=== PATIENT | female | born 1960 | race Caucasian/White ===

== ENCOUNTER → 2019-12-11 08:10 | Outpatient (BNVA) | payer OTHER, SELFPAY | PROVIDERS: PCP Internal Medicine; Referring Provider Internal Medicine; Visit Provider Physician Assistant | DX: E66.9 Obesity, unspecified (principal); Z98.84 Bariatric surgery status; Z79.899 Other long term (current) drug therapy; Z68.32 Body mass index [BMI] 32.0-32.9, adult | CPT/HCPCS: 99214 ==

== ENCOUNTER → 2020-02-15 08:10 | Outpatient (BNVA) | payer OTHER, SELFPAY | PROVIDERS: PCP Internal Medicine; Visit Provider Dietitian, Registered | DX: Z76.89 Persons encountering health services in other specified circumstances (principal) ==

== ENCOUNTER → 2020-04-13 08:16 | Outpatient (BNVA) | payer OTHER, SELFPAY | PROVIDERS: PCP Internal Medicine; Visit Provider Physician Assistant ==

== ENCOUNTER → 2020-06-01 08:10 | Outpatient (BNVA) | payer OTHER, SELFPAY | PROVIDERS: PCP Internal Medicine; Visit Provider Physician Assistant ==

== ENCOUNTER 2020-06-16 11:57 | Outpatient (REF) | payer OTHER, SELFPAY | END 2020-06-16 11:58 | disposition home or self-care (01) | LOC: HO.HMGCLDS 11:57 | PROVIDERS: PCP Internal Medicine; Visit Provider Internal Medicine | DX: Z20.822 Contact with and (suspected) exposure to COVID-19 (principal) | CPT/HCPCS: C9803; U0003; U0005 ==

== ENCOUNTER 2022-11-04 00:01 | Emergency (ER) | payer OTHER, SELFPAY ==
[2022-11-04 00:14] VITALS: BP 133/72; PULSE 86; RESP 16; TEMP 36.7; O2SAT 95; BMI 38.6
--- OUTSIDE RECORDS SUMMARY | 2022-11-04 01:33 | XMS_ITS | Continuity of Care Document ---
Author Name Unknown Organization [facility] Oskar May Kayode lt Address [address] [place] [phone]- Care Team Providers Care Sales Operations Lead Name Role Phone Rafiq Arteaga Primary Care Physi kateryna [facility]counter [facility] Date(s): 09/07/22 - 10/07/22 [facility] [address] [place] [address]- Allergies, Adverse Reactions, Alerts Substance Reaction Severity Status Cats Active Dust Active Pollen Active Immunizations Given and Recorded Vaccine Date Status Refusal Reason SARS-CoV-2 (COVID-19) mRNA-1273 vaccine 07/27/21 R ecorded SARS-CoV-2 (COVID-19) mRNA BNT-162b2 vac 01/25/21 Recorded influenza virus vaccine, inactivated 01/02/21 Eyad rded influenza virus vaccine, inactivated 11/21/18 Give n influenza virus vaccine, inactivated 01/06/15 Eyad rded Influenza Virus Vaccine (oldterm) 12/09/19 Recorde d Influenza Virus Vaccine (oldterm) 12/05/16 Recorde d Influenza Virus Vaccine (oldterm) 01/30/16 Recorde d Influenza Virus Vaccine (oldterm) 12/13/11 Recorde d Influenza Virus Vaccine (oldterm) 11/24/10 Recorde d zoster vaccine, inactivated 03/13/19 Recorded zoster vaccine, inactivated 12/19/18 Recorded tetanus/diphtheria/pertussis, acel(Tdap) 11/01/10 Recorded pneumococcal 23-valent vaccine 11/01/10 Recorded Medications Advair Diskus 250 mcg-50 mcg inhalation powder 1, inhalation, Inhalation, 2 times a day, rinse mouth and throat after use, # 1 each, Refills 5, Tot. Refills 5, Maintenance, 04/23/22 14:38:00 EST, Powder, Route to Pharmacy Electronically, [id number], [facility], I... Start Date: 04/23/22 Status: Ordered Aerochamber See Instructions, # 1 each, Maintenance, for use with Flovent, 02/09/19 13:37:15 EST, Compound, 163.5, cm, 02/09/19 13:07:26 EST, Height Start Date: 02/09/19 Status: Ordered Ativan 0.5 mg oral tablet See Instructions, PRN as needed for anxiety, Take 1 tablet as needed for anxiety, do not take more than 2 tablets/day, # 30 tablet, 0 Refills, Maintenance, 04/23/22 11:16:00 EST, Tablet, [facility] # 50, Partial fill upon patient request if the pr... Start Date: 04/23/22 Status: Ordered azelastine 137 mcg/inh (0.1%) nasal spray 2 sprays, Nares, Both, Daily, PRN Other Allergies, # 30 mL, 6 Refills, Maintenance, 10/05/21 13:14:00 EDT, [place], [facility] # 50, 2 sprays Nares, Both Daily,PRN:Other Allergies, 163.5, cm, 08/21/21 13:35:00 EDT, Height Start Date: 10/05/21 Status: Ordered buPROPion 300 mg/24 hours (XL) oral tablet, extended release 1 tablet = 300 mg, By Mouth, Daily, # 90 tablet, 2 Refills, Maintenance, 06/25/22 9:06:00 EDT, ER Tablet, [facility] # 50, Partial fill upon patient request if the prescription is for a schedule II opioid drug., 162, cm, 06/25/22 8:34:00 EDT, [place]... Start Date: 06/25/22 Status: Ordered duloxetine 60 mg oral enteric coated capsule 1 capsule, By Mouth, 2 times a day, # 60 capsule, 5 Refills, 04/09/22 16:24:00 EST, [facility] # [facility], 163.5, cm, 03/09/22 13:18:00 EST, Height Start Date: 04/09/22 Status: Ordered Estrace Vaginal Cream 0.1 mg/g See Instructions, 1 gram Vaginally at bedtime 2 times per week, # 42 Gm, 4 Refills, Maintenance, 03/16/21 10:21:00 EST, [facility], Patient sensitive to inactive ingredients ofmanufacturers drugs, 163.5, cm, 12/12/20 16:09:00... Start Date: 03/16/21 Status: Ordered ESTRIOL CREAM ESTRIOL CREAM, Refills 0, Maintenance, APPLY PEA SIZE AMOUNT 3 TIMES A WEEK (M, W, F), 11/21/18 14:27:53 EDT, Compound Start Date: 11/21/18 Status: Ordered gabapentin 600 mg oral tablet 1 tablet, By Mouth, 3 times a day, office visit needed for further refills, # 270 tablet, 1 Refills, Maintenance, 08/14/22 12:36:00 EDT, [facility] # [facility], 162, cm, 08/08/22 11:26:00 EDT, Height, 102, kg, 05/21/22 10:37:00 EDT, Dry Weight Start Date: 08/14/22 Status: Ordered lidocaine-prilocaine 2.5%-2.5% topical cream 1 application, Topically, Once, # 30 Gm, 1 Refills, Soft Stop, 10/04/22 16:32:00 EDT, Cream, [facility] # 50, Partial fill upon patient request if the prescription is for a schedule II opioid drug., 1 application Topically Once, 162, cm, 09/24/22... Start Date: 10/04/22 Status: Ordered lysine 1000 mg oral tablet 1 tablet = 1,000 mg, By Mouth, Daily, 0 Refills, Maintenance, 05/22/19 11:18:00 EDT Start Date: 05/22/19 Status: Ordered Melatonin By Mouth, Daily at bedtime, 0 Refills, Maintenance Start Date: 01/15/12 Status: Ordered montelukast 10 mg oral tablet 10 mg, 1, tablet, By Mouth, Daily, j45.40, # 30 tablet, Refills 6, Tot. Refills 6, Maintenance, 06/04/22 10:20:00 EDT, Route to Pharmacy Electronically, [facility] # [facility], 162, cm, 05/21/22 10:37:00 EDT, Height, 102, kg, 05/21/22 10:37:00 EDT, Dry W... Start Date: 06/04/22 Status: Ordered Myrbetriq 50 mg oral tablet, extended release 1 tablet = 50 mg, By Mouth, Daily, # 30 tablet, 0 Refills, Maintenance, 10/03/22 16:34:00 EDT, [facility] # 50, 162, cm, 09/24/22 12:53:00 EDT, Height, 102, kg, 05/21/22 10:37:00 EDT, Dry Weight Start Date: 10/03/22 Status: Ordered ohm Allergy Relief 10 mg oral tablet See Instructions, TAKE 1 TABLET BY MOUTH EVERY DAY, # 90 tablet, 1 Refills, Maintenance, 06/25/22 9:15:00 EDT, [facility] # [facility], 162, cm, 06/25/22 8:34:00 EDT, Height, 102, kg, 05/21/22 10:37:00 EDT, Dry Weight Start Date: 06/25/22 Status: Ordered traZODone 50 mg oral tablet 50 mg, 1, tablet, By Mouth, Daily at bedtime, for 30 days, # 30 tablet, Refills 5, Tot. Refills 5, Physician Stop 12/22/22 9:07:00 EDT, 06/25/22 9:07:00 EDT, Route to Pharmacy Electronically, [facility] # 50, 162, cm, 06/25/22 8:34:00 EDT, Height,... Start Date: 06/25/22 Stop Date: 12/22/22 Status: Ordered Tylenol Extra Strength 500 mg oral tablet 2 tablet = 1,000 mg, By Mouth, Every 6 hours, 0 Refills, Maintenance, 05/22/19 11:12:00 EDT Start Date: 05/22/19 Status: Ordered valACYclovir 500 mg oral tablet 500 mg, 1, tablet, By Mouth, Daily, drink plenty of fluids, # 90 tablet, Refills 0, Tot. Refills 0,Maintenance, 06/25/22 9:11:00 EDT, Route to Pharmacy Electronically, [facility] # 50, Partial fill upon patient request if the prescription is for... Start Date: 06/25/22 Status: Ordered Vitamin C 500 mg oral tablet 1 tablet = 500 mg, By Mouth, Daily, # 30 tablet, 0 Refills, Maintenance, 10/23/18 8:24:54 EDT, Tablet Start Date: 10/23/18 Status: Ordered Vitamin D3 1000 intl units oral capsule 1 capsule = 25 mcg, By Mouth, Daily, # 30 capsule, 3 Refills, Maintenance, 06/25/22 9:06:00 EDT, [facility], Partial fill upon patient request if the prescription is for a schedule II opioiddrug., 162, cm, 06/25/22 8:34:00 EDT, Height, 102,... 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 Active Asthma Confirmed Active Dyslipidemia Confirmed Active Excessive vitamin B12 intake Confirmed Active Excessive vitamin B6 intake Confirmed Active Rectocele, female Confirmed Active Chronic hip pain Confirmed Active Mixded urinary Incontinence Confirmed Active Insomnia Confirmed Active Intervertebral disc prolapse with impingement Confirmed Active Lumbosacral radiculopathy at L5 epidural Oct 2021 Confirmed Active Major depression in full remission Confirmed Active MONICA (obstructive sleep apnea) AHI 9.2 Confirmed 08/07/20 Active Osteoarthritis of right hip Confirmed Active Osteopenia bmd 2020 Confirmed Active Peripheral neuropathy Confirmed Active Lumbar herniated disc Confirmed Active Recurrent UTI Confirmed Active Seasonal allergies Confirmed Active Severe obesity (BMI 35.0-39.9) with comorbidity Confirmed Active Vertigo Confirmed Active Social History Social History Type Response Smoking Status Never (less than 100 in lifetime) entered on: 11/21/18 Sex Patient Care team information Care Team Personnel Name: Eleazar Rendon NP Position: [facility] PCO w/OE and EZ Script Member Role: Primary Care Nurse Address: Address: [address] [place] [address] [place] [address]- Name: Rafiq Arteaga Position: [facility] PCO Associate Professional Member Role: PCP Address: Address: [address] [facility] [place] [address]- Care Team Related Persons Name: LEWIS BALLESTEROS Address: home [address] [place] [id number] Name: RUSTY HOOVER
--- OUTSIDE RECORDS SUMMARY | 2022-11-04 01:33 | XMS_ITS | Continuity of Care Document ---
Author Name Unknown Organization [facility] Oskar May Kayode lt Address [address] [place] [id number]- Care Team Providers Care Camouflage Assembler Name Role Phone Rafiq Arteaga Primary Care Physi kateryna [facility]counter [facility] Date(s): 09/19/22 - 10/19/22 [facility] [address] [place] [address]- Allergies, Adverse Reactions, Alerts Substance Reaction Severity [...] 14:38:00 EST, Powder, Route to Pharmacy Electronically, [id number], [facility] # [facility], I... Start Date: 04/23/22 [...] 0 Refills, Maintenance, 04/23/22 11:16:00 EST, Tablet, [facility] # 50, Partial fill upon patient request if the pr... Start Date: 04/23/22 Status: Ordered azelastine 137 mcg/inh (0.1%) nasal spray 2 sprays, Nares, Both, Daily, PRN Other Allergies, # 30 mL, 6 Refills, Maintenance, 10/05/21 13:14:00 EDT, [place], [facility] # 50, 2 sprays Nares, Both Daily,PRN:Other Allergies, 163.5, cm, 08/21/21 13:35:00 EDT, Height Start Date: 10/05/21 Status: Ordered buPROPion 300 mg/24 hours (XL) oral tablet, extended release 1 tablet = 300 mg, By Mouth, Daily, # 90 tablet, 2 Refills, Maintenance, 06/25/22 9:06:00 EDT, ER Tablet, [facility] # 50, Partial fill upon patient request if the prescription is for a schedule II opioid drug., 162, cm, 06/25/22 8:34:00 EDT, [place]... Start Date: 06/25/22 Status: Ordered duloxetine 60 mg oral enteric coated capsule 1 capsule, By Mouth, 2 times a day, # 60 capsule, 5 Refills, 04/09/22 16:24:00 EST, [facility] # [facility], 163.5, cm, 03/09/22 13:18:00 EST, Height Start Date: 04/09/22 Status: Ordered Estrace Vaginal Cream 0.1 mg/g See Instructions, 1 gram Vaginally at bedtime 2 times per week, # 42 Gm, 4 Refills, Maintenance, 03/16/21 10:21:00 EST, [facility], Patient sensitive to inactive ingredients ofmanufacturers drugs, 163.5, cm, 12/12/20 16:09:00... Start Date: 03/16/21 Status: Ordered Estrace Vaginal Cream 0.1 mg/g See Instructions, 1 gram Vaginally at bedtime twice per week, # 42 Gm, 4 Refills, Maintenance, 10/08/22 11:23:00 EDT, [facility] # [facility], Partial fill upon patient request if the prescription is fora schedule II opioid drug., 162, cm, 09/24/22 12:5... Start Date: 10/08/22 Status: Ordered ESTRIOL CREAM ESTRIOL CREAM, Refills 0, Maintenance, APPLY PEA SIZE AMOUNT 3 TIMES A WEEK (M, W, F), 11/21/18 14:27:53 EDT, Compound Start Date: 11/21/18 Status: Ordered gabapentin 600 mg oral tablet 1 tablet, By Mouth, 3 times a day, office visit needed for further refills, # 270 tablet, 1 Refills, Maintenance, 08/14/22 12:36:00 EDT, [facility] # [facility], 162, cm, 08/08/22 11:26:00 EDT, Height, 102, kg, 05/21/22 10:37:00 EDT, Dry Weight Start Date: 08/14/22 Status: Ordered lidocaine-prilocaine 2.5%-2.5% topical cream 1 application, Topically, Once, # 30 Gm, 1 Refills, Soft Stop, 10/04/22 16:32:00 EDT, Cream, [facility] # 50, Partial fill upon patient [...] 06/04/22 10:20:00 EDT, Route to Pharmacy Electronically, [facility], 162, cm, 05/21/22 10:37:00 EDT, Height, 102, kg, 05/21/22 10:37:00 EDT, Dry W... Start Date: 06/04/22 Status: Ordered Myrbetriq 50 mg oral tablet, extended release 1 tablet = 50 mg, By Mouth, Daily, # 90 tablet, 3 Refills, Maintenance, 10/08/22 11:21:00 EDT, [facility] # [facility], 162, cm, 09/24/22 12:53:00 EDT, Height, 102, kg, 05/21/22 10:37:00 EDT, Dry Weight Start Date: 10/08/22 Status: Ordered ohm Allergy Relief 10 mg oral tablet See Instructions, TAKE 1 TABLET BY MOUTH EVERY DAY, # 90 tablet, 1 Refills, Maintenance, 06/25/22 9:15:00 EDT, [facility] # [facility], 162, cm, 06/25/22 8:34:00 EDT, Height, 102, kg, 05/21/22 10:37:00 EDT, Dry Weight Start Date: 06/25/22 Status: Ordered traZODone 50 mg oral tablet 50 mg, 1, tablet, By Mouth, Daily at bedtime, for 30 days, # 30 tablet, Refills 5, Tot. Refills 5, Physician Stop 12/22/22 9:07:00 EDT, 06/25/22 9:07:00 EDT, Route to Pharmacy Electronically, [facility] # [facility], 162, cm, 06/25/22 8:34:00 [...] 06/25/22 9:11:00 EDT, Route to Pharmacy Electronically, [facility], Partial fill upon [...] capsule, 3 Refills, Maintenance, 06/25/22 9:06:00 EDT, [facility], Partial fill upon [...] Team Personnel Name: Eleazar Rendon NP Position: [facility] PCO w/OE and EZ Script Member Role: Primary Care Nurse Address: Address: [address] [place] [address] [place] [address]- Name: Rafiq Arteaga Position: S PCO Associate Professional Member Role: PCP Address: Address: [address] [facility] [place] [address]- Care Team Related Persons Name: LEWIS BALLESTEROS Address: home [address] [place] [id number] Name: RUSTY HOOVER
--- OUTSIDE RECORDS SUMMARY | 2022-11-04 01:33 | XMS_ITS | Continuity of Care Document ---
Author Name Unknown Organization [facility] Address [address] [facility], [address] Floor, [address] [place] [address]- Care Team Providers Care Cash Management Associate Name Role Phone Deshawn BERNAL, Laurita Primary Care Physician Encounter [facility] Date(s): 03/29/20 - 04/28/20 [facility] [address], [address], [address] [place] [id number] Attending Physician: Admtr, [id number] Admitting Physician: Admtr, Ar8 Referring Physician: Admtr, Ar8 Allergies, Adverse Reactions, Alerts Substance Reaction Severity Status Cats Active Dust Active Pollen Active Immunizations Given and Recorded Vaccine Date Status Refusal Reason zoster vaccine, inactivated 03/13/19 Recorded zoster vaccine, inactivated 12/19/18 Recorded influenza virus vaccine, inactivated 11/21/18 Give n Influenza Virus Vaccine (oldterm) 12/05/16 Recorde d Influenza Virus Vaccine (oldterm) 01/30/16 Recorde d Influenza Virus Vaccine (oldterm) 12/13/11 Recorde d Influenza Virus Vaccine (oldterm) 11/24/10 Recorde d tetanus/diphtheria/pertussis, acel(Tdap) 11/01/10 Recorded pneumococcal 23-valent vaccine 11/01/10 Recorded Medications Aerochamber See Instructions, # 1 each, Maintenance, for use with Flovent, 02/09/19 13:37:15 EST, Compound, 163.5, cm, 02/09/19 13:07:26 EST, Height Start Date: 02/09/19 Status: Ordered albuterol CFC free 90 mcg/inh inhalation aerosol 2, puffs, Inhalation, 4 times a day, PRN, use with spacer chamber as directed 15 minutes before exercise, # 1 each, Refills 3, Tot. Refills 3, Maintenance, 02/09/19 13:37:40 EST, Route to Pharmacy Electronically, [id number]... Start Date: 02/09/19 Status: Ordered buPROPion 150 mg/24 hours (XL) oral tablet, extended release 1 tablet = 150 mg, By Mouth, Every 24 hours, # 30 tablet, 5 Refills, Maintenance, 04/20/20 8:24:00 EST, ER Tablet, [facility] # [facility], Partial fill upon patient request if the prescription is for a schedule II opioid drug., 1 tablet By Mouth Every 24... Start Date: 04/20/20 Status: Ordered Cranberry oral tablet 0 Refills, Maintenance, 10/23/18 9:18:41 EDT Start Date: 10/23/18 Status: Ordered diclofenac sodium 25 mg oral delayed release tablet 1 tablet, By Mouth, 2 times a day, # 60 Unknown, 1 Refills, Maintenance, 12/17/19 15:03:00 EDT, [facility], 163.5, cm, 11/03/19 11:52:00 EDT, Height, 91, kg, 07/23/19 11:11:00 EDT, Dry Weight Start Date: 12/17/19 Status: Ordered Estrace Vaginal Cream 0.1 mg/g See Instructions, 1 gram Vaginally at bedtime 2 times per week, # 42 Gm, 4 Refills, Maintenance, 03/23/20 16:57:00 EST, [facility], Patient sensitive to inactive ingredients ofmanufacturers drugs, 163.5, cm, 03/23/20 16:35:00... Start Date: 03/23/20 Status: Ordered ESTRIOL CREAM ESTRIOL CREAM, Refills 0, Maintenance, APPLY PEA SIZE AMOUNT 3 TIMES A WEEK (M, W, F), 11/21/18 14:27:53 EDT, Compound Start Date: 11/21/18 Status: Ordered Flovent HFA 44 mcg/inh inhalation aerosol 2 puffs = 88 mcg, Inhalation, 2 times a day, # 3 each, 3 Refills, Maintenance, 09/30/19 10:56:00 EDT, Inhaler, [facility] # [facility], 163.5, cm, 09/30/19 9:33:00 EDT, Height, 91, kg, 07/23/19 11:11:00 EDT, Dry Weight Start Date: 09/30/19 Status: Ordered FLUoxetine 40 mg oral capsule 1 capsule = 40 mg, By Mouth, Every 48 hours, # 30 capsule, 3 Refills, Maintenance, 04/19/20 8:46:00EST, Capsule, [facility] # [facility], Partial fill upon patient request if the prescription is for a schedule II opioid drug., 163.5, cm, 04/08/20 8:37:00... Start Date: 04/19/20 Status: Ordered gabapentin 600 mg oral tablet 1 tablet, By Mouth, 3 times a day, # 270 tablet, 1 Refills, Maintenance, 11/19/19 8:38:00 EDT, [facility] # [facility], 163.5, cm, 11/03/19 11:52:00 EDT, Height, 91, kg, 07/23/19 11:11:00 EDT, Dry Weight Start Date: 11/19/19 Status: Ordered lactulose 10 gm/15 ml oral syrup 15 mL = 10 Gm, By Mouth, Daily, This is correct dose., # 450 mL, 5 Refills, Maintenance, 06/25/19 9:18:00 EDT, Syrup, [facility] # [facility], 15 mL By Mouth Daily,Instr:This is correct dose., 163.5, cm,06/03/19 11:17:00 EDT, Height Start Date: 06/25/19 Status: Ordered lidocaine-prilocaine 2.5%-2.5% topical cream 1 application, Topically, Once, # 30 Gm, 1 Refills, Soft Stop, 03/08/20 8:14:00 EST, Cream, [facility], Partial fill upon patient request, 1 application Topically Once, 163.5, cm, 01/11/20 14:45:00 EST, Height, 91, kg, 07/23/19 11:11:00 EDT,... Start Date: 03/08/20 Status: Ordered loratadine 10 mg oral tablet 10 mg, 1, tablet, By Mouth, Daily, # 90 tablet, Refills 3, Tot. Refills 3, Maintenance, 10/27/19 18:22:00 EDT, Route to Pharmacy Electronically, [facility], Rx resent from 09/30/19., 163.5, cm, 10/08/19 11:19:00 EDT, Height, 91, kg, 07/23/19 11... Start Date: 10/27/19 Status: Ordered lysine 1000 mg oral tablet 1 tablet = 1,000 mg, By Mouth, Daily, 0 Refills, Maintenance, 05/22/19 11:18:00 EDT Start Date: 05/22/19 Status: Ordered Melatonin By Mouth, Daily at bedtime, 0 Refills, Maintenance Start Date: 01/15/12 Status: Ordered montelukast 10 mg oral tablet 10 mg, 1, tablet, By Mouth, Daily, j45.40, # 30 tablet, Refills 5, Tot. Refills 5, Maintenance, 01/13/20 12:44:00 EST, Route to Pharmacy Electronically, [facility], Refills per PCP, 163.5, cm, 01/11/20 14:45:00 EST, Height, 91, kg, 07/23/19 1... Start Date: 01/13/20 Status: Ordered Myrbetriq 50 mg oral tablet, extended release 1 tablet = 50 mg, By Mouth, Daily, # 30 tablet, 11 Refills, Maintenance, 07/23/19 11:40:00 EDT, [facility] # [facility], 163.5, cm, 07/23/19 11:11:00 EDT, Height, 91, kg, 07/23/19 11:11:00 EDT, Dry Weight Start Date: 07/23/19 Status: Ordered traMADol 50 mg oral tablet 1 tablet = 50 mg, By Mouth, Every 12 hours, # 42 tablet, 0 Refills, Maintenance, 11/03/19 16:09:00 EDT, [facility] # [facility], 163.5, cm, 11/03/19 11:52:00 EDT, Height, 91, kg, 07/23/19 11:11:00 EDT, Dry Weight Start Date: 11/03/19 Status: Ordered traZODone 50 mg oral tablet 50 mg, 1, tablet, By Mouth, Daily at bedtime, # 30 tablet, Refills 5, Tot. Refills 5, Maintenance, 12/04/19 12:51:00 EDT, Route to Pharmacy Electronically, [facility], 163.5, cm, 11/03/19 11:52:00 EDT, Height, 91, kg, 07/23/19 11:11:00 EDT, D... Start Date: 12/04/19 Stop Date: 06/01/20 Status: Ordered Tylenol Extra Strength 500 mg oral tablet 2 tablet = 1,000 mg, By Mouth, Every 6 hours, 0 Refills, Maintenance, 05/22/19 11:12:00 EDT Start Date: 05/22/19 Status: Ordered Vitamin C 500 mg oral tablet 1 tablet = 500 mg, By Mouth, Daily, # 30 tablet, 0 Refills, Maintenance, 10/23/18 8:24:54 EDT, Tablet Start Date: 10/23/18 Status: Ordered Vitamin D2 2000 intl units oral capsule 1 capsule = 2,000 International_Units, By Mouth, Daily, with food, # 60 capsule, 0 Refills, Maintenance, 05/22/19 11:13:00 EDT, Capsule Start Date: 05/22/19 Status: Ordered Problem List Condition Effective Dates Status Health Status Inform ant Abdominal bloating(Confirmed) Active AP (abdominal pain)(Confirmed) Active Accidental fall(Confirmed) Active Allergic rhinitis(Confirmed) Active Temporomandibular joint (TMJ ) disorder (Left)(Confirmed) 1 Active Temporomandibular joint (TMJ ) disorder (Righrt)(Confirmed) 2 Active Asthma(Confirmed) Active Overactive bladder(Confirmed) Active Cervicogenic headache(Confirmed) Active Chronic back pain(Confirmed) Active Chronic neck pain(Confirmed) Active Chronic pain syndrome back,hips(Confirmed) Active 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) Active Constipation(Confirmed) Active Difficulty balancing(Confirmed) Active Dyslipidemia(Confirmed) Active Shortness of breath(Confirmed) Active Bruises easily(Confirmed) Active Excessive vitamin B12 intake(Confirmed) Active Excessive vitamin B6 intake(Confirmed) Active Excessive vitamin intake(Confirmed) 3 Active Stress at home(Confirmed) Active Female stress incontinence(Confirmed) Active History of back pain(Confirmed) Active Bilateral hand pain(Confirmed) Active Headache(Confirmed) Active Rectocele, female(Confirmed) Active Right hip pain(Confirmed) Active Chronic hip pain(Confirmed) Active Mixded urinary Incontinence(Confirmed) Active Insomnia(Confirmed) Active Intervertebral disc prolapse with impingement(Confirmed) Active Leukocytes in urine(Confirmed) Active Lumbosacral radiculopathy at L5(Confirmed) Active Depression, major(Confirmed) Active Urinary incontinence, mixed(Confirmed) Active Morbid obesity(Confirmed) Active Yeast infection(Confirmed) Active MONICA (obstructive sleep apnea)(Confirmed) Active Pain of great toe(Confirmed) Active Peripheral neuropathy(Confirmed) Active Lumbar herniated disc(Confirmed) Active Proteinuria(Confirmed) Active Recurrent UTI(Confirmed) Active Sciatica(Confirmed) Active Seasonal allergies(Confirmed) Active Right shoulder pain(Confirmed) Active Snoring(Confirmed) Active Back spasm(Confirmed) Active Tinnitus(Confirmed) Active URI (upper respiratory infection)(Confirmed) Active Sensory urge incontinence(Confirmed) Active Vertigo(Confirmed) Active Vitamin D deficiency(Confirmed) Active 1left side 2right side 3vitamin C in pt susceptible to nephrolithiasis Social History Social History Type Response Smoking Status Never (less than 100 in lifetime) entered on: 11/21/18 Sex
--- OUTSIDE RECORDS SUMMARY | 2022-11-04 01:33 | XMS_ITS | Continuity of Care Document ---
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 Role Phone Susan AVENDANO, Orlando Quintanilla Primary Care Physician Encounter [facility] Date(s): 07/18/20 - 08/17/20 [facility] Adult [address] [place] [address]- Allergies, Adverse Reactions, Alerts Substance Reaction Severity Status Cats Active Dust Active Pollen Active Immunizations Given and Recorded Vaccine Date Status Refusal Reason Influenza Virus Vaccine (oldterm) 12/09/19 Recorde d Influenza Virus Vaccine (oldterm) 12/05/16 Recorde d Influenza Virus Vaccine (oldterm) 01/30/16 Recorde d Influenza Virus Vaccine (oldterm) 12/13/11 Recorde d Influenza Virus Vaccine (oldterm) 11/24/10 Recorde d zoster vaccine, inactivated 03/13/19 Recorded zoster vaccine, inactivated 12/19/18 Recorded influenza virus vaccine, inactivated 11/21/18 Give n tetanus/diphtheria/pertussis, acel(Tdap) 11/01/10 Recorded pneumococcal 23-valent vaccine [...] 02/09/19 13:37:40 EST, Route to Pharmacy Electronically, [id number]... Start Date: 02/09/19 Status: Ordered buPROPion 300 mg/24 hours (XL) oral tablet, extended release 1 tablet = 300 mg, By Mouth, Daily, # 30 tablet, 11 Refills, Maintenance, 05/11/20 13:04:00 EDT, ERTablet, [facility] # [facility], Partial fill upon patient request if the prescription is for a schedule II opioid drug., 163.5, cm, 05/11/20 12:40:00 EDT,... Start Date: 05/11/20 Status: Ordered Cranberry oral tablet 0 Refills, Maintenance, 10/23/18 9:18:41 EDT Start Date: 10/23/18 Status: Ordered diclofenac sodium 75 mg oral delayed release tablet 1 tablet = 75 mg, By Mouth, 2 times a day, # 60 tablet, 0 Refills, Maintenance, 06/10/20 11:18:00 EDT, EC Tablet, Partial fill upon patient request if the prescription is for a schedule II opioid drug. Start Date: 06/10/20 Status: Ordered duloxetine 60 mg oral enteric coated capsule 1 capsule = 60 mg, By Mouth, 2 times a day, # 60 capsule, 5 Refills, Maintenance, 08/11/20 11:15:00EDT, EC Capsule, [facility] # [facility], Partial fill upon patient request if the prescription is for a schedule II opioid drug., 163.5, cm, 08/11/20 10:3... Start Date: 08/11/20 Status: Ordered Estrace Vaginal Cream 0.1 mg/g See Instructions, 1 gram Vaginally at bedtime 2 times per week, # 42 Gm, 4 Refills, Maintenance, 03/23/20 16:57:00 EST, [facility], Patient sensitive to inactive ingredients ofmanufacturers drugs, [...] 3 Refills, Maintenance, 09/30/19 10:56:00 EDT, Inhaler, [facility] # [facility], 163.5, cm, 09/30/19 9:33:00 EDT, Height, 91, kg, 07/23/19 11:11:00 EDT, Dry Weight Start Date: 09/30/19 Status: Ordered gabapentin 600 mg oral tablet 1 tablet, By Mouth, 3 times a day, # 270 Unknown, 1 Refills, Maintenance, 05/24/20 16:58:00 EDT, [facility] # [facility], 163.5, cm, 05/14/20 23:20:00 EDT, Height, 91, kg, 07/23/19 11:11:00 EDT, Dry Weight Start Date: 05/24/20 Status: Ordered lidocaine-prilocaine 2.5%-2.5% topical cream 1 application, Topically, Once, # 30 Gm, 1 Refills, Soft Stop, 03/08/20 8:14:00 EST, Cream, [facility] # 50, Partial fill upon patient request, 1 application Topically Once, 163.5, cm, 01/11/20 14:45:00 EST, Height, 91, kg, 07/23/19 11:11:00 EDT,... Start Date: 03/08/20 Status: Ordered loratadine 10 mg oral tablet 10 mg, 1, tablet, By Mouth, Daily, # 90 tablet, Refills 3, Tot. Refills 3, Maintenance, 10/27/19 18:22:00 EDT, Route to Pharmacy Electronically, [facility] # [facility], Rx resent from 09/30/19., 163.5, cm, 10/08/19 11:19:00 EDT, Height, 91, kg, 07/23/19 11... Start Date: 10/27/19 Status: Ordered lubiprostone 24 mcg oral capsule 1 capsule, By Mouth, 2 times a day, # 60 Unknown, 0 Refills, Maintenance, 07/19/20 15:52:00 EDT, [facility] # [facility], 163.5, cm, 06/16/20 7:48:00 EDT, Height, 91, kg, 07/23/19 11:11:00 EDT, Dry Weight Start Date: 07/19/20 Status: Ordered lysine 1000 mg oral tablet 1 tablet = 1,000 mg, By Mouth, Daily, 0 Refills, Maintenance, 05/22/19 11:18:00 EDT Start Date: 05/22/19 Status: Ordered Melatonin By Mouth, Daily at bedtime, 0 Refills, Maintenance Start Date: 01/15/12 Status: Ordered montelukast 10 mg oral tablet 10 mg, 1, tablet, By Mouth, Daily, j45.40, # 30 tablet, Refills 3, Tot. Refills 3, Maintenance, 07/12/20 11:39:00 EDT, Route to Pharmacy Electronically, [facility] # [facility], Refills per PCP, 163.5, cm, 06/16/20 7:48:00 EDT, Height, 91, kg, 07/23/19 11... Start Date: 07/12/20 Status: Ordered Myrbetriq 50 mg oral tablet, extended release 1 tablet = 50 mg, By Mouth, Daily, # 30 tablet, 11 Refills, Maintenance, 08/11/20 16:47:00 EDT, [facility] # [facility], 163.5, cm, 08/11/20 10:34:00 EDT, Height, 91, kg, 07/23/19 11:11:00 EDT, Dry Weight Start Date: 08/11/20 Status: Ordered traZODone 50 mg oral tablet 2, tablet, By Mouth, Daily at bedtime, # 60 tablet, Refills 5, Tot. Refills 0, Maintenance, 07/28/20 15:52:00 EDT, Route to Pharmacy Electronically, [facility] # [facility], 163.5, cm, 06/16/20 7:48:00 EDT, Height, 91, kg, 07/23/19 11:11:00 EDT, Dry Weight Start Date: 07/28/20 Status: Ordered Tylenol Extra Strength 500 mg [...] Effective Dates Status Health Status Inform ant Allergic rhinitis(Confirmed) Active Temporomandibular joint (TMJ ) disorder (Left)(Confirmed) 1 Active Temporomandibular joint (TMJ ) disorder (Righrt)(Confirmed) 2 Active Asthma(Confirmed) Active Overactive bladder(Confirmed) Active Cervicogenic headache(Confirmed) Active Constipation, chronic(Confirmed) Active 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) Active Difficulty balancing(Confirmed) Active Excessive vitamin B12 intake(Confirmed) Active Excessive vitamin B6 intake(Confirmed) Active Excessive vitamin intake(Confirmed) 3 Active Stress at home(Confirmed) Active Female stress incontinence(Confirmed) Active Rectocele, female(Confirmed) Active Right hip pain(Confirmed) Active Chronic hip pain(Confirmed) Active Mixded urinary Incontinence(Confirmed) Active Insomnia(Confirmed) Active Intervertebral disc prolapse with impingement(Confirmed) Active Abnormal liver function test(Confirmed) 08/08/20 Active Lumbosacral radiculopathy at L5(Confirmed) Active Depression, major(Confirmed) Active Urinary incontinence, mixed(Confirmed) Active Yeast infection(Confirmed) Active MONICA (obstructive sleep apnea ) AHI 9.2(Confirmed) 08/07/20 Active Osteoarthritis of right hip(Confirmed) Active Pain of great toe(Confirmed) Active Peripheral neuropathy(Confirmed) Active Lumbar herniated disc(Confirmed) Active Recurrent UTI(Confirmed) Active Seasonal allergies(Confirmed) Active Right shoulder pain(Confirmed) Active Tinnitus(Confirmed) Active Sensory urge incontinence(Confirmed) Active Vertigo(Confirmed) Active Vitamin D deficiency(Confirmed) Active 1left side 2right side 3vitamin C in pt susceptible to nephrolithiasis Social History Social History Type Response Smoking Status Never (less than 100 in lifetime) entered on: 11/21/18 Sex
--- OUTSIDE RECORDS SUMMARY | 2022-11-04 01:33 | XMS_ITS | Continuity of Care Document ---
Author Name Unknown Organization [facility] Oskar May Kayode lt Address [address] [place] [id number]- Care Team Providers Care Weighter Name Role Phone Rafiq Arteaga Primary Care Physi kateryna Encounter [facility] [place] Date(s): 08/08/22 - 08/15/22 [facility] Adult [address] [place] [address]- Encounter Diagnosis Asthma(Discharge Diagnosis) - 08/08/22 Chronic hip pain(Discharge Diagnosis) - 08/08/22 Excessive vitamin B12 intake(Discharge Diagnosis) - 08/08/22 Insomnia(Discharge Diagnosis) - 08/08/22 Major depression in full remission(Discharge Diagnosis) - 08/08/22 MONICA (obstructive sleep apnea) AHI 9.2(Discharge Diagnosis) - 08/08/22 Fatigue(Discharge Diagnosis) - 08/08/22 Attending Physician: Rafiq Arteaga Referring Physician: Juan J Gee MD Allergies, Adverse Reactions, Alerts Substance Reaction Severity [...] 14:38:00 EST, Powder, Route to Pharmacy Electronically, [id number], [facility] [...] mL, 6 Refills, Maintenance, 10/05/21 13:14:00 EDT, [place], [facility], 2 sprays Nares, Both Daily,PRN:Other Allergies, 163.5, cm, 08/21/21 13:35:00 EDT, Height Start Date: 10/05/21 Status: Ordered buPROPion 300 mg/24 hours (XL) oral tablet, extended release 1 tablet = 300 mg, By Mouth, Daily, # 90 tablet, 2 Refills, Maintenance, 06/25/22 9:06:00 EDT, ER Tablet, [facility] # [facility], Partial fill upon patient request if the prescription is for a schedule II opioid drug., 162, cm, 06/25/22 8:34:00 EDT, [place]... Start Date: 06/25/22 Status: Ordered duloxetine 60 [...] Refills, Maintenance, 03/16/21 10:21:00 EST, [facility], Patient sensitive to inactive ingredients ofmanufacturers drugs, [...] tablet, 1 Refills, Maintenance, 08/14/22 12:36:00 EDT, [facility] # [facility], 162, cm, 08/08/22 11:26:00 EDT, Height, 102, kg, 05/21/22 10:37:00 EDT, Dry Weight Start Date: 08/14/22 Status: Ordered lysine 1000 mg oral tablet [...] Daily, # 90 tablet, 3 Refills, Maintenance, 09/08/21 9:40:00 EDT, [facility], 163.5, cm, 08/21/21 13:35:00 EDT, Height Start Date: 09/08/21 Status: Ordered ohm Allergy Relief 10 mg [...] 06/25/22 9:11:00 EDT, Route to Pharmacy Electronically, [facility] [...] capsule, 3 Refills, Maintenance, 06/25/22 9:06:00 EDT, [facility] # [facility], Partial fill upon patient [...] in vagina Confirmed Active Asthma Confirmed Active Difficulty balancing Confirmed Active Dyslipidemia Confirmed Active Excessive vitamin B12 intake Confirmed Active Excessive vitamin B6 intake Confirmed Active Excessive vitamin intake 1 Confirmed Active Female stress incontinence Confirmed Active Rectocele, female Confirmed Active Chronic hip pain Confirmed Active Mixded urinary Incontinence Confirmed Active Insomnia Confirmed Active Intervertebral disc prolapse with impingement Confirmed Active Lumbosacral radiculopathy at L5 epidural Oct 2021 Confirmed Active Major depression in full remission Confirmed Active Depression, major Confirmed Active Urinary incontinence, mixed Confirmed Active MONICA (obstructive sleep apnea) AHI 9.2 Confirmed 08/07/20 Active Osteoarthritis of right hip Confirmed Active Osteopenia bmd 2020 Confirmed Active Pain of great toe Confirmed Active Peripheral neuropathy Confirmed Active Lumbar herniated disc Confirmed Active Recurrent UTI Confirmed Active Seasonal allergies Confirmed Active Severe obesity (BMI 35.0-39.9) with comorbidity Confirmed Active Sensory urge incontinence Confirmed Active Vertigo Confirmed Active 1vitamin C in pt susceptible to nephrolithiasis Diagnosis Diagnosis Type Effective Dates Health Status Clinical Service Informant Asthma Discharge Diagnosis 08/08/22 Chronic hip pain Discharge Diagnosis 08/08/22 Excessive vitamin B12 intake Discharge Diagnosis 08/08/22 Insomnia Discharge Diagnosis 08/08/22 Major depression in full remission Discharge Diagnosis 08/08/22 MONICA (obstructive sleep apnea) AHI 9.2 Discharge Diagnosis 08/08/22 Fatigue Discharge Diagnosis 08/08/22 Vital Signs Most recent to oldest [Reference Range]: 1 Height 162 cm (08/08/22 11:26 AM) Weight 102.5 kg (08/08/22 11:26 AM) Oxygen Saturation [94-100 %] 96 % (08/08/22 11:26 AM) Pulse Rate [55-90 bpm] 88 bpm (08/08/22 11:26 AM) Body Mass Index [18.5-24.99 kg/m2] 39.06 kg/m2 *>HHI* (08/08/22 11:26 AM) Blood Pressure [90-138/55-84 mm Hg] 114/ 73mm Hg (08/08/22 11:26 AM) Temperature [96.8-100.4 DegF] 97.9 DegF (08/08/22 11:26 AM) Mode of Delivery (Oxygen) Room air (08/08/22 11:26 AM) Blood pressure sites Arm, right (08/08/22 11:26 AM) Temperature Route Oral (08/08/22 11:26 AM) Weight Obtained Via Standing scale (08/08/22 11:26 AM) Social History Social History Type Response Smoking Status Never (less than 100 in lifetime) entered on: 11/21/18 Sex Note * Ashli Sorto: SIGN, VERIFY, PERFORM Event Display: Patient Education/Instruction Authored Date: [id number] [facility] *MILLIE Rivers Clinical Summary Name JUAN FRANCISCO BALLESTEROS Age 61 Years 1960 PCP Rafiq Arteaga PCP Visit Date 08/08/2022 11:17:00 Patient Instructions try going one every other day on trazodone. Then one every 3 days...etc until not taking this anymore. Additional Instructions: Scheduled Appointments?? Future Appointments ?*[facility] ?[address]??[place],??[place],??[address] ?Phone:??--?Fax:??-- ?Appt. Date:??09/10/2022?3:00 PM ?Scheduled Provider:??Talya Chow NP Follow-Up Instructions ?? With: Address: When: Rafiq Arteaga Comments: PHY Diagnosis Hyperlipidemia, unspecified Medications: Please continue your medications until treatment is completed or stopped by your provider. Discuss any questions related to medications with your provider. Medications to Continue with No Changes These medications were not printed or sent to your pharmacy Acetaminophen (Tylenol Extra Strength 500 mg oral tablet) 2 tab(s) Oral every 6 hours. Next Dose: Ascorbic Acid (Vitamin C 500 mg oral tablet) 1 tab(s) Oral Daily. Next Dose: Azelastine Nasal (azelastine 137 mcg/inh (0.1%) nasal spray) 2 spray(s) Nares, Both Daily as neededOther Allergies. Refills: 6. Next Dose: BuPROpion (buPROPion 300 mg/24 hours (XL) oral tablet, extended release) 1 tab(s) Oral Daily. Refills: 2. Next Dose: Cholecalciferol (Vitamin D3 1000 intl units oral capsule) 1 capsule Oral Daily. Refills: 3. Next Dose: Duloxetine (duloxetine 60 mg oral enteric coated capsule) 1 capsule Oral twice a day. Refills: 5. Next Dose: Durable Medical Equipment (Aerochamber) for use with Flovent. Refills: 0. Next Dose: Estradiol Topical (Estrace Vaginal Cream 0.1 mg/g) 1 gram Vaginally at bedtime 2 times per week. Refills: 4. Next Dose: Fluticasone-Salmeterol (Advair Diskus 250 mcg-50 mcg inhalation powder) 1 inhalation Inhalation twice a day. rinse mouth and throat after use. Refills: 5. Next Dose: Gabapentin (gabapentin 600 mg oral tablet) 1 tab(s) Oral 3 times a day. office visit needed for further refills. Refills: 1. Next Dose: Loratadine (ohm Allergy Relief 10 mg oral tablet) TAKE 1 TABLET BY MOUTH EVERY DAY. Refills: 1. Next Dose: Lorazepam (Ativan 0.5 mg oral tablet) Take 1 tablet as needed for anxiety, do not take more than 2 tablets/day; as needed as needed for anxiety. Refills: 0. Next Dose: Lysine (lysine 1000 mg oral tablet) 1 tab(s) Oral Daily. Next Dose: Melatonin Oral Daily at Bedtime. Next Dose: mirabegron (Myrbetriq 50 mg oral tablet, extended release) 1 tab(s) Oral Daily. Refills: 3. Next Dose: Miscellaneous Rx (ESTRIOL CREAM) APPLY PEA SIZE AMOUNT 3 TIMES A WEEK (M, W, F). Next Dose: Montelukast (montelukast 10 mg oral tablet) 1 tab(s) Oral Daily. j45.40. Refills: 6. Next Dose: Trazodone (traZODone 50 mg oral tablet) 1 tab(s) Oral Daily at Bedtime for 30 Days. Refills: 5. Next Dose: ValACYclovir (valACYclovir 500 mg oral tablet) 1 tab(s) Oral Daily. drink plenty of fluids. Refills: 0. Next Dose: Allergy Info:?? Pollen; Dust; Cats Medications Given This Visit Future Orders ?Vitamin B12 Level? Order Date:08/08/22?- Complete on or after?08/08/22 ?Hemoglobin A1C (Monitoring)? Order Date:08/08/22?- Complete on or after?08/08/22 ?TSH with T4 Reflex (Adults Only)? Order Date:08/08/22?- Complete on or after?08/08/22 ?Comprehensive Metabolic Panel? Order Date:08/08/22?- Complete on or after?08/08/22 ?Lipid Panel? Order Date:08/08/22?- Complete on or after?08/08/22 Vital Signs Height 162 cm Weight 102.5 kg BMI 39.06 kg/m2 Blood Pressure 114 mm Hg/73 mm Hg Temperature 97.9 DegF Pulse Rate 88 bpm Respiratory Rate 02 Sat Mode of Delivery 96 %/Room air You can now view a summary of your hospital visit from the comfort of your home through a free online portal called [facility]. [facility] is a website that allows you to securely view your medical information including discharge summary, medications and follow-up visits. ??You can alsosend a secure electronic message to your doctor???s office to request appointments, renew medications or just ask a question. You can enroll at [email or web address] or register during your next office visit. Disclaimer:?? The information provided is of a general nature and is intended to be used in conjunction with the recommendations and advice of your health care practitioner. ??Every effort has been made to ensure that the information provided is accurate and complete at the time it is provided to you however, as your needs change, or, as new ??information becomes available, different or additional instructions may be required. If you have questions, please consult with your primary care provider or pharmacist, as appropriate. ??This information is not intended to serve as substitution for assessment and evaluation by a qualified health care provider. If you do not have a primary care provider, you may find a [facility] provider by calling [facility] [employer] [facility] at [phone]. For information about the plan of care including goals and instructions for your diagnosis, please see the patient education orders section of this document. Patient Education Materials?? The content of this educational material or handout may have been modified, supplemented, or adapted from its original content and format to support your individualized medical care. Patient Care team information Care Team Personnel Name: Eleazar Rendon NP Position: [facility] PCO w/OE and EZ Script Member Role: Primary Care Nurse Address: Address: [address] [place] [address] [place] [address]- Name: Rafiq Arteaga [facility] Associate Professional Member Role: PCP Address: Address: [address] [place] [id number]- Care Team Related Persons Name: LEWIS BALLESTEROS Address: [address] [address] Name: RUSTY HOOVER
--- OUTSIDE RECORDS SUMMARY | 2022-11-04 01:33 | XMS_ITS | Continuity of Care Document ---
Author Name Unknown Organization [facility] Kayode lt Address [address] [place] [address]- Care Team Providers Care Repairer Veneer Sheet Name Role Phone Rafiq Arteaga Primary Care Physi kateryna Encounter [facility] [place] Date(s): 03/09/22 - 04/08/22 [facility] Adult [address] [place] [address]- Allergies, Adverse Reactions, Alerts Substance Reaction Severity [...] 23-valent vaccine 11/01/10 Recorded Medications Advair Diskus 100 mcg-50 mcg inhalation powder 1, inhalation, Inhalation, 2 times a day, rinse mouth and throat after use, # 1 each, Refills 1, Tot. Refills 1, Maintenance, 03/05/22 14:25:00 EST, Powder, Route to Pharmacy Electronically, [id number], [facility], 1... Start Date: 03/05/22 Status: Ordered Advair Diskus 250 mcg-50 mcg inhalation powder 1, inhalation, Inhalation, 2 times a day, rinse mouth and throat after use, # 1 each, Refills 0, Tot. Refills 0, Maintenance, 03/09/22 13:31:00 EST, Powder, Route to Pharmacy Electronically, [id number], [facility] # [facility], I... Start Date: 03/09/22 Status: Ordered Aerochamber See Instructions, # 1 each, Maintenance, for use with Flovent, 02/09/19 13:37:15 EST, Compound, 163.5, cm, 02/09/19 13:07:26 EST, Height Start Date: 02/09/19 Status: Ordered albuterol CFC free 90 mcg/inh inhalation aerosol 2, puffs, Inhalation, 4 times a day, PRN, use with spacer chamber as directed 15 minutes before exercise, # 1 each, Refills 3, Tot. Refills 3, Maintenance, 01/16/21 11:47:00 EST, Route to Pharmacy Electronically, [id number]... Start Date: 01/16/21 Status: Ordered Ativan 0.5 mg oral tablet See Instructions, PRN as needed for anxiety, Take 1 tablet as needed for anxiety, do not take more than 2 tablets/day, # 14 tablet, 0 Refills, Maintenance, 08/03/21 9:13:00 EDT, Tablet, [facility] # [facility], Partial fill upon patient request if the pre... Start Date: 08/03/21 Status: Ordered azelastine 137 mcg/inh (0.1%) nasal spray 2 sprays, Nares, Both, Daily, PRN Other Allergies, # 30 mL, 6 Refills, Maintenance, 10/05/21 13:14:00 EDT, [place], [facility], 2 sprays Nares, Both Daily,PRN:Other Allergies, 163.5, cm, 08/21/21 13:35:00 EDT, Height Start Date: 10/05/21 Status: Ordered buPROPion 300 mg/24 hours (XL) oral tablet, extended release 1 tablet = 300 mg, By Mouth, Daily, # 30 tablet, 5 Refills, Maintenance, 12/26/21 11:19:00 EDT, ER Tablet, [facility], Partial fill upon patient request if the prescription is for a scheduleII opioid drug., 163.5, cm, 08/21/21 13:35:00 EDT,... Start Date: 12/26/21 Status: Ordered Cranberry oral tablet 0 Refills, Maintenance, 10/23/18 9:18:41 EDT Start Date: 10/23/18 Status: Ordered duloxetine 60 mg oral enteric coated capsule 1 capsule, By Mouth, 2 times a day, # 60 capsule, 5 Refills, [facility], 163.5, cm, 08/21/21 13:35:00 EDT, Height Start Date: 09/18/21 Status: Ordered Estrace Vaginal Cream 0.1 mg/g See Instructions, 1 gram Vaginally at bedtime 2 times per week, # 42 Gm, 4 Refills, Maintenance, 03/16/21 10:21:00 EST, [facility], Patient sensitive to inactive ingredients ofmanufacturers drugs, [...] refills, # 270 tablet, 1 Refills, Maintenance, 03/05/22 13:21:00 EST, [facility], 163.5, cm, 03/05/22 12:50:00 EST, Height Start Date: 03/05/22 Status: Ordered lysine 1000 mg oral tablet 1 tablet = 1,000 mg, By Mouth, Daily, 0 Refills, Maintenance, 05/22/19 11:18:00 EDT Start Date: 05/22/19 Status: Ordered Melatonin By Mouth, Daily at bedtime, 0 Refills, Maintenance Start Date: 01/15/12 Status: Ordered montelukast 10 mg oral tablet 10 mg, 1, tablet, By Mouth, Daily, j45.40, # 30 tablet, Refills 6, Tot. Refills 6, Maintenance, 10/25/21 16:41:00 EDT, Route to Pharmacy Electronically, [facility], 163.5, cm, 08/21/21 13:35:00 EDT, Height Start Date: 10/25/21 Status: Ordered Myrbetriq 50 mg oral tablet, extended release 1 tablet = 50 mg, By Mouth, Daily, # 90 tablet, 3 Refills, Maintenance, 09/08/21 9:40:00 EDT, [facility] # 50, 163.5, cm, 08/21/21 13:35:00 EDT, Height Start Date: 09/08/21 Status: Ordered ohm Allergy Relief 10 mg oral tablet See Instructions, TAKE 1 TABLET BY MOUTH EVERY DAY, # 90 tablet, 1 Refills, Maintenance, 03/05/22 13:16:00 EST, [facility] # [facility], 163.5, cm, 03/05/22 12:50:00 EST, Height Start Date: 03/05/22 Status: Ordered traZODone 50 mg oral tablet 2, tablet, By Mouth, Daily at bedtime, # 60 tablet, Refills 5, Tot. Refills 5, 02/05/22 11:04:00 EST, Route to Pharmacy Electronically, [facility], 163.5, cm, 01/15/22 8:07:00 EST, Height Start Date: 02/05/22 Status: Ordered Tylenol Extra Strength 500 mg [...] mcg, By Mouth, Daily, # 30 capsule, 0 Refills, Maintenance, 01/12/21 17:02:00 EST, Partial fill upon patient request if the prescription is for a schedule II opioid drug. 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 Active Difficulty balancing Confirmed Active Excessive vitamin B12 intake Confirmed Active Excessive vitamin B6 intake Confirmed Active Excessive vitamin intake 3 Confirmed Active Stress at home Confirmed Active Female stress incontinence Confirmed Active Rectocele, female Confirmed Active Right hip pain Confirmed Active Chronic hip pain Confirmed Active Mixded urinary Incontinence Confirmed Active Insomnia Confirmed Active Intervertebral disc prolapse with impingement Confirmed Active Lumbosacral radiculopathy at L5 epidural Oct 2021 Confirmed Active Major depression in full remission Confirmed Active Depression, major Confirmed Active Urinary incontinence, mixed Confirmed Active Yeast infection Confirmed Active MONICA (obstructive sleep apnea) AHI 9.2 Confirmed 08/07/20 Active Osteoarthritis of right hip Confirmed Active Osteopenia bmd 2020 Confirmed Active Pain of great toe Confirmed Active Peripheral neuropathy Confirmed Active Lumbar herniated disc Confirmed Active Recurrent UTI Confirmed Active Seasonal allergies Confirmed Active Severe obesity (BMI 35.0-39.9) with comorbidity Confirmed Active Right shoulder pain Confirmed Active Tinnitus Confirmed Active Sensory urge incontinence Confirmed Active Vertigo Confirmed Active Vitamin D deficiency Confirmed Active 1left side 2right side 3vitamin C in pt susceptible to nephrolithiasis Social History Social History Type Response Smoking Status Never (less than 100 in lifetime) entered on: 11/21/18 Sex Patient Care team information Care Team Personnel Name: Eleazar Rendon NP Position: [facility] w/OE and EZ Script Member Role: Primary Care Nurse Address: Address: [address] [place] [address] [place] [address]- Name: Rafiq Arteaga Position: [facility] Associate Professional Member Role: PCP Address: Address: [address] [facility] [place] [address]- Care Team Related Persons Name: MARCELO BALLESTEROSEL Address: home [address] [place] [id number] Name: RUSTY HOOVER
--- OUTSIDE RECORDS SUMMARY | 2022-11-04 01:33 | XMS_ITS | Continuity of Care Document ---
Author Name Unknown Organization [facility] Oskar May Kayode lt Address [address] [place] [address]- Care Team Providers Care Injection Molder Name Role Phone Laurita Hess NP Primary Care Physician Encounter [facility] [place] Date(s): 04/08/20 - 04/15/20 [facility] [place] Adult [address] [place] [address]- Encounter Diagnosis Chronic back pain(Discharge Diagnosis) - 04/08/20 Chronic hip pain(Discharge Diagnosis) - 04/08/20 Peripheral neuropathy(Discharge Diagnosis) - 04/08/20 Depression(Discharge Diagnosis) - 04/08/20 Attending Physician: Laurita Hess NP Allergies, Adverse Reactions, Alerts Substance Reaction Severity [...] 02/09/19 13:37:40 EST, Route to Pharmacy Electronically, [id number]... Start Date: 02/09/19 Status: Ordered Cranberry oral tablet 0 Refills, Maintenance, 10/23/18 9:18:41 EDT Start Date: 10/23/18 Status: Ordered diclofenac sodium 25 mg oral delayed release tablet 1 tablet, By Mouth, 2 times a day, # 60 Unknown, 1 Refills, Maintenance, 12/17/19 15:03:00 EDT, [facility] # [facility], 163.5, cm, 11/03/19 11:52:00 EDT, Height, 91, kg, 07/23/19 11:11:00 EDT, Dry Weight Start Date: 12/17/19 Status: Ordered Estrace Vaginal Cream 0.1 mg/g See Instructions, 1 gram Vaginally at bedtime 2 times per week, # 42 Gm, 4 Refills, Maintenance, 03/23/20 16:57:00 EST, [facility], Patient sensitive to inactive ingredients ofmanufacturers drugs, [...] 3 Refills, Maintenance, 09/30/19 10:56:00 EDT, Inhaler, [facility] # [facility], 163.5, cm, 09/30/19 9:33:00 EDT, Height, 91, kg, 07/23/19 11:11:00 EDT, Dry Weight Start Date: 09/30/19 Status: Ordered FLUoxetine 20 mg oral capsule 3, capsule, By Mouth, Daily, # 270 capsule, Refills 3, Tot. Refills 3, Maintenance, 03/21/20 12:22:00 EST, Route to Pharmacy Electronically, [facility], 163.5, cm, 01/11/20 14:45:00 EST, Height, 91, kg, 07/23/19 11:11:00 EDT, Dry Weight Start Date: 03/21/20 Stop Date: 03/16/21 Status: Ordered gabapentin 600 mg oral tablet 1 tablet, By Mouth, 3 times a day, # 270 tablet, 1 Refills, Maintenance, 11/19/19 8:38:00 EDT, [facility] # [facility], 163.5, cm, 11/03/19 11:52:00 EDT, Height, 91, kg, 07/23/19 11:11:00 EDT, Dry Weight Start Date: 11/19/19 Status: Ordered lactulose 10 gm/15 ml oral syrup 15 mL = 10 Gm, By Mouth, Daily, This is correct dose., # 450 mL, 5 Refills, Maintenance, 06/25/19 9:18:00 EDT, Syrup, [facility] # [facility], 15 mL By Mouth Daily,Instr:This is correct dose., 163.5, cm,06/03/19 11:17:00 EDT, Height Start Date: 06/25/19 Status: Ordered lidocaine-prilocaine 2.5%-2.5% topical cream 1 application, Topically, Once, # 30 Gm, 1 Refills, Soft Stop, 03/08/20 8:14:00 EST, Cream, [facility] # 50, Partial fill upon patient request, 1 application Topically Once, 163.5, cm, 01/11/20 14:45:00 EST, Height, 91, kg, 07/23/19 11:11:00 EDT,... Start Date: 03/08/20 Status: Ordered loratadine 10 mg oral tablet 10 mg, 1, tablet, By Mouth, Daily, # 90 tablet, Refills 3, Tot. Refills 3, Maintenance, 10/27/19 18:22:00 EDT, Route to Pharmacy Electronically, [facility] # [facility], Rx resent from 09/30/19., [...] 01/13/20 12:44:00 EST, Route to Pharmacy Electronically, [facility] # [facility], Refills per PCP, 163.5, cm, 01/11/20 14:45:00 EST, Height, 91, kg, 07/23/19 1... Start Date: 01/13/20 Status: Ordered Myrbetriq 50 mg oral tablet, extended release 1 tablet = 50 mg, By Mouth, Daily, # 30 tablet, 11 Refills, Maintenance, 07/23/19 11:40:00 EDT, [facility] # [facility], 163.5, cm, 07/23/19 11:11:00 EDT, Height, 91, kg, 07/23/19 11:11:00 EDT, Dry Weight Start Date: 07/23/19 Status: Ordered traMADol 50 mg oral tablet 1 tablet = 50 mg, By Mouth, Every 12 hours, # 42 tablet, 0 Refills, Maintenance, 11/03/19 16:09:00 EDT, [facility] # [facility], 163.5, cm, 11/03/19 11:52:00 EDT, Height, 91, kg, 07/23/19 11:11:00 EDT, Dry Weight Start Date: 11/03/19 Status: Ordered traZODone 50 mg oral tablet 100 mg, 2, tablet, By Mouth, Daily at bedtime, # 60 tablet, Refills 5, Tot. Refills 5, Maintenance,12/04/19 12:51:00 EDT, Route to Pharmacy Electronically, [facility] # [facility], 163.5, cm, 11/03/19 11:52:00 EDT, Height, 91, kg, 07/23/19 11:11:00 EDT,... Start Date: 12/04/19 Stop Date: 06/01/20 Status: [...] back pain(Confirmed) Active Chronic neck pain(Confirmed) Active 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) Active Constipation(Confirmed) Active Depression(Confirmed) Active Difficulty balancing(Confirmed) Active Dyslipidemia(Confirmed) Active Shortness [...] urine(Confirmed) Active Lumbosacral radiculopathy at L5(Confirmed) Active Urinary incontinence, mixed(Confirmed) Active Morbid obesity(Confirmed) [...] 3vitamin C in pt susceptible to nephrolithiasis Diagnosis Diagnosis Type Effective Dates Health Status Clinical Service Informant Chronic back pain Discharge Diagnosis 04/08/20 Chronic hip pain Discharge Diagnosis 04/08/20 Peripheral neuropathy Discharge Diagnosis 04/08/20 Depression Discharge Diagnosis 04/08/20 Vital Signs Most recent to oldest [Reference Range]: 1 Height 163.5 cm (04/08/20 8:37 AM) Social History Social History Type Response Smoking Status Never (less than 100 in lifetime) entered on: 11/21/18 Sex
--- OUTSIDE RECORDS SUMMARY | 2022-11-04 01:34 | XMS_ITS | Continuity of Care Document ---
Author Name Unknown Organization [facility] Address [address] [place], [place] [address], [address] [place] [address]- Care Team Providers Care Necktie Turner Name Role Phone Rafiq Arteaga Primary Care Physi kateryna Encounter [facility] [place] Date(s): 12/25/21 - 01/24/22 [facility] [address] [place] [address] Drive, [address] [place] [address]- Allergies, Adverse Reactions, Alerts Substance Reaction Severity [...] 01/16/21 11:47:00 EST, Route to Pharmacy Electronically, [id number]... Start Date: 01/16/21 Status: Ordered Ativan 0.5 mg oral tablet See Instructions, PRN as needed for anxiety, Take 1 tablet as needed for anxiety, do not take more than 2 tablets/day, # 14 tablet, 0 Refills, Maintenance, 08/03/21 9:13:00 EDT, Tablet, [facility], Partial fill upon patient request if the pre... Start Date: 08/03/21 Status: Ordered azelastine 137 mcg/inh (0.1%) nasal spray 2 sprays, Nares, Both, Daily, PRN Other Allergies, # 30 mL, 6 Refills, Maintenance, 10/05/21 13:14:00 EDT, [place], [facility], 2 sprays Nares, Both Daily,PRN:Other Allergies, 163.5, cm, 08/21/21 13:35:00 EDT, Height Start Date: 10/05/21 Status: Ordered buPROPion 300 mg/24 hours (XL) oral tablet, extended release 1 tablet = 300 mg, By Mouth, Daily, # 30 tablet, 5 Refills, Maintenance, 12/26/21 11:19:00 EDT, ER Tablet, [facility], Partial fill upon patient request if the prescription is for a scheduleII opioid drug., 163.5, cm, 08/21/21 13:35:00 EDT,... Start Date: 12/26/21 Status: Ordered Cranberry oral tablet 0 Refills, Maintenance, 10/23/18 9:18:41 EDT Start Date: 10/23/18 Status: Ordered diclofenac sodium 75 mg oral delayed release tablet See Instructions, TAKE ONE TABLET BY MOUTH TWICE A DAY, # 60 tablet, 1 Refills, 12/26/21 11:19:00 EDT, [facility], 163.5, cm, 08/21/21 13:35:00 EDT, Height Start Date: 12/26/21 Status: Ordered diclofenac sodium 75 mg oral delayed release tablet See Instructions, TAKE ONE TABLET BY MOUTH TWICE A DAY, # 60 tablet, 1 Refills, Maintenance, 12/27/21 9:34:00 EDT, [facility], 163.5, cm, 12/27/21 9:29:00 EDT, Height Start Date: 12/27/21 Status: Ordered duloxetine 60 mg oral enteric coated capsule 1 capsule, By Mouth, 2 times a day, # 60 capsule, 5 Refills, [facility], 163.5, cm, 08/21/21 13:35:00 EDT, Height Start Date: 09/18/21 Status: Ordered Estrace Vaginal Cream 0.1 mg/g See Instructions, 1 gram Vaginally at bedtime 2 times per week, # 42 Gm, 4 Refills, Maintenance, 03/16/21 10:21:00 EST, [facility], Patient sensitive to inactive ingredients ofmanufacturers drugs, 163.5, cm, 12/12/20 16:09:00... Start Date: 03/16/21 Status: Ordered ESTRIOL CREAM ESTRIOL CREAM, Refills 0, Maintenance, APPLY PEA SIZE AMOUNT 3 TIMES A WEEK (M, W, F), 11/21/18 14:27:53 EDT, Compound Start Date: 11/21/18 Status: Ordered Flovent HFA 44 mcg/inh inhalation aerosol See Instructions, INHALE 2 PUFFS TWO TIMES A DAY, j44.9, # 1 each, 6 Refills, 09/21/21 16:29:00 EDT, [facility], 163.5, cm, 08/21/21 13:35:00 EDT, Height Start Date: 09/21/21 Status: Ordered gabapentin 600 mg oral tablet 1 tablet, By Mouth, 3 times a day, office visit needed for further refills, # 270 tablet, 1 Refills, Maintenance, 11/13/21 13:31:00 EDT, [facility], 163.5, cm, 08/21/21 13:35:00 EDT, Height Start Date: 11/13/21 Status: Ordered lidocaine-prilocaine 2.5%-2.5% topical cream 1 application, Topically, Once, # 30 Gm, 3 Refills, Soft Stop, 04/21/21 12:20:00 EST, Cream, [facility] # [facility], Partial fill upon patient request, 1 application Topically Once, 163.5, cm, 04/21/21 11:51:00 EST, Height, 91, kg, 07/23/19 11:11:00 EDT,... Start Date: 04/21/21 Status: Ordered lubiprostone 24 mcg oral capsule 1 capsule, By Mouth, 2 times a day, # 60 capsule, 5 Refills, 04/21/21 12:25:00 EST, [facility], 163.5, cm, 04/21/21 11:51:00 EST, Height, 91, kg, 07/23/19 11:11:00 EDT, Dry Weight Start Date: 04/21/21 Status: Ordered lysine 1000 mg oral tablet [...] 10/25/21 16:41:00 EDT, Route to Pharmacy Electronically, [facility], 163.5, cm, 08/21/21 13:35:00 EDT, Height Start Date: 10/25/21 Status: Ordered Myrbetriq 50 mg oral tablet, extended release 1 tablet = 50 mg, By Mouth, Daily, # 90 tablet, 3 Refills, Maintenance, 09/08/21 9:40:00 EDT, [facility] # 50, 163.5, cm, 08/21/21 13:35:00 EDT, Height Start Date: 09/08/21 Status: Ordered ohm Allergy Relief 10 mg oral tablet See Instructions, TAKE 1 TABLET BY MOUTH EVERY DAY, # 90 tablet, 1 Refills, Maintenance, 10/01/21 2:49:00 EDT, [facility], 163.5, cm, 08/21/21 13:35:00 EDT, Height Start Date: 10/01/21 Status: Ordered traZODone 50 mg oral tablet 2, tablet, By Mouth, Daily at bedtime, # 60 tablet, Refills 2, Tot. Refills 2, 10/18/21 19:18:00 EDT, Route to Pharmacy Electronically, [facility], 163.5, cm, 08/21/21 13:35:00 EDT, Height Start Date: 10/18/21 Status: Ordered Tylenol Extra Strength 500 mg [...] mixed Confirmed Active Yeast infection Confirmed Active Obese class II Confirmed Active MONICA (obstructive sleep apnea) AHI 9.2 Confirmed 08/07/20 Active Osteoarthritis of right hip Confirmed Active Osteopenia bmd 2020 Confirmed Active Pain of great toe Confirmed Active Peripheral neuropathy Confirmed Active Lumbar herniated disc Confirmed Active Recurrent UTI Confirmed Active Seasonal allergies Confirmed Active Right shoulder pain Confirmed Active [...] Team Personnel Name: Eleazar Rendon NP Position: [facility] w/OE and EZ Script Member Role: Primary Care Nurse Address: Address: [address] [place] [address] [address] [facility] [place] [address]- Name: Rafiq Arteaga Position: [facility] Associate Professional Member Role: PCP Address: Address: [address] [place] [address] [place] [address]- Care Team Related Persons Name: LEWIS BALLESTEROS Address: home [address] [place] [id number] Name: RUSTY HOOVER
--- OUTSIDE RECORDS SUMMARY | 2022-11-04 01:34 | XMS_ITS | Continuity of Care Document ---
Author Name Unknown Organization [facility] y Address [address] [place], [place] [address]florence gore, [address] [place] [address]- Care Team Providers Care Certified Phlebotomist Name Role Phone Rafiq Arteaga Primary Care Physi kateryna Encounter [facility] Date(s): 09/17/22 - 10/17/22 [facility] [address] [place] [address] Drive, [address] [place], [place] [address] Allergies, Adverse Reactions, Alerts Substance Reaction Severity [...] 14:38:00 EST, Powder, Route to Pharmacy Electronically, [id number], [facility], I... Start Date: [...] 0 Refills, Maintenance, 04/23/22 11:16:00 EST, Tablet, [facility] # 50, Partial fill upon patient request if the pr... Start Date: 04/23/22 Status: Ordered azelastine 137 mcg/inh (0.1%) nasal spray 2 sprays, Nares, Both, Daily, PRN Other Allergies, # 30 mL, 6 Refills, Maintenance, 10/05/21 13:14:00 EDT, [place], [facility] # 50, 2 sprays Nares, Both Daily,PRN:Other Allergies, 163.5, cm, 08/21/21 13:35:00 EDT, Height Start Date: 10/05/21 Status: Ordered buPROPion 300 mg/24 hours (XL) oral tablet, extended release 1 tablet = 300 mg, By Mouth, Daily, # 90 tablet, 2 Refills, Maintenance, 06/25/22 9:06:00 EDT, ER Tablet, [facility] # 50, Partial fill upon patient request if the prescription is for a schedule II opioid drug., 162, cm, 06/25/22 8:34:00 EDT, [place]... Start Date: 06/25/22 Status: Ordered duloxetine 60 mg oral enteric coated capsule 1 capsule, By Mouth, 2 times a day, # 60 capsule, 5 Refills, 04/09/22 16:24:00 EST, [facility] # 50, 163.5, cm, 03/09/22 13:18:00 EST, Height Start Date: 04/09/22 Status: Ordered Estrace Vaginal Cream 0.1 mg/g See Instructions, 1 gram Vaginally at bedtime 2 times per week, # 42 Gm, 4 Refills, Maintenance, 03/16/21 10:21:00 EST, [facility], Patient sensitive to inactive ingredients ofmanufacturers drugs, 163.5, cm, 12/12/20 16:09:00... Start Date: 03/16/21 Status: Ordered Estrace Vaginal Cream 0.1 mg/g See Instructions, 1 gram Vaginally at bedtime twice per week, # 42 Gm, 4 Refills, Maintenance, 10/08/22 11:23:00 EDT, [facility] # 50, Partial fill upon patient [...] tablet, 1 Refills, Maintenance, 08/14/22 12:36:00 EDT, [facility] # 50, 162, cm, 08/08/22 11:26:00 EDT, Height, 102, kg, 05/21/22 10:37:00 EDT, Dry Weight Start Date: 08/14/22 Status: Ordered lidocaine-prilocaine 2.5%-2.5% topical cream 1 application, Topically, Once, # 30 Gm, 1 Refills, Soft Stop, 10/04/22 16:32:00 EDT, Cream, [facility] # [facility], Partial fill upon [...] 06/04/22 10:20:00 EDT, Route to Pharmacy Electronically, [facility] # [facility], 162, cm, 05/21/22 10:37:00 EDT, Height, 102, kg, 05/21/22 10:37:00 EDT, Dry W... Start Date: 06/04/22 Status: Ordered Myrbetriq 50 mg oral tablet, extended release 1 tablet = 50 mg, By Mouth, Daily, # 90 tablet, 3 Refills, Maintenance, 10/08/22 11:21:00 EDT, [facility] # 50, 162, cm, 09/24/22 12:53:00 EDT, Height, 102, kg, 05/21/22 10:37:00 EDT, Dry Weight Start Date: 10/08/22 Status: Ordered ohm Allergy Relief 10 mg oral tablet See Instructions, TAKE 1 TABLET BY MOUTH EVERY DAY, # 90 tablet, 1 Refills, Maintenance, 06/25/22 9:15:00 EDT, [facility] # 50, 162, cm, 06/25/22 8:34:00 EDT, Height, 102, kg, 05/21/22 10:37:00 EDT, Dry Weight Start Date: 06/25/22 Status: Ordered traZODone 50 mg oral tablet 50 mg, 1, tablet, By Mouth, Daily at bedtime, for 30 days, # 30 tablet, Refills 5, Tot. Refills 5, Physician Stop 12/22/22 9:07:00 EDT, 06/25/22 9:07:00 EDT, Route to Pharmacy Electronically, [facility] # [facility], 162, cm, 06/25/22 8:34:00 EDT, Height,... Start Date: 06/25/22 Stop Date: 12/22/22 Status: Ordered Tylenol Extra Strength 500 mg oral tablet 2 tablet = 1,000 mg, By Mouth, Every 6 hours, 0 Refills, Maintenance, 05/22/19 11:12:00 EDT Start Date: 3/27/20 Status: Ordered valACYclovir 500 mg oral tablet 500 mg, 1, tablet, By Mouth, Daily, drink plenty of fluids, # 90 tablet, Refills 0, Tot. Refills 0,Maintenance, 06/25/22 9:11:00 EDT, Route to Pharmacy Electronically, [facility] # [facility], Partial fill [...] Rendon NP Position: S PCO w/OE and TINO Script Member Role: Primary Care Nurse Address: Address: [address] [place] [address] [place] [address]- [place] Name: Rafiq Arteaga Position: [facility] PCO Associate Professional Member Role: PCP Address: Address: [address] [facility] [place] [address]- Care Team Related Persons Name: LEWIS BALLESTEROS Address: home [address] [place] [id number] Name: RUSTY HOOVER
--- OUTSIDE RECORDS SUMMARY | 2022-11-04 01:34 | XMS_ITS | Continuity of Care Document ---
Author Name Unknown Organization [facility] y Address [address] [place] [address] bao, [address] [place] [address]- Care Team Providers Care Floriculturist Name Role Phone Rafiq Arteaga Primary Care Physi kateryna Encounter [facility] Date(s): 06/19/22 - 07/19/22 [facility] [address] [place] [address] Drive, [address] [place], [place] [address] Attending Physician: AdmEne boles Admitting Physician: AdmtrEne Referring Physician: Admtr, Ar8 Allergies, Adverse Reactions, [...] 14:38:00 EST, Pow[place], Route to Pharmacy Electronically, [id number], [facility] # [facility], I... Start [...] 0 Refills, Maintenance, 04/23/22 11:16:00 EST, Tablet, [facility], Partial fill upon patient request if the pr... Start Date: 04/23/22 Status: Ordered azelastine 137 mcg/inh (0.1%) nasal spray 2 sprays, Nares, Both, Daily, PRN Other Allergies, # 30 mL, 6 Refills, Maintenance, 10/05/21 13:14:00 EDT, [place], [facility], 2 sprays Nares, Both Daily,PRN:Other Allergies, 163.5, cm, 08/21/21 13:35:00 EDT, Height Start Date: 10/05/21 Status: Ordered buPROPion 300 mg/24 hours (XL) oral tablet, extended release 1 tablet = 300 mg, By Mouth, Daily, # 90 tablet, 2 Refills, Maintenance, 06/25/22 9:06:00 EDT, ER Tablet, [facility], Partial fill upon patient request if the prescription is for a schedule II opioid drug., 162, cm, 06/25/22 8:34:00 EDT, [place]... Start Date: 06/25/22 Status: Ordered duloxetine 60 mg oral enteric coated capsule 1 capsule, By Mouth, 2 times a day, # 60 capsule, 5 Refills, 04/09/22 16:24:00 EST, [facility], 163.5, cm, 03/09/22 13:18:00 EST, Height Start Date: 04/09/22 Status: Ordered Estrace Vaginal Cream 0.1 mg/g See Instructions, 1 gram Vaginally at bedtime 2 times per week, # 42 Gm, 4 Refills, Maintenance, 03/16/21 10:21:00 EST, [facility], Patient sensitive to inactive ingredients ofmanufacturers drugs, [...] tablet, 1 Refills, Maintenance, 03/05/22 13:21:00 EST, [facility] # [facility], 163.5, cm, 03/05/22 12:50:00 [...] 06/04/22 10:20:00 EDT, Route to Pharmacy Electronically, [facility], 162, cm, 05/21/22 10:37:00 EDT, Height, 102, kg, 05/21/22 10:37:00 EDT, Dry W... Start Date: 06/04/22 Status: Ordered Myrbetriq 50 mg oral tablet, extended release 1 tablet = 50 mg, By Mouth, Daily, # 90 tablet, 3 Refills, Maintenance, 09/08/21 9:40:00 EDT, [facility], 163.5, cm, 08/21/21 13:35:00 EDT, Height Start Date: 09/08/21 Status: Ordered ohm Allergy Relief 10 mg oral tablet See Instructions, TAKE 1 TABLET BY MOUTH EVERY DAY, # 90 tablet, 1 Refills, Maintenance, 06/25/22 9:15:00 EDT, [facility] # [facility], 162, cm, 06/25/22 8:34:00 EDT, Height, 102, kg, 05/21/22 10:37:00 EDT, Dry Weight Start Date: 06/25/22 Status: Ordered traZODone 50 mg oral tablet 50 mg, 1, tablet, By Mouth, Daily at bedtime, for 30 days, # 30 tablet, Refills 5, Tot. Refills 5, Physician Stop 12/22/22 9:07:00 EDT, 06/25/22 9:07:00 EDT, Route to Pharmacy Electronically, [facility] # [facility], 162, cm, [...] 06/25/22 9:11:00 EDT, Route to Pharmacy Electronically, [facility] # [facility], Partial fill upon patient [...] capsule, 3 Refills, Maintenance, 06/25/22 9:06:00 EDT, [facility] # [facility], Partial fill upon patient request if the prescription is for a schedule II opioiddrug., 162, cm, 06/25/22 8:34:00 EDT, Height, 102,... 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 Asthma Confirmed Active Difficulty balancing Confirmed Active Excessive [...] Care team information Care Team Personnel Name: Elaezar Rendon NP Position: [facility] PCO w/OE and EZ Script Member Role: Primary Care Nurse Address: Address: [address] [place] [address] [place] [address]- Name: Rafiq Arteaga Position: [facility] PCO Associate Professional Member Role: PCP Address: Address: [address] [place] [address]- Care Team Related Persons Name: LEWIS BALLESTEROS Address: home [address] [place] [id number] Name: RUSTY HOOVER
--- OUTSIDE RECORDS SUMMARY | 2022-11-04 01:34 | XMS_ITS | Continuity of Care Document ---
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 Start Date: 02/09/19 Status: Ordered Cranberry oral tablet 0 Refills, Maintenance, 10/23/18 9:18:41 EDT Start Date: 10/23/18 Status: Ordered diclofenac sodium 25 mg oral delayed release tablet 1 tablet = 25 mg, By Mouth, 2 times a day, # 60 tablet, 1 Refills, Maintenance, 07/23/19 10:48:00 EDT, EC Tablet, [facility], 163.5, cm, 06/03/19 11:17:00 EDT, Height Start Date: 07/23/19 Status: Ordered ESTRIOL CREAM ESTRIOL CREAM, Refills 0, Maintenance, APPLY PEA SIZE AMOUNT 3 TIMES A WEEK (M, W, F), 11/21/18 14:27:53 EDT, Compound Start Date: 11/21/18 Status: Ordered Flovent HFA 44 mcg/inh inhalation aerosol 2 puffs = 88 mcg, Inhalation, 2 times a day, # 1 each, 5 Refills, Maintenance, 11/21/18 15:07:28 EDT, Inhaler Start Date: 11/21/18 Status: Ordered FLUoxetine 20 mg oral capsule 3, capsule, By Mouth, Daily, # 270 Unknown, Refills 1, Tot. Refills 0, Maintenance, 03/07/19 11:47:00 EST, Route to Pharmacy Electronically, [facility], 163.5, cm, 02/09/19 13:07:00 EST, Height Start Date: 03/07/19 Status: Ordered gabapentin 600 mg oral tablet 1 tablet, By Mouth, 3 times a day, # 90 Unknown, 5 Refills, Maintenance, 05/25/19 16:16:00 EDT, [facility] # [facility], 163.5, cm, 03/27/19 10:49:00 EST, Height Start Date: 05/25/19 Status: Ordered lactulose 10 gm oral powder for reconstitution 1 pack/packet, By Mouth, 2 times a day, # 30 each, 2 Refills, Maintenance, 03/27/19 11:11:00 EST, REC Powder, [facility] # 50, 163.5, cm, 03/27/19 10:49:00 EST, Height Start Date: 03/27/19 Status: Ordered lactulose 10 gm/15 ml oral syrup 15 mL = 10 Gm, By Mouth, Daily, This is correct dose., # 450 mL, 5 Refills, Maintenance, 06/25/19 9:18:00 EDT, Syrup, [facility] # [facility], 15 mL By Mouth Daily,Instr:This is correct dose., 163.5, cm,06/03/19 11:17:00 EDT, Height Start Date: 06/25/19 Status: Ordered loratadine 10 mg oral tablet 10 mg, 1, tablet, By Mouth, Daily, # 90 tablet, Refills 1, Tot. Refills 1, Maintenance, 04/27/19 8:18:00 EST, Route to Pharmacy Electronically, [facility], 163.5, cm, 03/27/19 10:49:00 EST, Height Start Date: 04/27/19 Status: Ordered lysine 1000 mg oral tablet 1 tablet = 1,000 mg, By Mouth, Daily, 0 Refills, Maintenance, 05/22/19 11:18:00 EDT Start Date: 05/22/19 Status: Ordered lysine 1000 mg oral tablet 1 tablet = 1,000 mg, By Mouth, Daily, take as needed, # 60 tablet, 0 Refills, Maintenance, :12:52 EDT, Tablet Start Date: 10/23/18 Status: Ordered Melatonin By Mouth, Daily at bedtime, 0 Refills, Maintenance Start Date: 01/15/12 Status: Ordered montelukast 10 mg oral tablet 10 mg, 1, tablet, By Mouth, Daily, [id number], # 30 tablet, Refills 6, Tot. Refills 6, Maintenance, 06/17/19 13:09:00 EDT, Route to Pharmacy Electronically, [facility], Refills per PCP, 163.5, cm, 06/03/19 11:17:00 EDT, Height Start Date: 06/17/19 Status: Ordered Myrbetriq 50 mg oral tablet, extended release 1 tablet = 50 mg, By Mouth, Daily, # 30 tablet, 11 Refills, Maintenance, 07/23/19 11:40:00 EDT, [facility] # [facility], 163.5, cm, 07/23/19 11:11:00 EDT, Height, 91, kg, 07/23/19 11:11:00 EDT, Dry Weight Start Date: 07/23/19 Status: Ordered traZODone 50 mg oral tablet 100 mg, 2, tablet, By Mouth, Daily at bedtime, # 60 tablet, Refills 5, Tot. Refills 5, Maintenance,06/01/19 14:37:00 EDT, Route to Pharmacy Electronically, [facility], 163.5, cm, 03/27/19 10:49:00 EST, Height Start Date: 06/01/19 Status: Ordered Tylenol Extra Strength 500 mg oral tablet 2 tablet = 1,000 mg, By Mouth, Every 6 hours, 0 Refills, Maintenance, 05/22/19 11:12:00 EDT Start Date: 05/22/19 Status: Ordered Valerian Root oral capsule = 100 mg, By Mouth, Daily, 0 Refills, Maintenance, 10/23/18 8:29:33 EDT Start Date: 10/23/18 Status: Ordered Ventolin HFA 108 mcg/inh inhalation aerosol with adapter 2 puffs, Inhalation, Every 6 hours, 0 Refills, Maintenance, 05/22/19 11:12:00 EDT Start Date: 05/22/19 Status: Ordered Vitamin C 500 mg oral tablet 1 tablet = 500 mg, By Mouth, Daily, # 30 tablet, 0 Refills, Maintenance, 10/23/18 8:24:54 EDT, Tablet Start Date: 10/23/18 Status: Ordered Vitamin D2 1.250 mcg Vitamin D2 1.250 mcg, Refills 0, Maintenance, 05/22/19 11:17:00 EDT, Supply Start Date: 05/22/19 Status: Ordered Vitamin D2 2000 intl units oral capsule 1 capsule = 2,000 International_Units, By Mouth, Daily, with food, # 60 capsule, 0 Refills, Maintenance, 05/22/19 11:13:00 EDT, Capsule Start Date: 05/22/19 Status: Ordered Vitamin D3 1000 intl units oral capsule 2 capsule = 2,000 International_Units, By Mouth, Daily, 0 Refills, Maintenance, 10/23/18 8:31:03 EDT Start Date: 10/23/18 Status: Ordered Zinc = 140 mg, By Mouth, Daily, 0 Refills, Maintenance, 10/23/18 8:17:18 EDT Start Date: 10/23/18 Status: Ordered Problem List Condition Effective Dates [...] Rectocele, female(Confirmed) Active Right hip pain(Confirmed) Active Mixded urinary Incontinence(Confirmed) Active Insomnia(Confirmed) Active Intervertebral disc prolapse with impingement(Confirmed) Active Leukocytes in urine(Confirmed) Active Lumbosacral radiculopathy at L5(Confirmed) Active Morbid obesity(Confirmed) Active Yeast infection(Confirmed) Active MONICA (obstructive sleep apnea)(Confirmed) Active Pain of great toe(Confirmed) Active Peripheral neuropathy(Confirmed) Active Lumbar herniated disc(Confirmed) Active Proteinuria(Confirmed) Active Recurrent UTI(Confirmed) Active Sciatica(Confirmed) Active Seasonal allergies(Confirmed) Active Right shoulder pain(Confirmed) Active Snoring(Confirmed) Active Back spasm(Confirmed) Active Tinnitus(Confirmed) Active URI (upper respiratory infection)(Confirmed) Active Sensory urge incontinence(Confirmed) Active Vitamin D deficiency(Confirmed) Active 1left side 2right side 3vitamin C in pt susceptible to nephrolithiasis Social History Social History Type Response Smoking Status Never (less than 100 in lifetime) entered on: 11/21/18 Sex
--- OUTSIDE RECORDS SUMMARY | 2022-11-04 01:34 | XMS_ITS | Continuity of Care Document ---
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 Start Date: 02/09/19 Status: Ordered Cranberry oral tablet 0 Refills, Maintenance, 10/23/18 9:18:41 EDT Start Date: 10/23/18 Status: Ordered diclofenac sodium 25 mg oral delayed release tablet 1 tablet = 25 mg, By Mouth, 2 times a day, # 60 tablet, 1 Refills, Maintenance, 07/23/19 10:48:00 EDT, EC Tablet, [facility], 163.5, cm, 06/03/19 11:17:00 [...] 3 Refills, Maintenance, 09/30/19 10:56:00 EDT, Inhaler, [facility], 163.5, cm, 09/30/19 9:33:00 EDT, Height, 91, kg, 07/23/19 11:11:00 EDT, Dry Weight Start Date: 09/30/19 Status: Ordered FLUoxetine 20 mg oral capsule 3, capsule, By Mouth, Daily, # 270 Unknown, Refills 1, Tot. Refills 0, Maintenance, 09/04/19 15:20:00 EDT, Route to Pharmacy Electronically, [facility], 163.5, cm, 07/23/19 11:11:00 EDT, Height, 91, kg, 07/23/19 11:11:00 EDT, Dry Weight Start Date: 09/04/19 Status: Ordered gabapentin 600 mg oral tablet 1 tablet, By Mouth, 3 times a day, # 270 tablet, 1 Refills, Maintenance, 11/19/19 8:38:00 EDT, [facility] # [facility], 163.5, cm, 11/03/19 11:52:00 EDT, Height, 91, kg, 07/23/19 11:11:00 EDT, Dry Weight Start Date: 11/19/19 Status: Ordered lactulose 10 gm/15 ml oral syrup 15 mL = 10 Gm, By Mouth, Daily, This is correct dose., # 450 mL, 5 Refills, Maintenance, 06/25/19 9:18:00 EDT, Syrup, [facility], 15 mL By Mouth Daily,Instr:This is correct dose., 163.5, cm,06/03/19 11:17:00 EDT, Height Start Date: 06/25/19 Status: Ordered loratadine 10 mg oral tablet 10 mg, 1, tablet, By Mouth, Daily, # 90 tablet, Refills 3, Tot. Refills 3, Maintenance, 10/27/19 18:22:00 EDT, Route to Pharmacy Electronically, [facility], Rx resent from 09/30/19., [...] 06/17/19 13:09:00 EDT, Route to Pharmacy Electronically, [facility], Refills per PCP, 163.5, cm, 06/03/19 11:17:00 EDT, Height Start Date: 06/17/19 Status: Ordered Myrbetriq 50 mg oral tablet, extended release 1 tablet = 50 mg, By Mouth, Daily, # 30 tablet, 11 Refills, Maintenance, 07/23/19 11:40:00 EDT, [facility] # [facility], 163.5, cm, 07/23/19 11:11:00 EDT, Height, 91, kg, 07/23/19 11:11:00 EDT, Dry Weight Start Date: 07/23/19 Status: Ordered traMADol 50 mg oral tablet 1 tablet = 50 mg, By Mouth, Every 12 hours, # 42 tablet, 0 Refills, Maintenance, 11/03/19 16:09:00 EDT, [facility] # [facility], 163.5, cm, 11/03/19 11:52:00 EDT, Height, 91, kg, 07/23/19 11:11:00 EDT, Dry Weight Start Date: 11/03/19 Status: Ordered traZODone 50 mg oral tablet 100 mg, 2, tablet, By Mouth, Daily at bedtime, # 60 tablet, Refills 5, Tot. Refills 5, Maintenance,06/01/19 14:37:00 EDT, Route to Pharmacy Electronically, [facility], 163.5, cm, 03/27/19 10:49:00 [...]
--- OUTSIDE RECORDS SUMMARY | 2022-11-04 01:34 | XMS_ITS | Continuity of Care Document ---
Author Name Unknown Organization [facility] Address [address] [place] [address]- Care Team Providers Care Development Vice President Name Role Phone Susan AVENDANO, Orlando Quintanilla Primary Care Physician [phone] [place] [facility] [place]/21 [facility] Adult [address] [place] [address]- Allergies, Adverse Reactions, Alerts Substance Reaction Severity [...] 01/16/21 11:47:00 EST, Route to Pharmacy Electronically, [id number]... Start Date: 01/16/21 Status: Ordered azelastine 137 mcg/inh (0.1%) nasal spray 2 sprays, Nares, Both, Daily, PRN Other Allergies, # 30 mL, 6 Refills, Maintenance, 08/18/20 15:01:00 EDT, [place], [facility], 2 sprays Nares, Both Daily,PRN:Other Allergies, 163.5, cm, 08/18/20 14:46:00 EDT, Height, 91, kg, 07/23/19 11:11... Start Date: 08/18/20 Status: Ordered buPROPion 300 mg/24 hours (XL) oral tablet, extended release 1 tablet = 300 mg, By Mouth, Daily, # 30 tablet, 11 Refills, Maintenance, 05/11/20 13:04:00 EDT, ERTablet, [facility] # [facility], Partial fill upon patient request if the prescription is for a schedule II opioid drug., 163.5, cm, 05/11/20 12:40:00 EDT,... Start Date: 05/11/20 Status: Ordered Cranberry oral tablet 0 Refills, Maintenance, 10/23/18 9:18:41 EDT Start Date: 10/23/18 Status: Ordered Cyclobenzaprine By Mouth, 0 Refills, Maintenance, 12/13/20 14:17:00 EDT, Partial fill upon patient request if the prescription is for a schedule II opioid drug. Start Date: 12/13/20 Status: Ordered diclofenac sodium 75 mg oral [...] day, # 60 capsule, 5 Refills, Maintenance, 02/10/21 14:24:00EST, EC Capsule, [facility] # [facility], Partial fill upon patient request if the prescription is for a schedule II opioid drug., 163.5, cm, 12/12/20 16:0... Start Date: 02/10/21 Status: Ordered Estrace Vaginal Cream 0.1 mg/g See Instructions, 1 gram Vaginally at bedtime 2 times per week, # 42 Gm, 4 Refills, Maintenance, 03/23/20 16:57:00 EST, [facility], Patient sensitive to inactive ingredients ofmanufacturers drugs, 163.5, cm, 03/23/20 16:35:00... Start Date: 03/23/20 Status: Ordered ESTRIOL CREAM ESTRIOL CREAM, Refills 0, Maintenance, APPLY PEA SIZE AMOUNT 3 TIMES A WEEK (M, W, F), 11/21/18 14:27:53 EDT, Compound Start Date: 11/21/18 Status: Ordered Flovent HFA 44 mcg/inh inhalation aerosol See Instructions, INHALE 2 PUFFS TWO TIMES A DAY, # 31.8 Gm, 1 Refills, Maintenance, [facility], 163.5, cm, 09/09/20 12:42:00 EDT, Height, 91, kg, 07/23/19 11:11:00 EDT, Dry Weight Start Date: 10/06/20 Status: Ordered gabapentin 600 mg oral tablet 1 tablet, By Mouth, 3 times a day, # 270 Unknown, 1 Refills, Maintenance, 11/15/20 12:03:00 EDT, [facility], 163.5, cm, 09/09/20 12:42:00 EDT, Height, 91, kg, 07/23/19 11:11:00 EDT, Dry Weight Start Date: 11/15/20 Status: Ordered lidocaine-prilocaine 2.5%-2.5% topical cream 1 application, Topically, Once, # 30 Gm, 1 Refills, Soft Stop, 03/08/20 8:14:00 EST, Cream, [facility] # [facility], Partial fill upon patient request, 1 application Topically Once, 163.5, cm, 01/11/20 14:45:00 EST, Height, 91, kg, 07/23/19 11:11:00 EDT,... Start Date: 03/08/20 Status: Ordered loratadine 10 mg oral tablet See Instructions, TAKE ONE TABLET BY MOUTH EVERY DAY, # 90 tablet, Refills 1, Tot. Refills 1, Maintenance, 11/01/20 8:45:00 EDT, Instructions Replace Required Details, Route to Pharmacy Electronically, [facility] # [facility], 163.5, cm, 09/09/20 12:42:00... Start Date: 11/01/20 Status: Ordered lubiprostone 24 mcg oral capsule 1 capsule, By Mouth, 2 times a day, # 60 capsule, 5 Refills, [facility] # 50, 163.5, cm, 09/09/20 12:42:00 EDT, Height, 91, kg, 07/23/19 11:11:00 EDT, Dry Weight Start Date: 10/24/20 Status: Ordered lysine 1000 mg oral tablet 1 tablet = 1,000 mg, By Mouth, Daily, 0 Refills, Maintenance, 05/22/19 11:18:00 EDT Start Date: 05/22/19 Status: Ordered Melatonin By Mouth, Daily at bedtime, 0 Refills, Maintenance Start Date: 01/15/12 Status: Ordered montelukast 10 mg oral tablet 10 mg, 1, tablet, By Mouth, Daily, j45.40, # 30 tablet, Refills 5, Tot. Refills 5, Maintenance, 12/16/20 15:12:00 EDT, Route to Pharmacy Electronically, [facility] # [facility], 163.5, cm, 12/12/20 16:09:00 EDT, Height, 91, kg, 07/23/19 11:11:00 EDT, Dry... Start Date: 12/16/20 Status: Ordered Myrbetriq 50 mg oral tablet, extended release 1 tablet = 50 mg, By Mouth, Daily, # 30 tablet, 11 Refills, Maintenance, 08/11/20 16:47:00 EDT, [facility] # [facility], 163.5, cm, 08/11/20 10:34:00 EDT, Height, 91, kg, 07/23/19 11:11:00 EDT, Dry Weight Start Date: 08/11/20 Status: Ordered traZODone 50 mg oral tablet 2, tablet, By Mouth, Daily at bedtime, # 60 tablet, Refills 5, Tot. Refills 0, Maintenance, 07/28/20 15:52:00 EDT, Route to Pharmacy Electronically, [facility] # [facility], 163.5, cm, 06/16/20 7:48:00 [...] Date: 01/12/21 Status: Ordered Problem List Condition Effective Dates [...] 08/08/20 Active Lumbosacral radiculopathy at L5(Confirmed) Active Major depression in full remission(Confirmed) Active Depression, major(Confirmed) Active Urinary incontinence, mixed(Confirmed) Active Yeast infection(Confirmed) Active MONICA (obstructive sleep apnea ) AHI 9.2(Confirmed) 08/07/20 Active Osteoarthritis of right hip(Confirmed) Active Osteopenia bmd 2020(Confirmed) Active Pain of great toe(Confirmed) Active Peripheral [...]
--- OUTSIDE RECORDS SUMMARY | 2022-11-04 01:34 | XMS_ITS | Continuity of Care Document ---
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 Start Date: 02/09/19 Status: Ordered Cranberry oral tablet 0 Refills, Maintenance, 10/23/18 9:18:41 EDT Start Date: 10/23/18 Status: Ordered diclofenac sodium 25 mg oral delayed release tablet 1 tablet = 25 mg, By Mouth, 2 times a day, # 60 tablet, 1 Refills, Maintenance, 01/30/19 8:47:14 EST, EC Tablet, 163.5, cm, 12/19/18 13:00:03 EDT, Height Start Date: 01/30/19 Status: Ordered ESTRIOL CREAM ESTRIOL CREAM, Refills [...] 03/07/19 11:47:00 EST, Route to Pharmacy Electronically, [facility] # [facility], 163.5, cm, 02/09/19 13:07:00 EST, Height Start Date: 03/07/19 Status: Ordered gabapentin 600 mg oral tablet 1 tablet = 600 mg, By Mouth, 3 times a day, # 90 tablet, 5 Refills, Maintenance, 11/21/18 15:01:20 EDT, Tablet Start Date: 11/21/18 Status: Ordered lactulose 10 gm oral powder for reconstitution 1 pack/packet, By Mouth, 2 times a day, # 30 each, 2 Refills, Maintenance, 03/27/19 11:11:00 EST, REC Powder, [facility] # [facility], 163.5, cm, 03/27/19 10:49:00 EST, Height Start Date: 03/27/19 Status: Ordered lactulose 10 gm/15 ml oral syrup 15 mL = 10 Gm, By Mouth, Daily, This is correct dose., # 480 mL, 1 Refills, Maintenance, 03/29/19 20:24:00 EST, Syrup, [facility] # [facility], 15 mL By Mouth Daily,Instr:This is correct dose., 163.5, cm, 03/27/19 10:49:00 EST, Height Start Date: 03/29/19 Status: Ordered loratadine 10 mg oral tablet 1 tablet = 10 mg, By Mouth, Daily, 0 Refills, Maintenance Start Date: 01/15/12 Status: Ordered lysine 1000 mg oral tablet 1 tablet = 1,000 mg, By Mouth, Daily, take as needed, # 60 tablet, 0 Refills, Maintenance, 198:12:52 EDT, Tablet Start Date: 10/23/18 Status: Ordered Melatonin By Mouth, Daily at bedtime, 0 Refills, Maintenance Start Date: 01/15/12 Status: Ordered montelukast 10 mg oral tablet 10 mg, 1, tablet, By Mouth, Daily, # 30 tablet, Refills 3, Tot. Refills 3, Maintenance, 02/09/19 13:37:50 EST, Route to Pharmacy Electronically, [facility] # [facility], Refills per PCP, 163.5, cm, 02/09/19 13:07:26 EST, Height Start Date: 02/09/19 Status: Ordered Myrbetriq 25 mg oral tablet, extended release 1 tablet = 25 mg, By Mouth, Daily, do not crush or chew, # 30 tablet, 5 Refills, Maintenance, 11/21/18 15:02:35 EDT, ER Tablet Start Date: 11/21/18 Status: Ordered traZODone 50 mg oral tablet 100 mg, 2, tablet, By Mouth, Daily at bedtime, # 60 tablet, Refills 5, Tot. Refills 5, Maintenance,11/21/18 15:06:53 EDT, Route to Pharmacy Electronically, [id number], [facility] Start Date: 11/21/18 Status: Ordered Valerian Root oral capsule = 100 mg, By Mouth, Daily, 0 Refills, Maintenance, 10/23/18 8:29:33 EDT Start Date: 10/23/18 Status: Ordered Vitamin C 500 mg oral [...] Allergic rhinitis(Confirmed) Active Temporomandibular joint (TMJ ) pain(Confirmed) 1 Active Temporomandibular joint (TMJ ) pain(Confirmed) 2 Active Asthma(Confirmed) Active Overactive bladder(Confirmed) Active Cervicogenic headache(Confirmed) Active Chronic neck pain(Confirmed) Active Exposure of [...] back pain(Confirmed) Active Bilateral hand pain(Confirmed) Active Rectocele, female(Confirmed) Active Right hip pain(Confirmed) Active Insomnia(Confirmed) Active Leukocytes in urine(Confirmed) Active Lumbosacral radiculopathy [...] 3vitamin C in pt susceptible to nephrolithiasis Vital Signs Most recent to oldest [Reference Range]: 1 Height 163.5 cm (03/27/19 10:49 AM) Weight 95.3 kg (03/27/19 10:49 AM) Oxygen Saturation [94-100 %] 98 % (03/27/19 10:49 AM) Pulse Rate [55-90 bpm] 87 bpm (03/27/19 10:49 AM) Body Mass Index [18.5-24.99] 35.65 *>HHI* (03/27/19 10:49 AM) Blood Pressure [90-138/55-84 mm Hg] 114/ 66mm Hg (03/27/19 10:49 AM) Respiratory Rate [16-30 br/min] 16 br/mi n (03/27/19 10:49 AM) Temperature [96.8-100.4 DegF] 98.5 DegF (03/27/19 10:49 AM) Mode of Delivery (Oxygen) Room air (03/27/19 10:49 AM) Blood pressure sites Arm, left (03/27/19 10:49 AM) Temperature Route Oral (03/27/19 10:49 AM) Weight Obtained Via Standing scale (03/27/19 10:49 AM) Social History Social History Type Response Smoking Status Never (less than 100 in lifetime) entered on: 11/21/18 Sex
--- OUTSIDE RECORDS SUMMARY | 2022-11-04 01:34 | XMS_ITS | Continuity of Care Document ---
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 Start Date: 02/09/19 Status: Ordered Cranberry oral tablet 0 Refills, Maintenance, 10/23/18 9:18:41 EDT Start Date: 10/23/18 Status: Ordered diclofenac sodium 25 mg oral delayed release tablet 1 tablet, By Mouth, 2 times a day, # 60 Unknown, 1 Refills, Maintenance, 12/17/19 15:03:00 EDT, [facility], 163.5, cm, 11/03/19 11:52:00 EDT, Height, 91, kg, 07/23/19 11:11:00 EDT, Dry Weight Start Date: 12/17/19 Status: Ordered Estrace Vaginal Cream 0.1 mg/g See Instructions, 1 gram Vaginally at bedtime 2 times per week, # 42 Gm, 4 Refills, Maintenance, 03/23/20 16:57:00 EST, [facility], Patient sensitive to inactive ingredients ofmanufacturers drugs, [...] 03/21/20 12:22:00 EST, Route to Pharmacy Electronically, [facility] # [facility], 163.5, cm, 01/11/20 14:45:00 EST, Height, 91, kg, 07/23/19 11:11:00 EDT, Dry Weight Start Date: 03/21/20 Stop Date: 03/16/21 Status: Ordered gabapentin 600 mg oral tablet 1 tablet, By Mouth, 3 times a day, # 270 tablet, 1 Refills, Maintenance, 11/19/19 8:38:00 EDT, [facility] # [facility], 163.5, cm, 11/03/19 11:52:00 EDT, Height, 91, kg, 07/23/19 11:11:00 EDT, Dry Weight Start Date: 11/19/19 Status: Ordered lactulose 10 gm/15 ml oral syrup 15 mL = 10 Gm, By Mouth, Daily, This is correct dose., # 450 mL, 5 Refills, Maintenance, 06/25/19 9:18:00 EDT, Syrup, [facility] # [facility], 15 mL By Mouth [...] 01/13/20 12:44:00 EST, Route to Pharmacy Electronically, [facility] # [facility], Refills per PCP, 163.5, cm, 01/11/20 14:45:00 EST, Height, 91, kg, 07/23/19 1... Start Date: 01/13/20 Status: Ordered Myrbetriq 50 mg oral tablet, extended release 1 tablet = 50 mg, By Mouth, Daily, # 30 tablet, 11 Refills, Maintenance, 07/23/19 11:40:00 EDT, [facility], 163.5, cm, 07/23/19 11:11:00 EDT, Height, 91, kg, 07/23/19 11:11:00 EDT, Dry Weight Start Date: 07/23/19 Status: Ordered traMADol 50 mg oral tablet 1 tablet = 50 mg, By Mouth, Every 12 hours, # 42 tablet, 0 Refills, Maintenance, 11/03/19 16:09:00 EDT, [facility] # [facility], 163.5, cm, 11/03/19 11:52:00 EDT, Height, 91, kg, 07/23/19 11:11:00 EDT, Dry Weight Start Date: 11/03/19 Status: Ordered traZODone 50 mg oral tablet 100 mg, 2, tablet, By Mouth, Daily at bedtime, # 60 tablet, Refills 5, Tot. Refills 5, Maintenance,12/04/19 12:51:00 EDT, Route to Pharmacy Electronically, [facility] # [facility], 163.5, cm, 11/03/19 [...]
--- OUTSIDE RECORDS SUMMARY | 2022-11-04 01:34 | XMS_ITS | Continuity of Care Document ---
Author Name Unknown Organization [facility] Address [address] [place] [address]- Care Team Providers Care Client Professional Name Role Phone Susan AVENDANO, Orlando Quintanilla Primary Care Physician [phone] [place] [facility] [place]20 [facility] Adult [address] [place] [address]- Attending Physician: AdmEne boles Admitting Physician: AdmtrEne [...] 02/09/19 13:37:40 EST, Route to Pharmacy Electronically, [id number]... Start Date: 02/09/19 Status: Ordered buPROPion 300 mg/24 hours (XL) oral tablet, extended release 1 tablet = 300 mg, By Mouth, Daily, # 30 tablet, 11 Refills, Maintenance, 05/11/20 13:04:00 EDT, ERTablet, [facility] # [facility], Partial fill upon [...] drug. Start Date: 06/10/20 Status: Ordered duloxetine 30 mg oral enteric coated capsule 1 capsule = 30 mg, By Mouth, 2 times a day, # 60 each, 6 Refills, Maintenance, 06/10/20 12:27:00 EDT, EC Capsule, [facility] # [facility], Partial fill upon patient request if the prescription is for a schedule II opioid drug., 163.5, cm, 06/10/20 11:17:0... Start Date: 06/10/20 Status: Ordered Estrace Vaginal Cream 0.1 mg/g See Instructions, 1 gram Vaginally at bedtime 2 times per week, # 42 Gm, 4 Refills, Maintenance, 03/23/20 16:57:00 EST, [facility], Patient sensitive to inactive ingredients ofmanufacturers drugs, [...] 3 Refills, Maintenance, 09/30/19 10:56:00 EDT, Inhaler, [facility] # [facility], 163.5, cm, 09/30/19 9:33:00 EDT, Height, 91, kg, 07/23/19 11:11:00 EDT, Dry Weight Start Date: 09/30/19 Status: Ordered gabapentin 600 mg oral tablet 1 tablet, By Mouth, 3 times a day, # 270 Unknown, 1 Refills, Maintenance, 05/24/20 16:58:00 EDT, [facility] # [facility], 163.5, cm, 05/14/20 23:20:00 EDT, Height, 91, kg, 07/23/19 11:11:00 EDT, Dry Weight Start Date: 05/24/20 Status: Ordered lactulose 10 gm/15 ml oral syrup 15 mL, By Mouth, Daily, # 473 Unknown, 5 Refills, Acute, 07/08/20 7:08:00 EDT, [facility] # [facility],30, TAKE 15ML BY MOUTH DAILY, 163.5, cm, 06/16/20 7:48:00 EDT, Height, 91, kg, 07/23/19 11:11:00 EDT, Dry Weight Start Date: 07/08/20 Status: Ordered lidocaine-prilocaine 2.5%-2.5% topical cream 1 application, Topically, Once, # 30 Gm, 1 Refills, Soft Stop, 03/08/20 8:14:00 EST, Cream, [facility] # [facility], Partial fill upon patient request, 1 application Topically Once, 163.5, cm, 01/11/20 14:45:00 EST, Height, 91, kg, 07/23/19 11:11:00 EDT,... Start Date: 03/08/20 Status: Ordered loratadine 10 mg oral tablet 10 mg, 1, tablet, By Mouth, Daily, # 90 tablet, Refills 3, Tot. Refills 3, Maintenance, 10/27/19 18:22:00 EDT, Route to Pharmacy Electronically, [facility], Rx resent from 09/30/19., 163.5, cm, 10/08/19 11:19:00 EDT, Height, 91, kg, 07/23/19 11... Start Date: 10/27/19 Status: Ordered lubiprostone 24 mcg oral capsule 1 capsule = 24 mcg, By Mouth, 2 times a day, # 60 capsule, 0 Refills, Maintenance, 06/10/20 12:29:00 EDT, Capsule, [facility] # [facility], Partial fill upon patient request if the prescription is for a schedule II opioid drug., 163.5, cm, 06/10/20 11:17:... Start Date: 06/10/20 Status: Ordered lysine 1000 mg oral tablet [...] 07/12/20 11:39:00 EDT, Route to Pharmacy Electronically, [facility], Refills per PCP, 163.5, cm, 06/16/20 7:48:00 EDT, Height, 91, kg, 07/23/19 11... Start Date: 07/12/20 Status: Ordered Myrbetriq 50 mg oral tablet, extended release 1 tablet = 50 mg, By Mouth, Daily, # 30 tablet, 11 Refills, Maintenance, 07/23/19 11:40:00 EDT, 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) Active Difficulty balancing(Confirmed) Active Dyslipidemia(Confirmed) Active Excessive vitamin B12 intake(Confirmed) Active Excessive vitamin B6 intake(Confirmed) Active Excessive vitamin intake(Confirmed) 3 Active Stress at home(Confirmed) Active Female stress incontinence(Confirmed) Active History of back pain(Confirmed) Active Rectocele, female(Confirmed) Active Right hip pain(Confirmed) Active Chronic hip pain(Confirmed) Active Mixded urinary Incontinence(Confirmed) Active Insomnia(Confirmed) Active Intervertebral disc prolapse with impingement(Confirmed) Active Lumbosacral radiculopathy at L5(Confirmed) Active Depression, major(Confirmed) Active Urinary incontinence, mixed(Confirmed) Active Yeast infection(Confirmed) Active MONICA (obstructive sleep apnea)(Confirmed) Active Osteoarthritis of right hip(Confirmed) Active Pain of great toe(Confirmed) Active Peripheral neuropathy(Confirmed) Active Lumbar herniated disc(Confirmed) Active Proteinuria(Confirmed) Active Recurrent UTI(Confirmed) Active Seasonal allergies(Confirmed) Active Right shoulder pain(Confirmed) Active Tinnitus(Confirmed) Active Sensory urge incontinence(Confirmed) Active Vertigo(Confirmed) Active Vitamin D deficiency(Confirmed) Active 1left side 2right side 3vitamin C in pt susceptible to nephrolithiasis Social History Social History Type Response Smoking Status Never (less than 100 in lifetime) entered on: 11/21/18 Sex
--- OUTSIDE RECORDS SUMMARY | 2022-11-04 01:34 | XMS_ITS | Continuity of Care Document ---
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 Start Date: 02/09/19 Status: Ordered Cranberry oral tablet 0 Refills, Maintenance, 10/23/18 9:18:41 EDT Start Date: 10/23/18 Status: Ordered diclofenac sodium 25 mg oral delayed release tablet 1 tablet, By Mouth, 2 times a day, # 60 Unknown, 1 Refills, Maintenance, 12/17/19 15:03:00 EDT, [facility] # [facility], 163.5, cm, 11/03/19 11:52:00 EDT, Height, 91, kg, 07/23/19 11:11:00 EDT, Dry Weight Start Date: 12/17/19 Status: Ordered ESTRIOL CREAM ESTRIOL CREAM, Refills 0, Maintenance, APPLY PEA SIZE AMOUNT 3 TIMES A WEEK (M, W, F), 11/21/18 14:27:53 EDT, Compound Start Date: 11/21/18 Status: Ordered Flovent HFA 44 mcg/inh inhalation aerosol 2 puffs = 88 mcg, Inhalation, 2 times a day, # 3 each, 3 Refills, Maintenance, 09/30/19 10:56:00 EDT, Inhaler, [facility] # [facility], 163.5, cm, 09/30/19 9:33:00 EDT, Height, 91, kg, 07/23/19 11:11:00 EDT, Dry Weight Start Date: 09/30/19 Status: Ordered FLUoxetine 20 mg oral capsule 3, capsule, By Mouth, Daily, # 270 Unknown, Refills 1, Tot. Refills 0, Maintenance, 09/04/19 15:20:00 EDT, Route to Pharmacy Electronically, [facility], 163.5, cm, 07/23/19 11:11:00 EDT, Height, 91, kg, 07/23/19 11:11:00 EDT, Dry Weight Start Date: 09/04/19 Status: Ordered FLUoxetine 20 mg oral capsule 20 mg, 1, capsule, By Mouth, Daily, # 30 capsule, Refills 3, Tot. Refills 3, Maintenance, 02/09/20 13:21:00 EST, Route to Pharmacy Electronically, [facility] # [facility], Partial fill upon patient request if the prescription is for a schedule II opioid d... Start Date: 02/09/20 Status: Ordered gabapentin 600 mg oral tablet 1 tablet, By Mouth, 3 times a day, # 270 tablet, 1 Refills, Maintenance, 11/19/19 8:38:00 EDT, [facility] # [facility], 163.5, cm, 11/03/19 11:52:00 EDT, Height, 91, kg, 07/23/19 11:11:00 EDT, Dry Weight Start Date: 11/19/19 Status: Ordered lactulose 10 gm/15 ml oral syrup 15 mL = 10 Gm, By Mouth, Daily, This is correct dose., # 450 mL, 5 Refills, Maintenance, 06/25/19 9:18:00 EDT, Syrup, [facility] # [facility], 15 mL By Mouth Daily,Instr:This is correct dose., 163.5, cm,06/03/19 11:17:00 EDT, Height Start Date: 06/25/19 Status: Ordered lidocaine-prilocaine 2.5%-2.5% topical cream 1 application, Topically, Once, # 30 Gm, 0 Refills, Soft Stop, 01/12/20 10:30:00 EST, Cream, [facility] # [facility], Partial fill upon patient request, 1 application Topically Once, 163.5, cm, 01/11/20 14:45:00 EST, Height, 91, kg, 07/23/19 11:11:00 EDT,... Start Date: 01/12/20 Status: Ordered loratadine 10 mg oral tablet 10 mg, 1, tablet, By Mouth, Daily, # 90 tablet, Refills 3, Tot. Refills 3, Maintenance, 10/27/19 18:22:00 EDT, Route to Pharmacy Electronically, [facility] # [facility], Rx resent from 09/30/19., [...] EST, Route to Pharmacy Electronically, [facility], Refills per PCP, 163.5, cm, 01/11/20 14:45:00 EST, Height, 91, kg, 07/23/19 1... Start Date: 01/13/20 Status: Ordered Myrbetriq 50 mg oral tablet, extended release 1 tablet = 50 mg, By Mouth, Daily, # 30 tablet, 11 Refills, Maintenance, 07/23/19 11:40:00 EDT, [facility] # [facility], 163.5, cm, 07/23/19 11:11:00 EDT, Height, 91, kg, 07/23/19 11:11:00 EDT, Dry Weight Start Date: 07/23/19 Status: Ordered traMADol 50 mg oral tablet 1 tablet = 50 mg, By Mouth, Every 12 hours, # 42 tablet, 0 Refills, Maintenance, 11/03/19 16:09:00 EDT, [facility] [...]
--- OUTSIDE RECORDS SUMMARY | 2022-11-04 01:34 | XMS_ITS | Continuity of Care Document ---
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 Start Date: 01/16/21 Status: Ordered Ativan 0.5 mg oral tablet See Instructions, PRN as needed for anxiety, Take 1 tablet as needed for anxiety, do not take more than 2 tablets/day, # 14 tablet, 0 Refills, Maintenance, 08/03/21 9:13:00 EDT, Tablet, [facility], Partial fill upon patient request if the pre... Start Date: 08/03/21 Status: Ordered azelastine 137 mcg/inh (0.1%) nasal spray 2 sprays, Nares, Both, Daily, PRN Other Allergies, # 30 mL, 6 Refills, Maintenance, 08/18/20 15:01:00 EDT, [place], [facility], 2 sprays Nares, Both Daily,PRN:Other Allergies, 163.5, cm, 08/18/20 14:46:00 EDT, Height, 91, kg, 07/23/19 11:11... Start Date: 08/18/20 Status: Ordered buPROPion 300 mg/24 hours (XL) oral tablet, extended release 1 tablet = 300 mg, By Mouth, Daily, # 30 tablet, 5 Refills, Maintenance, 05/30/21 10:47:00 EDT, ER Tablet, [facility], Partial fill upon patient request if the prescription is for a scheduleII opioid drug., 163.5, cm, 04/21/21 11:51:00 EST,... Start Date: 05/30/21 Status: Ordered Cranberry oral tablet 0 Refills, Maintenance, 10/23/18 9:18:41 EDT Start Date: 10/23/18 Status: Ordered diclofenac sodium 75 mg oral delayed release tablet 1 tablet = 75 mg, By Mouth, 2 times a day, # 60 tablet, 3 Refills, Maintenance, 05/26/21 10:29:00 EDT, EC Tablet, [facility], Partial fill upon patient request if the prescription is for a schedule II opioid drug., 163.5, cm, 04/21/21 11:51:0... Start Date: 05/26/21 Status: Ordered duloxetine 60 mg oral enteric coated capsule 1 capsule = 60 mg, By Mouth, 2 times a day, # 60 capsule, 5 Refills, Maintenance, 02/10/21 14:24:00EST, EC Capsule, [facility], Partial fill upon patient request if the prescription is for a schedule II opioid drug., 163.5, cm, 12/12/20 16:0... Start Date: 02/10/21 Status: Ordered Estrace Vaginal Cream 0.1 mg/g See Instructions, 1 gram Vaginally at bedtime 2 times per week, # 42 Gm, 4 Refills, Maintenance, 03/16/21 10:21:00 EST, [facility], Patient sensitive to inactive ingredients ofmanufacturers drugs, [...] DAY, # 31.8 Gm, 1 Refills, Maintenance, [facility], 163.5, cm, 09/09/20 12:42:00 EDT, Height, 91, kg, 07/23/19 11:11:00 EDT, Dry Weight Start Date: 10/06/20 Status: Ordered gabapentin 600 mg oral tablet 1 tablet, By Mouth, 3 times a day, # 270 tablet, 1 Refills, [facility], 163.5, cm, 04/21/21 11:51:00 EST, Height, 91, kg, 07/23/19 11:11:00 EDT, Dry Weight Start Date: 05/11/21 Status: Ordered lidocaine-prilocaine 2.5%-2.5% topical cream 1 application, Topically, Once, # 30 Gm, 3 Refills, Soft Stop, 04/21/21 12:20:00 EST, Cream, [facility] # [facility], Partial fill upon patient request, 1 application Topically Once, 163.5, cm, 04/21/21 11:51:00 EST, Height, 91, kg, 07/23/19 11:11:00 EDT,... Start Date: 04/21/21 Status: Ordered loratadine 10 mg oral tablet See Instructions, TAKE ONE TABLET BY MOUTH EVERY DAY, # 90 tablet, Refills 1, Tot. Refills 1, Maintenance, 03/15/21 11:49:00 EST, Instructions Replace Required Details, Route to Pharmacy Electronically, [facility], 163.5, cm, 12/12/20 16:09:0... Start Date: 03/15/21 Status: Ordered lubiprostone 24 mcg oral capsule 1 capsule, By Mouth, 2 times a day, # 60 capsule, 5 Refills, 04/21/21 12:25:00 EST, [facility], 163.5, cm, 04/21/21 11:51:00 [...] tablet, Refills 6, Tot. Refills 6, Maintenance, 03/07/21 14:45:00 EST, Route to Pharmacy Electronically, [facility], 163.5, cm, 12/12/20 16:09:00 EDT, Height, 91, kg, 07/23/19 11:11:00 EDT, Dry... Start Date: 03/07/21 Status: Ordered Myrbetriq 50 mg oral tablet, extended release 1 tablet = 50 mg, By Mouth, Daily, # 90 tablet, 3 Refills, Maintenance, 03/16/21 10:21:00 EST, [facility] # [facility], 163.5, cm, 12/12/20 16:09:00 EDT, Height, 91, kg, 07/23/19 11:11:00 EDT, Dry Weight Start Date: 03/16/21 Status: Ordered traZODone 50 mg oral tablet 2, tablet, By Mouth, Daily at bedtime, # 60 tablet, Refills 5, Route to Pharmacy Electronically, [facility], 163.5, cm, 12/12/20 16:09:00 EDT, Height, 91, kg, 07/23/19 11:11:00 EDT, Dry Weight Start Date: 04/05/21 Status: Ordered Tylenol Extra Strength 500 mg [...] impingement(Confirmed) Active Lumbosacral radiculopathy at L5(Confirmed) Active Major depression in full remission(Confirmed) Active Depression, major(Confirmed) Active Urinary incontinence, mixed(Confirmed) Active Yeast infection(Confirmed) Active Obese class II(Confirmed) Active MONICA (obstructive sleep apnea ) AHI [...]
--- OUTSIDE RECORDS SUMMARY | 2022-11-04 01:34 | XMS_ITS | Continuity of Care Document ---
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 Start Date: 02/09/19 Status: Ordered buPROPion 300 mg/24 hours (XL) oral tablet, extended release 1 tablet = 300 mg, By Mouth, Daily, # 30 tablet, 11 Refills, Maintenance, 05/11/20 13:04:00 EDT, ERTablet, [facility] # [facility], Partial fill [...] 5 Refills, Maintenance, 08/11/20 11:15:00EDT, EC Capsule, [facility] # [facility], Partial fill upon patient request if the prescription is for a schedule II opioid drug., 163.5, cm, 08/11/20 10:3... Start Date: 08/11/20 Status: Ordered Estrace Vaginal Cream 0.1 mg/g See Instructions, 1 gram Vaginally at bedtime 2 times per week, # 42 Gm, 4 Refills, Maintenance, 03/23/20 16:57:00 EST, [facility], Patient sensitive to inactive ingredients ofmanufacturers drugs, [...] 3 Refills, Maintenance, 09/30/19 10:56:00 EDT, Inhaler, [facility], 163.5, cm, 09/30/19 9:33:00 EDT, Height, 91, kg, 07/23/19 11:11:00 EDT, Dry Weight Start Date: 09/30/19 Status: Ordered gabapentin 600 mg oral tablet 1 tablet, By Mouth, 3 times a day, # 270 Unknown, 1 Refills, Maintenance, 05/24/20 16:58:00 EDT, [facility] # [facility], 163.5, cm, 05/14/20 23:20:00 EDT, Height, 91, kg, 07/23/19 11:11:00 EDT, Dry Weight Start Date: 05/24/20 Status: Ordered lidocaine-prilocaine 2.5%-2.5% topical cream 1 application, Topically, Once, # 30 Gm, 1 Refills, Soft Stop, 03/08/20 8:14:00 EST, Cream, [facility], Partial fill upon patient request, 1 application Topically Once, 163.5, cm, 01/11/20 14:45:00 EST, Height, 91, kg, 07/23/19 11:11:00 EDT,... Start Date: 03/08/20 Status: Ordered loratadine 10 mg oral tablet 10 mg, 1, tablet, By Mouth, Daily, # 90 tablet, Refills 3, Tot. Refills 3, Maintenance, 10/27/19 18:22:00 EDT, Route to Pharmacy Electronically, [facility], Rx resent from 09/30/19., 163.5, cm, 10/08/19 11:19:00 EDT, Height, 91, kg, 07/23/19 11... Start Date: 10/27/19 Status: Ordered lubiprostone 24 mcg oral capsule 1 capsule, By Mouth, 2 times a day, # 60 Unknown, 0 Refills, Maintenance, 07/19/20 15:52:00 EDT, [facility] # [facility], 163.5, cm, 06/16/20 [...] 07/12/20 11:39:00 EDT, Route to Pharmacy Electronically, [facility], Refills per PCP, 163.5, cm, 06/16/20 7:48:00 EDT, Height, 91, kg, 07/23/19 11... Start Date: 07/12/20 Status: Ordered Myrbetriq 50 mg oral tablet, extended release 1 tablet = 50 mg, By Mouth, Daily, # 30 tablet, 11 Refills, Maintenance, 08/11/20 16:47:00 EDT, [facility] # [facility], 163.5, cm, 08/11/20 10:34:00 EDT, Height, 91, kg, 07/23/19 11:11:00 EDT, Dry Weight Start Date: 08/11/20 Status: Ordered traZODone 50 mg oral tablet 2, tablet, By Mouth, Daily at bedtime, # 60 tablet, Refills 5, Tot. Refills 0, Maintenance, 07/28/20 15:52:00 EDT, Route to Pharmacy Electronically, [facility], 163.5, cm, 06/16/20 [...]
--- OUTSIDE RECORDS SUMMARY | 2022-11-04 01:34 | XMS_ITS | Continuity of Care Document ---
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 Start Date: 02/09/19 Status: Ordered buPROPion 300 mg/24 hours (XL) oral tablet, extended release 1 tablet = 300 mg, By Mouth, Daily, # 30 tablet, 11 Refills, Maintenance, 05/11/20 13:04:00 EDT, ERTablet, [facility] # [facility], Partial fill [...] Refills, Maintenance, 06/10/20 12:27:00 EDT, EC Capsule, [facility] # [facility], Partial fill [...] 3 Refills, Maintenance, 09/30/19 10:56:00 EDT, Inhaler, [facility] # [facility], 163.5, cm, 09/30/19 9:33:00 EDT, Height, 91, kg, 07/23/19 11:11:00 EDT, Dry Weight Start Date: 09/30/19 Status: Ordered gabapentin 600 mg oral tablet 1 tablet, By Mouth, 3 times a day, # 270 Unknown, 1 Refills, Maintenance, 05/24/20 16:58:00 EDT, [facility] # [facility], 163.5, cm, 05/14/20 23:20:00 EDT, Height, 91, kg, 07/23/19 11:11:00 EDT, Dry Weight Start Date: 05/24/20 Status: Ordered lactulose 10 gm/15 ml oral syrup 15 mL, By Mouth, Daily, # 473 Unknown, 5 Refills, Acute, 07/08/20 7:08:00 EDT, [facility] # [facility],30, TAKE 15ML BY MOUTH DAILY, 163.5, cm, 06/16/20 7:48:00 EDT, Height, 91, kg, 07/23/19 11:11:00 EDT, Dry Weight Start Date: 07/08/20 Status: Ordered lidocaine-prilocaine 2.5%-2.5% topical cream 1 application, Topically, Once, # 30 Gm, 1 Refills, Soft Stop, 03/08/20 8:14:00 EST, Cream, [facility] # [facility], Partial fill upon patient request, 1 application Topically Once, 163.5, cm, 01/11/20 14:45:00 EST, Height, 91, kg, 07/23/19 11:11:00 EDT,... Start Date: 03/08/20 Status: Ordered loratadine 10 mg oral tablet 10 mg, 1, tablet, By Mouth, Daily, # 90 tablet, Refills 3, Tot. Refills 3, Maintenance, 10/27/19 18:22:00 EDT, Route to Pharmacy Electronically, [facility], Rx resent from 09/30/19., 163.5, cm, 10/08/19 11:19:00 EDT, Height, 91, kg, 07/23/19 11... Start Date: 10/27/19 Status: Ordered lubiprostone 24 mcg oral capsule 1 capsule, By Mouth, 2 times a day, # 60 Unknown, 0 Refills, Maintenance, 07/19/20 15:52:00 EDT, [facility], 163.5, cm, [...] 07/12/20 11:39:00 EDT, Route to Pharmacy Electronically, [facility], Refills per PCP, 163.5, cm, 06/16/20 7:48:00 EDT, Height, 91, kg, 07/23/19 11... Start Date: 07/12/20 Status: Ordered Myrbetriq 50 mg oral tablet, extended release 1 tablet = 50 mg, By Mouth, Daily, # 30 tablet, 11 Refills, Maintenance, 07/23/19 11:40:00 EDT, [facility], 163.5, cm, 07/23/19 [...]
--- OUTSIDE RECORDS SUMMARY | 2022-11-04 01:34 | XMS_ITS | Continuity of Care Document ---
Author Name Unknown Organization [facility] Address [address] [place] [address]- Care Team Providers Care Funeral Arranger Name Role Phone Susan AVENDANO, Orlando Quintanilla Primary Care Physician Encounter [facility] [place] Date(s): 05/31/21 - 06/30/21 [facility] [address] [place] [address]- Attending Physician: Admramana, Ernst8 Admitting Physician: Admtr, Ene Referring Physician: Admtr, Ar8 Allergies, Adverse Reactions, Alerts Substance Reaction Severity Status Cats Active Dust Active Pollen Active Immunizations Given and Recorded Vaccine Date Status Refusal Reason SARS-CoV-2 (COVID-19) mRNA BNT-162b2 vac 01/25/21 Recorded [...] 01/16/21 11:47:00 EST, Route to Pharmacy Electronically, [id number]... Start Date: 01/16/21 Status: Ordered azelastine 137 mcg/inh (0.1%) nasal spray 2 sprays, Nares, Both, Daily, PRN Other Allergies, # 30 mL, 6 Refills, Maintenance, 08/18/20 15:01:00 EDT, [place], [facility], 2 sprays Nares, Both Daily,PRN:Other Allergies, 163.5, cm, 08/18/20 14:46:00 EDT, Height, 91, kg, 07/23/19 11:11... Start Date: 08/18/20 Status: Ordered buPROPion 300 mg/24 hours (XL) oral tablet, extended release 1 tablet = 300 mg, By Mouth, Daily, # 30 tablet, 5 Refills, Maintenance, 05/30/21 10:47:00 EDT, ER Tablet, [facility], Partial [...] Refills, Maintenance, 05/26/21 10:29:00 EDT, EC Tablet, [facility], Partial fill upon patient request if the prescription is for a schedule II opioid drug., 163.5, cm, 04/21/21 11:51:0... Start Date: 05/26/21 Status: Ordered duloxetine 60 mg oral enteric coated capsule 1 capsule = 60 mg, By Mouth, 2 times a day, # 60 capsule, 5 Refills, Maintenance, 02/10/21 14:24:00EST, EC Capsule, [facility], Partial fill upon patient request if the prescription is for a schedule II opioid drug., 163.5, cm, 12/12/20 16:0... Start Date: 02/10/21 Status: Ordered Estrace Vaginal Cream 0.1 mg/g See Instructions, 1 gram Vaginally at bedtime 2 times per week, # 42 Gm, 4 Refills, Maintenance, 03/16/21 10:21:00 EST, [facility], Patient sensitive to inactive ingredients ofmanufacturers drugs, [...] DAY, # 31.8 Gm, 1 Refills, Maintenance, [facility], 163.5, cm, 09/09/20 12:42:00 EDT, Height, 91, kg, 07/23/19 11:11:00 EDT, Dry Weight Start Date: 10/06/20 Status: Ordered gabapentin 600 mg oral tablet 1 tablet, By Mouth, 3 times a day, # 270 tablet, 1 Refills, [facility], 163.5, cm, 04/21/21 11:51:00 EST, Height, 91, kg, 07/23/19 11:11:00 EDT, Dry Weight Start Date: 05/11/21 Status: Ordered lidocaine-prilocaine 2.5%-2.5% topical cream 1 application, Topically, Once, # 30 Gm, 3 Refills, Soft Stop, 04/21/21 12:20:00 EST, Cream, [facility], Partial fill upon patient request, 1 application Topically Once, 163.5, cm, 04/21/21 11:51:00 EST, Height, 91, kg, 07/23/19 11:11:00 EDT,... Start Date: 04/21/21 Status: Ordered loratadine 10 mg oral tablet See Instructions, TAKE ONE TABLET BY MOUTH EVERY DAY, # 90 tablet, Refills 1, Tot. Refills 1, Maintenance, 03/15/21 11:49:00 EST, Instructions Replace Required Details, Route to Pharmacy Electronically, [facility], 163.5, cm, 12/12/20 16:09:0... Start Date: 03/15/21 Status: Ordered lubiprostone 24 mcg oral capsule 1 capsule, By Mouth, 2 times a day, # 60 capsule, 5 Refills, 04/21/21 12:25:00 EST, [facility] # [facility], 163.5, cm, 04/21/21 11:51:00 [...] 03/07/21 14:45:00 EST, Route to Pharmacy Electronically, [facility], 163.5, cm, 12/12/20 16:09:00 EDT, Height, 91, kg, 07/23/19 11:11:00 EDT, Dry... Start Date: 03/07/21 Status: Ordered Myrbetriq 50 mg oral tablet, extended release 1 tablet = 50 mg, By Mouth, Daily, # 90 tablet, 3 Refills, Maintenance, 03/16/21 10:21:00 EST, [facility], 163.5, cm, 12/12/20 16:09:00 EDT, Height, 91, kg, 07/23/19 11:11:00 EDT, Dry Weight Start Date: 03/16/21 Status: Ordered traZODone 50 mg oral tablet 2, tablet, By Mouth, Daily at bedtime, # 60 tablet, Refills 5, Route to Pharmacy Electronically, [facility], 163.5, cm, 12/12/20 16:09:00 [...]
--- OUTSIDE RECORDS SUMMARY | 2022-11-04 01:34 | XMS_ITS | Continuity of Care Document ---
Author Name Unknown Organization [facility] Address [address] [place] [address]- Care Team Providers Care Consumer Experience Consultant Name Role Phone Susan AVENDANO, Orlando Quintanilla Primary Care Physician [phone] Encounter [facility] [place] Date(s): 06/15/20 - 07/15/20 [facility] [address] [place] [address]- Allergies, Adverse Reactions, Alerts Substance Reaction Severity [...] 02/09/19 13:37:40 EST, Route to Pharmacy Electronically, [id number]... Start Date: 02/09/19 Status: Ordered buPROPion 300 [...] Refills, Maintenance, 06/10/20 12:27:00 EDT, EC Capsule, [facility], Partial fill upon patient request if the prescription is for a schedule II opioid drug., 163.5, cm, 06/10/20 11:17:0... Start Date: 06/10/20 Status: Ordered Estrace Vaginal Cream 0.1 mg/g See Instructions, 1 gram Vaginally at bedtime 2 times per week, # 42 Gm, 4 Refills, Maintenance, 03/23/20 16:57:00 EST, [facility], Patient sensitive to inactive ingredients ofmanufacturers drugs, [...] 3 Refills, Maintenance, 09/30/19 10:56:00 EDT, Inhaler, [facility], 163.5, cm, 09/30/19 9:33:00 EDT, Height, 91, kg, 07/23/19 11:11:00 EDT, Dry Weight Start Date: 09/30/19 Status: Ordered gabapentin 600 mg oral tablet 1 tablet, By Mouth, 3 times a day, # 270 Unknown, 1 Refills, Maintenance, 05/24/20 16:58:00 EDT, [facility], 163.5, cm, 05/14/20 23:20:00 EDT, Height, 91, kg, 07/23/19 11:11:00 EDT, Dry Weight Start Date: 05/24/20 Status: Ordered lactulose 10 gm/15 ml oral syrup 15 mL, By Mouth, Daily, # 473 Unknown, 5 Refills, Acute, 07/08/20 7:08:00 EDT, [facility] # [facility],30, TAKE 15ML BY MOUTH DAILY, 163.5, cm, 06/16/20 7:48:00 EDT, Height, 91, kg, 07/23/19 11:11:00 EDT, Dry Weight Start Date: 07/08/20 Status: Ordered lidocaine-prilocaine 2.5%-2.5% topical cream 1 application, Topically, Once, # 30 Gm, 1 Refills, Soft Stop, 03/08/20 8:14:00 EST, Cream, [facility] # [facility], Partial fill upon patient request, 1 application Topically Once, 163.5, cm, 01/11/20 14:45:00 EST, Height, 91, kg, 07/23/19 11:11:00 EDT,... Start Date: 03/08/20 Status: Ordered loratadine 10 mg oral tablet 10 mg, 1, tablet, By Mouth, Daily, # 90 tablet, Refills 3, Tot. Refills 3, Maintenance, 10/27/19 18:22:00 EDT, Route to Pharmacy Electronically, [facility] # [facility], Rx resent from 09/30/19., 163.5, cm, 10/08/19 11:19:00 EDT, Height, 91, kg, 07/23/19 11... Start Date: 10/27/19 Status: Ordered lubiprostone 24 mcg oral capsule 1 capsule = 24 mcg, By Mouth, 2 times a day, # 60 capsule, 0 Refills, Maintenance, 06/10/20 12:29:00 EDT, Capsule, [facility], [...] tablet, 11 Refills, Maintenance, 07/23/19 11:40:00 EDT, [facility] # [facility], 163.5, cm, [...] EDT, Height, 91, kg, 07/23/19 11:11:00 EDT, [email or web address] Start Date: 12/04/19 Stop Date: 06/01/20 Status: [...]
--- OUTSIDE RECORDS SUMMARY | 2022-11-04 01:34 | XMS_ITS | Continuity of Care Document ---
Author Name Unknown Organization [facility] Lalo Kayode lt Address [address] [place] [address]- Care Team Providers Care Digital Media Designer Name Role Phone Rafiq Arteaga Primary Care Physi kateryna [place] [facility] [place](s): 12/24/21 - 01/23/22 [facility] Adult [address] [place] [address]- Allergies, Adverse Reactions, Alerts Substance Reaction Severity [...] 01/16/21 11:47:00 EST, Route to Pharmacy Electronically, [id number]... Start Date: 01/16/21 Status: Ordered Ativan 0.5 mg oral tablet See Instructions, PRN as needed for anxiety, Take 1 tablet as needed for anxiety, do not take more than 2 tablets/day, # 14 tablet, 0 Refills, Maintenance, 08/03/21 9:13:00 EDT, Tablet, [facility] # [facility], Partial fill upon patient request if the pre... Start Date: 08/03/21 Status: Ordered azelastine 137 mcg/inh (0.1%) nasal spray 2 sprays, Nares, Both, Daily, PRN Other Allergies, # 30 mL, 6 Refills, Maintenance, 10/05/21 13:14:00 EDT, [place], [facility] # [facility], 2 sprays Nares, Both Daily,PRN:Other Allergies, 163.5, cm, 08/21/21 13:35:00 EDT, Height Start Date: 10/05/21 Status: Ordered buPROPion 300 mg/24 hours (XL) oral tablet, extended release 1 tablet = 300 mg, By Mouth, Daily, # 30 tablet, 5 Refills, Maintenance, 12/26/21 11:19:00 EDT, ER Tablet, [facility] # [facility], Partial fill upon [...] 60 tablet, 1 Refills, 12/26/21 11:19:00 EDT, [facility] # [facility], 163.5, cm, 08/21/21 13:35:00 EDT, Height Start Date: 12/26/21 Status: Ordered diclofenac sodium 75 mg oral delayed release tablet See Instructions, TAKE ONE TABLET BY MOUTH TWICE A DAY, # 60 tablet, 1 Refills, Maintenance, 12/27/21 9:34:00 EDT, [facility], 163.5, cm, 12/27/21 9:29:00 EDT, Height Start Date: 12/27/21 Status: Ordered duloxetine 60 mg oral enteric coated capsule 1 capsule, By Mouth, 2 times a day, # 60 capsule, 5 Refills, [facility], 163.5, cm, 08/21/21 13:35:00 EDT, Height Start Date: 09/18/21 Status: Ordered Estrace Vaginal Cream 0.1 mg/g See Instructions, 1 gram Vaginally at bedtime 2 times per week, # 42 Gm, 4 Refills, Maintenance, 03/16/21 10:21:00 EST, [facility], Patient sensitive to inactive ingredients ofmanufacturers drugs, [...] 1 each, 6 Refills, 09/21/21 16:29:00 EDT, [facility], 163.5, cm, 08/21/21 13:35:00 EDT, Height Start Date: 09/21/21 Status: Ordered gabapentin 600 mg oral tablet 1 tablet, By Mouth, 3 times a day, office visit needed for further refills, # 270 tablet, 1 Refills, Maintenance, 11/13/21 13:31:00 EDT, [facility] # [facility], 163.5, cm, 08/21/21 13:35:00 EDT, Height Start Date: 11/13/21 Status: Ordered lidocaine-prilocaine 2.5%-2.5% topical cream 1 application, Topically, Once, # 30 Gm, 3 Refills, Soft Stop, 04/21/21 12:20:00 EST, Cream, [facility] # 50, Partial fill upon patient request, 1 application Topically Once, 163.5, cm, 04/21/21 11:51:00 EST, Height, 91, kg, 07/23/19 11:11:00 EDT,... Start Date: 04/21/21 Status: Ordered lubiprostone 24 mcg oral capsule 1 capsule, By Mouth, 2 times a day, # 60 capsule, 5 Refills, 04/21/21 12:25:00 EST, [facility] # [facility], [...] 10/25/21 16:41:00 EDT, Route to Pharmacy Electronically, [facility] # [facility], 163.5, cm, 08/21/21 13:35:00 EDT, Height Start Date: 10/25/21 Status: Ordered Myrbetriq 50 mg oral tablet, extended release 1 tablet = 50 mg, By Mouth, Daily, # 90 tablet, 3 Refills, Maintenance, 09/08/21 9:40:00 EDT, [facility] # 50, 163.5, cm, 08/21/21 13:35:00 EDT, Height Start Date: 09/08/21 Status: Ordered ohm Allergy Relief 10 mg oral tablet See Instructions, TAKE 1 TABLET BY MOUTH EVERY DAY, # 90 tablet, 1 Refills, Maintenance, 10/01/21 2:49:00 EDT, [facility] # [facility], 163.5, cm, 08/21/21 13:35:00 [...] Team Personnel Name: Eleazar Rendon NP Position: [facility] PCO w/OE and EZ Script Member Role: Primary Care Nurse Address: Address: [address] [place] [address] [address] [facility] [address]- Name: Rafiq Arteaga [facility] Associate Professional Member Role: PCP Address: Address: [address] [facility] [place] [address]- Care Team Related Persons Name: LEWIS BALLESTEROS Address: home [address] [place] [id number] Name: RUSTY HOOVER
--- OUTSIDE RECORDS SUMMARY | 2022-11-04 01:34 | XMS_ITS | Continuity of Care Document ---
Author Name Unknown Organization [facility] Kayode lt Address [address] [place] [address]- Care Team Providers Care Recovery Coach Name Role Phone Susan AVENDANO, Orlando Quintanilla Primary Care Physician [phone] Encounter [facility] Date(s): 06/10/20 - 07/10/20 [facility] Adult [address] [place] [address]- Allergies, Adverse Reactions, Alerts Substance Reaction Severity [...] 02/09/19 13:37:40 EST, Route to Pharmacy Electronically, [id number]... Start Date: 02/09/19 Status: Ordered buPROPion 300 mg/24 hours (XL) oral tablet, extended release 1 tablet = 300 mg, By Mouth, Daily, # 30 tablet, 11 Refills, Maintenance, 05/11/20 13:04:00 EDT, ERTablet, [facility] # [facility], Partial fill upon [...] Refills, Maintenance, 06/10/20 12:27:00 EDT, EC Capsule, [facility] # 50, Partial fill upon patient request if the prescription is for a schedule II opioid drug., 163.5, cm, 06/10/20 11:17:0... Start Date: 06/10/20 Status: Ordered Estrace Vaginal Cream 0.1 mg/g See Instructions, 1 gram Vaginally at bedtime 2 times per week, # 42 Gm, 4 Refills, Maintenance, 03/23/20 16:57:00 EST, [facility], Patient sensitive to inactive ingredients ofmanufacturers drugs, [...] 3 Refills, Maintenance, 09/30/19 10:56:00 EDT, Inhaler, [email or web address] # [facility], 163.5, cm, 09/30/19 9:33:00 EDT, Height, 91, kg, 07/23/19 11:11:00 EDT, Dry Weight Start Date: 09/30/19 Status: Ordered gabapentin 600 mg oral tablet 1 tablet, By Mouth, 3 times a day, # 270 Unknown, 1 Refills, Maintenance, 05/24/20 16:58:00 EDT, [email or web address] # [facility], 163.5, cm, 05/14/20 23:20:00 EDT, Height, 91, kg, 07/23/19 11:11:00 EDT, Dry Weight Start Date: 05/24/20 Status: Ordered lactulose 10 gm/15 ml oral syrup 15 mL, By Mouth, Daily, # 473 Unknown, 5 Refills, Acute, 07/08/20 7:08:00 EDT, [email or web address] # 50,30, TAKE 15ML BY MOUTH DAILY, 163.5, cm, 06/16/20 7:48:00 EDT, Height, 91, kg, 07/23/19 11:11:00 EDT, Dry Weight Start Date: 07/08/20 Status: Ordered lidocaine-prilocaine 2.5%-2.5% topical cream 1 application, Topically, Once, # 30 Gm, 1 Refills, Soft Stop, 03/08/20 8:14:00 EST, Cream, [email or web address] # [facility], Partial fill upon patient request, 1 application Topically Once, 163.5, cm, 01/11/20 14:45:00 EST, Height, 91, kg, 07/23/19 11:11:00 EDT,... Start Date: 03/08/20 Status: Ordered loratadine 10 mg oral tablet 10 mg, 1, tablet, By Mouth, Daily, # 90 tablet, Refills 3, Tot. Refills 3, Maintenance, 10/27/19 18:22:00 EDT, Route to Pharmacy Electronically, [facility], Rx resent from 09/30/19., 163.5, cm, 10/08/19 11:19:00 EDT, Height, 91, kg, 07/23/19 11... Start Date: 10/27/19 Status: Ordered lubiprostone 24 mcg oral capsule 1 capsule = 24 mcg, By Mouth, 2 times a day, # 60 capsule, 0 Refills, Maintenance, 06/10/20 12:29:00 EDT, Capsule, [facility] # [facility], Partial fill upon [...] EST, Route to Pharmacy Electronically, [facility], Refills per PCP, [...] 12/04/19 12:51:00 EDT, Route to Pharmacy Electronically, [facility] # [facility], 163.5, cm, 11/03/19 11:52:00 [...]
--- OUTSIDE RECORDS SUMMARY | 2022-11-04 01:34 | XMS_ITS | Continuity of Care Document ---
Author Name Unknown Organization [facility] Kayode lt Address [address] [place] [address]- Care Team Providers Care Armed Security Officer Name Role Phone Susan AVENDANO, Orlando Quintanilla Primary Care Physician Encounter [facility] [place] Date(s): 06/16/20 - 06/23/20 [facility] Adult [address] [place] [address]- Encounter Diagnosis Mild intermittent asthma with acute exacerbation(Discharge Diagnosis) - 06/16/20 Attending Physician: Leonora Demarco NP Allergies, Adverse Reactions, Alerts Substance Reaction [...] 02/09/19 13:37:40 EST, Route to Pharmacy Electronically, [id number]... Start Date: 02/09/19 Status: Ordered buPROPion 300 mg/24 hours (XL) oral tablet, extended release 1 tablet = 300 mg, By Mouth, Daily, # 30 tablet, 11 Refills, Maintenance, 05/11/20 13:04:00 EDT, ERTablet, [facility] # [facility], Partial fill upon [...] Refills, Maintenance, 06/10/20 12:27:00 EDT, EC Capsule, [facility] # [facility], Partial fill upon patient request if the prescription is for a schedule II opioid drug., 163.5, cm, 06/10/20 11:17:0... Start Date: 06/10/20 Status: Ordered Estrace Vaginal Cream 0.1 mg/g See Instructions, 1 gram Vaginally at bedtime 2 times per week, # 42 Gm, 4 Refills, Maintenance, 03/23/20 16:57:00 EST, [facility], Patient sensitive to inactive ingredients ofmanufacturers drugs, [...] 3 Refills, Maintenance, 09/30/19 10:56:00 EDT, Inhaler, [facility] # [facility], 163.5, cm, 09/30/19 9:33:00 EDT, Height, 91, kg, 07/23/19 11:11:00 EDT, Dry Weight Start Date: 09/30/19 Status: Ordered gabapentin 600 mg oral tablet 1 tablet, By Mouth, 3 times a day, # 270 Unknown, 1 Refills, Maintenance, 05/24/20 16:58:00 EDT, [facility] # [facility], 163.5, cm, 05/14/20 23:20:00 EDT, Height, 91, kg, 07/23/19 11:11:00 EDT, Dry Weight Start Date: 05/24/20 Status: Ordered lactulose 10 gm/15 ml oral syrup 15 mL = 10 Gm, By Mouth, Daily, This is correct dose., # 450 mL, 5 Refills, Maintenance, 06/25/19 9:18:00 EDT, Syrup, [facility] # [facility], 15 mL By Mouth Daily,Instr:This is correct dose., 163.5, cm,06/03/19 11:17:00 EDT, Height Start Date: 06/25/19 Status: Ordered lidocaine-prilocaine 2.5%-2.5% topical cream 1 application, Topically, Once, # 30 Gm, 1 Refills, Soft Stop, 03/08/20 8:14:00 EST, Cream, [facility] # [facility], Partial fill upon patient request, 1 application Topically Once, 163.5, cm, 01/11/20 14:45:00 EST, Height, 91, kg, 07/23/19 11:11:00 EDT,... Start Date: 03/08/20 Status: Ordered loratadine 10 mg oral tablet 10 mg, 1, tablet, By Mouth, Daily, # 90 tablet, Refills 3, Tot. Refills 3, Maintenance, 10/27/19 18:22:00 EDT, Route to Pharmacy Electronically, [facility] # [facility], Rx resent from 09/30/19., 163.5, cm, 10/08/19 11:19:00 EDT, Height, 91, kg, 07/23/19 11... Start Date: 10/27/19 Status: Ordered lubiprostone 24 mcg oral capsule 1 capsule = 24 mcg, By Mouth, 2 times a day, # 60 capsule, 0 Refills, Maintenance, 06/10/20 12:29:00 EDT, Capsule, [facility] # [facility], Partial fill upon patient [...] 01/13/20 12:44:00 EST, Route to Pharmacy Electronically, [facility] # [facility], Refills per PCP, 163.5, cm, 01/11/20 14:45:00 EST, Height, 91, kg, 07/23/19 1... Start Date: 01/13/20 Status: Ordered Myrbetriq 50 mg oral tablet, extended release 1 tablet = 50 mg, By Mouth, Daily, # 30 tablet, 11 Refills, Maintenance, 07/23/19 11:40:00 EDT, [facility] # [facility], 163.5, cm, 07/23/19 11:11:00 EDT, Height, 91, kg, 07/23/19 11:11:00 EDT, Dry Weight Start Date: 07/23/19 Status: Ordered traZODone 50 mg oral tablet 50 mg, 1, tablet, By Mouth, Daily at bedtime, # 30 tablet, Refills 5, Tot. Refills 5, Maintenance, 12/04/19 12:51:00 EDT, Route to Pharmacy Electronically, [facility], 163.5, cm, 11/03/19 11:52:00 [...] Effective Dates Health Status Clinical Service Informant Mild intermittent asthma with acute exacerbation Discharge Diagnosis 06/16/20 Vital Signs Most recent to oldest [Reference Range]: 1 Height 163.5 cm (06/16/20 7:48 AM) Social History Social History Type Response Smoking Status Never (less than 100 in lifetime) entered on: 11/21/18 Sex
--- OUTSIDE RECORDS SUMMARY | 2022-11-04 01:34 | XMS_ITS | Continuity of Care Document ---
Author Name Unknown Organization [facility] Address [address] [place] [address], [address] [place] [address]- Care Team Providers Care Dry Kiln Feeder Name Role Phone Suzanne AVENDANO, Tyler Charles Primary Care Physician [phone] Encounter [facility] [place] Date(s): 07/23/19 - 08/22/19 [facility] [facility] [address] [facility], [address] [place] [address]- [facility] Attending Physician: Admramana, [id number] Admitting Physician: Admtr, [id number] Referring Physician: Admtr, [id number] Allergies, Adverse Reactions, [...] 02/09/19 13:37:40 EST, Route to Pharmacy Electronically, [id number]... Start Date: 02/09/19 Status: Ordered Cranberry oral tablet 0 Refills, Maintenance, 10/23/18 9:18:41 EDT Start Date: 10/23/18 Status: Ordered diclofenac sodium 25 mg oral delayed release tablet 1 tablet = 25 mg, By Mouth, 2 times a day, # 60 tablet, 1 Refills, Maintenance, 07/23/19 10:48:00 EDT, EC Tablet, [facility], 163.5, cm, 06/03/19 [...] 03/07/19 11:47:00 EST, Route to Pharmacy Electronically, [facility] # [facility], 163.5, cm, 02/09/19 13:07:00 EST, Height Start Date: 03/07/19 Status: Ordered gabapentin 600 mg oral tablet 1 tablet, By Mouth, 3 times a day, # 90 Unknown, 5 Refills, Maintenance, 05/25/19 16:16:00 EDT, [facility], 163.5, cm, 03/27/19 10:49:00 EST, Height Start Date: 05/25/19 Status: Ordered lactulose 10 gm oral powder for reconstitution 1 pack/packet, By Mouth, 2 times a day, # 30 each, 2 Refills, Maintenance, 03/27/19 11:11:00 EST, REC Powder, [facility] # [facility], 163.5, cm, 03/27/19 10:49:00 EST, Height Start Date: 03/27/19 Status: Ordered lactulose 10 gm/15 ml oral syrup 15 mL = 10 Gm, By Mouth, Daily, This is correct dose., # 450 mL, 5 Refills, Maintenance, 06/25/19 9:18:00 EDT, Syrup, [facility] # [facility], 15 mL By Mouth Daily,Instr:This is correct dose., 163.5, cm,06/03/19 11:17:00 EDT, Height Start Date: 06/25/19 Status: Ordered loratadine 10 mg oral tablet 10 mg, 1, tablet, By Mouth, Daily, # 90 tablet, Refills 1, Tot. Refills 1, Maintenance, 04/27/19 8:18:00 EST, Route to Pharmacy Electronically, [facility] # [facility], 163.5, cm, 03/27/19 [...] 06/17/19 13:09:00 EDT, Route to Pharmacy Electronically, [facility] # [facility], Refills per PCP, 163.5, cm, 06/03/19 11:17:00 EDT, Height Start Date: 06/17/19 Status: Ordered Myrbetriq 50 mg oral tablet, extended release 1 tablet = 50 mg, By Mouth, Daily, # 30 tablet, 11 Refills, Maintenance, 07/23/19 11:40:00 EDT, [facility] # [facility], 163.5, cm, 07/23/19 11:11:00 EDT, Height, 91, kg, 07/23/19 11:11:00 EDT, Dry Weight Start Date: 07/23/19 Status: Ordered traZODone 50 mg oral tablet 100 mg, 2, tablet, By Mouth, Daily at bedtime, # 60 tablet, Refills 5, Tot. Refills 5, Maintenance,06/01/19 14:37:00 EDT, Route to Pharmacy Electronically, [facility] # [facility], 163.5, cm, 03/27/19 [...]
--- OUTSIDE RECORDS SUMMARY | 2022-11-04 01:34 | XMS_ITS | Continuity of Care Document ---
Author Name Unknown Organization [facility] Kayode lt Address [address] [place] [address]- Care Team Providers Care Principal Engineer Name Role Phone Rafiq Arteaga Primary Care Physi kateryna Encounter [facility] [place] Date(s): 04/19/22 - 05/19/22 [facility] Adult [address] [place] [address]- Allergies, Adverse Reactions, Alerts Substance Reaction Severity [...] 14:38:00 EST, Powder, Route to Pharmacy Electronically, [id number], [facility] # [facility], I... Start Date: 04/23/22 [...] 0 Refills, Maintenance, 04/23/22 11:16:00 EST, Tablet, [facility] # 50, Partial fill upon patient request if the pr... Start Date: 04/23/22 Status: Ordered azelastine 137 mcg/inh (0.1%) nasal spray 2 sprays, Nares, Both, Daily, PRN Other Allergies, # 30 mL, 6 Refills, Maintenance, 10/05/21 13:14:00 EDT, [place], [facility] # [facility], 2 sprays Nares, Both Daily,PRN:Other Allergies, 163.5, cm, 08/21/21 13:35:00 EDT, Height Start Date: 10/05/21 Status: Ordered buPROPion 300 mg/24 hours (XL) oral tablet, extended release 1 tablet = 300 mg, By Mouth, Daily, # 30 tablet, 5 Refills, Maintenance, 12/26/21 11:19:00 EDT, ER Tablet, [facility] # [facility], Partial fill upon patient request if the prescription is for a scheduleII opioid drug., 163.5, cm, 08/21/21 13:35:00 EDT,... Start Date: 12/26/21 Status: Ordered duloxetine 60 mg oral enteric coated capsule 1 capsule, By Mouth, 2 times a day, # 60 capsule, 5 Refills, 04/09/22 16:24:00 EST, [facility] # [facility], 163.5, cm, 03/09/22 13:18:00 EST, Height Start Date: 04/09/22 Status: Ordered Estrace Vaginal Cream 0.1 mg/g See Instructions, 1 gram Vaginally at bedtime 2 times per week, # 42 Gm, 4 Refills, Maintenance, 03/16/21 10:21:00 EST, [facility], Patient sensitive to inactive ingredients ofmanufacturers drugs, [...] tablet, 1 Refills, Maintenance, 03/05/22 13:21:00 EST, [facility], 163.5, cm, 03/05/22 12:50:00 EST, Height Start Date: 03/05/22 Status: Ordered lidocaine-prilocaine 2.5%-2.5% topical cream 1 application, Topically, Once, # 30 Gm, 0 Refills, Soft Stop, 04/23/22 11:23:00 EST, Cream, [facility], Partial fill upon patient request if the prescription is for a schedule II opioid drug., 1 application Topically Once, 163.5, cm, ... Start Date: 04/23/22 Status: Ordered lysine 1000 mg oral tablet [...] 10/25/21 16:41:00 EDT, Route to Pharmacy Electronically, [facility], 163.5, cm, 08/21/21 13:35:00 EDT, Height Start Date: 10/25/21 Status: Ordered Myrbetriq 50 mg oral tablet, extended release 1 tablet = 50 mg, By Mouth, Daily, # 90 tablet, 3 Refills, Maintenance, 09/08/21 9:40:00 EDT, [facility] # 50, 163.5, cm, 08/21/21 13:35:00 EDT, Height Start Date: 09/08/21 Status: Ordered ohm Allergy Relief 10 mg oral tablet See Instructions, TAKE 1 TABLET BY MOUTH EVERY DAY, # 90 tablet, 1 Refills, Maintenance, 03/05/22 13:16:00 EST, [facility] # [facility], 163.5, cm, 03/05/22 12:50:00 EST, Height Start Date: 03/05/22 Status: Ordered traZODone 50 mg oral tablet 2, tablet, By Mouth, Daily at bedtime, # 60 tablet, Refills 5, Tot. Refills 5, 02/05/22 11:04:00 EST, Route to Pharmacy Electronically, [facility] # [facility], 163.5, cm, 01/15/22 [...] Team Personnel Name: Eleazar Rendon NP Position: [facility] PCO w/OE and EZ Script Member Role: Primary Care Nurse Address: Address: [address] [place] [address] [place] [address]- Name: Rafiq Arteaga Position: [facility] PCO Associate Professional Member Role: PCP Address: Address: [address] [place] [address] [place] [address]- Care Team Related Persons Name: LEWIS BALLESTEROS Address: home [address] [place] [id number] Name: RUSTY HOVOER
--- OUTSIDE RECORDS SUMMARY | 2022-11-04 01:35 | XMS_ITS | Continuity of Care Document ---
Author Name Unknown Organization [facility] Address [address] [place] [address]- Care Team Providers Care Distance Learning Program Coordinator Name Role Phone Susan AVENDANO, Orlando Quintanilla Primary Care Physician [place] [facility] [place](s): 03/07/21 - 04/06/21 [facility] [address] [place] [address]- [place] Allergies, Adverse Reactions, Alerts Substance Reaction Severity [...] 01/16/21 11:47:00 EST, Route to Pharmacy Electronically, [id number]... Start Date: 01/16/21 Status: Ordered azelastine 137 mcg/inh (0.1%) nasal spray 2 sprays, Nares, Both, Daily, PRN Other Allergies, # 30 mL, 6 Refills, Maintenance, 08/18/20 15:01:00 EDT, [place], [facility], 2 sprays [...] Refills, Maintenance, 03/16/21 10:21:00 EST, [facility], Patient sensitive to inactive ingredients ofmanufacturers drugs, [...] DAY, # 31.8 Gm, 1 Refills, Maintenance, [facility], 163.5, cm, 09/09/20 12:42:00 EDT, Height, 91, kg, 07/23/19 11:11:00 EDT, Dry Weight Start Date: 10/06/20 Status: Ordered gabapentin 600 mg oral tablet 1 tablet, By Mouth, 3 times a day, # 270 Unknown, 1 Refills, Maintenance, 11/15/20 12:03:00 EDT, [facility], 163.5, [...] Replace Required Details, Route to Pharmacy Electronically, [facility] # [facility], 163.5, cm, 12/12/20 16:09:0... Start Date: 03/15/21 Status: Ordered lubiprostone 24 mcg oral capsule 1 capsule, By Mouth, 2 times a day, # 60 capsule, 5 Refills, [facility] # [facility], 163.5, cm, 09/09/20 12:42:00 [...] 03/07/21 14:45:00 EST, Route to Pharmacy Electronically, [facility] # [facility], 163.5, cm, 12/12/20 16:09:00 EDT, Height, 91, kg, 07/23/19 11:11:00 EDT, Dry... Start Date: 03/07/21 Status: Ordered Myrbetriq 50 mg oral tablet, extended release 1 tablet = 50 mg, By Mouth, Daily, # 90 tablet, 3 Refills, Maintenance, 03/16/21 10:21:00 EST, [facility] # [facility], 163.5, cm, 12/12/20 16:09:00 EDT, Height, 91, kg, 07/23/19 11:11:00 EDT, Dry Weight Start Date: 03/16/21 Status: Ordered traZODone 50 mg oral tablet 2, tablet, By Mouth, Daily at bedtime, # 60 tablet, Refills 5, Route to Pharmacy Electronically, [facility] # [facility], 163.5, cm, 12/12/20 16:09:00 [...]
--- OUTSIDE RECORDS SUMMARY | 2022-11-04 01:35 | XMS_ITS | Continuity of Care Document ---
Author Name Unknown Organization [facility] Lalo Kayode lt Address [address] [place] [address]- Care Team Providers Care Lining Sewer Name Role Phone Orlando Davis MD Primary Care Physician Encounter [facility] [place] Date(s): 08/11/20 - 08/18/20 [facility] Adult [address] [place] [address]- Encounter Diagnosis Physical exam(Discharge Diagnosis) - 08/09/20 Depression, major(Discharge Diagnosis) - 08/09/20 MONICA (obstructive sleep apnea) AHI 9.2(Discharge Diagnosis) - 08/09/20 Abnormal liver function test(Discharge Diagnosis) - 08/09/20 Asthma(Discharge Diagnosis) - 08/09/20 Peripheral neuropathy(Discharge Diagnosis) - 08/09/20 Lumbosacral radiculopathy at L5(Discharge Diagnosis) - 08/09/20 Lumbar herniated disc(Discharge Diagnosis) - 08/09/20 BMI 35.0-35.9,adult(Discharge Diagnosis) - 08/11/20 Constipation, chronic(Discharge Diagnosis) - 08/11/20 Attending Physician: Orlando Davis MD Allergies, Adverse [...] 02/09/19 13:37:40 EST, Route to Pharmacy Electronically, [id number]... Start Date: 02/09/19 Status: Ordered azelastine 137 mcg/inh (0.1%) nasal spray 2 sprays, Nares, Both, Daily, PRN Other Allergies, # 30 mL, 6 Refills, Maintenance, 08/18/20 15:01:00 EDT, [place], [facility], 2 sprays Nares, Both Daily,PRN:Other Allergies, 163.5, cm, 08/18/20 14:46:00 EDT, Height, 91, kg, 07/23/19 11:11... Start Date: 08/18/20 Status: Ordered buPROPion 300 mg/24 hours (XL) oral tablet, extended release 1 tablet = 300 mg, By Mouth, Daily, # 30 tablet, 11 Refills, Maintenance, 05/11/20 13:04:00 EDT, ERTablet, [facility], Partial fill [...] Refills, Maintenance, 03/23/20 16:57:00 EST, [facility], Patient sensitive to inactive ingredients ofmanufacturers drugs, 163.5, cm, 03/23/20 16:35:00... Start Date: 03/23/20 Status: Ordered ESTRIOL CREAM ESTRIOL CREAM, Refills 0, Maintenance, APPLY PEA SIZE AMOUNT 3 TIMES A WEEK (M, W, F), 11/21/18 14:27:53 EDT, Compound Start Date: 11/21/18 Status: Ordered Flovent HFA 44 mcg/inh inhalation aerosol 2 puffs = 88 mcg, Inhalation, 2 times a day, rinse mouth and throat after use; Can try to decrease to 1 puff twice daily., # 3 each, 3 Refills, Maintenance, 08/18/20 15:02:00 EDT, Inhaler, [facility], 163.5, cm, 08/18/20 14:46:00 EDT, Height,... Start Date: 08/18/20 Status: Ordered gabapentin 600 mg oral tablet 1 tablet, By Mouth, 3 times a day, # 270 Unknown, 1 Refills, Maintenance, 05/24/20 16:58:00 EDT, [facility], 163.5, cm, 05/14/20 23:20:00 [...] tablet, 11 Refills, Maintenance, 08/11/20 16:47:00 EDT, [facility], 163.5, cm, 08/11/20 [...] Effective Dates Health Status Clinical Service Informant Physical exam Discharge Diagnosis 08/09/20 Depression, major Discharge Diagnosis 08/09/20 MONICA (obstructive sleep apnea) AHI 9.2 Discharge Diagnosis 08/09/20 Abnormal liver function test Discharge Diagnosis 08/09/20 Asthma Discharge Diagnosis 08/09/20 Peripheral neuropathy Discharge Diagnosis 08/09/20 Lumbosacral radiculopathy at L5 Discharge Diagnosis 08/09/20 Lumbar herniated disc Discharge Diagnosis 08/09/20 BMI 35.0-35.9,adult Discharge Diagnosis 08/11/20 Constipation, chronic Discharge Diagnosis 08/11/20 Procedures Procedure Date Related Diagnosis Body Site Status Colonoscopy nad 08/09/15 Completed Upper GI endoscopy gastritis 08/09/15 Completed Vital Signs Most recent to oldest [Reference Range]: 1 Height 163.5 cm (08/11/20 10:34 AM) Weight 94.6 kg (08/11/20 10:34 AM) Oxygen Saturation [94-100 %] 98 % (08/11/20 10:34 AM) Pulse Rate [55-90 bpm] 96 bpm *H* (08/11/20 10:34 AM) Body Mass Index [18.5-24.99] 35.39 *>HHI* (08/11/20 10:34 AM) Blood Pressure [90-138/55-84 mm Hg] 118/ 82mm Hg (08/11/20 10:34 AM) Respiratory Rate [16-30 br/min] 16 br/mi n (08/11/20 10:34 AM) Blood pressure sites Arm, left (08/11/20 10:34 AM) Social History Social History Type Response Smoking Status Never (less than 100 in lifetime) entered on: 11/21/18 Sex
--- OUTSIDE RECORDS SUMMARY | 2022-11-04 01:35 | XMS_ITS | Continuity of Care Document ---
Author Name Unknown Organization [facility] Oskar May Kayode lt Address [address] [place] [phone]- Care Team Providers Care Brownfield Redevelopment Specialist Name Role Phone Rafiq Arteaga Primary Care Physi [facility] emergency department [place] [facility] [place] Date(s): 02/09/22 - 02/16/22 [facility] Adult [address] [place] [address]- Encounter Diagnosis Cough(Discharge Diagnosis) - 02/09/22 Attending Physician: Deshawn BUS ATTENDANTLaurita Allergies, Adverse Reactions, Alerts Substance Reaction Severity [...] 01/16/21 11:47:00 EST, Route to Pharmacy Electronically, [id number]... Start Date: 01/16/21 Status: Ordered Ativan 0.5 mg oral tablet See Instructions, PRN as needed for anxiety, Take 1 tablet as needed for anxiety, do not take more than 2 tablets/day, # 14 tablet, 0 Refills, Maintenance, 08/03/21 9:13:00 EDT, [place], [facility], Partial fill upon patient request if the pre... Start Date: 08/03/21 Status: Ordered azelastine 137 mcg/inh (0.1%) nasal spray 2 sprays, Nares, Both, Daily, PRN Other Allergies, # 30 mL, 6 Refills, Maintenance, 10/05/21 13:14:00 EDT, [place], [facility], 2 sprays [...] 60 tablet, 1 Refills, 12/26/21 11:19:00 EDT, [facility], 163.5, cm, 08/21/21 13:35:00 EDT, Height Start Date: 12/26/21 Status: Ordered diclofenac sodium 75 mg oral delayed release tablet See Instructions, TAKE ONE TABLET BY MOUTH TWICE A DAY, # 60 tablet, 1 Refills, Maintenance, 12/27/21 9:34:00 EDT, [facility], 163.5, cm, 12/27/21 9:29:00 EDT, Height Start Date: 12/27/21 Status: Ordered duloxetine 60 mg oral enteric coated capsule 1 capsule, By Mouth, 2 times a day, # 60 capsule, 5 Refills, [facility], 163.5, cm, 08/21/21 [...] 1 each, 6 Refills, 09/21/21 16:29:00 EDT, [facility], 163.5, cm, 08/21/21 13:35:00 EDT, Height Start Date: 09/21/21 Status: Ordered gabapentin 600 mg oral tablet 1 tablet, By Mouth, 3 times a day, office visit needed for further refills, # 270 tablet, 1 Refills, Maintenance, 11/13/21 13:31:00 EDT, [facility], 163.5, cm, 08/21/21 13:35:00 EDT, Height Start Date: 11/13/21 Status: Ordered lidocaine-prilocaine 2.5%-2.5% topical cream 1 application, Topically, Once, # 30 Gm, 3 Refills, Soft Stop, 04/21/21 12:20:00 EST, Cream, [facility], Partial fill upon patient request, 1 application Topically Once, 163.5, cm, 04/21/21 11:51:00 EST, Height, 91, kg, 07/23/19 11:11:00 EDT,... Start Date: 04/21/21 Status: Ordered lubiprostone 24 mcg oral capsule 1 capsule, By Mouth, 2 times a day, # 60 capsule, 5 Refills, 04/21/21 12:25:00 EST, [facility], 163.5, cm, 04/21/21 [...] 10/25/21 16:41:00 EDT, Route to Pharmacy Electronically, [facility], 163.5, cm, 08/21/21 13:35:00 EDT, Height Start Date: 10/25/21 Status: Ordered Myrbetriq 50 mg oral tablet, extended release 1 tablet = 50 mg, By Mouth, Daily, # 90 tablet, 3 Refills, Maintenance, 09/08/21 9:40:00 EDT, [facility] # 50, 163.5, cm, 08/21/21 13:35:00 EDT, Height Start Date: 09/08/21 Status: Ordered ohm Allergy Relief 10 mg oral tablet See Instructions, TAKE 1 TABLET BY MOUTH EVERY DAY, # 90 tablet, 1 Refills, Maintenance, 10/01/21 2:49:00 EDT, [facility], 163.5, cm, 08/21/21 13:35:00 EDT, Height Start Date: 10/01/21 Status: Ordered traZODone 50 mg oral tablet 2, tablet, By Mouth, Daily at bedtime, # 60 tablet, Refills 5, Tot. Refills 5, 02/05/22 11:04:00 EST, Route to Pharmacy Electronically, [facility], 163.5, cm, 01/15/22 [...] Diagnosis Diagnosis Type Effective Dates Health Status Clini alice Service Informant Cough Discharge Diagnosis 02/09/22 Vital Signs Most recent to oldest [Reference Range]: 1 Height 163.5 cm (02/09/22 1:54 PM) Social History Social History Type Response Smoking Status Never (less than 100 in lifetime) entered on: 11/21/18 Sex Patient Care team information Care Team Personnel Name: Eleazar Rendon NP Position: [facility] w/OE and EZ Script Member Role: Primary Care Nurse Address: Address: [address] [place], [place] [address] [facility] [place] [address]- Name: Rafiq Arteaga Position: [facility] Associate Professional Member Role: PCP Address: Address: [address] [facility] [place] [address]- Care Team Related Persons Name: LEWIS BALLESTEROS Address: home [address] [place] [id number] Name: RUSTY HOOVER
--- OUTSIDE RECORDS SUMMARY | 2022-11-04 01:35 | XMS_ITS | Continuity of Care Document ---
Author Name Unknown Organization [facility] Address [address] [place] [phone]- Care Team Providers Care Sports Medicine Physician Name Role Phone Suzanne AVENDANO, Tyler Charles Primary Care Physician [place] [facility] [place] - 08/29/[address] [address]- [facility] Attending Physician: AdmErnst [id number] Admitting Physician: AdmtrEne Referring Physician: Admtr, Ar8 [...] 02/09/19 13:37:40 EST, Route to Pharmacy Electronically, [id number]... Start Date: 02/09/19 Status: Ordered Cranberry oral tablet 0 Refills, Maintenance, 10/23/18 9:18:41 EDT Start Date: 10/23/18 Status: Ordered diclofenac sodium 25 mg oral delayed release tablet 1 tablet = 25 mg, By Mouth, 2 times a day, # 60 tablet, 1 Refills, Maintenance, 07/23/19 10:48:00 EDT, EC Tablet, [facility], 163.5, cm, 06/03/19 [...] EST, Route to Pharmacy Electronically, [facility], 163.5, cm, 02/09/19 13:07:00 EST, Height Start Date: 03/07/19 Status: Ordered gabapentin 600 mg oral tablet 1 tablet, By Mouth, 3 times a day, # 90 Unknown, 5 Refills, Maintenance, 05/25/19 16:16:00 EDT, [facility], 163.5, cm, 03/27/19 10:49:00 EST, Height Start Date: 05/25/19 Status: Ordered lactulose 10 gm oral powder for reconstitution 1 pack/packet, By Mouth, 2 times a day, # 30 each, 2 Refills, Maintenance, 03/27/19 11:11:00 EST, REC Powder, [facility], 163.5, cm, 03/27/19 10:49:00 EST, Height Start Date: 03/27/19 Status: Ordered lactulose 10 gm/15 ml oral syrup 15 mL = 10 Gm, By Mouth, Daily, This is correct dose., # 450 mL, 5 Refills, Maintenance, 06/25/19 9:18:00 EDT, Syrup, [facility], 15 mL By Mouth Daily,Instr:This is correct dose., 163.5, cm,06/03/19 11:17:00 EDT, Height Start Date: 06/25/19 Status: Ordered loratadine 10 mg oral tablet 10 mg, 1, tablet, By Mouth, Daily, # 90 tablet, Refills 1, Tot. Refills 1, Maintenance, 04/27/19 8:18:00 EST, Route to Pharmacy Electronically, [facility], 163.5, cm, 03/27/19 [...] EDT, Route to Pharmacy Electronically, [facility], Refills per PCP, 163.5, cm, 06/03/19 11:17:00 EDT, Height Start Date: 06/17/19 Status: Ordered Myrbetriq 50 mg oral tablet, extended release 1 tablet = 50 mg, By Mouth, Daily, # 30 tablet, 11 Refills, Maintenance, 07/23/19 11:40:00 EDT, [facility], 163.5, cm, 07/23/19 11:11:00 EDT, Height, 91, kg, 07/23/19 11:11:00 EDT, Dry Weight Start Date: 07/23/19 Status: Ordered traZODone 50 mg oral tablet 100 mg, 2, tablet, By Mouth, Daily at bedtime, # 60 tablet, Refills 5, Tot. Refills 5, Maintenance,06/01/19 14:37:00 EDT, Route to Pharmacy Electronically, [facility], 163.5, cm, 03/27/19 [...]
--- OUTSIDE RECORDS SUMMARY | 2022-11-04 01:35 | XMS_ITS | Continuity of Care Document ---
Author Name Unknown Organization [facility] Address [address] [place] [address]- Care Team Providers Care Mold Machine Operator Name Role Phone Suzanne AVENDANO, Tyler Charles Primary Care Physician Encounter [facility] [place] ACCT R [id number] Date(s): 02/09/19 - 02/19/19 [facility] [address] [place] [address]- [facility] Attending Physician: Ene Ramos Admitting Physician: Ene Ramos Referring Physician: AdmtrEne Allergies, Adverse Reactions, Alerts Substance Reaction Severity Status NKA Active Immunizations Given and Recorded Vaccine Date Status Refusal Reason influenza virus vaccine, inactivated 11/21/18 Give n [...] 02/09/19 13:37:40 EST, Route to Pharmacy Electronically, [id number]... Start Date: 02/09/19 Status: Ordered Cranberry oral [...] 11/21/18 Status: Ordered FLUoxetine 20 mg oral tablet 3 tablet = 60 mg, By Mouth, Daily, # 270 tablet, 0 Refills, Maintenance, 11/26/18 6:58:20 EDT Start Date: 11/26/18 Status: Ordered gabapentin 600 mg oral tablet 1 tablet = 600 mg, By Mouth, 3 times a day, # 90 tablet, 5 Refills, Maintenance, 11/21/18 15:01:20 EDT, Tablet Start Date: 11/21/18 Status: Ordered loratadine 10 mg oral tablet [...] 02/09/19 13:37:50 EST, Route to Pharmacy Electronically, [facility], Refills [...] Maintenance,11/21/18 15:06:53 EDT, Route to Pharmacy Electronically, [id number], [facility] Start Date: 11/21/18 Status: [...]
--- OUTSIDE RECORDS SUMMARY | 2022-11-04 01:35 | XMS_ITS | Continuity of Care Document ---
Author Name Unknown Organization [facility] Oskar May Kayode lt Address [address] [place] [address]- Care Team Providers Care Environmental Quality Analyst Name Role Phone Rafiq Arteaga Primary Care Physi kateryna Encounter [facility] Date(s): 09/24/22 - 10/01/22 [facility] Oskar Andresley Adult [address] [place] [address]- Encounter Diagnosis Excessive vitamin B12 intake(Discharge Diagnosis) - 09/24/22 Attending Physician: Rafiq Arteaga Allergies, Adverse Reactions, Alerts Substance Reaction Severity [...] 14:38:00 EST, Powder, Route to Pharmacy Electronically, [id number], [facility], I... Start Date: 04/23/22 [...] Refills, Maintenance, 04/23/22 11:16:00 EST, Tablet, [facility], Partial fill upon patient request if the pr... Start Date: 04/23/22 Status: Ordered azelastine 137 mcg/inh (0.1%) nasal spray 2 sprays, Nares, Both, Daily, PRN Other Allergies, # 30 mL, 6 Refills, Maintenance, 10/05/21 13:14:00 EDT, [place], [facility], 2 sprays Nares, Both Daily,PRN:Other Allergies, 163.5, cm, 08/21/21 13:35:00 EDT, Height Start Date: 10/05/21 Status: Ordered buPROPion 300 mg/24 hours (XL) oral tablet, extended release 1 tablet = 300 mg, By Mouth, Daily, # 90 tablet, 2 Refills, Maintenance, 06/25/22 9:06:00 EDT, ER Tablet, [facility], Partial fill upon patient request if the prescription is for a schedule II opioid drug., 162, cm, 06/25/22 8:34:00 EDT, [place]... Start Date: 06/25/22 Status: Ordered duloxetine 60 mg oral enteric coated capsule 1 capsule, By Mouth, 2 times a day, # 60 capsule, 5 Refills, 04/09/22 16:24:00 EST, [facility], 163.5, cm, 03/09/22 13:18:00 EST, Height Start Date: 04/09/22 Status: Ordered Estrace Vaginal Cream 0.1 mg/g See Instructions, 1 gram Vaginally at bedtime 2 times per week, # 42 Gm, 4 Refills, Maintenance, 03/16/21 10:21:00 EST, [facility], Patient sensitive to inactive ingredients ofmanufacturers drugs, [...] tablet, 1 Refills, Maintenance, 08/14/22 12:36:00 EDT, [facility], 162, cm, 08/08/22 11:26:00 [...] 10:20:00 EDT, Route to Pharmacy Electronically, [facility], 162, cm, 05/21/22 10:37:00 EDT, Height, 102, kg, 05/21/22 10:37:00 EDT, Dry W... Start Date: 06/04/22 Status: Ordered Myrbetriq 50 mg oral tablet, extended release 1 tablet = 50 mg, By Mouth, Daily, # 90 tablet, 3 Refills, Maintenance, 09/08/21 9:40:00 EDT, [facility] # 50, 163.5, cm, 08/21/21 13:35:00 EDT, Height Start Date: 09/08/21 Status: Ordered ohm Allergy Relief 10 mg oral tablet See Instructions, TAKE 1 TABLET BY MOUTH EVERY DAY, # 90 tablet, 1 Refills, Maintenance, 06/25/22 9:15:00 EDT, [facility], 162, cm, 06/25/22 8:34:00 EDT, Height, 102, kg, 05/21/22 10:37:00 EDT, Dry Weight Start Date: 06/25/22 Status: Ordered traZODone 50 mg oral tablet 50 mg, 1, tablet, By Mouth, Daily at bedtime, for 30 days, # 30 tablet, Refills 5, Tot. Refills 5, Physician Stop 12/22/22 9:07:00 EDT, 06/25/22 9:07:00 EDT, Route to Pharmacy Electronically, [facility], 162, cm, 06/25/22 8:34:00 [...] 06/25/22 9:11:00 EDT, Route to Pharmacy Electronically, [facility], Partial fill upon patient [...] capsule, 3 Refills, Maintenance, 06/25/22 9:06:00 EDT, [facility], Partial fill upon patient [...] with comorbidity Confirmed Active Vertigo Confirmed Active Diagnosis Diagnosis Type Effective Dates Health Status Cl inical Service Informant Excessive vitamin B12 intake Discharge Diagnosis 09/24/22 Vital Signs Most recent to oldest [Reference Range]: 1 Height 162 cm (09/24/22 12:53 PM) Weight 103.7 kg (09/24/22 12:53 PM) Oxygen Saturation [94-100 %] 97 % (09/24/22 12:53 PM) Pulse Rate [55-90 bpm] 94 bpm *H* (09/24/22 12:53 PM) Body Mass Index [18.5-24.99 kg/m2] 39.51 kg/m2 *>HHI* (09/24/22 12:53 PM) Blood Pressure [90-138/55-84 mm Hg] 106/ 68mm Hg (09/24/22 12:53 PM) Temperature [96.8-100.4 DegF] 96.9 DegF (09/24/22 12:53 PM) Mode of Delivery (Oxygen) Room air (09/24/22 12:53 PM) Blood pressure sites Arm, right (09/24/22 12:53 PM) Temperature Route Temporal (09/24/22 12:53 PM) Weight Obtained Via Standing scale (09/24/22 12:53 PM) Social History Social History Type Response Smoking Status Never (less than 100 in lifetime) entered on: 11/21/18 Sex Note * Alexia Dulce: PERFORM, SIGN, VERIFY Event Display: Patient Education/Instruction Authored Date: [id number] [facility] *BMP So Lalo Rivers Clinical Summary Name JUAN FRANCISCO BALLESTEROS Age 61 Years 1960 PCP Shannon CHE, Rafiq Perry PCP Visit Date 09/24/2022 12:49:00 Additional Instructions: Scheduled Appointments?? Future Appointments ?*Pain??Management ?[address]??[place],??[place],??[address] ?Phone:??[phone]?Fax:??-- ?Appt. Date:??11/14/2022?10:20 AM ?Scheduled Provider:??Migel Sandoval DO Follow-Up Instructions ?? Diagnosis Medications: Please continue your medications until treatment [...] Cats Medications Given This Visit Future Orders ?No future orders Vital Signs Height 162 cm Weight 103.7 kg BMI 39.51 kg/m2 Blood Pressure 106 mm Hg/68 mm Hg Temperature 96.9 DegF Pulse Rate 94 bpm Respiratory Rate 02 Sat Mode of Delivery 97 %/Room air You can now view a summary of your hospital visit from the comfort of your home through a free online portal called [employer]. [employer] is a website that allows you to securely view your medical information including discharge summary, medications and follow-up visits. ??You can alsosend a secure electronic message to your doctor???s office to request appointments, renew medications or just ask a question. You can enroll at [email or web address] or register during your next office visit. [...] primary care provider, you may find a [facility] provider by calling [facility] at [phone]. For information about the plan of care [...] Team Personnel Name: Eleazar Rendon NP Position: [facility] w/OE and EZ Script Member Role: Primary Care Nurse Address: Address: [address] [place] [address] [place] [address]- [place] Name: Rafiq Arteaga Position: [facility] Associate Professional Member Role: PCP Address: Address: [address] [place] [address]- Care Team Related Persons Name: LEWIS BALLESTEROS Address: home [address] [place] [id number] Name: RUSTY HOOVER
--- OUTSIDE RECORDS SUMMARY | 2022-11-04 01:35 | XMS_ITS | Continuity of Care Document ---
Author Name Unknown Organization [facility] Kayode lt Address [address] [place] [phone]- Care Team Providers Care Director Decision Support Name Role Phone Deshawn BERNAL, Laurita Primary Care Physician En[place] [facility] [place] Date(s): 02/08/20 - 03/09/20 [facility] Adult [address] [place] [address]- Allergies, Adverse Reactions, Alerts Substance Reaction Severity [...] 02/09/19 13:37:40 EST, Route to Pharmacy Electronically, [id number]... Start Date: 02/09/19 Status: Ordered Cranberry oral tablet 0 Refills, Maintenance, 10/23/18 9:18:41 EDT Start Date: 10/23/18 Status: Ordered diclofenac sodium 25 mg oral delayed release tablet 1 tablet, By Mouth, 2 times a day, # 60 Unknown, 1 Refills, Maintenance, 12/17/19 15:03:00 EDT, [facility] # 50, 163.5, [...] 3 Refills, Maintenance, 09/30/19 10:56:00 EDT, Inhaler, [facility] # 50, 163.5, cm, 09/30/19 9:33:00 EDT, Height, 91, kg, 07/23/19 11:11:00 EDT, Dry Weight Start Date: 09/30/19 Status: Ordered FLUoxetine 20 mg oral capsule 3, capsule, By Mouth, Daily, # 270 Unknown, Refills 1, Tot. Refills 0, Maintenance, 09/04/19 15:20:00 EDT, Route to Pharmacy Electronically, [facility] # [facility], 163.5, cm, 07/23/19 11:11:00 EDT, Height, 91, kg, 07/23/19 11:11:00 EDT, Dry Weight Start Date: 09/04/19 Status: Ordered FLUoxetine 20 mg oral capsule 20 mg, 1, capsule, By Mouth, Daily, # 30 capsule, Refills 3, Tot. Refills 3, Maintenance, 02/09/20 13:21:00 EST, Route to Pharmacy Electronically, [facility] # 50, Partial fill upon patient request if the prescription is for a schedule II opioid d... Start Date: 02/09/20 Status: Ordered gabapentin 600 mg oral tablet 1 tablet, By Mouth, 3 times a day, # 270 tablet, 1 Refills, Maintenance, 11/19/19 8:38:00 EDT, [facility] # [facility], 163.5, cm, 11/03/19 11:52:00 EDT, Height, 91, kg, 07/23/19 11:11:00 EDT, Dry Weight Start Date: 11/19/19 Status: Ordered lactulose 10 gm/15 ml oral syrup 15 mL = 10 Gm, By Mouth, Daily, This is correct dose., # 450 mL, 5 Refills, Maintenance, 06/25/19 9:18:00 EDT, Syrup, [facility] # [facility], 15 mL By Mouth Daily,Instr:This is correct dose., 163.5, cm,06/03/19 11:17:00 EDT, Height Start Date: 06/25/19 Status: Ordered lidocaine-prilocaine 2.5%-2.5% topical cream 1 application, Topically, Once, # 30 Gm, 1 Refills, Soft Stop, 03/08/20 8:14:00 EST, Cream, [facility] # 50, Partial fill upon patient request, 1 application Topically Once, 163.5, cm, 01/11/20 14:45:00 EST, Height, 91, kg, 07/23/19 11:11:00 EDT,... Start Date: 03/08/20 Status: Ordered loratadine 10 mg oral tablet 10 mg, 1, tablet, By Mouth, Daily, # 90 tablet, Refills 3, Tot. Refills 3, Maintenance, 10/27/19 18:22:00 EDT, Route to Pharmacy Electronically, [facility] # [facility], Rx resent from 09/30/19., [...] 01/13/20 12:44:00 EST, Route to Pharmacy Electronically, [facility] # 50, Refills per PCP, 163.5, cm, 01/11/20 14:45:00 EST, Height, 91, kg, 07/23/19 1... Start Date: 01/13/20 Status: Ordered Myrbetriq 50 mg oral tablet, extended release 1 tablet = 50 mg, By Mouth, Daily, # 30 tablet, 11 Refills, Maintenance, 07/23/19 11:40:00 EDT, [facility] # 50, 163.5, cm, 07/23/19 11:11:00 EDT, Height, 91, kg, 07/23/19 11:11:00 EDT, Dry Weight Start Date: 07/23/19 Status: Ordered traMADol 50 mg oral tablet 1 tablet = 50 mg, By Mouth, Every 12 hours, # 42 tablet, 0 Refills, Maintenance, 11/03/19 16:09:00 EDT, [facility] # 50, 163.5, cm, 11/03/19 11:52:00 EDT, Height, 91, kg, 07/23/19 11:11:00 EDT, Dry Weight Start Date: 11/03/19 Status: Ordered traZODone 50 mg oral tablet 100 mg, 2, tablet, By Mouth, Daily at bedtime, # 60 tablet, Refills 5, Tot. Refills 5, Maintenance,12/04/19 12:51:00 EDT, [facility] to Pharmacy Electronically, [facility] [...]
--- OUTSIDE RECORDS SUMMARY | 2022-11-04 01:35 | XMS_ITS | Continuity of Care Document ---
Author Name Unknown Organization [facility] Address [address] [place] [id number]- Care Team Providers Care Screen Examiner Name Role Phone Tyler Palacios MD Primary Care Physician [place] [facility] [place] - 08/27/[address] [address]- [facility] Discharge Disposition: A-D/C Home Attending Physician: Tyler Palacios MD Admitting Physician: Tyler Palacios MD Referring Physician: Tyler Palacios MD Allergies, Adverse Reactions, [...] 02/09/19 13:37:40 EST, Route to Pharmacy Electronically, [id number]... Start Date: 02/09/19 Status: Ordered Cranberry oral tablet 0 Refills, Maintenance, 10/23/18 9:18:41 EDT Start Date: 10/23/18 Status: Ordered diclofenac sodium 25 mg oral delayed release tablet 1 tablet = 25 mg, By Mouth, 2 times a day, # 60 tablet, 1 Refills, Maintenance, 07/23/19 10:48:00 EDT, EC Tablet, [facility] # 50, 163.5, cm, 06/03/19 [...] Unknown, 5 Refills, Maintenance, 05/25/19 16:16:00 EDT, [facility] # 50, 163.5, cm, 03/27/19 [...] 5 Refills, Maintenance, 06/25/19 9:18:00 EDT, Syrup, [facility] # 50, 15 mL By Mouth Daily,Instr:This is correct dose., 163.5, cm,06/03/19 11:17:00 EDT, Height Start Date: 06/25/19 Status: Ordered loratadine 10 mg oral tablet 10 mg, 1, tablet, By Mouth, Daily, # 90 tablet, Refills 1, Tot. Refills 1, Maintenance, 04/27/19 8:18:00 EST, Route to Pharmacy Electronically, [facility] [...] 06/17/19 13:09:00 EDT, Route to Pharmacy Electronically, [facility] [...] Maintenance,06/01/19 14:37:00 EDT, Route to Pharmacy Electronically, [facility] [...]
--- OUTSIDE RECORDS SUMMARY | 2022-11-04 01:35 | XMS_ITS | Continuity of Care Document ---
Author Name Unknown Organization [facility] Address [address] [place] [address]- Care Team Providers Care Process Safety Management Engineer Name Role Phone Susan AVENDANO, Orlando Quintanilla Primary Care Physician [phone] Encounter [facility] [place] Date(s): 08/24/21 - 09/23/21 [facility] Adult [address] [place] [address]- Allergies, Adverse Reactions, Alerts Substance Reaction Severity [...] 01/16/21 11:47:00 EST, Route to Pharmacy Electronically, [id number]... Start Date: 01/16/21 Status: Ordered Ativan 0.5 [...] mL, 6 Refills, Maintenance, 08/18/20 15:01:00 EDT, [place], [email or web address] # [facility], 2 sprays Nares, Both Daily,PRN:Other Allergies, 163.5, cm, 08/18/20 14:46:00 EDT, Height, 91, kg, 07/23/19 11:11... Start Date: 08/18/20 Status: Ordered buPROPion 300 mg/24 hours (XL) oral tablet, extended release 1 tablet = 300 mg, By Mouth, Daily, # 30 tablet, 5 Refills, Maintenance, 05/30/21 10:47:00 EDT, ER Tablet, [email or web address] # [facility], Partial fill upon [...] Refills, Maintenance, 05/26/21 10:29:00 EDT, EC Tablet, [facility] # [facility], Partial fill upon patient request if the prescription is for a schedule II opioid drug., 163.5, cm, 04/21/21 11:51:0... Start Date: 05/26/21 Status: Ordered duloxetine 60 mg oral enteric coated capsule 1 capsule, By Mouth, 2 times a day, # 60 capsule, 5 Refills, [facility] # 50, 163.5, cm, 08/21/21 13:35:00 EDT, Height Start Date: 09/18/21 Status: Ordered Estrace Vaginal Cream 0.1 mg/g See Instructions, 1 gram Vaginally at bedtime 2 times per week, # 42 Gm, 4 Refills, Maintenance, 03/16/21 10:21:00 EST, [facility], Patient sensitive to [...] 1 each, 6 Refills, 09/21/21 16:29:00 EDT, [facility] # 50, 163.5, cm, 08/21/21 13:35:00 EDT, Height Start Date: 09/21/21 Status: Ordered gabapentin 600 mg oral tablet 1 tablet, By Mouth, 3 times a day, # 270 tablet, 1 Refills, [facility] # [facility], 163.5, cm, 04/21/21 11:51:00 EST, Height, 91, kg, 07/23/19 11:11:00 EDT, Dry Weight Start Date: 05/11/21 Status: Ordered lidocaine-prilocaine 2.5%-2.5% topical cream 1 application, Topically, Once, # 30 Gm, 3 Refills, Soft Stop, 04/21/21 12:20:00 EST, Cream, [facility] # 50, Partial fill upon [...] [facility] # [facility], 163.5, cm, 12/12/20 16:09:0... Start Date: 03/15/21 Status: Ordered lubiprostone 24 mcg oral capsule 1 capsule, By Mouth, 2 times a day, # 60 capsule, 5 Refills, 04/21/21 12:25:00 EST, [facility] # 50, 163.5, cm, 04/21/21 11:51:00 [...] 03/07/21 14:45:00 EST, Route to Pharmacy Electronically, [facility] # 50, 163.5, cm, 12/12/20 16:09:00 EDT, Height, 91, kg, 07/23/19 11:11:00 EDT, Dry... Start Date: 03/07/21 Status: Ordered Myrbetriq 50 mg oral tablet, extended release 1 tablet = 50 mg, By Mouth, Daily, # 90 tablet, 3 Refills, Maintenance, 09/08/21 9:40:00 EDT, [facility], 163.5, cm, 08/21/21 13:35:00 EDT, Height Start Date: 09/08/21 Status: Ordered traZODone 50 mg oral tablet 2, tablet, By Mouth, Daily at bedtime, # 60 tablet, Refills 5, Route to Pharmacy Electronically, [facility], 163.5, cm, 12/12/20 16:09:00 [...]
--- OUTSIDE RECORDS SUMMARY | 2022-11-04 01:35 | XMS_ITS | Continuity of Care Document ---
Author Name Unknown Organization [facility] Address [address] [place] [id number]- Care Team Providers Care Invasive Manager Name Role Phone Susan AVENDANO, Orlando Quintanilla Primary Care Physician Encounter [facility] [place] Date(s): 08/21/21 - 09/20/21 [facility] Adult [address] [place] [address]- Attending Physician: Admramana, Ernst8 Admitting Physician: AdmtrEne Referring Physician: Admtr, Ar8 [...] 01/16/21 11:47:00 EST, Route to Pharmacy Electronically, [id number]... Start Date: 01/16/21 Status: Ordered Ativan 0.5 mg oral tablet See Instructions, PRN as needed for anxiety, Take 1 tablet as needed for anxiety, do not take more than 2 tablets/day, # 14 tablet, 0 Refills, Maintenance, 08/03/21 9:13:00 EDT, Tablet, [facility] # [facility], Partial fill upon patient request if the pre... Start Date: 08/03/21 Status: Ordered azelastine 137 mcg/inh (0.1%) nasal spray 2 sprays, Nares, Both, Daily, PRN Other Allergies, # 30 mL, 6 Refills, Maintenance, 08/18/20 15:01:00 EDT, [place], [facility] # [facility], 2 sprays Nares, Both Daily,PRN:Other Allergies, 163.5, cm, 08/18/20 14:46:00 EDT, Height, 91, kg, 07/23/19 11:11... Start Date: 08/18/20 Status: Ordered buPROPion 300 mg/24 hours (XL) oral tablet, extended release 1 tablet = 300 mg, By Mouth, Daily, # 30 tablet, 5 Refills, Maintenance, 05/30/21 10:47:00 EDT, ER Tablet, [facility] # [facility], Partial fill upon [...] Refills, Maintenance, 05/26/21 10:29:00 EDT, EC Tablet, [facility] # [facility], Partial fill upon patient request if the prescription is for a schedule II opioid drug., 163.5, cm, 04/21/21 11:51:0... Start Date: 05/26/21 Status: Ordered duloxetine 60 mg oral enteric coated capsule 1 capsule, By Mouth, 2 times a day, # 60 capsule, 5 Refills, [facility] # [facility], 163.5, cm, 08/21/21 13:35:00 EDT, Height Start Date: 09/18/21 Status: Ordered Estrace Vaginal Cream 0.1 mg/g See Instructions, 1 gram Vaginally at bedtime 2 times per week, # 42 Gm, 4 Refills, Maintenance, 03/16/21 10:21:00 EST, [facility], Patient sensitive to [...] DAY, # 31.8 Gm, 1 Refills, Maintenance, [facility], 163.5, cm, 09/09/20 12:42:00 EDT, Height, 91, kg, 07/23/19 11:11:00 EDT, Dry Weight Start Date: 10/06/20 Status: Ordered gabapentin 600 mg oral tablet 1 tablet, By Mouth, 3 times a day, # 270 tablet, 1 Refills, [facility], 163.5, cm, 04/21/21 11:51:00 EST, Height, 91, kg, 07/23/19 11:11:00 EDT, Dry Weight Start Date: 05/11/21 Status: Ordered lidocaine-prilocaine 2.5%-2.5% topical cream 1 application, Topically, Once, # 30 Gm, 3 Refills, Soft Stop, 04/21/21 12:20:00 EST, Cream, [facility] # [facility], Partial [...] Replace Required Details, Route to Pharmacy Electronically, [facility] # [facility], 163.5, cm, 12/12/20 16:09:0... Start Date: 03/15/21 Status: Ordered lubiprostone 24 mcg oral capsule 1 capsule, By Mouth, 2 times a day, # 60 capsule, 5 Refills, 04/21/21 12:25:00 EST, [facility] # [facility], 163.5, cm, 04/21/21 [...] 03/07/21 14:45:00 EST, Route to Pharmacy Electronically, [facility] # [facility], 163.5, cm, 12/12/20 16:09:00 EDT, Height, 91, kg, 07/23/19 11:11:00 EDT, Dry... Start Date: 03/07/21 Status: Ordered Myrbetriq 50 mg oral tablet, extended release 1 tablet = 50 mg, By Mouth, Daily, # 90 tablet, 3 Refills, Maintenance, 09/08/21 9:40:00 EDT, [facility], 163.5, cm, 08/21/21 13:35:00 EDT, Height Start Date: 09/08/21 Status: Ordered traZODone 50 mg oral tablet 2, tablet, By Mouth, Daily at bedtime, # 60 tablet, Refills 5, Route to Pharmacy Electronically, [facility], 163.5, cm, 12/12/20 16:09:00 [...]
--- OUTSIDE RECORDS SUMMARY | 2022-11-04 01:35 | XMS_ITS | Continuity of Care Document ---
Author Name Unknown Organization [facility] Address [address] [place] [phone]- Care Team Providers Care Correctional Therapy Director Name Role Phone Orlando Davis MD Primary Care Physician Encounter [facility] [place](s[place] 05/31/21 - 06/07/21 [facility] Adult [address] [place] [address]- Encounter Diagnosis Acute sinusitis(Discharge Diagnosis) - 05/31/21 Attending Physician: Anila Porter Referring Physician: Orlando Davis MD Allergies, Adverse Reactions, [...] Flovent, 02/09/19 13:37:15 EST, Compound, 163.5, cm, 12/16/19 13:07:26 EST, Height Start Date: 02/09/19 Status: Ordered albuterol CFC free 90 mcg/inh inhalation aerosol 2, puffs, Inhalation, 4 times a day, PRN, use with spacer chamber as directed 15 minutes before exercise, # 1 each, Refills 3, Tot. Refills 3, Maintenance, 01/16/21 11:47:00 EST, Route to Pharmacy Electronically, [id number]... Start Date: 01/16/21 Status: Ordered azelastine 137 mcg/inh (0.1%) nasal spray 2 sprays, Nares, Both, Daily, PRN Other Allergies, # 30 mL, 6 Refills, Maintenance, 08/18/20 15:01:00 EDT, [place], [facility], 2 sprays Nares, Both Daily,PRN:Other Allergies, 163.5, cm, 08/18/20 14:46:00 EDT, Height, 91, kg, 07/23/19 11:11... Start Date: 08/18/20 Status: Ordered benzonatate 100 mg oral capsule 1 capsule = 100 mg, By Mouth, 3 times a day, for 10 days, # 30 capsule, 0 Refills, Acute 06/10/21 10:56:00 EDT, 05/31/21 10:56:00 EDT, Capsule, [facility] # [facility], Partial fill upon patient request if the prescription is for a schedule II opioid drug... Start Date: 05/31/21 Stop Date: 06/10/21 Status: Ordered buPROPion 300 mg/24 hours (XL) oral tablet, extended release 1 tablet = 300 mg, By Mouth, Daily, # 30 tablet, 5 Refills, Maintenance, 05/30/21 10:47:00 EDT, ER Tablet, [facility] # [...] Refills, Maintenance, 05/26/21 10:29:00 EDT, EC Tablet, [facility], Partial fill upon patient request if the prescription is for a schedule II opioid drug., 163.5, cm, 04/21/21 11:51:0... Start Date: 05/26/21 Status: Ordered duloxetine 60 mg oral enteric coated capsule 1 capsule = 60 mg, By Mouth, 2 times a day, # 60 capsule, 5 Refills, Maintenance, 02/10/21 14:24:00EST, EC Capsule, [facility], Partial fill upon patient request if the prescription is for a schedule II opioid drug., 163.5, cm, 12/12/20 16:0... Start Date: 02/10/21 Status: Ordered Estrace Vaginal Cream 0.1 mg/g See Instructions, 1 gram Vaginally at bedtime 2 times per week, # 42 Gm, 4 Refills, Maintenance, 03/16/21 10:21:00 EST, [facility], Patient sensitive to inactive ingredients ofmanufacturers drugs, [...] a day, # 270 tablet, 1 Refills, [facility], 163.5, cm, 04/21/21 11:51:00 EST, Height, 91, kg, 07/23/19 11:11:00 EDT, Dry Weight Start Date: 05/11/21 Status: Ordered lidocaine-prilocaine 2.5%-2.5% topical cream 1 application, Topically, Once, # 30 Gm, 3 Refills, Soft Stop, 04/21/21 12:20:00 EST, Cream, [facility] # [facility], Partial fill upon patient request, 1 application Topically Once, 163.5, cm, 04/21/21 11:51:00 EST, Height, 91, kg, 07/23/19 11:11:00 EDT,... Start Date: 04/21/21 Status: Ordered loratadine 10 mg oral tablet See Instructions, TAKE ONE TABLET BY MOUTH EVERY DAY, # 90 tablet, Refills 1, Tot. Refills 1, Maintenance, 03/15/21 11:49:00 EST, Instructions Replace Required Details, Route to Pharmacy Electronically, [facility] # [facility], 163.5, cm, 12/12/20 16:09:0... Start Date: 03/15/21 Status: Ordered lubiprostone 24 mcg oral capsule 1 capsule, By Mouth, 2 times a day, # 60 capsule, 5 Refills, 04/21/21 12:25:00 EST, [facility] # [facility], 163.5, cm, 04/21/21 11:51:00 [...] 03/07/21 14:45:00 EST, Route to Pharmacy Electronically, [facility] # [facility], 163.5, cm, 12/12/20 16:09:00 [...] Dates Health Status Cl inical Service Informant Acute sinusitis Discharge Diagnosis 05/31/21 Vital Signs Most recent to oldest [Reference Range]: 1 Height 163.5 cm (05/31/21 10:46 AM) Weight 105 kg (05/31/21 10:46 AM) Body Mass Index [18.5-24.99] 39.28 *>HHI* (05/31/21 10:46 AM) Weight Obtained Via Standing scale (05/31/21 10:46 AM) Social History Social History Type Response Smoking Status Never (less than 100 in lifetime) entered on: 11/21/18 Sex
--- OUTSIDE RECORDS SUMMARY | 2022-11-04 01:35 | XMS_ITS | Continuity of Care Document ---
Author Name Unknown Organization [facility] Address [address] [place], [place] [address]florence gore, [address] [place] [address]- Care Team Providers Care Seam Finisher Name Role Phone Rafiq Arteaga Primary Care Physi kateryna [place] [facility] [place] 06[place]26/22 [facility] [address] [place] [address] Drive, [address] [place] [address]- Attending Physician: Esdras Amos MD Allergies, Adverse Reactions, Alerts Substance Reaction [...] 14:38:00 EST, Powder, Route to Pharmacy Electronically, [id number], [facility], I... Start Date: [...] 0 Refills, Maintenance, 04/23/22 11:16:00 EST, Tablet, [facility] # [facility], Partial fill upon patient request if the pr... Start Date: 04/23/22 Status: Ordered azelastine 137 mcg/inh (0.1%) nasal spray 2 sprays, Nares, Both, Daily, PRN Other Allergies, # 30 mL, 6 Refills, Maintenance, 10/05/21 13:14:00 EDT, [place], [facility] # [facility], 2 sprays Nares, Both Daily,PRN:Other Allergies, 163.5, cm, 08/21/21 13:35:00 EDT, Height Start Date: 10/05/21 Status: Ordered buPROPion 300 mg/24 hours (XL) oral tablet, extended release 1 tablet = 300 mg, By Mouth, Daily, # 90 tablet, 2 Refills, Maintenance, 06/25/22 9:06:00 EDT, ER Tablet, [facility] # [facility], Partial fill upon patient request if the prescription is for a schedule II opioid drug., 162, cm, 06/25/22 8:34:00 EDT, [place]... Start Date: 06/25/22 Status: Ordered duloxetine 60 mg oral enteric coated capsule 1 capsule, By Mouth, 2 times a day, # 60 capsule, 5 Refills, 04/09/22 16:24:00 EST, [facility] # [facility], 163.5, cm, 03/09/22 13:18:00 EST, Height Start Date: 04/09/22 Status: Ordered Estrace Vaginal Cream 0.1 mg/g See Instructions, 1 gram Vaginally at bedtime 2 times per week, # 42 Gm, 4 Refills, Maintenance, 03/16/21 10:21:00 EST, [facility], Patient sensitive to inactive ingredients ofmanufacturers drugs, [...] tablet, 1 Refills, Maintenance, 03/05/22 13:21:00 EST, [facility] # [facility], 163.5, cm, 03/05/22 [...] 06/04/22 10:20:00 EDT, Route to Pharmacy Electronically, [facility], 162, cm, 05/21/22 10:37:00 EDT, Height, 102, kg, 05/21/22 10:37:00 EDT, Dry W... Start Date: 06/04/22 Status: Ordered Myrbetriq 50 mg oral tablet, extended release 1 tablet = 50 mg, By Mouth, Daily, # 90 tablet, 3 Refills, Maintenance, 09/08/21 9:40:00 EDT, [facility], 163.5, cm, 08/21/21 13:35:00 EDT, Height Start Date: 09/08/21 Status: Ordered ohm Allergy Relief 10 mg oral tablet See Instructions, TAKE 1 TABLET BY MOUTH EVERY DAY, # 90 tablet, 1 Refills, Maintenance, 06/25/22 9:15:00 EDT, [facility] # [facility], 162, cm, 06/25/22 8:34:00 EDT, Height, 102, kg, 05/21/22 10:37:00 EDT, Dry Weight Start Date: 06/25/22 Status: Ordered traZODone 50 mg oral tablet 50 mg, 1, tablet, By Mouth, Daily at bedtime, for 30 days, # 30 tablet, Refills 5, Tot. Refills 5, Physician Stop 12/22/22 9:07:00 EDT, 06/25/22 9:07:00 EDT, Route to Pharmacy Electronically, [facility], 162, cm, 06/25/22 [...] 06/25/22 9:11:00 EDT, Route to Pharmacy Electronically, [facility] # [facility], Partial fill [...] capsule, 3 Refills, Maintenance, 06/25/22 9:06:00 EDT, [facility] # [facility], Partial fill [...] oldest [Reference Range]: 1 Height 162 cm (06/19/22 11:28 AM) Weight 102.0 kg (06/19/22 11:28 AM) Body Mass Index [18.5-24.99 kg/m2] 38.87 kg/m2 *>HHI* (06/19/22 11:28 AM) Social History Social History Type Response Smoking Status Never (less than 100 in lifetime) entered on: 11/21/18 Sex Patient Care team information Care Team Personnel Name: Eleazar Rendon NP Position: [facility] PCO w/OE and EZ Script Member Role: Primary Care Nurse Address: Address: [address] [place] [address] Clinical Group - [address] Name: Rafiq Arteaga Position: [facility] PCO Associate Professional Member Role: PCP Address: Address: [address] [facility] [place] [address]- Care Team Related Persons Name: LEWIS BALLESTEROS Address: home [address] [place] [id number] Name: RUSTY HOOVER
--- OUTSIDE RECORDS SUMMARY | 2022-11-04 01:35 | XMS_ITS | Continuity of Care Document ---
Author Name Unknown Organization [facility] Oskar May Kayode lt Address [address] [place] [address]- Care Team Providers Care Oracle Etl Developer Name Role Phone Rafiq Arteaga Primary Care Physi kateryna [facility] Date[facility]): 08/13/22 - 09/12/22 [facility] Adult [address] [place] [address]- Allergies, Adverse Reactions, Alerts Substance Reaction Severity [...] 14:38:00 EST, Powder, Route to Pharmacy Electronically, [id number], [facility] # [facility], I... Start Date: 04/23/22 [...] 0 Refills, Maintenance, 04/23/22 11:16:00 EST, Tablet, [facility] # 50, Partial fill upon patient request if the pr... Start Date: 04/23/22 Status: Ordered azelastine 137 mcg/inh (0.1%) nasal spray 2 sprays, Nares, Both, Daily, PRN Other Allergies, # 30 mL, 6 Refills, Maintenance, 10/05/21 13:14:00 EDT, [place], [facility] # 50, 2 sprays Nares, Both Daily,PRN:Other Allergies, 163.5, cm, 08/21/21 13:35:00 EDT, Height Start Date: 10/05/21 Status: Ordered buPROPion 300 mg/24 hours (XL) oral tablet, extended release 1 tablet = 300 mg, By Mouth, Daily, # 90 tablet, 2 Refills, Maintenance, 06/25/22 9:06:00 EDT, ER Tablet, [facility] # 50, Partial fill upon patient request if the prescription is for a schedule II opioid drug., 162, cm, 06/25/22 8:34:00 EDT, [place]... Start Date: 06/25/22 Status: Ordered duloxetine 60 mg oral enteric coated capsule 1 capsule, By Mouth, 2 times a day, # 60 capsule, 5 Refills, 04/09/22 16:24:00 EST, [facility] # 50, 163.5, cm, 03/09/22 13:18:00 [...] tablet, 1 Refills, Maintenance, 08/14/22 12:36:00 EDT, [facility] # [facility], 162, cm, 08/08/22 11:26:00 [...] 06/04/22 10:20:00 EDT, Route to Pharmacy Electronically, [facility] # [facility], 162, cm, 05/21/22 10:37:00 [...] tablet, 1 Refills, Maintenance, 06/25/22 9:15:00 EDT, [facility] # 50, 162, cm, 06/25/22 8:34:00 EDT, Height, 102, kg, 05/21/22 10:37:00 EDT, Dry Weight Start Date: 06/25/22 Status: Ordered traZODone 50 mg oral tablet 50 mg, 1, tablet, By Mouth, Daily at bedtime, for 30 days, # 30 tablet, Refills 5, Tot. Refills 5, Physician Stop 12/22/22 9:07:00 EDT, 06/25/22 9:07:00 EDT, Route to Pharmacy Electronically, [facility] # [facility], 162, cm, 06/25/22 8:34:00 [...] 06/25/22 9:11:00 EDT, Route to Pharmacy Electronically, [facility] # [facility], Partial fill upon patient [...] capsule, 3 Refills, Maintenance, 06/25/22 9:06:00 EDT, [facility] # [facility], Partial fill upon patient [...] Team Personnel Name: Eleazar Rendon NP Position: [facility] PCO w/OE and EZ Script Member Role: Primary Care Nurse Address: Address: [address] [place] [address] [place] [address]- Name: Rafiq Arteaga Position: [facility] PCO Associate Professional Member Role: PCP Address: Address: [address] [place] [address] [place] [address]- Care Team Related Persons Name: LEWIS BALLESTEROS Address: home [address] [place] [id number] Name: RUSTY HOOVER
--- OUTSIDE RECORDS SUMMARY | 2022-11-04 01:35 | XMS_ITS | Continuity of Care Document ---
Author Name Unknown Organization [facility] Kayode lt Address [address] [place] [address]- Care Team Providers Care Supervisor Continuous Weld Pipe Mill Name Role Phone Susan AVENDANO, Orlando Quintanilla Primary Care Physician [phone] Encounter [facility] Date(s): 10/03/21 - 11/02/21 [facility] Adult [address] [place] [address]- Allergies, Adverse Reactions, Alerts Substance Reaction Severity [...] 01/16/21 11:47:00 EST, Route to Pharmacy Electronically, [id number]... Start Date: 01/16/21 Status: Ordered Ativan 0.5 [...] sprays, Nares, Both, Daily, PRN Other Allergies, j45.40, # 1 each, 6 Refills, Maintenance, 10/23/21 14:26:00 EDT, [place], [facility], 2 sprays Nares, Both Daily,PRN:Other Allergies,Instr:j45.40, 163.5, cm, 08/21/21 13:35:00 EDT, Height Start Date: 10/23/21 Status: Ordered azelastine 137 mcg/inh (0.1%) nasal spray 2 sprays, Nares, Both, Daily, PRN Other Allergies, # 30 mL, 6 Refills, Maintenance, 10/05/21 13:14:00 EDT, [place], [facility] # [facility], 2 [...] A DAY, # 60 tablet, 1 Refills, [facility] # [facility], 163.5, cm, 08/21/21 13:35:00 EDT, Height Start Date: 10/18/21 Status: Ordered duloxetine 60 mg oral enteric coated capsule 1 capsule, By Mouth, 2 times a day, # 60 capsule, 5 Refills, [facility] # [facility], 163.5, cm, 08/21/21 13:35:00 EDT, Height Start Date: 09/18/21 Status: Ordered Estrace Vaginal Cream 0.1 mg/g See Instructions, 1 gram Vaginally at bedtime 2 times per week, # 42 Gm, 4 Refills, Maintenance, 03/16/21 10:21:00 EST, [facility], Patient sensitive to inactive ingredients ofmanufacturers drugs, [...] 1 each, 6 Refills, 09/21/21 16:29:00 EDT, [facility] # [facility], 163.5, cm, 08/21/21 13:35:00 EDT, Height Start Date: 09/21/21 Status: Ordered gabapentin 600 mg oral tablet 1 tablet, By Mouth, 3 times a day, # 270 tablet, 1 Refills, [facility] # [facility], 163.5, cm, 04/21/21 11:51:00 EST, Height, 91, kg, 07/23/19 11:11:00 EDT, Dry Weight Start Date: 05/11/21 Status: Ordered lidocaine-prilocaine 2.5%-2.5% topical cream 1 application, Topically, Once, # 30 Gm, 3 Refills, Soft Stop, 04/21/21 12:20:00 EST, Cream, [facility], Partial fill upon patient request, 1 application Topically Once, 163.5, cm, 04/21/21 11:51:00 EST, Height, 91, kg, 07/23/19 11:11:00 EDT,... Start Date: 04/21/21 Status: Ordered lubiprostone 24 mcg oral capsule 1 capsule, By Mouth, 2 times a day, # 60 capsule, 5 Refills, 04/21/21 12:25:00 EST, [facility] # [facility], 163.5, cm, 04/21/21 [...] 10/25/21 16:41:00 EDT, Route to Pharmacy Electronically, [facility] # [facility], 163.5, cm, 08/21/21 13:35:00 EDT, Height Start Date: 10/25/21 Status: Ordered Myrbetriq 50 mg oral tablet, extended release 1 tablet = 50 mg, By Mouth, Daily, # 90 tablet, 3 Refills, Maintenance, 09/08/21 9:40:00 EDT, [facility], 163.5, cm, 08/21/21 13:35:00 EDT, Height Start Date: 09/08/21 Status: Ordered ohm Allergy Relief 10 mg oral tablet See Instructions, TAKE 1 TABLET BY MOUTH EVERY DAY, # 90 tablet, 1 Refills, Maintenance, 10/01/21 2:49:00 EDT, [facility] # [facility], 163.5, cm, 08/21/21 13:35:00 EDT, Height Start Date: 10/01/21 Status: Ordered traZODone 50 mg oral tablet 2, tablet, By Mouth, Daily at bedtime, # 60 tablet, Refills 2, Tot. Refills 2, 10/18/21 19:18:00 EDT, Route to Pharmacy Electronically, [facility] # [facility], 163.5, cm, 08/21/21 [...] 100 in lifetime) entered on: 11/21/18 Sex Care Team Personnel Name: Susan AVENDANO, Orlando Quintanilla Address: [address] [place] [address] [place] [address]-
--- OUTSIDE RECORDS SUMMARY | 2022-11-04 01:35 | XMS_ITS | Continuity of Care Document ---
Author Name Unknown Organization [facility] Kayode lt Address [address] [place] [address]- Care Team Providers Care Vice President Client Services Name Role Phone Tyler Palacios MD Primary Care Physician [place] [facility] [place] 10/08/19 - 10/15/19 [facility] Adult [address] [place] [address]- [facility] Attending Physician: Tyler Palacios MD Allergies, [...] 02/09/19 13:37:40 EST, Route to Pharmacy Electronically, [id number]... Start Date: 02/09/19 Status: Ordered Cranberry oral tablet 0 Refills, Maintenance, 10/23/18 9:18:41 EDT Start Date: 10/23/18 Status: Ordered diclofenac sodium 25 mg oral delayed release tablet 1 tablet = 25 mg, By Mouth, 2 times a day, # 60 tablet, 1 Refills, Maintenance, 07/23/19 10:48:00 EDT, EC Tablet, [facility] # 50, 163.5, cm, 06/03/19 [...] 3 Refills, Maintenance, 09/30/19 10:56:00 EDT, Inhaler, [facility] # 50, 163.5, cm, 09/30/19 9:33:00 EDT, Height, 91, kg, 07/23/19 11:11:00 EDT, Dry Weight Start Date: 09/30/19 Status: Ordered FLUoxetine 20 mg oral capsule 3, capsule, By Mouth, Daily, # 270 Unknown, Refills 1, Tot. Refills 0, Maintenance, 09/04/19 15:20:00 EDT, Route to Pharmacy Electronically, [facility] # [facility], 163.5, cm, 07/23/19 11:11:00 EDT, Height, 91, kg, 07/23/19 11:11:00 EDT, Dry Weight Start Date: 09/04/19 Status: Ordered gabapentin 600 mg oral tablet 1 tablet, By Mouth, 3 times a day, # 90 Unknown, 5 Refills, Maintenance, 05/25/19 16:16:00 EDT, [facility] # [facility], 163.5, cm, 03/27/19 10:49:00 EST, Height Start Date: 05/25/19 Status: Ordered lactulose 10 gm/15 ml oral syrup 15 mL = 10 Gm, By Mouth, Daily, This is correct dose., # 450 mL, 5 Refills, Maintenance, 06/25/19 9:18:00 EDT, Syrup, [facility] # 50, 15 mL By Mouth Daily,Instr:This is correct dose., 163.5, cm,06/03/19 11:17:00 EDT, Height Start Date: 06/25/19 Status: Ordered loratadine 10 mg oral tablet 10 mg, 1, tablet, By Mouth, Daily, # 90 tablet, Refills 3, Tot. Refills 3, Maintenance, 09/30/19 10:55:00 EDT, Route to Pharmacy Electronically, [facility] # [facility], 163.5, cm, 09/30/19 9:33:00 EDT, Height, 91, kg, 07/23/19 11:11:00 EDT, Dry Weight Start Date: 09/30/19 Status: Ordered lysine 1000 mg oral tablet [...] 06/17/19 13:09:00 EDT, Route to Pharmacy Electronically, [facility] # [facility], Refills per PCP, 163.5, cm, 06/03/19 11:17:00 EDT, Height Start Date: 06/17/19 Status: Ordered Myrbetriq 50 mg oral tablet, extended release 1 tablet = 50 mg, By Mouth, Daily, # 30 tablet, 11 Refills, Maintenance, 07/23/19 11:40:00 EDT, [facility] # [facility], 163.5, [...] oldest [Reference Range]: 1 Height 163.5 cm (10/08/19 11:19 AM) Social History Social History Type Response Smoking Status Never (less than 100 in lifetime) entered on: 11/21/18 Sex
--- OUTSIDE RECORDS SUMMARY | 2022-11-04 01:35 | XMS_ITS | Continuity of Care Document ---
Author Name Unknown Organization [facility] Address [address] [place] [address]- Care Team Providers Care Clinical Cytopathologist Name Role Phone Susan AVENDANO, Orlando Quintanilla Primary Care Physician [facility] Date[facility]s): 07/12/20 - 08/11/20 [facility] [address] [place] [address]- Allergies, Adverse Reactions, Alerts Substance Reaction Severity [...] 02/09/19 13:37:40 EST, Route to Pharmacy Electronically, [id number]... Start Date: 02/09/19 Status: Ordered buPROPion 300 [...] 5 Refills, Maintenance, 08/11/20 11:15:00EDT, EC Capsule, [facility], Partial fill upon patient request if the prescription is for a schedule II opioid drug., 163.5, cm, 08/11/20 10:3... Start Date: 08/11/20 Status: Ordered Estrace Vaginal Cream 0.1 mg/g See Instructions, 1 gram Vaginally at bedtime 2 times per week, # 42 Gm, 4 Refills, Maintenance, 03/23/20 16:57:00 EST, [facility], Patient sensitive to inactive ingredients ofmanufacturers drugs, [...] 3 Refills, Maintenance, 09/30/19 10:56:00 EDT, Inhaler, [facility] # [facility], 163.5, cm, 09/30/19 9:33:00 EDT, Height, 91, kg, 07/23/19 11:11:00 EDT, Dry Weight Start Date: 09/30/19 Status: Ordered gabapentin 600 mg oral tablet 1 tablet, By Mouth, 3 times a day, # 270 Unknown, 1 Refills, Maintenance, 05/24/20 16:58:00 EDT, [facility] # [facility], 163.5, cm, 05/14/20 23:20:00 EDT, Height, 91, kg, 07/23/19 11:11:00 EDT, Dry Weight Start Date: 05/24/20 Status: Ordered lidocaine-prilocaine 2.5%-2.5% topical cream 1 application, Topically, Once, # 30 Gm, 1 Refills, Soft Stop, 03/08/20 8:14:00 EST, Cream, [facility] # 50, Partial fill upon patient request, 1 application Topically Once, 163.5, cm, 01/11/20 14:45:00 EST, Height, 91, kg, 07/23/19 11:11:00 EDT,... Start Date: 03/08/20 Status: Ordered loratadine 10 mg oral tablet 10 mg, 1, tablet, By Mouth, Daily, # 90 tablet, Refills 3, Tot. Refills 3, Maintenance, 10/27/19 18:22:00 EDT, Route to Pharmacy Electronically, [facility] # [facility], Rx resent from 09/30/19., 163.5, cm, 10/08/19 11:19:00 EDT, Height, 91, kg, 07/23/19 11... Start Date: 10/27/19 Status: Ordered lubiprostone 24 mcg oral capsule 1 capsule, By Mouth, 2 times a day, # 60 Unknown, 0 Refills, Maintenance, 07/19/20 15:52:00 EDT, [facility] # [facility], 163.5, cm, 06/16/20 7:48:00 [...] 07/12/20 11:39:00 EDT, Route to Pharmacy Electronically, [facility] # [facility], Refills per PCP, 163.5, cm, 06/16/20 7:48:00 EDT, Height, 91, kg, 07/23/19 11... Start Date: 07/12/20 Status: Ordered Myrbetriq 50 mg oral tablet, extended release 1 tablet = 50 mg, By Mouth, Daily, # 30 tablet, 11 Refills, Maintenance, 08/11/20 16:47:00 EDT, [facility] # [facility], 163.5, cm, 08/11/20 10:34:00 EDT, Height, 91, kg, 07/23/19 11:11:00 EDT, Dry Weight Start Date: 08/11/20 Status: Ordered traZODone 50 mg oral tablet 2, tablet, By Mouth, Daily at bedtime, # 60 tablet, Refills 5, Tot. Refills 0, Maintenance, 07/28/20 15:52:00 EDT, Route to Pharmacy Electronically, [facility], 163.5, cm, 06/16/20 7:48:00 [...]
--- OUTSIDE RECORDS SUMMARY | 2022-11-04 01:35 | XMS_ITS | Continuity of Care Document ---
Author Name Unknown Organization [facility] Oskar May Kayode lt Address [address] [place] [address]- Care Team Providers Care Energy Engineer Name Role Phone Rafiq Arteaga Primary Care Physi kateryna [facility] Date[facility]s): 12/25/21 - 02/04/22 [facility] Oskar May Adult [address] [place] [address]- Attending Physician: Rafiq Arteaga Allergies, Adverse Reactions, [...] 01/16/21 11:47:00 EST, Route to Pharmacy Electronically, [id number]... Start Date: 01/16/21 Status: Ordered Ativan 0.5 [...] mL, 6 Refills, Maintenance, 10/05/21 13:14:00 EDT, [place], [facility], 2 sprays Nares, Both Daily,PRN:Other Allergies, 163.5, cm, 08/21/21 13:35:00 EDT, Height Start Date: 10/05/21 Status: Ordered buPROPion 300 mg/24 hours (XL) oral tablet, extended release 1 tablet = 300 mg, By Mouth, Daily, # 30 tablet, 5 Refills, Maintenance, 12/26/21 11:19:00 EDT, ER Tablet, [facility], Partial fill upon [...] 1 Refills, 12/26/21 11:19:00 EDT, [facility] # [facility], 163.5, cm, 08/21/21 13:35:00 EDT, Height Start Date: 12/26/21 Status: Ordered diclofenac sodium 75 mg oral delayed release tablet See Instructions, TAKE ONE TABLET BY MOUTH TWICE A DAY, # 60 tablet, 1 Refills, Maintenance, 12/27/21 9:34:00 EDT, [facility], 163.5, cm, 12/27/21 9:29:00 EDT, Height Start Date: 12/27/21 Status: Ordered duloxetine 60 mg oral enteric coated capsule 1 capsule, By Mouth, 2 times a day, # 60 capsule, 5 Refills, [facility], 163.5, cm, 08/21/21 13:35:00 EDT, Height Start Date: 09/18/21 Status: Ordered Estrace Vaginal Cream 0.1 mg/g See Instructions, 1 gram Vaginally at bedtime 2 times per week, # 42 Gm, 4 Refills, Maintenance, 03/16/21 10:21:00 EST, [facility], Patient sensitive to inactive ingredients ofmanufacturers drugs, [...] 09/21/21 16:29:00 EDT, [facility], 163.5, cm, 08/21/21 13:35:00 EDT, Height Start Date: 09/21/21 Status: Ordered gabapentin 600 mg oral tablet 1 tablet, By Mouth, 3 times a day, office visit needed for further refills, # 270 tablet, 1 Refills, Maintenance, 11/13/21 13:31:00 EDT, [facility] # [facility], 163.5, cm, 08/21/21 13:35:00 EDT, Height Start Date: 11/13/21 Status: Ordered lidocaine-prilocaine 2.5%-2.5% topical cream 1 application, Topically, Once, # 30 Gm, 3 Refills, Soft Stop, 04/21/21 12:20:00 EST, Cream, [facility] # [facility], Partial fill upon patient request, 1 application Topically Once, 163.5, cm, 04/21/21 11:51:00 EST, Height, 91, kg, 07/23/19 11:11:00 EDT,... Start Date: 04/21/21 Status: Ordered lubiprostone 24 mcg oral capsule 1 capsule, By Mouth, 2 times a day, # 60 capsule, 5 Refills, 04/21/21 12:25:00 EST, [facility], 163.5, cm, 04/21/21 [...] [facility], 163.5, cm, 08/21/21 13:35:00 EDT, Height Start Date: 10/25/21 Status: Ordered Myrbetriq 50 mg oral tablet, extended release 1 tablet = 50 mg, By Mouth, Daily, # 90 tablet, 3 Refills, Maintenance, 09/08/21 9:40:00 EDT, [facility] # [facility], 163.5, cm, 08/21/21 13:35:00 EDT, Height Start Date: 09/08/21 Status: Ordered ohm Allergy Relief 10 mg oral tablet See Instructions, TAKE 1 TABLET BY MOUTH EVERY DAY, # 90 tablet, 1 Refills, Maintenance, 10/01/21 2:49:00 EDT, [facility], 163.5, cm, [...] Team Personnel Name: Eleazar Rendon NP Position: [facility] PCO w/OE and EZ Script Member Role: Primary Care Nurse Address: Address: [address] [place], [place] [address] [facility] [place] [address]- Name: Rafiq Arteaga Position: [facility] PCO Associate Professional Member Role: PCP Address: Address: [address] [facility] [place] [address]- Care Team Related Persons Name: LEWIS BALLESTEROS Address: home [address] [place] [id number] Name: RUSTY HOOVER
--- OUTSIDE RECORDS SUMMARY | 2022-11-04 01:35 | XMS_ITS | Continuity of Care Document ---
Author Name Unknown Organization [facility] Kayode lt Address [address] [place] [address]- Care Team Providers Care Summer Camp Counselor Name Role Phone Tyler Palacios MD Primary Care Physician [phone] [place]counter [facility] [place] Date(s): 06/25/19 - 07/02/19 [facility] Adult [address] [place] [address]- [facility] Attending Physician: Tyler Palacios MD Allergies, Adverse [...] 02/09/19 13:37:40 EST, Route to Pharmacy Electronically, [id number]... Start Date: 02/09/19 Status: Ordered Cranberry oral [...] 03/07/19 11:47:00 EST, Route to Pharmacy Electronically, [facility] # [facility], 163.5, cm, 02/09/19 13:07:00 EST, Height Start Date: 03/07/19 Status: Ordered gabapentin 600 mg oral tablet 1 tablet, By Mouth, 3 times a day, # 90 Unknown, 5 Refills, Maintenance, 05/25/19 16:16:00 EDT, [facility] # [facility], 163.5, cm, 03/27/19 10:49:00 EST, Height Start Date: 05/25/19 Status: Ordered lactulose 10 gm oral powder for reconstitution 1 pack/packet, By Mouth, 2 times a day, # 30 each, 2 Refills, Maintenance, 03/27/19 11:11:00 EST, REC Powder, [facility] # [facility], 163.5, cm, 03/27/19 [...] 04/27/19 8:18:00 EST, Route to Pharmacy Electronically, [facility] [...] Height Start Date: 06/17/19 Status: Ordered Myrbetriq 25 mg oral tablet, extended release 1 tablet = 25 mg, By Mouth, Daily, do not crush or chew, # 30 tablet, 1 Refills, Maintenance, 06/01/19 14:37:00 EDT, ER Tablet, [facility] # [facility], 163.5, cm, 03/27/19 10:49:00 EST, Height Start Date: 06/01/19 Status: Ordered traZODone 50 mg oral tablet [...]
--- OUTSIDE RECORDS SUMMARY | 2022-11-04 01:36 | XMS_ITS | Continuity of Care Document ---
Author Name Unknown Organization [facility] Oskar May Kayode lt Address [address] [place] [phone]- Care Team Providers Care Dental Hygiene Administrative Assistant Name Role Phone Deshawn BERNAL, Laurita Primary Care Physician [place] [facility] [place] 05/25/20 - 06/01/20 [facility] Adult [address] [place] [address]- Encounter Diagnosis Depression, major(Discharge Diagnosis) - 05/25/20 Peripheral neuropathy(Discharge Diagnosis) - 05/25/20 Constipation(Discharge Diagnosis) - 05/25/20 Attending Physician: Orlando Davis MD Allergies, Adverse [...] 02/09/19 13:37:40 EST, Route to Pharmacy Electronically, [id number]... Start Date: 02/09/19 Status: Ordered buPROPion 300 [...] EDT Start Date: 10/23/18 Status: Ordered duloxetine 30 mg oral enteric coated capsule 1 capsule = 30 mg, By Mouth, 2 times a day, # 60 capsule, 6 Refills, Maintenance, 05/25/20 16:53:00EDT, EC Capsule, [facility] # [facility], Partial fill upon patient request if the prescription is for a schedule II opioid drug., 163.5, cm, 05/25/20 15:2... Start Date: 05/25/20 Status: Ordered Estrace Vaginal Cream 0.1 mg/g See Instructions, 1 gram Vaginally at bedtime 2 times per week, # 42 Gm, 4 Refills, Maintenance, 03/23/20 16:57:00 EST, [facility], Patient sensitive to [...] Maintenance, 09/30/19 10:56:00 EDT, Inhaler, [facility], 163.5, cm, 09/30/19 9:33:00 EDT, Height, 91, kg, 07/23/19 11:11:00 EDT, Dry Weight Start Date: 09/30/19 Status: Ordered gabapentin 600 mg oral tablet 1 tablet, By Mouth, 3 times a day, # 270 Unknown, 1 Refills, Maintenance, 05/24/20 16:58:00 EDT, [facility], 163.5, cm, 05/14/20 23:20:00 EDT, Height, 91, kg, 07/23/19 11:11:00 EDT, Dry Weight Start Date: 05/24/20 Status: Ordered lactulose 10 gm/15 ml oral syrup 15 mL = 10 Gm, By Mouth, Daily, This is correct dose., # 450 mL, 5 Refills, Maintenance, 06/25/19 9:18:00 EDT, Syrup, [facility] # [facility], 15 mL By Mouth Daily,Instr:This is correct dose., 163.5, cm,06/03/19 11:17:00 EDT, Height Start Date: 06/25/19 Status: Ordered lidocaine-prilocaine 2.5%-2.5% topical cream 1 application, Topically, Once, # 30 Gm, 1 Refills, Soft Stop, 03/08/20 8:14:00 EST, Cream, [facility] # [facility], Partial fill upon patient request, 1 application Topically Once, 163.5, cm, 01/11/20 14:45:00 EST, Height, 91, kg, 07/23/19 11:11:00 EDT,... Start Date: 03/08/20 Status: Ordered loratadine 10 mg oral tablet 10 mg, 1, tablet, By Mouth, Daily, # 90 tablet, Refills 3, Tot. Refills 3, Maintenance, 10/27/19 18:22:00 EDT, Route to Pharmacy Electronically, [facility], Rx resent from 09/30/19., [...] [facility], Refills per PCP, 163.5, cm, 01/11/20 14:45:00 EST, Height, 91, kg, 07/23/19 1... Start Date: 01/13/20 Status: Ordered Myrbetriq 50 mg oral tablet, extended release 1 tablet = 50 mg, By Mouth, Daily, # 30 tablet, 11 Refills, Maintenance, 07/23/19 11:40:00 EDT, [facility] # [facility], 163.5, cm, 07/23/19 11:11:00 EDT, Height, 91, kg, 07/23/19 11:11:00 EDT, Dry Weight Start Date: 07/23/19 Status: Ordered traMADol 50 mg oral tablet 1 tablet = 50 mg, By Mouth, Every 12 hours, # 42 tablet, 0 Refills, Maintenance, 11/03/19 16:09:00 EDT, [facility] # [facility], 163.5, cm, 11/03/19 11:52:00 EDT, Height, 91, kg, 07/23/19 11:11:00 EDT, Dry Weight Start Date: 11/03/19 Status: Ordered traZODone 50 mg oral tablet 50 mg, 1, tablet, By Mouth, Daily at bedtime, # 30 tablet, Refills 5, Tot. Refills 5, Maintenance, 12/04/19 12:51:00 EDT, Route to Pharmacy Electronically, [facility] # [facility], 163.5, cm, 11/03/19 [...] Effective Dates Health Status Clinical Service Informant Depression, major Discharge Diagnosis 05/25/20 Peripheral neuropathy Discharge Diagnosis 05/25/20 Constipation Discharge Diagnosis 05/25/20 Vital Signs Most recent to oldest [Reference Range]: 1 Height 163.5 cm (05/25/20 3:25 PM) Social History Social History Type Response Smoking Status Never (less than 100 in lifetime) entered on: 11/21/18 Sex
--- OUTSIDE RECORDS SUMMARY | 2022-11-04 01:36 | XMS_ITS | Continuity of Care Document ---
Author Name Unknown Organization [facility] Fabens Kayode lt Address [address] [place] [id number]- Care Team Providers Care Round Boner Name Role Phone Deshawn BERNAL, Laurita Primary Care Physician [place] [facility] [place]20 [facility] Adult [address] [place] [address]- Attending Physician: Tyler Palacios MD Allergies, Adverse [...] 02/09/19 13:37:40 EST, Route to Pharmacy Electronically, [id number]... Start Date: 02/09/19 Status: Ordered buPROPion 150 mg/24 hours (XL) oral tablet, extended release 1 tablet = 150 mg, By Mouth, Every 24 hours, # 30 tablet, 5 Refills, Maintenance, 04/20/20 8:24:00 EST, ER Tablet, [facility] # [facility], Partial fill upon patient [...] Unknown, 1 Refills, Maintenance, 12/17/19 15:03:00 EDT, [facility] # [facility], 163.5, cm, 11/03/19 11:52:00 EDT, Height, 91, kg, 07/23/19 11:11:00 EDT, Dry Weight Start Date: 12/17/19 Status: Ordered Estrace Vaginal Cream 0.1 mg/g See Instructions, 1 gram Vaginally at bedtime 2 times per week, # 42 Gm, 4 Refills, Maintenance, 03/23/20 16:57:00 EST, [facility], Patient sensitive to inactive ingredients ofmanufacturers drugs, [...] 3 Refills, Maintenance, 09/30/19 10:56:00 EDT, Inhaler, [facility] # [facility], 163.5, cm, 09/30/19 9:33:00 EDT, Height, 91, kg, 07/23/19 11:11:00 EDT, Dry Weight Start Date: 09/30/19 Status: Ordered FLUoxetine 40 mg oral capsule 1 capsule = 40 mg, By Mouth, Every 48 hours, # 30 capsule, 3 Refills, Maintenance, 04/19/20 8:46:00EST, Capsule, [facility] # [facility], Partial fill upon patient request if the prescription is for a schedule II opioid drug., 163.5, cm, 04/08/20 8:37:00... Start Date: 04/19/20 Status: Ordered gabapentin 600 mg oral tablet 1 tablet, By Mouth, 3 times a day, # 270 tablet, 1 Refills, Maintenance, 11/19/19 8:38:00 EDT, [facility], 163.5, cm, 11/03/19 11:52:00 EDT, Height, 91, kg, 07/23/19 11:11:00 EDT, Dry Weight Start Date: 11/19/19 Status: Ordered lactulose 10 gm/15 ml oral syrup 15 mL = 10 Gm, By Mouth, Daily, This is correct dose., # 450 mL, 5 Refills, Maintenance, 06/25/19 9:18:00 EDT, Syrup, [facility] # [facility], 15 mL By Mouth Daily,Instr:This is correct dose., 163.5, cm,06/03/19 11:17:00 EDT, Height Start Date: 06/25/19 Status: Ordered lidocaine-prilocaine 2.5%-2.5% topical cream 1 application, Topically, Once, # 30 Gm, 1 Refills, Soft Stop, 03/08/20 8:14:00 EST, Cream, [facility] # [facility], Partial fill upon patient request, 1 application Topically Once, 163.5, cm, 01/11/20 14:45:00 EST, Height, 91, kg, 07/23/19 11:11:00 EDT,... Start Date: 03/08/20 Status: Ordered loratadine 10 mg oral tablet 10 mg, 1, tablet, By Mouth, Daily, # 90 tablet, Refills 3, Tot. Refills 3, Maintenance, 10/27/19 18:22:00 EDT, Route to Pharmacy Electronically, [facility], Rx resent from 09/30/19., [...] 01/13/20 12:44:00 EST, Route to Pharmacy Electronically, [facility] # [facility], Refills per PCP, 163.5, cm, 01/11/20 14:45:00 EST, Height, 91, kg, 07/23/19 1... Start Date: 01/13/20 Status: Ordered Myrbetriq 50 mg oral tablet, extended release 1 tablet = 50 mg, By Mouth, Daily, # 30 tablet, 11 Refills, Maintenance, 07/23/19 11:40:00 EDT, [facility] # [facility], 163.5, cm, 07/23/19 11:11:00 EDT, Height, 91, kg, 07/23/19 11:11:00 EDT, Dry Weight Start Date: 07/23/19 Status: Ordered traMADol 50 mg oral tablet 1 tablet = 50 mg, By Mouth, Every 12 hours, # 42 tablet, 0 Refills, Maintenance, 11/03/19 16:09:00 EDT, [facility] # [facility], 163.5, [...]
--- OUTSIDE RECORDS SUMMARY | 2022-11-04 01:36 | XMS_ITS | Continuity of Care Document ---
Author Name Unknown Organization [facility] Address [address] [place] [address]- Care Team Providers Care Ssrs Developer Name Role Phone Rafiq Arteaga Primary Care Physi kateryna [place] [facility] [place]23[place]22 [facility] [address] [place] [id number] Allergies, Adverse Reactions, Alerts Substance Reaction Severity [...] 14:38:00 EST, Powder, Route to Pharmacy Electronically, [id number], [facility], I... Start Date: [...] mL, 6 Refills, Maintenance, 10/05/21 13:14:00 EDT, [place], [facility] # 50, 2 sprays Nares, Both Daily,PRN:Other Allergies, 163.5, cm, 08/21/21 13:35:00 EDT, Height Start Date: 10/05/21 Status: Ordered buPROPion 300 mg/24 hours (XL) oral tablet, extended release 1 tablet = 300 mg, By Mouth, Daily, # 30 tablet, 5 Refills, Maintenance, 12/26/21 11:19:00 EDT, ER Tablet, [facility] # 50, Partial fill upon patient request if the prescription is for a scheduleII opioid drug., 163.5, cm, 08/21/21 13:35:00 EDT,... Start Date: 12/26/21 Status: Ordered diazepam 5 mg oral tablet 5 mg, 1, tablet, By Mouth, Every 8 hours, PRN, # 45 tablet, Refills 0, Tot. Refills 0, Maintenance,Spasm, 05/23/22 16:04:00 EDT, Route to Pharmacy Electronically, [facility] # [facility], Partial fill upon patient request if the prescription is for a lebron... Start Date: 05/23/22 Status: Ordered duloxetine 60 mg oral enteric coated capsule 1 capsule, By Mouth, 2 times a day, # 60 capsule, 5 Refills, 04/09/22 16:24:00 EST, [facility] # [facility], 163.5, cm, 03/09/22 13:18:00 EST, Height Start Date: 04/09/22 Status: Ordered Estrace Vaginal Cream 0.1 mg/g See Instructions, 1 gram Vaginally at bedtime 2 times per week, # 42 Gm, 4 Refills, Maintenance, 03/16/21 10:21:00 EST, [facility], Patient sensitive to inactive ingredients ofmanufacturers drugs, [...] tablet, 1 Refills, Maintenance, 03/05/22 13:21:00 EST, [facility] # [facility], 163.5, cm, 03/05/22 12:50:00 [...] 10/25/21 16:41:00 EDT, Route to Pharmacy Electronically, [facility] # 50, 163.5, cm, 08/21/21 13:35:00 EDT, Height Start Date: 10/25/21 Status: Ordered Myrbetriq 50 mg oral tablet, extended release 1 tablet = 50 mg, By Mouth, Daily, # 90 tablet, 3 Refills, Maintenance, 09/08/21 9:40:00 EDT, [facility] # 50, 163.5, cm, 08/21/21 13:35:00 EDT, Height Start Date: 09/08/21 Status: Ordered ohm Allergy Relief 10 mg oral tablet See Instructions, TAKE 1 TABLET BY MOUTH EVERY DAY, # 90 tablet, 1 Refills, Maintenance, 03/05/22 13:16:00 EST, [facility] # [facility], 163.5, cm, 03/05/22 12:50:00 EST, Height Start Date: 03/05/22 Status: Ordered oxyCODONE 5 mg oral tablet 5 mg, 1, tablet, By Mouth, Every 4 hours, PRN, # 42 tablet, Refills 0, Tot. Refills 0, Maintenance,Pain , Moderate, 05/21/22 18:31:00 EDT, Route to Pharmacy Electronically, [facility],Partial fill upon patient request if the prescripti... Start Date: 05/21/22 Status: Ordered tiZANidine 4 mg oral tablet 4 mg, 1, tablet, By Mouth, 3 times a day, PRN, # 90 tablet, Refills 0, Tot. Refills 0, Maintenance,Spasm, 05/21/22 18:31:00 EDT, Route to Pharmacy Electronically, [facility], Partial fill upon patient request if the prescription is for... Start Date: 05/21/22 Status: Ordered traZODone 50 mg oral tablet 2, tablet, By Mouth, Daily at bedtime, # 60 tablet, Refills 5, Tot. Refills 5, 02/05/22 11:04:00 EST, Route to Pharmacy Electronically, [facility] # [facility], 163.5, cm, 01/15/22 8:07:00 [...] Name: Eleazar Rendon NP Position: [facility] PCO w/OE and EZ Script Member Role: Primary Care Nurse Address: Address: [address] [place] [address] [place] [address]- Name: Rafiq Arteaga [facility] Associate Professional Member Role: PCP Address: Address: [address] [place] [address]- Care Team Related Persons Name: LEWIS BALLESTEROS Address: home [address] [place] [id number] Name: RUSTY HOOVER
--- OUTSIDE RECORDS SUMMARY | 2022-11-04 01:36 | XMS_ITS | Continuity of Care Document ---
Author Name Unknown Organization [facility] Kayode lt Address [address] [place] [address]- Care Team Providers Care Telegraph Office Telephone Clerk Name Role Phone Deshawn BERNAL, Laurita Primary Care Physician [phone] Encounter [facility] Date(s): 04/04/20 - 05/04/20 [facility] Adult [address] [place] [address]- Allergies, Adverse Reactions, Alerts Substance Reaction Severity [...] 02/09/19 13:37:40 EST, Route to Pharmacy Electronically, [id number]... Start Date: 02/09/19 Status: Ordered buPROPion 150 mg/24 hours (XL) oral tablet, extended release 1 tablet = 150 mg, By Mouth, Every 24 hours, # 30 tablet, 5 Refills, Maintenance, 04/20/20 8:24:00 EST, ER Tablet, [facility], Partial [...] Unknown, 1 Refills, Maintenance, 12/17/19 15:03:00 EDT, [facility] # [facility], 163.5, cm, 11/03/19 11:52:00 EDT, Height, 91, kg, 07/23/19 11:11:00 EDT, Dry Weight Start Date: 12/17/19 Status: Ordered Estrace Vaginal Cream 0.1 mg/g See Instructions, 1 gram Vaginally at bedtime 2 times per week, # 42 Gm, 4 Refills, Maintenance, 03/23/20 16:57:00 EST, [facility], Patient sensitive to inactive ingredients ofmanufacturers drugs, [...] capsule, 3 Refills, Maintenance, 04/19/20 8:46:00EST, Capsule, [facility] # [facility], Partial fill upon patient request if the prescription is for a schedule II opioid drug., 163.5, cm, 04/08/20 8:37:00... Start Date: 04/19/20 Status: Ordered gabapentin 600 mg oral tablet 1 tablet, By Mouth, 3 times a day, # 270 tablet, 1 Refills, Maintenance, 11/19/19 8:38:00 EDT, [facility], 163.5, cm, 11/03/19 11:52:00 EDT, Height, 91, kg, 07/23/19 11:11:00 EDT, Dry Weight Start Date: 11/19/19 Status: Ordered lactulose 10 gm/15 ml oral syrup 15 mL = 10 Gm, By Mouth, Daily, This is correct dose., # 450 mL, 5 Refills, Maintenance, 06/25/19 9:18:00 EDT, Syrup, [facility] # [facility], 15 mL By Mouth Daily,Instr:This is correct dose., 163.5, cm,06/03/19 11:17:00 EDT, Height Start Date: 06/25/19 Status: Ordered lidocaine-prilocaine 2.5%-2.5% topical cream 1 application, Topically, Once, # 30 Gm, 1 Refills, Soft Stop, 03/08/20 8:14:00 EST, Cream, [facility] # [facility], Partial fill upon patient request, 1 application Topically Once, 163.5, cm, 01/11/20 14:45:00 EST, Height, 91, kg, 07/23/19 11:11:00 EDT,... Start Date: 03/08/20 Status: Ordered loratadine 10 mg oral tablet 10 mg, 1, tablet, By Mouth, Daily, # 90 tablet, Refills 3, Tot. Refills 3, Maintenance, 10/27/19 18:22:00 EDT, Route to Pharmacy Electronically, [facility] # [facility], Rx resent from 09/30/19., [...] tablet, 11 Refills, Maintenance, 07/23/19 11:40:00 EDT, [facility] # [facility], 163.5, cm, [...] 12/04/19 12:51:00 EDT, Route to Pharmacy Electronically, [facility] [...]
--- OUTSIDE RECORDS SUMMARY | 2022-11-04 01:36 | XMS_ITS | Continuity of Care Document ---
Author Name Unknown Organization [facility] Kayode Address [address] [place] [address]- Care Team Providers Care Customer Marketing Intern Name Role Phone Orlando Davis MD Primary Care Physician [phone] [place] [facility] [place]21[place]21 - 04/28/21 [facility] Adult [address] [place] [address]- Encounter Diagnosis Major depression in full remission(Discharge Diagnosis) - 04/18/21 [place]ICA (obstructive sleep apnea) AHI 9.2(Discharge Diagnosis) - 04/18/21 Osteopenia bmd 2020(Discharge Diagnosis) - 04/18/21 Peripheral neuropathy(Discharge Diagnosis) - 04/18/21 Asthma(Discharge Diagnosis) - 04/18/21 Constipation, chronic(Discharge Diagnosis) - 04/21/21 Vitamin D deficiency(Discharge Diagnosis) - 04/21/21 Obese class II(Discharge Diagnosis) - 04/21/21 Attending Physician: Orlando Davis MD Allergies, Adverse [...] 12/13/11 Recorde d Influenza Virus Vaccine (oldterm) 9/30/11 Recorde d zoster vaccine, inactivated 03/13/19 Recorded [...] 01/16/21 11:47:00 EST, Route to Pharmacy Electronically, [id number]... Start Date: 01/16/21 Status: Ordered azelastine 137 mcg/inh (0.1%) nasal spray 2 sprays, Nares, Both, Daily, PRN Other Allergies, # 30 mL, 6 Refills, Maintenance, 08/18/20 15:01:00 EDT, [place], [facility], 2 sprays Nares, Both Daily,PRN:Other Allergies, 163.5, cm, 08/18/20 14:46:00 EDT, Height, 91, kg, 07/23/19 11:11... Start Date: 08/18/20 Status: Ordered buPROPion 300 mg/24 hours (XL) oral tablet, extended release 1 tablet = 300 mg, By Mouth, Daily, # 30 tablet, 11 Refills, Maintenance, 05/11/20 13:04:00 EDT, ERTablet, [facility] # [facility], Partial fill upon patient [...] day, # 60 tablet, 0 Refills, Maintenance, 04/27/21 15:04:00 EST, EC Tablet, [facility], Partial fill upon patient request if the prescription is for a schedule II opioid drug., 163.5, cm, 04/21/21 11:51:0... Start Date: 04/27/21 Status: Ordered duloxetine 60 mg oral enteric coated capsule 1 capsule = 60 mg, By Mouth, 2 times a day, # 60 capsule, 5 Refills, Maintenance, 02/10/21 14:24:00EST, EC Capsule, [facility], Partial [...] DAY, # 31.8 Gm, 1 Refills, Maintenance, [facility], 163.5, cm, 09/09/20 12:42:00 EDT, Height, 91, kg, 07/23/19 11:11:00 EDT, Dry Weight Start Date: 10/06/20 Status: Ordered gabapentin 600 mg oral tablet 1 tablet, By Mouth, 3 times a day, # 270 Unknown, 1 Refills, Maintenance, 11/15/20 12:03:00 EDT, [facility], 163.5, cm, 09/09/20 12:42:00 EDT, Height, 91, kg, 07/23/19 11:11:00 EDT, Dry Weight Start Date: 11/15/20 Status: Ordered lidocaine-prilocaine 2.5%-2.5% topical cream 1 application, Topically, Once, # 30 Gm, 3 Refills, Soft Stop, 04/21/21 12:20:00 EST, Cream, [facility] # [facility], Partial fill upon patient request, 1 application Topically Once, 163.5, cm, 04/21/21 11:51:00 EST, Height, 91, kg, 07/23/19 11:11:00 EDT,... Start Date: 04/21/21 Status: Ordered loratadine 10 mg oral tablet See Instructions, TAKE ONE TABLET BY MOUTH EVERY DAY, # 90 tablet, Refills 1, Tot. Refills 1, Maintenance, 03/15/21 11:49:00 EST, Instructions Replace Required Details, Route to Pharmacy Electronically, [facility] # [facility], 163.5, cm, 12/12/20 16:09:0... Start Date: 03/15/21 Status: Ordered lubiprostone 24 mcg oral capsule 1 capsule, By Mouth, 2 times a day, # 60 capsule, 5 Refills, 04/21/21 12:25:00 EST, [facility] # [facility], 163.5, cm, 04/21/21 11:51:00 [...] 03/07/21 14:45:00 EST, Route to Pharmacy Electronically, [facility], 163.5, cm, 12/12/20 16:09:00 EDT, Height, 91, kg, 07/23/19 11:11:00 EDT, Dry... Start Date: 03/07/21 Status: Ordered Myrbetriq 50 mg oral tablet, extended release 1 tablet = 50 mg, By Mouth, Daily, # 90 tablet, 3 Refills, Maintenance, 03/16/21 10:21:00 EST, [facility] # [facility], 163.5, cm, 12/12/20 16:09:00 EDT, Height, 91, kg, 07/23/19 11:11:00 EDT, Dry Weight Start Date: 03/16/21 Status: Ordered traZODone 50 mg oral tablet 2, tablet, By Mouth, Daily at bedtime, # 60 tablet, Refills 5, Route to Pharmacy Electronically, [facility] # [facility], 163.5, [...] Effective Dates Health Status Clinical Service Informant Major depression in full remission Discharge Diagnosis 04/18/21 [place] (obstructive sleep apnea) AHI 9.2 Discharge Diagnosis 04/18/21 Osteopenia bmd 2020 Discharge Diagnosis 04/18/21 Peripheral neuropathy Discharge Diagnosis 04/18/21 Asthma Discharge Diagnosis 04/18/21 Constipation, chronic Discharge Diagnosis 04/21/21 Vitamin D deficiency Discharge Diagnosis 04/21/21 Obese class II Discharge Diagnosis 04/21/21 Vital Signs Most recent to oldest [Reference Range]: 1 Height 163.5 cm (04/21/21 11:51 AM) Weight 105.5 kg (04/21/21 11:51 AM) Oxygen Saturation [94-100 %] 95 % (04/21/21 11:51 AM) Pulse Rate [55-90 bpm] 91 bpm *H* (04/21/21 11:51 AM) Body Mass Index [18.5-24.99] 39.47 *>HHI* (04/21/21 11:51 AM) Blood Pressure [90-138/55-84 mm Hg] 108/ 68mm Hg (04/21/21 11:51 AM) Temperature [96.8-100.4 DegF] 98.3 DegF (04/21/21 11:51 AM) Blood pressure sites Arm, left (04/21/21 11:51 AM) Temperature Route Oral (04/21/21 11:51 AM) Weight Obtained Via Standing scale (04/21/21 11:51 AM) Social History Social History Type Response Smoking Status Never (less than 100 in lifetime) entered on: 11/21/18 Sex
--- OUTSIDE RECORDS SUMMARY | 2022-11-04 01:36 | XMS_ITS | Continuity of Care Document ---
Author Name Unknown Organization [facility] Kayode lt Address [address] [place] [address]- Care Team Providers Care Final Application Reviewer Name Role Phone Tyler Palacios MD Primary Care Physician [phone] [place] [facility] [place] 11/26/19 [facility] Adult [address] [place] [id number]- [facility] Allergies, Adverse Reactions, Alerts Substance Reaction Severity [...] 02/09/19 13:37:40 EST, Route to Pharmacy Electronically, [id number]... Start Date: 02/09/19 Status: Ordered Cranberry oral tablet 0 Refills, Maintenance, 10/23/18 9:18:41 EDT Start Date: 10/23/18 Status: Ordered diclofenac sodium 25 mg oral delayed release tablet 1 tablet = 25 mg, By Mouth, 2 times a day, # 60 tablet, 1 Refills, Maintenance, 07/23/19 10:48:00 EDT, EC Tablet, [facility] # 50, 163.5, cm, 06/03/19 [...] Maintenance, 09/30/19 10:56:00 EDT, Inhaler, [facility] # 50, 163.5, cm, 09/30/19 9:33:00 EDT, Height, 91, kg, 07/23/19 11:11:00 EDT, Dry Weight Start Date: 09/30/19 Status: Ordered FLUoxetine 20 mg oral capsule 3, capsule, By Mouth, Daily, # 270 Unknown, Refills 1, Tot. Refills 0, Maintenance, 09/04/19 15:20:00 EDT, Route to Pharmacy Electronically, [facility] # 50, 163.5, cm, 07/23/19 11:11:00 EDT, Height, 91, kg, 07/23/19 11:11:00 EDT, Dry Weight Start Date: 09/04/19 Status: Ordered gabapentin 600 mg oral tablet 1 tablet, By Mouth, 3 times a day, # 270 tablet, 1 Refills, Maintenance, 11/19/19 8:38:00 EDT, [facility] # 50, 163.5, cm, 11/03/19 11:52:00 EDT, Height, 91, kg, 07/23/19 11:11:00 EDT, Dry Weight Start Date: 11/19/19 Status: Ordered lactulose 10 gm/15 ml oral syrup 15 mL = 10 Gm, By Mouth, Daily, This is correct dose., # 450 mL, 5 Refills, Maintenance, 06/25/19 9:18:00 EDT, Syrup, [facility] # 50, 15 mL By Mouth Daily,Instr:This is correct dose., 163.5, cm,06/03/19 11:17:00 EDT, Height Start Date: 06/25/19 Status: Ordered loratadine 10 mg oral tablet 10 mg, 1, tablet, By Mouth, Daily, # 90 tablet, Refills 3, Tot. Refills 3, Maintenance, 10/27/19 18:22:00 EDT, Route to Pharmacy Electronically, [facility] # 50, Rx resent from [...] EDT, Route to Pharmacy Electronically, [facility] # 50, Refills per PCP, 163.5, cm, 06/03/19 11:17:00 EDT, Height Start Date: 06/17/19 Status: Ordered Myrbetriq 50 mg oral tablet, extended release 1 tablet = 50 mg, By Mouth, Daily, # 30 tablet, 11 Refills, Maintenance, 07/23/19 11:40:00 EDT, [facility] # 50, 163.5, cm, 07/23/19 11:11:00 EDT, Height, 91, kg, 07/23/19 11:11:00 EDT, Dry Weight Start Date: 07/23/19 Status: Ordered traMADol 50 mg oral tablet 1 tablet = 50 mg, By Mouth, Every 12 hours, # 42 tablet, 0 Refills, Maintenance, 11/03/19 16:09:00 EDT, [facility] # 50, 163.5, cm, 11/03/19 11:52:00 EDT, Height, 91, kg, 07/23/19 11:11:00 EDT, Dry Weight Start Date: 11/03/19 Status: Ordered traZODone 50 mg oral tablet 100 mg, 2, tablet, By Mouth, Daily at bedtime, # 60 tablet, Refills 5, Tot. Refills 5, Maintenance,06/01/19 14:37:00 EDT, Route to Pharmacy Electronically, [facility] # 50, 163.5, cm, 03/27/19 [...]
--- OUTSIDE RECORDS SUMMARY | 2022-11-04 01:36 | XMS_ITS | Continuity of Care Document ---
Author Name Unknown Organization [facility] Address [address] [place], [place] [address]florence gore, [address] [place] [address]- Care Team Providers Care Composition Instructor Name Role Phone Rafiq Arteaga Primary Care Physi kateryna [place] [facility] [place] 06/22/22 [facility] [address] [place] [address] Drive, [address] [place] [address]- Allergies, Adverse Reactions, Alerts Substance Reaction Severity [...] 14:38:00 EST, Powder, Route to Pharmacy Electronically, [id number], [facility] # [facility], I... Start [...] 0 Refills, Maintenance, 04/23/22 11:16:00 EST, Tablet, [facility] # 50, Partial fill upon patient request if the pr... Start Date: 04/23/22 Status: Ordered azelastine 137 mcg/inh (0.1%) nasal spray 2 sprays, Nares, Both, Daily, PRN Other Allergies, # 30 mL, 6 Refills, Maintenance, 10/05/21 13:14:00 EDT, [place], [facility] # 50, 2 sprays Nares, Both Daily,PRN:Other Allergies, 163.5, cm, 08/21/21 13:35:00 EDT, Height Start Date: 10/05/21 Status: Ordered buPROPion 300 mg/24 hours (XL) oral tablet, extended release 1 tablet = 300 mg, By Mouth, Daily, # 30 tablet, 5 Refills, Maintenance, 12/26/21 11:19:00 EDT, ER Tablet, [facility] # 50, Partial fill upon patient request if the prescription is for a scheduleII opioid drug., 163.5, cm, 08/21/21 13:35:00 EDT,... Start Date: 12/26/21 Status: Ordered diazepam 5 mg oral tablet 5 mg, 1, tablet, By Mouth, Every 8 hours, PRN, # 45 tablet, Refills 0, Tot. Refills 0, Maintenance,Spasm, 05/23/22 16:04:00 EDT, Route to Pharmacy Electronically, [facility] # 50, Partial fill upon patient request if the prescription is for a lebron... Start Date: 05/23/22 Status: Ordered duloxetine 60 mg oral enteric coated capsule 1 capsule, By Mouth, 2 times a day, # 60 capsule, 5 Refills, 04/09/22 16:24:00 EST, [facility] # [facility], 163.5, cm, 03/09/22 13:18:00 EST, Height Start Date: 04/09/22 Status: Ordered Estrace Vaginal Cream 0.1 mg/g See Instructions, 1 gram Vaginally at bedtime 2 times per week, # 42 Gm, 4 Refills, Maintenance, 03/16/21 10:21:00 EST, [facility], Patient sensitive to inactive ingredients ofmanufacturers drugs, [...] tablet, 1 Refills, Maintenance, 03/05/22 13:21:00 EST, [facility] # [facility], 163.5, cm, 03/05/22 12:50:00 EST, Height Start Date: 03/05/22 Status: Ordered lysine 1000 mg oral tablet 1 tablet = 1,000 mg, By Mouth, Daily, 0 Refills, Maintenance, 05/22/19 11:18:00 EDT Start Date: 05/22/19 Status: Ordered Medrol 4 mg oral tablet 1 pack/packet, By Mouth, Daily, for 6 days, as directed on package labeling, # 21 tablet, 0 Refills, Acute 06/25/22 15:48:00 EDT, 06/19/22 15:48:00 EDT, Tablet, [facility] # [facility], Partial fill uponpatient request if the prescription is for a schedu... Start Date: 06/19/22 Stop Date: 06/25/22 Status: Ordered Melatonin By Mouth, Daily at bedtime, 0 Refills, Maintenance Start Date: 01/15/12 Status: Ordered montelukast 10 mg oral tablet 10 mg, 1, tablet, By Mouth, Daily, j45.40, # 30 tablet, Refills 6, Tot. Refills 6, Maintenance, 06/04/22 10:20:00 EDT, Route to Pharmacy Electronically, [facility] # 50, 162, cm, 05/21/22 10:37:00 EDT, Height, 102, kg, 05/21/22 10:37:00 EDT, Dry W... Start Date: 06/04/22 Status: Ordered Myrbetriq 50 mg oral tablet, extended release 1 tablet = 50 mg, By Mouth, Daily, # 90 tablet, 3 Refills, Maintenance, 09/08/21 9:40:00 EDT, [facility] # 50, 163.5, cm, 08/21/21 13:35:00 EDT, Height Start Date: 09/08/21 Status: Ordered ohm Allergy Relief 10 mg oral tablet See Instructions, TAKE 1 TABLET BY MOUTH EVERY DAY, # 90 tablet, 1 Refills, Maintenance, 03/05/22 13:16:00 EST, [facility] # 50, 163.5, cm, 03/05/22 12:50:00 EST, Height Start Date: 03/05/22 Status: Ordered oxyCODONE 5 mg oral tablet 5 mg, 1, tablet, By Mouth, Every 4 hours, PRN, # 42 tablet, Refills 0, Tot. Refills 0, Maintenance,Pain , Moderate, 05/21/22 18:31:00 EDT, Route to Pharmacy Electronically, [facility] 3,Partial fill upon patient request if the prescripti... Start Date: 05/21/22 Status: Ordered tiZANidine 4 mg oral tablet 4 mg, 1, tablet, By Mouth, 3 times a day, PRN, # 90 tablet, Refills 0, Tot. Refills 0, Maintenance,Spasm, 05/21/22 18:31:00 EDT, Route to Pharmacy Electronically, [facility], Partial fill upon patient request if the prescription is for... Start Date: 05/21/22 Status: Ordered traZODone 50 mg oral tablet 2, tablet, By Mouth, Daily at bedtime, # 60 tablet, Refills 5, Tot. Refills 5, 02/05/22 11:04:00 EST, Route to Pharmacy Electronically, [facility] # [facility], 163.5, cm, 01/15/22 8:07:00 [...] Team Personnel Name: Eleazar Rendon NP Position: [facility] w/OE and EZ Script Member Role: Primary Care Nurse Address: Address: [address] [place] [address] [place] [address]- Name: Rafiq Arteaga Position: [facility] Associate Professional Member Role: PCP Address: Address: [address] [place] [address] [place] [address]- Care Team Related Persons Name: LEWIS BALLESTEROS Address: home [address] [place] [address] Name: RUSTY HOOVER
--- OUTSIDE RECORDS SUMMARY | 2022-11-04 01:36 | XMS_ITS | Continuity of Care Document ---
Author Name Unknown Organization [facility] Address [address] [place] [address]- Care Team Providers Care Brakes Inspector Name Role Phone Tyler Palacios MD Primary Care Physician Encounter [facility] Date(s): 07/30/19 - 09/29/[address] [address] [facility] Discharge Disposition: A-D/C Home Attending Physician: Tyler [...] 02/09/19 13:37:40 EST, Route to Pharmacy Electronically, [id number]... Start Date: 02/09/19 Status: Ordered Cranberry oral tablet 0 Refills, Maintenance, 10/23/18 9:18:41 EDT Start Date: 10/23/18 Status: Ordered diclofenac sodium 25 mg oral delayed release tablet 1 tablet = 25 mg, By Mouth, 2 times a day, # 60 tablet, 1 Refills, Maintenance, 07/23/19 10:48:00 EDT, EC Tablet, [facility] # 50, 163.5, cm, 06/03/19 11:17:00 [...] 09/04/19 15:20:00 EDT, Route to Pharmacy Electronically, [facility] # 50, 163.5, cm, 07/23/19 11:11:00 EDT, Height, 91, kg, 07/23/19 11:11:00 EDT, Dry Weight Start Date: 09/04/19 Status: Ordered gabapentin 600 mg oral tablet 1 tablet, By Mouth, 3 times a day, # 90 Unknown, 5 Refills, Maintenance, 05/25/19 16:16:00 EDT, [facility] # 50, 163.5, cm, 03/27/19 10:49:00 EST, Height Start Date: 05/25/19 Status: Ordered lactulose 10 gm oral powder for reconstitution 1 pack/packet, By Mouth, 2 times a day, # 30 each, 2 Refills, Maintenance, 03/27/19 11:11:00 EST, REC Powder, [facility] # 50, 163.5, cm, 03/27/19 10:49:00 EST, Height Start Date: 03/27/19 Status: Ordered lactulose 10 gm/15 ml oral syrup 15 mL = 10 Gm, By Mouth, Daily, This is correct dose., # 450 mL, 5 Refills, Maintenance, 06/25/19 9:18:00 EDT, Syrup, [facility] # 50, 15 mL By Mouth Daily,Instr:This is correct dose., 163.5, cm,06/03/19 11:17:00 EDT, Height Start Date: 06/25/19 Status: Ordered loratadine 10 mg oral tablet 10 mg, 1, tablet, By Mouth, Daily, # 90 tablet, Refills 1, Tot. Refills 1, Maintenance, 04/27/19 8:18:00 EST, Route to Pharmacy Electronically, [facility] [...] 06/17/19 13:09:00 EDT, Route to Pharmacy Electronically, [facility] # 50, Refills per PCP, 163.5, cm, 06/03/19 11:17:00 EDT, Height Start Date: 06/17/19 Status: Ordered Myrbetriq 50 mg oral tablet, extended release 1 tablet = 50 mg, By Mouth, Daily, # 30 tablet, 11 Refills, Maintenance, 07/23/19 11:40:00 EDT, [facility] # 50, 163.5, cm, 07/23/19 11:11:00 EDT, Height, 91, kg, 07/23/19 11:11:00 EDT, Dry Weight Start Date: 07/23/19 Status: Ordered traZODone 50 mg oral tablet 100 mg, 2, tablet, By Mouth, Daily at bedtime, # 60 tablet, Refills 5, Tot. Refills 5, Maintenance,06/01/19 14:37:00 EDT, Route to Pharmacy Electronically, [facility] [...]
--- OUTSIDE RECORDS SUMMARY | 2022-11-04 01:36 | XMS_ITS | Continuity of Care Document ---
Author Name Unknown Organization [facility] Address [address] [address]- Care Team Providers Care Food Production Machine Operator Name Role Phone Rafiq Arteaga Primary Care Physi kateryna Encounter [facility] [place] Date(s): 03/09/22 - 06/24/22 [facility] [address] [place] [address] [place] [address]- Attending Physician: Giacomo Noe MD Admitting Physician: Giacomo Noe MD Referring Physician: Rafiq Arteaga Allergies, Adverse Reactions, Alerts [...] 14:38:00 EST, Powder, Route to Pharmacy Electronically, [id number], [facility] # [facility], I... [...] mL, 6 Refills, Maintenance, 10/05/21 13:14:00 EDT, [place], [facility] # 50, 2 sprays Nares, Both Daily,PRN:Other Allergies, 163.5, cm, 08/21/21 13:35:00 EDT, Height Start Date: 10/05/21 Status: Ordered buPROPion 300 mg/24 hours (XL) oral tablet, extended release 1 tablet = 300 mg, By Mouth, Daily, # 30 tablet, 5 Refills, Maintenance, 12/26/21 11:19:00 EDT, ER Tablet, [facility], Partial fill [...] 60 capsule, 5 Refills, 04/09/22 16:24:00 EST, [facility] # [facility], 163.5, cm, [...] tablet, 1 Refills, Maintenance, 03/05/22 13:21:00 EST, [facility] # 50, [...] 06/25/22 15:48:00 EDT, 06/19/22 15:48:00 EDT, Tablet, [facility] # 50, Partial fill uponpatient request [...] 06/04/22 10:20:00 EDT, Route to Pharmacy Electronically, [facility] # [facility], 162, cm, 05/21/22 10:37:00 EDT, Height, 102, kg, 05/21/22 10:37:00 EDT, Dry W... Start Date: 06/04/22 Status: Ordered Myrbetriq 50 mg oral tablet, extended release 1 tablet = 50 mg, By Mouth, Daily, # 90 tablet, 3 Refills, Maintenance, 09/08/21 9:40:00 EDT, [facility] # 50, 163.5, cm, 08/21/21 13:35:00 [...] 05/21/22 18:31:00 EDT, Route to Pharmacy Electronically, [facility] 3,Partial fill upon patient request if the prescripti... Start Date: 05/21/22 Status: Ordered tiZANidine 4 mg oral tablet 4 mg, 1, tablet, By Mouth, 3 times a day, PRN, # 90 tablet, Refills 0, Tot. Refills 0, Maintenance,Spasm, 05/21/22 18:31:00 EDT, Route to Pharmacy Electronically, [facility] 3, Partial fill upon patient request if the prescription is for... Start Date: 05/21/22 Status: Ordered traZODone 50 mg oral tablet 2, tablet, By Mouth, Daily at bedtime, # 60 tablet, Refills 5, Tot. Refills 5, 02/05/22 11:04:00 EST, Route to Pharmacy Electronically, [facility], 163.5, cm, 01/15/22 8:07:00 [...] Team Personnel Name: Eleazar Rendon NP Position: [facility] PCO w/OE and EZ Script Member Role: Primary Care Nurse Address: Address: [address] [place] [address] [place] [address]- Name: Rafiq Arteaga Position: [facility] Associate Professional Member Role: PCP Address: Address: [address] [place] [address] [place] [address]- Care Team Related Persons Name: LEWIS BALLESTEROS Address: home [address] [place] [id number] Name: RUSTY HOOVER
--- OUTSIDE RECORDS SUMMARY | 2022-11-04 01:36 | XMS_ITS | Continuity of Care Document ---
Author Name Unknown Organization [facility] Address [address] [place] [address]- Care Team Providers Care Wireless Sales Manager Name Role Phone Susan AVENDANO, Orlando Quintanilla Primary Care Physician Encounter [facility] [place] Date(s): 10/25/21 - 11/24/21 [facility] [address] [place] [address]- Allergies, Adverse Reactions, Alerts Substance Reaction Severity [...] 01/16/21 11:47:00 EST, Route to Pharmacy Electronically, [id number]... Start Date: 01/16/21 Status: Ordered Ativan 0.5 [...] each, 6 Refills, Maintenance, 10/23/21 14:26:00 EDT, [place], [facility], 2 sprays Nares, Both Daily,PRN:Other Allergies,Instr:j45.40, 163.5, cm, 08/21/21 13:35:00 EDT, Height Start Date: 10/23/21 Status: Ordered azelastine 137 mcg/inh (0.1%) nasal spray 2 sprays, Nares, Both, Daily, PRN Other Allergies, # 30 mL, 6 Refills, Maintenance, 10/05/21 13:14:00 EDT, [place], [facility] # [facility], 2 sprays [...] A DAY, # 60 tablet, 1 Refills, [facility] # 50, 163.5, cm, 08/21/21 13:35:00 EDT, Height Start Date: 10/18/21 Status: Ordered duloxetine 60 mg oral enteric coated capsule 1 capsule, By Mouth, 2 times a day, # 60 capsule, 5 Refills, [facility] # 50, 163.5, cm, 08/21/21 [...] 1 each, 6 Refills, 09/21/21 16:29:00 EDT, [facility] # 50, 163.5, cm, 08/21/21 13:35:00 EDT, Height Start Date: 09/21/21 Status: Ordered gabapentin 600 mg oral tablet 1 tablet, By Mouth, 3 times a day, office visit needed for further refills, # 270 tablet, 1 Refills, Maintenance, 11/13/21 13:31:00 EDT, [facility] # 50, 163.5, cm, 08/21/21 13:35:00 EDT, Height Start Date: 11/13/21 Status: Ordered lidocaine-prilocaine 2.5%-2.5% topical cream 1 application, Topically, Once, # 30 Gm, 3 Refills, Soft Stop, 04/21/21 12:20:00 EST, Cream, [facility] # 50, Partial fill upon patient request, 1 application Topically Once, 163.5, cm, 04/21/21 11:51:00 EST, Height, 91, kg, 07/23/19 11:11:00 EDT,... Start Date: 04/21/21 Status: Ordered lubiprostone 24 mcg oral capsule 1 capsule, By Mouth, 2 times a day, # 60 capsule, 5 Refills, 04/21/21 12:25:00 EST, [facility] # 50, 163.5, cm, 04/21/21 [...] 10/25/21 16:41:00 EDT, Route to Pharmacy Electronically, [facility] # [facility], 163.5, cm, 08/21/21 13:35:00 EDT, Height Start Date: 10/25/21 Status: Ordered Myrbetriq 50 mg oral tablet, extended release 1 tablet = 50 mg, By Mouth, Daily, # 90 tablet, 3 Refills, Maintenance, 09/08/21 9:40:00 EDT, [facility], 163.5, cm, 08/21/21 13:35:00 EDT, Height Start Date: 09/08/21 Status: Ordered ohm Allergy Relief 10 mg oral tablet See Instructions, TAKE 1 TABLET BY MOUTH EVERY DAY, # 90 tablet, 1 Refills, Maintenance, 10/01/21 2:49:00 EDT, [facility] # 50, 163.5, cm, 08/21/21 13:35:00 EDT, Height Start Date: 10/01/21 Status: Ordered traZODone 50 mg oral tablet 2, tablet, By Mouth, Daily at bedtime, # 60 tablet, Refills 2, Tot. Refills 2, 10/18/21 19:18:00 EDT, Route to Pharmacy Electronically, [facility] # [facility], 163.5, cm, 08/21/21 [...] on: 11/21/18 Sex Patient Care team information Personnel Name: Susan AVENDANO, Orlando Quintanilla Address: Address: [address] [place] [address]
--- OUTSIDE RECORDS SUMMARY | 2022-11-04 01:36 | XMS_ITS | Continuity of Care Document ---
Author Name Unknown Organization [facility] Address [address] [place] [address]- Care Team Providers Care Diesel Locomotive Engineer Name Role Phone Susan AVENDANO, Orlando Quintanilla Primary Care Physician [phone] Encounter [facility] Date(s): 09/21/21 - 10/21/21 [facility] [address] [place] [id number]- Allergies, Adverse Reactions, Alerts Substance Reaction Severity [...] 01/16/21 11:47:00 EST, Route to Pharmacy Electronically, [id number]... Start Date: 01/16/21 Status: Ordered Ativan 0.5 mg oral tablet See Instructions, PRN as needed for anxiety, Take 1 tablet as needed for anxiety, do not take more than 2 tablets/day, # 14 tablet, 0 Refills, Maintenance, 08/03/21 9:13:00 EDT, Tablet, [facility], Partial fill upon patient request if the pre... Start Date: 08/03/21 Status: Ordered azelastine 137 mcg/inh (0.1%) nasal spray 2 sprays, Nares, Both, Daily, PRN Other Allergies, # 30 mL, 6 Refills, Maintenance, 10/05/21 13:14:00 EDT, [place], [facility] # [facility], 2 sprays Nares, Both Daily,PRN:Other Allergies, 163.5, cm, 08/21/21 13:35:00 EDT, Height Start Date: 10/05/21 Status: Ordered azelastine 137 mcg/inh (0.1%) nasal spray 2 sprays, Nares, Both, Daily, PRN Other Allergies, # 30 mL, 6 Refills, Maintenance, 08/18/20 15:01:00 EDT, [place], [facility] # [facility], 2 sprays Nares, [...] A DAY, # 60 tablet, 1 Refills, [facility] # [facility], 163.5, cm, 08/21/21 13:35:00 EDT, Height Start Date: 10/18/21 Status: Ordered duloxetine 60 mg oral enteric coated capsule 1 capsule, By Mouth, 2 times a day, # 60 capsule, 5 Refills, [facility] # [facility], 163.5, cm, 08/21/21 [...] 1 each, 6 Refills, 09/21/21 16:29:00 EDT, [facility] # 50, 163.5, cm, 08/21/21 13:35:00 EDT, Height Start Date: 09/21/21 Status: Ordered gabapentin 600 mg oral tablet 1 tablet, By Mouth, 3 times a day, # 270 tablet, 1 Refills, [facility] # [facility], 163.5, cm, 04/21/21 11:51:00 EST, Height, 91, kg, 07/23/19 11:11:00 EDT, Dry Weight Start Date: 05/11/21 Status: Ordered lidocaine-prilocaine 2.5%-2.5% topical cream 1 application, Topically, Once, # 30 Gm, 3 Refills, Soft Stop, 04/21/21 12:20:00 EST, Cream, [facility] # 50, Partial fill upon patient request, 1 application Topically Once, 163.5, cm, 04/21/21 11:51:00 EST, Height, 91, kg, 07/23/19 11:11:00 EDT,... Start Date: 04/21/21 Status: Ordered lubiprostone 24 mcg oral capsule 1 capsule, By Mouth, 2 times a day, # 60 capsule, 5 Refills, 04/21/21 12:25:00 EST, [facility] # [facility], 163.5, cm, 04/21/21 [...] 03/07/21 14:45:00 EST, Route to Pharmacy Electronically, [facility] # [facility], 163.5, cm, 12/12/20 16:09:00 EDT, Height, 91, kg, 07/23/19 11:11:00 EDT, Dry... Start Date: 03/07/21 Status: Ordered Myrbetriq 50 mg oral tablet, extended release 1 tablet = 50 mg, By Mouth, Daily, # 90 tablet, 3 Refills, Maintenance, 09/08/21 9:40:00 EDT, [facility] # 50, 163.5, cm, 08/21/21 13:35:00 EDT, Height Start Date: 09/08/21 Status: Ordered ohm Allergy Relief 10 mg oral tablet See Instructions, TAKE 1 TABLET BY MOUTH EVERY DAY, # 90 tablet, 1 Refills, Maintenance, 10/01/21 2:49:00 EDT, [facility] # [facility], 163.5, cm, 08/21/21 13:35:00 EDT, Height Start Date: 10/01/21 Status: Ordered traZODone 50 mg oral tablet 2, tablet, By Mouth, Daily at bedtime, # 60 tablet, Refills 2, Tot. Refills 2, 10/18/21 19:18:00 EDT, Route to Pharmacy Electronically, [facility], 163.5, cm, [...] Personnel Name: Susan AVENDANO, Orlando Quintanilla Address: [address] [place] [id number]
--- OUTSIDE RECORDS SUMMARY | 2022-11-04 01:36 | XMS_ITS | Continuity of Care Document ---
Author Name Unknown Organization [facility] Kayode lt Address [address] [place] [address]- Care Team Providers Care Massage Coordinator Name Role Phone Susan AVENDANO, Orlando Quintanilla Primary Care Physician Encounter [facility] [place](s): 05/19/20 - 06/18/20 [facility] Adult [address] [place] [address]- Allergies, Adverse Reactions, Alerts Substance Reaction Severity [...] 02/09/19 13:37:40 EST, Route to Pharmacy Electronically, [id number]... Start Date: 02/09/19 Status: Ordered buPROPion 300 mg/24 hours (XL) oral tablet, extended release 1 tablet = 300 mg, By Mouth, Daily, # 30 tablet, 11 Refills, Maintenance, 05/11/20 13:04:00 EDT, ERTablet, [facility] # [...] 06/10/20 12:27:00 EDT, EC Capsule, [facility] # 50, Partial fill upon patient request if the prescription is for a schedule II opioid drug., 163.5, cm, 06/10/20 11:17:0... Start Date: 06/10/20 Status: Ordered Estrace Vaginal Cream 0.1 mg/g See Instructions, 1 gram Vaginally at bedtime 2 times per week, # 42 Gm, 4 Refills, Maintenance, 03/23/20 16:57:00 EST, [facility], Patient sensitive to inactive ingredients ofmanufacturers drugs, [...] 5 Refills, Maintenance, 06/25/19 9:18:00 EDT, Syrup, [facility] # [facility], 15 mL By Mouth [...] [facility], Rx resent from 09/30/19., 163.5, cm, 10/08/19 11:19:00 EDT, Height, 91, kg, 07/23/19 11... Start Date: 10/27/19 Status: Ordered lubiprostone 24 mcg oral capsule 1 capsule = 24 mcg, By Mouth, 2 times a day, # 60 capsule, 0 Refills, Maintenance, 06/10/20 12:29:00 EDT, Capsule, [facility] # [...] Dry Weight Start Date: 07/23/19 Status: Ordered predniSONE 20 mg oral tablet 1 tablet = 20 mg, By Mouth, 2 times a day, for 5 days, # 10 tablet, 0 Refills, Acute 06/21/20 8:12:00 EDT, 06/16/20 8:12:00 EDT, Tablet, [facility] # 50, 163.5, cm, 06/16/20 7:48:00 EDT, Height, 91, kg, 07/23/19 11:11:00 EDT, Dry Weight Start Date: 06/16/20 Stop Date: 06/21/20 Status: Ordered traZODone 50 mg oral tablet [...]
--- OUTSIDE RECORDS SUMMARY | 2022-11-04 01:36 | XMS_ITS | Continuity of Care Document ---
Author Name Unknown Organization [facility] Kay[facility] Address [address] [place] [address]- Care Team Providers Care Human Resources Trainee Name Role Phone Rafiq Arteaga Primary Care Physi kateryna [place] [facility] [place]22 [facility] Adult [address] [place] [address]- Attending Physician: Admtr, Ar8 Admitting Physician: Admtr, [...] 14:25:00 EST, Powder, Route to Pharmacy Electronically, [id number], [facility] # [facility], 1... Start Date: 03/05/22 Status: Ordered Advair Diskus 250 mcg-50 mcg inhalation powder 1, inhalation, Inhalation, 2 times a day, rinse mouth and throat after use, # 1 each, Refills 0, Tot. Refills 0, Maintenance, 03/09/22 13:31:00 EST, Powder, Route to Pharmacy Electronically, [id number], [facility] # [facility], I... Start Date: 03/09/22 [...] 01/16/21 11:47:00 EST, Route to Pharmacy Electronically, [id number]... Start Date: 01/16/21 Status: Ordered Ativan 0.5 mg oral tablet See Instructions, PRN as needed for anxiety, Take 1 tablet as needed for anxiety, do not take more than 2 tablets/day, # 14 tablet, 0 Refills, Maintenance, 08/03/21 9:13:00 EDT, Tablet, [facility] # [facility], Partial fill upon patient request if the pre... Start Date: 08/03/21 Status: Ordered azelastine 137 mcg/inh (0.1%) nasal spray 2 sprays, Nares, Both, Daily, PRN Other Allergies, # 30 mL, 6 Refills, Maintenance, 10/05/21 13:14:00 EDT, [place], [facility], 2 sprays Nares, Both Daily,PRN:Other Allergies, 163.5, cm, 08/21/21 13:35:00 EDT, Height Start Date: 10/05/21 Status: Ordered buPROPion 300 mg/24 hours (XL) oral tablet, extended release 1 tablet = 300 mg, By Mouth, Daily, # 30 tablet, 5 Refills, Maintenance, 12/26/21 11:19:00 EDT, ER Tablet, [facility] [...] tablet, 1 Refills, Maintenance, 03/05/22 13:21:00 EST, [facility], 163.5, cm, 03/05/22 [...] 10/25/21 16:41:00 EDT, Route to Pharmacy Electronically, [facility] # [facility], 163.5, cm, 08/21/21 13:35:00 EDT, Height Start Date: 10/25/21 Status: Ordered Myrbetriq 50 mg oral tablet, extended release 1 tablet = 50 mg, By Mouth, Daily, # 90 tablet, 3 Refills, Maintenance, 09/08/21 9:40:00 EDT, [facility] # 50, 163.5, cm, 08/21/21 13:35:00 EDT, Height Start Date: 09/08/21 Status: Ordered ohm Allergy Relief 10 mg oral tablet See Instructions, TAKE 1 TABLET BY MOUTH EVERY DAY, # 90 tablet, 1 Refills, Maintenance, 03/05/22 13:16:00 EST, [facility] # [facility], 163.5, cm, 03/05/22 12:50:00 EST, Height Start Date: 03/05/22 Status: Ordered traZODone 50 mg oral tablet 2, tablet, By Mouth, Daily at bedtime, # 60 tablet, Refills 5, Tot. Refills 5, 02/05/22 11:04:00 EST, Route to Pharmacy Electronically, [facility] # [facility], 163.5, cm, 01/15/22 8:07:00 [...] Team Personnel Name: Eleazar Rendon NP Position: [facility] PCO w/OE and EZ Script Member Role: Primary Care Nurse Address: Address: [address] [place] [address] [place] [address]- Name: Rafiq Arteaga Position: [facility] Associate Professional Member Role: PCP Address: Address: [address] [place] [address] [place] [address]- [place] Care Team Related Persons Name: LEWIS BALLESTEROS Address: home [address] [place] [id number] Name: RUSTY HOOVER
--- OUTSIDE RECORDS SUMMARY | 2022-11-04 01:36 | XMS_ITS | Continuity of Care Document ---
Author Name Unknown Organization [facility] Address [address] [address]- Care Team Providers Care Sales Representative Raw [employer]ers Name Role Phone Susan AVENDANO, Orlando Quintanilla Primary Care Physician Encounter [facility] [place] Date(s): 11/18/20 - 12/18/20 [facility] [address] [place] [id number] Allergies, Adverse Reactions, Alerts Substance [...] 02/09/19 13:37:40 EST, Route to Pharmacy Electronically, [id number]... Start Date: 02/09/19 Status: Ordered azelastine 137 mcg/inh (0.1%) nasal spray 2 sprays, Nares, Both, Daily, PRN Other Allergies, # 30 mL, 6 Refills, Maintenance, 08/18/20 15:01:00 EDT, [place], [facility] # [facility], 2 sprays Nares, Both Daily,PRN:Other Allergies, 163.5, cm, 08/18/20 14:46:00 EDT, Height, 91, kg, 07/23/19 11:11... Start Date: 08/18/20 Status: Ordered buPROPion 300 mg/24 hours (XL) oral tablet, extended release 1 tablet = 300 mg, By Mouth, Daily, # 30 tablet, 11 Refills, Maintenance, 05/11/20 13:04:00 EDT, ERTablet, [facility], Partial fill upon [...] 5 Refills, Maintenance, 08/11/20 11:15:00EDT, EC Capsule, [facility] # [facility], Partial fill upon patient request if the prescription is for a schedule II opioid drug., 163.5, cm, 08/11/20 10:3... Start Date: 08/11/20 Status: Ordered Estrace Vaginal Cream 0.1 mg/g See Instructions, 1 gram Vaginally at bedtime 2 times per week, # 42 Gm, 4 Refills, Maintenance, 03/23/20 16:57:00 EST, [facility], Patient sensitive to [...] DAY, # 31.8 Gm, 1 Refills, Maintenance, [facility], 163.5, cm, 09/09/20 12:42:00 EDT, Height, 91, kg, 07/23/19 11:11:00 EDT, Dry Weight Start Date: 10/06/20 Status: Ordered gabapentin 600 mg oral tablet 1 tablet, By Mouth, 3 times a day, # 270 Unknown, 1 Refills, Maintenance, 11/15/20 12:03:00 EDT, [facility], 163.5, cm, 09/09/20 [...] Replace Required Details, Route to Pharmacy Electronically, [facility] # [facility], 163.5, cm, 09/09/20 12:42:00... Start Date: 11/01/20 Status: Ordered lubiprostone 24 mcg oral capsule 1 capsule, By Mouth, 2 times a day, # 60 capsule, 5 Refills, [facility] # 50, 163.5, cm, 09/09/20 [...] 12/16/20 15:12:00 EDT, Route to Pharmacy Electronically, [facility] # 50, 163.5, cm, 12/12/20 16:09:00 EDT, Height, 91, kg, 07/23/19 11:11:00 EDT, Dry... Start Date: 12/16/20 Status: Ordered Myrbetriq 50 mg oral tablet, extended release 1 tablet = 50 mg, By Mouth, Daily, # 30 tablet, 11 Refills, Maintenance, 08/11/20 16:47:00 EDT, [facility] # 50, 163.5, cm, 08/11/20 10:34:00 EDT, Height, 91, kg, 07/23/19 11:11:00 EDT, Dry Weight Start Date: 08/11/20 Status: Ordered traZODone 50 mg oral tablet 2, tablet, By Mouth, Daily at bedtime, # 60 tablet, Refills 5, Tot. Refills 0, Maintenance, 07/28/20 15:52:00 EDT, Route to Pharmacy Electronically, [facility], 163.5, cm, 06/16/20 7:48:00 [...]
--- OUTSIDE RECORDS SUMMARY | 2022-11-04 01:36 | XMS_ITS | Continuity of Care Document ---
Author Name Unknown Organization [facility] Kayode lt Address [address] [place] [address]- Care Team Providers Care Stunt Man Name Role Phone Tyler Palacios MD Primary Care Physician [place] [facility] [place](s): 10/30/19 - 11/29/19 [facility] Adult [address] [place] [address]- [facility] Allergies, Adverse Reactions, Alerts Substance Reaction Severity [...] 02/09/19 13:37:40 EST, Route to Pharmacy Electronically, [id number]... Start Date: 02/09/19 Status: Ordered Cranberry oral tablet 0 Refills, Maintenance, 10/23/18 9:18:41 EDT Start Date: 10/23/18 Status: Ordered diclofenac sodium 25 mg oral delayed release tablet 1 tablet = 25 mg, By Mouth, 2 times a day, # 60 tablet, 1 Refills, Maintenance, 07/23/19 10:48:00 EDT, EC Tablet, [facility] # [facility], 163.5, cm, [...] 3 Refills, Maintenance, 09/30/19 10:56:00 EDT, Inhaler, [facility] # 50, 163.5, cm, 09/30/19 9:33:00 EDT, Height, 91, kg, 07/23/19 11:11:00 EDT, Dry Weight Start Date: 09/30/19 Status: Ordered FLUoxetine 20 mg oral capsule 3, capsule, By Mouth, Daily, # 270 Unknown, Refills 1, Tot. Refills 0, Maintenance, 09/04/19 15:20:00 EDT, Route to Pharmacy Electronically, [facility] # [facility], 163.5, cm, 07/23/19 11:11:00 EDT, Height, 91, kg, 07/23/19 11:11:00 EDT, Dry Weight Start Date: 09/04/19 Status: Ordered gabapentin 600 mg oral tablet 1 tablet, By Mouth, 3 times a day, # 270 tablet, 1 Refills, Maintenance, 11/19/19 8:38:00 EDT, [facility] # 50, 163.5, cm, 11/03/19 11:52:00 EDT, Height, 91, kg, 07/23/19 11:11:00 EDT, Dry Weight Start Date: 11/19/19 Status: Ordered lactulose 10 gm/15 ml oral syrup 15 mL = 10 Gm, By Mouth, Daily, This is correct dose., # 450 mL, 5 Refills, Maintenance, 06/25/19 9:18:00 EDT, Syrup, [facility] # 50, 15 mL [...] 06/17/19 13:09:00 EDT, Route to Pharmacy Electronically, [facility] # [facility], Refills per PCP, 163.5, cm, 06/03/19 11:17:00 EDT, Height Start Date: 06/17/19 Status: Ordered Myrbetriq 50 mg oral tablet, extended release 1 tablet = 50 mg, By Mouth, Daily, # 30 tablet, 11 Refills, Maintenance, 07/23/19 11:40:00 EDT, [facility] # [facility], 163.5, cm, 07/23/19 11:11:00 EDT, Height, 91, kg, 07/23/19 11:11:00 EDT, Dry Weight Start Date: 07/23/19 Status: Ordered traMADol 50 mg oral tablet 1 tablet = 50 mg, By Mouth, Every 12 hours, # 42 tablet, 0 Refills, Maintenance, 11/03/19 16:09:00 EDT, [facility] # 50, 163.5, cm, 11/03/19 11:52:00 EDT, Height, 91, kg, 07/23/19 11:11:00 EDT, Dry Weight Start Date: 11/03/19 Status: Ordered traZODone 50 mg oral tablet 100 mg, 2, tablet, By Mouth, Daily at bedtime, # 60 tablet, Refills 5, Tot. Refills 5, Maintenance,06/01/19 14:37:00 EDT, Route to Pharmacy Electronically, [facility] # [facility], 163.5, cm, [...]
--- OUTSIDE RECORDS SUMMARY | 2022-11-04 01:36 | XMS_ITS | Continuity of Care Document ---
Author Name Unknown Organization [facility] Address [address] [place] [address]- Care Team Providers Care President Name Role Phone Rafiq Arteaga Primary Care Physi kateryna Encounter [facility] [place] Date(s): 03/06/22 - 04/05/22 [facility] [address] [place], [place] [address] Allergies, Adverse Reactions, Alerts Substance Reaction [...] 14:25:00 EST, Powder, Route to Pharmacy Electronically, [id number], [facility], 1... Start Date: 03/05/22 Status: Ordered Advair Diskus 250 mcg-50 mcg inhalation powder 1, inhalation, Inhalation, 2 times a day, rinse mouth and throat after use, # 1 each, Refills 0, Tot. Refills 0, Maintenance, 03/09/22 13:31:00 EST, Powder, Route to Pharmacy Electronically, [id number], [facility] # [facility], I... Start Date: 03/09/22 [...] 01/16/21 11:47:00 EST, Route to Pharmacy Electronically, [id number]... Start Date: 01/16/21 Status: Ordered Ativan 0.5 mg oral tablet See Instructions, PRN as needed for anxiety, Take 1 tablet as needed for anxiety, do not take more than 2 tablets/day, # 14 tablet, 0 Refills, Maintenance, 08/03/21 9:13:00 EDT, Tablet, [facility] # [facility], Partial fill upon patient request if the pre... Start Date: 08/03/21 Status: Ordered azelastine 137 mcg/inh (0.1%) nasal spray 2 sprays, Nares, Both, Daily, PRN Other Allergies, # 30 mL, 6 Refills, Maintenance, 10/05/21 13:14:00 EDT, [place], [facility], 2 sprays Nares, [...] 60 capsule, 5 Refills, [facility], 163.5, cm, 08/21/21 13:35:00 EDT, Height Start Date: 09/18/21 Status: Ordered Estrace Vaginal Cream 0.1 mg/g See Instructions, 1 gram Vaginally at bedtime 2 times per week, # 42 Gm, 4 Refills, Maintenance, 03/16/21 10:21:00 EST, [facility], Patient sensitive to inactive ingredients ofmanufacturers drugs, [...] 10/25/21 16:41:00 EDT, Route to Pharmacy Electronically, [facility] # [facility], 163.5, cm, 08/21/21 13:35:00 EDT, Height Start Date: 10/25/21 Status: Ordered Myrbetriq 50 mg oral tablet, extended release 1 tablet = 50 mg, By Mouth, Daily, # 90 tablet, 3 Refills, Maintenance, 09/08/21 9:40:00 EDT, [facility] # 50, 163.5, cm, 08/21/21 13:35:00 EDT, Height Start Date: 09/08/21 Status: Ordered ohm Allergy Relief 10 mg oral tablet See Instructions, TAKE 1 TABLET BY MOUTH EVERY DAY, # 90 tablet, 1 Refills, Maintenance, 03/05/22 13:16:00 EST, [facility] # [facility], 163.5, cm, 03/05/22 12:50:00 EST, Height Start Date: 03/05/22 Status: Ordered traZODone 50 mg oral tablet 2, tablet, By Mouth, Daily at bedtime, # 60 tablet, Refills 5, Tot. Refills 5, 02/05/22 11:04:00 EST, Route to Pharmacy Electronically, [facility] # [facility], 163.5, cm, 01/15/22 8:07:00 [...] Team Personnel Name: Eleazar Rendon NP Position: [facility]O w/OE and EZ Script Member Role: Primary Care Nurse Address: Address: [address] [place] [address] [place] [address]- Name: Rafiq Arteaga Position: [facility] Associate Professional Member Role: PCP Address: Address: [address] [facility] [place] [address]- Care Team Related Persons Name: MARCELO BALLESTEROSEL Address: home [address] [place] [id number] Name: RUSTY HOOVER
--- OUTSIDE RECORDS SUMMARY | 2022-11-04 01:36 | XMS_ITS | Continuity of Care Document ---
Author Name Unknown Organization [facility] Kay[facility] Address [address] [place] [address]- Care Team Providers Care Legal Financial Specialist Name Role Phone Rafiq Arteaga Primary Care Physi kateryna En[place] [facility] [place](s): 03/01/22 - 03/31/22 [facility] Adult [address] [place] [address]- Allergies, Adverse Reactions, Alerts Substance Reaction Severity [...] 14:25:00 EST, Powder, Route to Pharmacy Electronically, [id number], [facility] # [facility], 1... Start Date: 03/05/22 Status: Ordered Advair Diskus 250 mcg-50 mcg inhalation powder 1, inhalation, Inhalation, 2 times a day, rinse mouth and throat after use, # 1 each, Refills 0, Tot. Refills 0, Maintenance, 03/09/22 13:31:00 EST, Powder, Route to Pharmacy Electronically, [id number], [facility] # [facility], I... Start Date: 03/09/22 [...] 01/16/21 11:47:00 EST, Route to Pharmacy Electronically, [id number]... Start Date: 01/16/21 Status: Ordered Ativan 0.5 mg oral tablet See Instructions, PRN as needed for anxiety, Take 1 tablet as needed for anxiety, do not take more than 2 tablets/day, # 14 tablet, 0 Refills, Maintenance, 08/03/21 9:13:00 EDT, Tablet, [facility] # [facility], Partial fill upon patient request if the pre... Start Date: 08/03/21 Status: Ordered azelastine 137 mcg/inh (0.1%) nasal spray 2 sprays, Nares, Both, Daily, PRN Other Allergies, # 30 mL, 6 Refills, Maintenance, 10/05/21 13:14:00 EDT, [place], [facility] # [facility], 2 sprays Nares, Both Daily,PRN:Other Allergies, 163.5, cm, 08/21/21 13:35:00 EDT, Height Start Date: 10/05/21 Status: Ordered buPROPion 300 mg/24 hours (XL) oral tablet, extended release 1 tablet = 300 mg, By Mouth, Daily, # 30 tablet, 5 Refills, Maintenance, 12/26/21 11:19:00 EDT, ER Tablet, [facility], Partial fill upon patient request if the prescription is for a scheduleII opioid drug., 163.5, cm, 08/21/21 13:35:00 EDT,... Start Date: 12/26/21 Status: Ordered Cranberry oral tablet 0 Refills, Maintenance, 10/23/18 9:18:41 EDT Start Date: 10/23/18 Status: Ordered duloxetine 60 mg oral enteric coated capsule 1 capsule, By Mouth, 2 times a day, # 60 capsule, 5 Refills, [facility] # [facility], 163.5, [...] tablet, 1 Refills, Maintenance, 03/05/22 13:21:00 EST, [facility], 163.5, cm, 03/05/22 12:50:00 EST, Height Start Date: 03/05/22 Status: Ordered lysine 1000 mg oral tablet 1 tablet = 1,000 mg, By Mouth, Daily, 0 Refills, Maintenance, 05/22/19 11:18:00 EDT Start Date: 3/27/20 Status: Ordered Melatonin By Mouth, Daily at bedtime, 0 Refills, Maintenance Start Date: 01/15/12 Status: Ordered montelukast 10 mg oral tablet 10 mg, 1, tablet, By Mouth, Daily, j45.40, # 30 tablet, Refills 6, Tot. Refills 6, Maintenance, 10/25/21 16:41:00 EDT, Route to Pharmacy Electronically, [facility], 163.5, cm, 08/21/21 13:35:00 EDT, Height Start Date: 10/25/21 Status: Ordered Myrbetriq 50 mg oral tablet, extended release 1 tablet = 50 mg, By Mouth, Daily, # 90 tablet, 3 Refills, Maintenance, 09/08/21 9:40:00 EDT, [facility] # 50, 163.5, cm, 08/21/21 13:35:00 EDT, [...] 02/05/22 11:04:00 EST, [facility] to Pharmacy Electronically, [facility] [...] Team Personnel Name: Eleazar Rendon NP Position: [facility] PCO w/OE and EZ Script Member Role: Primary Care Nurse Address: Address: [address] [place] [address] [place] [address]- Name: Rafiq Arteaga Position: [facility] Associate Professional Member Role: PCP Address: Address: [address] [facility] [place] [address]- Care Team Related Persons Name: LEWIS BALLESTEROS Address: home [address] [place] [id number] Name: RUSTY HOOVER
--- OUTSIDE RECORDS SUMMARY | 2022-11-04 01:36 | XMS_ITS | Continuity of Care Document ---
Author Name Unknown Organization [facility] Kayode lt Address [address] [place] [address]- Care Team Providers Care Shuttle Car Operator Name Role Phone Suzanne AVENDANO, Tyler Charles Primary Care Physician Encounter [facility] Date(s): 09/04/19 - 10/04/19 [facility] Adult [address] [place] [address]- [facility] Allergies, Adverse Reactions, Alerts Substance Reaction [...] 02/09/19 13:37:40 EST, Route to Pharmacy Electronically, [id number]... Start Date: 02/09/19 Status: Ordered Cranberry oral tablet 0 Refills, Maintenance, 10/23/18 9:18:41 EDT Start Date: 10/23/18 Status: Ordered diclofenac sodium 25 mg oral delayed release tablet 1 tablet = 25 mg, By Mouth, 2 times a day, # 60 tablet, 1 Refills, Maintenance, 07/23/19 10:48:00 EDT, EC Tablet, [facility] # [facility], 163.5, cm, 06/03/19 [...] [facility], 163.5, cm, 07/23/19 11:11:00 EDT, Height, 91, kg, 07/23/19 11:11:00 EDT, Dry Weight Start Date: 09/04/19 Status: Ordered gabapentin 600 mg oral tablet 1 tablet, By Mouth, 3 times a day, # 90 Unknown, 5 Refills, Maintenance, 05/25/19 16:16:00 EDT, [facility] # [facility], 163.5, cm, [...] 09/30/19 10:55:00 EDT, Route to Pharmacy Electronically, [facility] [...] tablet, 11 Refills, Maintenance, 07/23/19 11:40:00 EDT, [facility] # [facility], 163.5, cm, 07/23/19 11:11:00 EDT, Height, 91, kg, 07/23/19 11:11:00 EDT, Dry Weight Start Date: 07/23/19 Status: Ordered traZODone 50 mg oral tablet 100 mg, 2, tablet, By Mouth, Daily at bedtime, # 60 tablet, Refills 5, Tot. Refills 5, Maintenance,06/01/19 14:37:00 EDT, Route to Pharmacy Electronically, [facility] # [facility], 163.5, cm, 03/27/19 10:49:00 [...]
--- OUTSIDE RECORDS SUMMARY | 2022-11-04 01:36 | XMS_ITS | Continuity of Care Document ---
Author Name Unknown Organization [facility] Kayode lt Address [address] [place] [id number]- Care Team Providers Care Career Technical Supervisor Name Role Phone Tyler Palacios MD Primary Care Physician [place] [facility] [place]03[place] 11[place]10/19 [facility] Adult [address] [place] [id number]- [facility] Attending Physician: Tyler Palacios MD [...] 02/09/19 13:37:40 EST, Route to Pharmacy Electronically, [id number]... Start Date: 02/09/19 Status: Ordered Cranberry oral tablet 0 Refills, Maintenance, 10/23/18 9:18:41 EDT Start Date: 10/23/18 Status: Ordered diclofenac sodium 25 mg oral delayed release tablet 1 tablet = 25 mg, By Mouth, 2 times a day, # 60 tablet, 1 Refills, Maintenance, 07/23/19 10:48:00 EDT, EC Tablet, [facility] # [facility], [...] 3 Refills, Maintenance, 09/30/19 10:56:00 EDT, Inhaler, [facility] # 50, 163.5, cm, 09/30/19 9:33:00 EDT, Height, 91, kg, 07/23/19 11:11:00 EDT, Dry Weight Start Date: 09/30/19 Status: Ordered FLUoxetine 20 mg oral capsule 3, capsule, By Mouth, Daily, # 270 Unknown, Refills 1, Tot. Refills 0, Maintenance, 09/04/19 15:20:00 EDT, Route to Pharmacy Electronically, [facility] # [facility], 163.5, cm, 07/23/19 11:11:00 EDT, Height, 91, kg, 07/23/19 11:11:00 EDT, Dry Weight Start Date: 09/04/19 Status: Ordered gabapentin 600 mg oral tablet 1 tablet, By Mouth, 3 times a day, # 90 Unknown, 5 Refills, Maintenance, 05/25/19 16:16:00 EDT, [facility] # [facility], 163.5, cm, 03/27/19 10:49:00 EST, Height Start Date: 05/25/19 Status: Ordered lactulose 10 gm/15 ml oral syrup 15 mL = 10 Gm, By Mouth, Daily, This is correct dose., # 450 mL, 5 Refills, Maintenance, 06/25/19 9:18:00 EDT, Syrup, [facility] # 50, 15 mL [...] 06/17/19 13:09:00 EDT, Route to Pharmacy Electronically, [facility] # 50, Refills per PCP, 163.5, cm, 06/03/19 11:17:00 EDT, Height Start Date: 06/17/19 Status: Ordered Myrbetriq 50 mg oral tablet, extended release 1 tablet = 50 mg, By Mouth, Daily, # 30 tablet, 11 Refills, Maintenance, 07/23/19 11:40:00 EDT, [facility] # 50, 163.5, cm, 07/23/19 11:11:00 EDT, Height, 91, kg, 07/23/19 11:11:00 EDT, Dry Weight Start Date: 07/23/19 Status: Ordered traMADol 50 mg oral tablet 1 tablet = 50 mg, By Mouth, Every 12 hours, # 42 tablet, 0 Refills, Maintenance, 11/03/19 16:09:00 EDT, [facility] # 50, 163.5, cm, 11/03/19 11:52:00 EDT, Height, 91, kg, 07/23/19 11:11:00 EDT, Dry Weight Start Date: 11/03/19 Status: Ordered traZODone 50 mg oral tablet 100 mg, 2, tablet, By Mouth, Daily at bedtime, # 60 tablet, Refills 5, Tot. Refills 5, Maintenance,06/01/19 14:37:00 EDT, Route to Pharmacy Electronically, [facility] # [facility], 163.5, cm, 03/27/19 10:49:00 [...] oldest [Reference Range]: 1 Height 163.5 cm (11/03/19 11:52 AM) Social History Social History Type Response Smoking Status Never (less than 100 in lifetime) entered on: 11/21/18 Sex
--- OUTSIDE RECORDS SUMMARY | 2022-11-04 01:37 | XMS_ITS | Continuity of Care Document ---
Author Name Unknown Organization [facility] Kayode lt Address [address] [place] [id number]- Care Team Providers Care Software Design Engineer Name Role Phone Susan AVENDANO, Orlando Quintanilla Primary Care Physician En[place] [facility] [place] Date(s): 05/30/21 - 06/29/21 [facility] Adult [address] [place] [address]- Allergies, Adverse Reactions, Alerts Substance Reaction Severity [...] 01/16/21 11:47:00 EST, Route to Pharmacy Electronically, [id number]... Start Date: 01/16/21 Status: Ordered azelastine 137 mcg/inh (0.1%) nasal spray 2 sprays, Nares, Both, Daily, PRN Other Allergies, # 30 mL, 6 Refills, Maintenance, 08/18/20 15:01:00 EDT, [place], [facility] # [facility], 2 sprays Nares, Both Daily,PRN:Other Allergies, 163.5, cm, 08/18/20 14:46:00 EDT, Height, 91, kg, 07/23/19 11:11... Start Date: 08/18/20 Status: Ordered buPROPion 300 mg/24 hours (XL) oral tablet, extended release 1 tablet = 300 mg, By Mouth, Daily, # 30 tablet, 5 Refills, Maintenance, 05/30/21 10:47:00 EDT, ER Tablet, [facility] [...] Refills, Maintenance, 05/26/21 10:29:00 EDT, EC Tablet, [facility] # 50, Partial fill upon patient request if the prescription is for a schedule II opioid drug., 163.5, cm, 04/21/21 11:51:0... Start Date: 05/26/21 Status: Ordered duloxetine 60 mg oral enteric coated capsule 1 capsule = 60 mg, By Mouth, 2 times a day, # 60 capsule, 5 Refills, Maintenance, 02/10/21 14:24:00EST, EC Capsule, [facility] # [facility], Partial fill upon [...] DAY, # 31.8 Gm, 1 Refills, Maintenance, [facility], 163.5, cm, 09/09/20 12:42:00 EDT, Height, 91, kg, 07/23/19 11:11:00 EDT, Dry Weight Start Date: 10/06/20 Status: Ordered gabapentin 600 mg oral tablet 1 tablet, By Mouth, 3 times a day, # 270 tablet, 1 Refills, [facility] # [facility], 163.5, cm, 04/21/21 11:51:00 EST, Height, 91, kg, 07/23/19 11:11:00 EDT, Dry Weight Start Date: 05/11/21 Status: Ordered lidocaine-prilocaine 2.5%-2.5% topical cream 1 application, Topically, Once, # 30 Gm, 3 Refills, Soft Stop, 04/21/21 12:20:00 EST, Cream, [facility] # [facility], Partial fill upon patient request, 1 application Topically Once, 163.5, cm, 04/21/21 11:51:00 EST, Height, 91, kg, 07/23/19 11:11:00 EDT,... Start Date: 04/21/21 Status: Ordered loratadine 10 mg oral tablet See Instructions, TAKE ONE TABLET BY MOUTH EVERY DAY, # 90 tablet, Refills 1, Tot. Refills 1, Maintenance, 03/15/21 11:49:00 EST, Instructions Replace Required Details, Route to Pharmacy Electronically, [facility] # [facility], 163.5, cm, 12/12/20 16:09:0... Start Date: 03/15/21 Status: Ordered lubiprostone 24 mcg oral capsule 1 capsule, By Mouth, 2 times a day, # 60 capsule, 5 Refills, 04/21/21 12:25:00 EST, [facility] # 50, [...] 03/07/21 14:45:00 EST, Route to Pharmacy Electronically, [facility] # 50, 163.5, cm, 12/12/20 16:09:00 EDT, Height, 91, kg, 07/23/19 11:11:00 EDT, Dry... Start Date: 03/07/21 Status: Ordered Myrbetriq 50 mg oral tablet, extended release 1 tablet = 50 mg, By Mouth, Daily, # 90 tablet, 3 Refills, Maintenance, 03/16/21 10:21:00 EST, [facility] # 50, 163.5, cm, 12/12/20 16:09:00 EDT, Height, 91, kg, 07/23/19 11:11:00 EDT, Dry Weight Start Date: 03/16/21 Status: Ordered traZODone 50 mg oral tablet 2, tablet, By Mouth, Daily at bedtime, # 60 tablet, Refills 5, Route to Pharmacy Electronically, [email or web address] # [facility], 163.5, cm, 12/12/20 16:09:00 [...]
--- OUTSIDE RECORDS SUMMARY | 2022-11-04 01:37 | XMS_ITS | Continuity of Care Document ---
Author Name Unknown Organization [facility] Kayode lt Address [address] [place] [id number]- Care Team Providers Care Cutting Torch Operator Name Role Phone Laurita Hess NP Primary Care Physician [phone] [place] [facility] [place]20 [facility] [address] [place] [address]- Attending Physician: Laurita Hess NP Allergies, Adverse [...] 02/09/19 13:37:40 EST, Route to Pharmacy Electronically, [id number]... Start Date: 02/09/19 Status: Ordered buPROPion 300 mg/24 hours (XL) oral tablet, extended release 1 tablet = 300 mg, By Mouth, Daily, # 30 tablet, 11 Refills, Maintenance, 05/11/20 13:04:00 EDT, ERTablet, [facility], [...] 6 Refills, Maintenance, 05/25/20 16:53:00EDT, EC Capsule, [facility] # 50, Partial fill upon patient request if the prescription is for a schedule II opioid drug., 163.5, cm, 05/25/20 15:2... Start Date: 05/25/20 Status: Ordered Estrace Vaginal Cream 0.1 mg/g See Instructions, 1 gram Vaginally at bedtime 2 times per week, # 42 Gm, 4 Refills, Maintenance, 03/23/20 16:57:00 EST, [facility], Patient sensitive to inactive ingredients ofmanufacturers drugs, [...] Refills, Maintenance, 09/30/19 10:56:00 EDT, Inhaler, [facility], 163.5, cm, 09/30/19 9:33:00 EDT, Height, 91, kg, 07/23/19 11:11:00 EDT, Dry Weight Start Date: 09/30/19 Status: Ordered gabapentin 600 mg oral tablet 1 tablet, By Mouth, 3 times a day, # 270 Unknown, 1 Refills, Maintenance, 05/24/20 16:58:00 EDT, [facility] # 50, 163.5, cm, 05/14/20 23:20:00 EDT, Height, 91, kg, 07/23/19 11:11:00 EDT, Dry Weight Start Date: 05/24/20 Status: Ordered lactulose 10 gm/15 ml oral syrup 15 mL = 10 Gm, By Mouth, Daily, This is correct dose., # 450 mL, 5 Refills, Maintenance, 06/25/19 9:18:00 EDT, Syrup, [facility] # 50, 15 mL By Mouth Daily,Instr:This is correct dose., 163.5, cm,06/03/19 11:17:00 EDT, Height Start Date: 06/25/19 Status: Ordered lidocaine-prilocaine 2.5%-2.5% topical cream 1 application, Topically, Once, # 30 Gm, 1 Refills, Soft Stop, 03/08/20 8:14:00 EST, Cream, [facility] [...] [facility], Rx resent [...] tablet, 11 Refills, Maintenance, 07/23/19 11:40:00 EDT, [facility] # 50, 163.5, [...]
--- OUTSIDE RECORDS SUMMARY | 2022-11-04 01:37 | XMS_ITS | Continuity of Care Document ---
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, I... Start [...] 0 Refills, Maintenance, 04/23/22 11:16:00 EST, Tablet, [facility], Partial fill upon patient request if the pr... Start Date: 04/23/22 Status: Ordered azelastine 137 mcg/inh (0.1%) nasal spray 2 sprays, Nares, Both, Daily, PRN Other Allergies, # 30 mL, 6 Refills, Maintenance, 10/05/21 13:14:00 EDT, [place], [facility], 2 sprays Nares, Both Daily,PRN:Other Allergies, 163.5, cm, 08/21/21 13:35:00 EDT, Height Start Date: 10/05/21 Status: Ordered buPROPion 300 mg/24 hours (XL) oral tablet, extended release 1 tablet = 300 mg, By Mouth, Daily, # 30 tablet, 5 Refills, Maintenance, 12/26/21 11:19:00 EDT, ER Tablet, [facility] # [facility], Partial fill upon patient request if the prescription is for a scheduleII opioid drug., 163.5, cm, 08/21/21 13:35:00 EDT,... Start Date: 12/26/21 Status: Ordered duloxetine 60 mg oral enteric coated capsule 1 capsule, By Mouth, 2 times a day, # 60 capsule, 5 Refills, 04/09/22 16:24:00 EST, [facility], 163.5, [...] tablet, 1 Refills, Maintenance, 03/05/22 13:21:00 EST, [facility] # [facility], 163.5, [...] 10/25/21 16:41:00 EDT, Route to Pharmacy Electronically, [facility], 163.5, cm, 08/21/21 13:35:00 EDT, Height Start Date: 10/25/21 Status: Ordered Myrbetriq 50 mg oral tablet, extended release 1 tablet = 50 mg, By Mouth, Daily, # 90 tablet, 3 Refills, Maintenance, 09/08/21 9:40:00 EDT, [facility], 163.5, cm, 08/21/21 13:35:00 EDT, Height Start Date: 09/08/21 Status: Ordered ohm Allergy Relief 10 mg oral tablet See Instructions, TAKE 1 TABLET BY MOUTH EVERY DAY, # 90 tablet, 1 Refills, Maintenance, 03/05/22 13:16:00 EST, [facility] # [facility], 163.5, cm, 03/05/22 12:50:00 EST, Height Start Date: 03/05/22 Status: Ordered oxyCODONE 5 mg oral tablet 5 mg, 1, tablet, By Mouth, Every 4 hours, PRN, # 42 tablet, Refills 0, Tot. Refills 0, Maintenance,Pain , Moderate, 05/21/22 18:31:00 EDT, Route to Pharmacy Electronically, [facility],Partial fill upon patient request if the prescripti... Start Date: 05/21/22 Status: Ordered tiZANidine 4 mg oral tablet 4 mg, 1, tablet, By Mouth, 3 times a day, PRN, # 90 tablet, Refills 0, Tot. Refills 0, Maintenance,Spasm, 05/21/22 18:31:00 EDT, Route to Pharmacy Electronically, [facility], Partial fill upon patient request if the prescription is for... Start Date: 05/21/22 Status: Ordered traZODone 50 mg oral tablet 2, tablet, By Mouth, Daily at bedtime, # 60 tablet, Refills 5, Tot. Refills 5, 02/05/22 11:04:00 EST, Route to Pharmacy Electronically, [facility], 163.5, [...] 3vitamin C in pt susceptible to nephrolithiasis Results Radiology Reports * Exam Date Time Procedure Performing Provider Status 05/21/22 11:41 AM C-Arm < 1 Hour Karrie Gilman h (Verified) Notes: (C-Arm < 1 Hour) Reason For Exam: stenosis laminotomy disc excision RESULT: C-Arm < 1 Hour Spine Single View, C-Arm < 1 Hour INDICATION: Reason: stenosis laminotomy disc excision COMPARISONS: Lumbar spine MRI, 04/18/2009. TECHNIQUE: Fluoroscopy support was provided. There was no radiologist in attendance. Fluoroscopy time: 3.8 seconds Technologist time: 10 minutes Exposure: 4.6 mGy FINDINGS: Single intraoperative spot fluoroscopic image of the lower lumbar spine was obtained. There is discspace narrowing at L4-5 and L5-S1 with a localizer device posteriorly at the level of L4-5. Please see operative report for details. IMPRESSION: See above. WSN: [id number] Ordering Physician: Esdras Amos Dictated By: Yamel Rodriguez MD Dictated Date/Time: 05/21/22 2:28 pm Reviewed By: Yamel Rodriguez MD Signed By: Yamel Rodriguez MD Signed Date/Time: 05/21/22 2:28 pm Transcribed By: DUNG Transcribed Date/Time: 05/21/22 2:27 pm * Exam Date Time Procedure Performing Provider Status 05/21/22 11:41 AM Spine Single View Karrie Gilman; Auth (Verified) Notes: (Spine Single View) Reason For Exam: stenosis laminotomy disc excision RESULT: Spine Single View Spine Single View, C-Arm < 1 Hour INDICATION: Reason: stenosis laminotomy disc excision COMPARISONS: Lumbar spine MRI, 04/18/2009. TECHNIQUE: Fluoroscopy support was provided. There was no radiologist in attendance. Fluoroscopy time: 3.8 seconds Technologist time: 10 minutes Exposure: 4.6 mGy FINDINGS: Single intraoperative spot fluoroscopic image of the lower lumbar spine was obtained. There is discspace narrowing at L4-5 and L5-S1 with a localizer device posteriorly at the level of L4-5. Please see operative report for details. IMPRESSION: See above. WSN: [id number] Ordering Physician: Esdras Amos Dictated By: Yamel Rodriguez MD Dictated Date/Time: 05/21/22 2:28 pm Reviewed By: Yamel Rodriguez MD Signed By: Yamel Rodriguez MD Signed Date/Time: 05/21/22 2:28 pm Transcribed By: DUNG Transcribed Date/Time: 05/21/22 2:27 pm Vital Signs Most recent to oldest [Reference Range]: 1 2 3 Height 162 cm (05/21/22 10:23 AM) 162 cm (05/18/22 1:02 PM) Weight 102 kg (05/21/22 10:23 AM) 104 kg (05/18/22 1:02 PM) Oxygen Saturation [94-100 %] 98 % (05/21/22 4:00 PM) 92 % *L* (05/21/22 2:00 PM) 94 % (05/21/22 1:30 PM) Pulse Rate [55-90 bpm] 80 bpm (05/21/22 10:23 AM) Body Mass Index [18.5-24.99 kg/m2] 38.87 kg/m2 *>HHI* (05/21/22 10:23 AM) 39.63 kg/m2 *>HHI* (05/18/22 1:02 PM) Blood Pressure [90-138/55-84 mm Hg] 91/58mm Hg 1 (05/21/22 5:30 PM) 97/61mm Hg (05/21/22 4:00 PM) 123/62mm Hg (05/21/22 2:00 PM) Respiratory Rate [16-30 br/min] 13 br/min *L* (05/21/22 2:00 PM) 18 br/min (05/21/22 1:30 PM) 21 br/min (05/21/22 1:15 PM) Temperature [96.8-100.4 DegF] 97.9 DegF (05/21/22 4:00 PM) 97.6 DegF (05/21/22 1:30 PM) 97 DegF (05/21/22 12:00 PM) Liters per Minute 2 L/min (05/21/22 1:15 PM) 2 L/min (05/21/22 1:00 PM) 2 L/min (05/21/22 12:45 PM) Mode of Delivery (Oxygen) Room air (05/21/22 4:00 PM) Room air (05/21/22 2:45 PM) Room air (05/21/22 2:00 PM) Blood pressure sites Arm, left (05/21/22 1:30 PM) Arm, left (05/21/22 12:00 PM) Arm, left (05/21/22 10:23 AM) Temperature Route Temporal (05/21/22 4:00 PM) Temporal (05/21/22 1:30 PM) Temporal (05/21/22 12:00 PM) Dry Weight 102 kg (05/21/22 10:23 AM) 104 kg (05/18/22 1:02 PM) Weight Obtained Via Standing scale (05/21/22 10:23 AM) Dry Weight Obtained Via Standing scale (05/21/22 10:23 AM) Patient/family stated (05/18/22 1:02 PM) 1Result Comment: Surgical PA aware of soft BP, pt asymptomatic, PA is not concerned an okay w/ pt still being d/c'd home. Social History Social History Type Response Smoking Status Never (less than 100 in lifetime) entered on: 11/21/18 Sex Note * Robin Kim RN: PERFORM Event Display: Discharge/Transfer Note Hospital Authored Date: Nursing Discharge Note Entered On: 05/21/2022 19:02 EDT Performed On: 05/21/2022 19:01 EDT by Robin Kim RN Nursing Discharge Note 2 Discharge Time : 05/21/2022 19:00 EDT Discharge Level of Care at Discharge : Home/Senior Living/Foster Care Patient Left Unit Via : Wheelchair Patient Accompanied Off Unit with : Responsible adult DC Instructions Provided & Signed by Pt : Yes Patient Understands D/C Instructions : Yes Patient Instructions Discharge Signed : Yes Discharge Comments : Friend present for D/C instructions Did Pt have Specialty Bed or Wound Vac : No Robin Kim RN - 05/21/2022 19:01 EDT * Shiloh Quiles: PERFORM, MODIFY, SIGN, VERIFY Esdras Amos MD Event Display: Discharge/Transfer Note Hospital Authored Date: Patient: JHOANA BALLESTEROS Age: 61 years Sex: Female : 1960 Associated Diagnoses: None Author: Shiloh Quiles Discharge Information DATE: 05/21/2022 PREOPERATIVE DIAGNOSIS: Lumbar stenosis with neurogenic claudication. POSTOPERATIVE DIAGNOSIS: Same. PROCEDURES PERFORMED: L4-L5 decompression, bilateral. SURGEON: Esdras Amos M.D. Hospital Course Jhoana is a 61-year-old female who presented outpatient for evaluation of chronic back pain that has recently changed but now she has pain into the buttocks and lower extremities, right worse than left.She did not have any major numbness but did have tingling on and off. On exam, she had no focal motor deficits or sensory deficits. MRI of the lumbar spine demonstrated severe stenosis at L4-5, mainly due to ligamentous hypertrophy. She tried conservative measures without any significant relief andelected to proceed with surgical intervention. Surgery was tolerated well, without complication. Postoperatively, she is ambulatory, tolerating p.o., and voiding freely. She will be discharged home with oxycodone and tizanidine. Discussed postoperative expectations as well as pain control. She expressed good understanding, all questions answered. Neurosurgery postoperative instructions provided upon discharge. Alert and oriented x 3 No acute cardio respiratory distress Surgical dressing C/D/I Speech is clear, fluent and appropriate Cranial nerves are grossly intact. Lower extremities: hip flexion 5/5 bilaterally, knee extension 5/5 bilaterally, dorsiflexion 5/5 bilaterally, plantar flexion 5/5 bilaterally, EHL 5/5 bilaterally Sensation intact throughout upper and lower extremities Discharge Plan Diet/Activity/Patient Education/Follow Up Follow Up with: Rafiq Dewitt Wa 06/19/2022 11:30 AM. Discharge Disposition Discharge: home. MEDICATION LIST (Selected) Prescriptions Prescribed Advair Diskus 250 mcg-50 mcg inhalation powder: 1, inhalation, Inhalation, 2 times a day, rinse mouth and throat after use, # 1 each, Refills 5, Tot. Refills 5, Maintenance, 04/23/22 14:38:00 EST, Pow[place], Route to Pharmacy Electronically, [id number], [facility], I... Aerochamber: See Instructions, # 1 each, Maintenance, for use with Flovent, 02/09/19 13:37:15 EST, Compound, 163.5, cm, 02/09/19 13:07:26 EST, Height Ativan 0.5 mg oral tablet: See Instructions, PRN as needed for anxiety, Take 1 tablet as needed foranxiety, do not take more than 2 tablets/day, # 30 tablet, 0 Refills, Maintenance, 04/23/22 11:16:00 EST, Tablet, [facility], Partial fill upon patient request if the pr... Estrace Vaginal Cream 0.1 mg/g: See Instructions, 1 gram Vaginally at bedtime 2 times per week, # 42 Gm, 4 Refills, Maintenance, 03/16/21 10:21:00 EST, [facility], Patient sensitive to inactive ingredients of manufacturers drugs, 163.5, cm, 12/12/20 16:09:00... Myrbetriq 50 mg oral tablet, extended release: 1 tablet = 50 mg, By Mouth, Daily, # 90 tablet, 3 Refills, Maintenance, 09/08/21 9:40:00 EDT, [facility], 163.5, cm, 08/21/21 13:35:00 EDT, Height Vitamin D3 1000 intl units oral capsule: 1 capsule = 25 mcg, By Mouth, Daily, # 30 capsule, 0 Refills, Maintenance, 01/12/21 17:02:00 EST, Partial fill upon patient request if the prescription is fora schedule II opioid drug. azelastine 137 mcg/inh (0.1%) nasal spray: 2 sprays, Nares, Both, Daily, PRN Other Allergies, # 30 mL, 6 Refills, Maintenance, 10/05/21 13:14:00 EDT, [place], [facility], 2 sprays Nares, Both Daily,PRN:Other Allergies, 163.5, cm, 08/21/21 13:35:00 EDT, Height buPROPion 300 mg/24 hours (XL) oral tablet, extended release: 1 tablet = 300 mg, By Mouth, Daily, #30 tablet, 5 Refills, Maintenance, 12/26/21 11:19:00 EDT, ER Tablet, [facility], Partial fill upon patient request if the prescription is for a schedule II opioid drug., 163.5, cm, 08/21/21 13:35:00 EDT,... duloxetine 60 mg oral enteric coated capsule: 1 capsule, By Mouth, 2 times a day, # 60 capsule, 5 Refills, 04/09/22 16:24:00 EST, [facility], 163.5, cm, 03/09/22 13:18:00 EST, Height gabapentin 600 mg oral tablet: 1 tablet, By Mouth, 3 times a day, office visit needed for further refills, # 270 tablet, 1 Refills, Maintenance, 03/05/22 13:21:00 EST, [facility], 163.5, cm,03/05/22 12:50:00 EST, Height montelukast 10 mg oral tablet: 10 mg, 1, tablet, By Mouth, Daily, j45.40, # 30 tablet, Refills 6, Tot. Refills 6, Maintenance, 10/25/21 16:41:00 EDT, Route to Pharmacy Electronically, [facility], 163.5, cm, 08/21/21 13:35:00 EDT, Height ohm Allergy Relief 10 mg oral tablet: See Instructions, TAKE 1 TABLET BY MOUTH EVERY DAY, # 90 tablet, 1 Refills, Maintenance, 03/05/22 13:16:00 EST, [facility], 163.5, cm, 03/05/22 12:50:00EST, Height oxyCODONE 5 mg oral tablet: 5 mg, 1, tablet, By Mouth, Every 4 hours, PRN, # 42 tablet, Refills 0, Tot. Refills 0, Maintenance, as needed for pain, 05/21/22 14:46:00 EDT, Route to Pharmacy Electronically, [facility], Partial fill upon patient request if the prescri... tiZANidine 4 mg oral tablet: 4 mg, 1, tablet, By Mouth, 3 times a day, # 90 tablet, Refills 0, Tot.Refills 0, Maintenance, 05/21/22 14:46:00 EDT, Route to Pharmacy Electronically, [facility], Partial fill upon patient request if the prescription is for a schedule I... traZODone 50 mg oral tablet: 2, tablet, By Mouth, Daily at bedtime, # 60 tablet, Refills 5, Tot. Refills 5, 02/05/22 11:04:00 EST, Route to Pharmacy Electronically, [facility], 163.5, cm, 01/15/22 8:07:00 EST, Height Documented Medications Documented ESTRIOL CREAM: ESTRIOL CREAM, Refills 0, Maintenance, APPLY PEA SIZE AMOUNT 3 TIMES A WEEK (M, W, F), 11/21/18 14:27:53 EDT, Compound Melatonin: By Mouth, Daily at bedtime, 0 Refills, Maintenance Tylenol Extra Strength 500 mg oral tablet: 2 tablet = 1,000 mg, By Mouth, Every 6 hours, 0 Refills,Maintenance, 05/22/19 11:12:00 EDT Vitamin C 500 mg oral tablet: 1 tablet = 500 mg, By Mouth, Daily, # 30 tablet, 0 Refills, Maintenance, 10/23/18 8:24:54 EDT, Tablet lysine 1000 mg oral tablet: 1 tablet = 1,000 mg, By Mouth, Daily, 0 Refills, Maintenance, 05/22/19 11:18:00 EDT * Robin Kim RN: PERFORM Event Display: Patient Education/Instruction Authored Date: [id number] Inpatient Adult Discharge Instructions [address] [address] Name: JHOANA BALLESTEROS : 1960 Visit: 05/21/2022 09:24:00 Current Date: 05/21/2022 18:20 Account: [id number] Inpatient Adult Discharge Instructions We would like to thank you for allowing us to assist you with your healthcare needs. The following includes patient education materials and information regarding your injury/illness. Our entire staffstrives to provide an excellent experience for our patients and their families. PLEASE ENSURE YOU FOLLOW-UP PER THE INSTRUCTIONS BELOW! ?? YOUR OPINION IS IMPORTANT TO US! Please complete the survey you may receive by mail or email. Your feedback will be used to make improvements to the healthcare experiences of our patients and their families. Surveys are administered by [employer] ?? If further treatment with your primary care physician or another doctor is recommended, it is important for you to keep the appointment. Call your primary care physician or return to the Emergency Department immediately if your condition worsens, fails to improve, or new symptoms develop. If you need to find a doctor, you can call [facility] [employer] for a referral at [phone] or toll free at [phone] or log in to [email or web address].. ?? You can view and manage your care through the patient portal or by using a health care vlad of your choosing. [employer] is a website that allows you to securely view your medical information including your hospital discharge summary, office visit summaries, medications and follow-up visits. You can also request appointments, renew medications, and request access to your medical information using a health care vlad of your choosing, or just ask a question. You can enroll at [email or web address] or register during your next office visit. You have been discharged from [facility], Patient Care Unit: [facility]. If you have any questions regarding these instructions after you leave, please call us and we will be happy to assist you. [facility] Your Care Team Discharging Providers Shiloh Quiles Reason for Admission STENOSIS LAMINOTOMY DISCEXCISION METRX DST [facility] Tests Performed Below is a partial list of the tests performed during your hospitalization. You may have had other tests and procedures not included in this list. Please discuss all test results with your provider. XR C-Arm < 1 Hour XR Spine Single View Primary Care Provider Rafiq Arteaga Advance Directive Health Care Proxy on File Yes - Health Care Proxy Discharge Vitals Temperature: 97.9 DegF Height: 162 cm Pulse Rate: 80 bpm Weight: 102 kg Respiratory Rate:??13 br/min??Low Body Mass Index:??38.87 kg/m2??Critical Systolic Blood Pressure: 91 mm Hg Body surface area: 2.14 Diastolic Blood Pressure: 58 mm Hg ?? Oxygen Saturation: 98 % ?? Studies Pending All tests and labs ordered during this hospital stay have been completed unless listed below. Please discuss all pending results with your provider listed above in these instructions. ?? No incomplete studies found What to do next Instructions From Your Doctor Discharge Orders Scheduled Follow-Up Appointments Saturday 11:30 AM EDT ?? With: Esdras Amos MD Where: [address] [place] [address]- Saturday 11:20 AM EDT ?? With: Rafiq Arteaga Where: [address] [address]- You Need to Schedule the Following Appointments Follow Up with??Esdras Amos When??06/19/2022 11:30 AM EDT Where: [address] [place] [address] Drive, [address] [place] [address]- Business (1) Follow Up with??Rafiq Ortega When??In 0 days Discharge Medications JHOANA BALLESTEROS :1960 Visit Date:05/21/2022 Medications: Please continue your medications until treatment is completed or stopped by your provider. Medications not listed below should be discontinued. Discuss any questions related to medications with your provider. What How Much When Why Instructions Next Dose New Oxycodone (oxyCODONE 5 mg oral tablet) 1 tab(s) Oral Every 4 hours as needed for as needed for pain Pickup at [place] [address] New Tizanidine (tiZANidine 4 mg oral tablet) 1 tab(s) Oral 3 times a day Pickup at [facility] 3 9pm Unchanged Acetaminophen (Tylenol Extra Strength 500 mg oral tablet) 2 tab(s) Oral Every 6 hours 9:30pm Unchanged Ascorbic Acid (Vitamin C 500 mg oral tablet) 1 tab(s) Oral Daily Unchanged Azelastine Nasal (azelastine 137 mcg/ inh (0.1%) nasal spray) 2 spray(s) Nares, Both Daily as needed for Other Allergies Seasonal allergies Unchanged BuPROpion (buPROPion 300 mg/ 24 hours (XL) oral tablet, extended release) 1 tab(s) Oral Daily Unchanged Cholecalciferol (Vitamin D3 1000 intl units oral capsule) 1 capsule Oral Daily Unchanged Duloxetine (duloxetine 60 mg oral enteric coated capsule) 1 capsule Oral Twice a day Unchanged Durable Medical Equipment (Aerochamber) See instructions Asthma for use with Flovent ?? Unchanged Estradiol Topical (Estrace Vaginal Cream 0.1 mg/ g) See instructions 1 gram Vaginally at bedtime ??2 times per week ?? Unchanged Fluticasone-Salmeterol (Advair Diskus 250 mcg-50 mcg inhalation powder) 1 inhalation Inhalation Twice a day Asthma rinse mouth and throat after use ?? Unchanged Gabapentin (gabapentin 600 mg oral tablet) 1 tab(s) Oral 3 times a day office visit needed for further refills ?? Unchanged Loratadine (ohm Allergy Relief 10 mg oral tablet) See instructions TAKE 1 TABLET BY MOUTH EVERY DAY ?? Unchanged Lorazepam (Ativan 0.5 mg oral tablet) See instructions Anxiety Take 1 tablet as needed for anxiety, do not take more than 2 tablets/ day ?? Unchanged Lysine (lysine 1000 mg oral tablet) 1 tab(s) Oral Daily Unchanged Melatonin Oral Daily at Bedtime Unchanged mirabegron (Myrbetriq 50 mg oral tablet, extended release) 1 tab(s) Oral Daily Unchanged Miscellaneous Rx (ESTRIOL CREAM) APPLY PEA SIZE AMOUNT 3 TIMES A WEEK (M, W, F) ?? Unchanged Montelukast (montelukast 10 mg oral tablet) 1 tab(s) Oral Daily Asthma j45.40 ?? Unchanged Trazodone (traZODone 50 mg oral tablet) 2 tab(s) Oral Daily at Bedtime TAKE an hour from muscle relaxer or narcotics Pharmacy Information [facility] 3: [address] [place], [place] [id number] [phone] ?? What How Much When Comments Stop Taking Lidocaine/ Prilocaine Topical (lidocaine-prilocaine 2.5%-2.5% topical cream) 1 vlad Topically Once Test Results Below is a partial list of the most recent Laboratory test results done prior to this discharge. You may have had other tests and procedures not included in this list. Please discuss all test resultswith your provider. Allergies (NKA means No Known Allergies) Cats Dust Pollen Problems Active Problems??(39) Allergic rhinitis?? Asthma?? Cervicogenic headache?? Chronic hip pain?? Constipation, chronic?? Depression, major?? Difficulty balancing?? Excessive vitamin B12 intake?? Excessive vitamin B6 intake?? Excessive vitamin intake?? Exposure of implanted vaginal mesh and prosthetic material in vagina?? Female stress incontinence?? Insomnia?? Intervertebral disc prolapse with impingement?? Lumbar herniated disc?? Lumbosacral radiculopathy at L5 epidural Oct 2021?? Major depression in full remission?? Mixded urinary Incontinence?? MONICA (obstructive sleep apnea) AHI 9.2?? Osteoarthritis of right hip?? Osteopenia bmd 2020?? Overactive bladder?? Pain of great toe?? Peripheral neuropathy?? Rectocele, female?? Recurrent UTI?? Right hip pain?? Right shoulder pain?? Seasonal allergies?? Sensory urge incontinence?? Severe obesity (BMI 35.0-39.9) with comorbidity?? Stress at home?? Temporomandibular joint (TMJ) disorder (Left)?? Temporomandibular joint (TMJ) disorder (Righrt)?? Tinnitus?? Urinary incontinence, mixed?? Vertigo?? Vitamin D deficiency?? Yeast infection?? Education Materials Below is the list of Educational Leaflet Providered with your Discharge Instructions. Neurosurgery-Microdiscectomy Post-Op?? Valuables and Belongings I fully understand and agree that [facility] accepts no responsibility for all my personal property including clothing, toilet articles, radios, jewelry, dentures, hearing aids, rings, money, or any other property that is in my possession or is brought to me after admission. I understand certain valuables may be placed in a hospital safe for a short period of time. I understand that the hospital is not liable for loss or damage due to accident, fire, or other natural occurrence while said property is in the safe. I accept full responsibility for any personal property that I keep with me, and will not hold the hospital responsible in case of loss or disappearance. I acknowledge that i have been encouraged to send valuables and belongings home. ?? Date for Pt to Sign Valuables/Belongings: 05/21/22 10:23:00 ?? Valuables & Belongings ?? Clothes Electronic devices Jewelry Monetary Items Personal devices Miscellaneous Medications (Valuables) Valuables at Bedside Pants, Shirt, Shoes, Undergarments ?? Other: hair band ?? Other: tennis ball yellow ? Valuables Sent Home ? Valuables Sent to Security ? Other Discharge Information ? Pulmonary Rehab Status?? Pulmonary Rehab Discharge Status?? Respiratory Rate:??13 br/min??Low ? Common Emergency Awareness Tips IS IT A STROKE? Act FAST and Check for these signs: FACE Does the face look uneven? ARM Does one arm drift down? SPEECH Does their speech sound strange? TIME Call at any sign of stroke ?? Heart Attack Signs Chest discomfort: Most heart attacks involve discomfort in the center of the chest and lasts more than a few minutes, or goes away and comes back. It can feel like uncomfortable pressure, squeezing, fullness or pain. Discomfort in upper body: Symptoms can include pain or discomfort in one or both arms, back, neck, jaw or stomach. Shortness of breath: With or without discomfort. Other signs: Breaking out in a cold sweat, nausea, or lightheaded. Remember, MINUTES DO MATTER. If you experience any of these heart attack warning signs, call to get immediate medical attention! ?? Smoking can increase your chances of developing chronic health problems and can cause harmful effects to other family members in your house. If you smoke, you are strongly encouraged to quit. Please call [facility] [employer] Link at [phone] or [phone] ([phone]) or log in to [email or web address] for referrals to smoking cessation programs. ?? The National Suicide Prevention Hotline is available 17/09 if you or someone you know needs to find a reason to keep living. By calling 9-942-273-Vibes (8025) you'll be connected to a skilled, trained counselor at a crisis center in your area. INPATIENT DISCHARGE INSTRUCTIONS SIGNATURE PAGE BALLESTEROSJHOANA BOSE Location:[facility] Registration Date and Time:05/21/2022 09:24 EDT Primary Care Physician: Rafiq Arteaga, I JHOANA BALLESTEROS, have received the above patient education materials/instructions and have verbalized understanding. If ambulance or transport services are being used I further acknowledge being given achoice of service. ?? If you need to contact me, please call me at this number: . 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 295 Medical Daystay/Surgical Overnight Discharge Instructions ? Since your coordination and judgment may be altered by medication and/or anesthesia, a responsible adult must drive you home from the hospital. ? If you have received medication for pain or sedation while under our care, you should not drive, operate machinery, drink alcohol, or sign any legal documents for 24 hours.?? You should have someone with you at home tonight. ? Remain at home the day of discharge.?? You may be up and about unless otherwise instructed by your physician. ? You may resume your daily prescription medication schedule.?? Any depressant medication should be avoided for 24 hours unless otherwise instructed by your surgeon or anesthesiologist. ? Call your physician for a follow-up appointment.? If you experience unusual or severe pain not relied by your pain medication, excessive bleedingor drainage, persistent nausea and vomiting, excessive swelling or redness, foul odor from incisionsite or fever over 100.6F, you need to call your physician. ? A follow-up phone call by a nurse will be made the day after your procedure.?? If you have stayed with us over night, you will not be receiving a follow-up phone call. ? Nausea and vomiting are a common side effect of prescription pain medication.?? We recommend that pills are not taken on an empty stomach.?? While taking any prescription pain medication you should not drive or drink alcohol. ? * Paula CHE, Shiloh Garcia: PERFORM Event Display: Patient Education Leaflets Authored Date: [id number] Neurosurgery-Microdiscectomy Post-Op ?? 207 ??Lumbar Decompression ?? What can I expect post operatively? Please remember that it takes time for your muscles and nerves to heal. You may have complete relief of your pain immediately after your surgery, but that is not normal. Back is common post operatively and may persist for several weeks. Narcotics and muscle relaxers help to control this pain but itis not always possible to achieve 0/10 pain in postoperative period.? Bruising after surgery below or around the surgical site is expected.? Localized swelling or ???bumps?? are common at the surgical site and will subside over time.?? Call the office if they are getting worse.? It is common to experience temporary relapse or flare of preoperative symptoms.?? This is common, if it does not subside or if it worsens you should call the office.? Physical therapy may be suggested at your follow up appointment. ?? You may go home with a walker or cane to be used until you feel steady on your feet.? Constipation is common while taking narcotics; you may want to start on a bowel regimen to prevent this.?? You can use over the counter medications.? Which Activities should I avoid? Do not bend or twist your back repeatedly. Do not lift more than 5-10 pounds (about the weight of a gallon of milk). If you go to pick something up and it causes strain to the back muscles, do not lift it. When bending to lift an object off the floor, bend at the knees and NOT at the waist Hold on to back of chair when bending down Remember to keep things close to your body if you do lift or carry anything, and use your knees if you bend instead of your back. Do not drive if you are taking prescription pain medications or a muscle relaxer . These medications can cause you to be drowsy. Once you are able to drive, make sure that you can safely look over your shoulders without causing any pain. You are able to sit in a car.?? If for prolonged periods of time, take frequent breaks to stretch and walk.?? Do not do any running/jogging, vacuuming, weight lifting, sweeping/mopping, laundry, shoveling/raking, riding a shafting worker or anything that might irritate your back until you have completely healed from your surgery. You may have sexual activity when you are comfortable with it. ?? Follow these activity limitations until your follow up appointment in 4 weeks. ?? Medications?? You will get prescription pain medications when discharged from the hospital.?? Narcotic medications are tightly controlled, any new scripts you need to brick picker in person. If you live far away this may be able to be arranged through your primary care provider.? You will get muscle relaxers to take in addition to pain medications.?? This helps prevent muscles from getting tight and sore, which will make mobility difficult.? You may take 975 - 1000 mg of Tylenol every 6 hours for additional pain relief. Do not exceed the daily??recommended dose of 4000 mg. ? You may restart any antiplatelet or anticoagulation medications 1 week post- operative, please consult with your prescribing physician on these medications.? How can I take care of myself at home? Please remember that it takes time for your muscles and nerves to heal. You may have complete relief of your pain immediately after your surgery, but that is not normal ?? Walk around your house at least every 1 ??-2 hours while you are awake, to stay as active as possible, keep the back muscles strong, and to help prevent blood clots in your legs. You may do stairs as tolerated.?? Once you are comfortable with walking, you can gradually increase the amount or length of time thatyou do walk. ?? Do not push yourself to do too much too soon. Increasing your pain may actually delay your recovery. Change your positions often. Avoid lying down, standing or sitting for long periods during the day. ?? If you do any activity that increases your pain, you should stop it immediately. ?? You may sleep how you are most comfortable, with the exception of stomach sleeping. ?? Ice: You may ice the area to help with pain. Place a towel over the surgical site to protect your skin, and then use an ice pack for 30 minutes,usually about 4 times per day. Do not leave the pack on longer than 30 minutes since it may actually increase your pain. ?? Washing/wound care: Your surgical dressing will remain in place for 3 days postoperatively; you may remove it on day 3 after surgery and shower normally. ?? It is important that you wash your surgical wounds at least once per day with soap and water, and pat it dry afterwards. ?? Do not be afraid of hurting the wound because of the soap and water. You should take showers, but not baths. Do not submerge incision (i.e. bath, pool, Jacuzzi, ocean) for at least four weeks post operatively. If kelvin have been used, you will need to be seen within 10-14 days from surgery at the office tohave the kelvin removed. Steri strips are commonly placed over the incision. These will fall off on their own ?? When should I call my doctor? Contact our office at the appropriate number listed below if you have any of the following signs and symptoms: ?? New numbness or tingling or weakness in your feet or legs Increasing redness or swelling around your incision with or without any soreness The edges of your incision start coming apart. Incision is draining especially if yellow/green and/or bad smelling. Fever over 101 F. Pain that is increasing and uncontrollable ? This information has been modified by your health care provider with permission from the publisher. ?? * LEN Cullen S: TRANSCRIBE Yamel Rodriguez MD: VERIFY Event Display: Result: Authored Date: [id number] Spine Single View, C-Arm < 1 Hour INDICATION: Reason: stenosis laminotomy disc excision COMPARISONS: Lumbar spine MRI, 04/18/2009. TECHNIQUE: Fluoroscopy support was provided. There was no radiologist in attendance. Fluoroscopy time: 3.8 seconds Technologist time: 10 minutes Exposure: 4.6 mGy FINDINGS: Single intraoperative spot fluoroscopic image of the lower lumbar spine was obtained. There is discspace narrowing at L4-5 and L5-S1 with a localizer device posteriorly at the level of L4-5. Please see operative report for details. IMPRESSION: See above. WSN: [id number] Ordering Physician: Esdras Amos Dictated By: Yamel Rodriguez MD Dictated Date/Time: 05/21/22 2:28 pm Reviewed By: Yamel Rodriguez MD Signed By: Yamel Rodriguez MD Signed Date/Time: 05/21/22 2:28 pm Transcribed By: DUNG Transcribed Date/Time: 05/21/22 2:27 pm XR Spine Single view * LEN Cullen S: TRANSCRIYamel Ortega MD: VERIFY Event Display: Result: Authored Date: [id number] Spine Single View, C-Arm < 1 Hour INDICATION: Reason: stenosis laminotomy disc excision COMPARISONS: Lumbar spine MRI, 04/18/2009. TECHNIQUE: Fluoroscopy support was provided. There was no radiologist in attendance. Fluoroscopy time: 3.8 seconds Technologist time: 10 minutes Exposure: 4.6 mGy FINDINGS: Single intraoperative spot fluoroscopic image of the lower lumbar spine was obtained. There is discspace narrowing at L4-5 and L5-S1 with a localizer device posteriorly at the level of L4-5. Please see operative report for details. IMPRESSION: See above. WSN: [id number] Ordering Physician: Esdras Amos Dictated By: Yamel Rodriguez MD Dictated Date/Time: 05/21/22 2:28 pm Reviewed By: Yamel Rodriguez MD Signed By: Yamel Rodriguez MD Signed Date/Time: 05/21/22 2:28 pm Transcribed By: DUNG Transcribed Date/Time: 05/21/22 2:27 pm Patient Care team information Care Team Personnel Name: Justice BERNAL, Eleazar Garcia Position: [facility] PCO w/OE and EZ Script Member Role: Primary Care Nurse Address: Address: [address] [place] [address] [place], [place] [address]R[place] Name: Rafiq Arteaga Position: [facility] PCO Associate Professional Member Role: PCP Address: Address: [address] [place] [address]- Care Team Related Persons Name: LEWIS BALLESTEROS Address: home [address] [place] [id number] Name: RUSTY HOOVER
--- OUTSIDE RECORDS SUMMARY | 2022-11-04 01:37 | XMS_ITS | Continuity of Care Document ---
Author Name Unknown Organization [facility] Address [address] [place] [address] [address], [address] [place] [address]- Care Team Providers Care Rehabilitation Therapy Aide Name Role Phone Suzanne AVENDANO, Tyler Charles Primary Care Physician Encounter [facility] Date(s): 06/03/19 - 06/10/19 [facility] [address] [place] [address] Drive, [address] [place] [address]- [facility] Attending Physician: Esdras Amos MD Referring Physician: Juan J Gallardo DC Allergies, Adverse Reactions, Alerts Substance Reaction Severity [...] 02/09/19 13:37:40 EST, Route to Pharmacy Electronically, [id number]... Start Date: 02/09/19 Status: Ordered Cranberry oral [...] 03/07/19 11:47:00 EST, Route to Pharmacy Electronically, [facility], 163.5, cm, 02/09/19 13:07:00 EST, Height Start Date: 03/07/19 Status: Ordered gabapentin 600 mg oral tablet 1 tablet, By Mouth, 3 times a day, # 90 Unknown, 5 Refills, Maintenance, 05/25/19 16:16:00 EDT, [facility], 163.5, cm, 03/27/19 10:49:00 EST, Height Start Date: 05/25/19 Status: Ordered lactulose 10 gm oral powder for reconstitution 1 pack/packet, By Mouth, 2 times a day, # 30 each, 2 Refills, Maintenance, 03/27/19 11:11:00 EST, REC Powder, [facility] # [facility], 163.5, cm, 03/27/19 10:49:00 EST, Height Start Date: 03/27/19 Status: Ordered lactulose 10 gm/15 ml oral syrup 15 mL = 10 Gm, By Mouth, Daily, This is correct dose., # 480 mL, 1 Refills, Maintenance, 03/29/19 20:24:00 EST, Syrup, [facility], 15 mL By Mouth Daily,Instr:This is correct dose., 163.5, cm, 03/27/19 10:49:00 EST, Height Start Date: 03/29/19 Status: Ordered loratadine 10 mg oral tablet 10 mg, 1, tablet, By Mouth, Daily, # 90 tablet, Refills 1, Tot. Refills 1, Maintenance, 04/27/19 8:18:00 EST, Route to Pharmacy Electronically, [facility] 02/09/19 13:37:50 EST, Route to Pharmacy Electronically, [facility], Refills per PCP, 163.5, cm, 02/09/19 13:07:26 EST, Height Start Date: 02/09/19 Status: Ordered Myrbetriq 25 mg oral tablet, extended release 1 tablet = 25 mg, By Mouth, Daily, do not crush or chew, # 30 tablet, 1 Refills, Maintenance, 06/01/19 14:37:00 EDT, ER Tablet, [facility] [...] oldest [Reference Range]: 1 Height 163.5 cm (06/03/19 11:17 AM) Weight 95.3 kg (06/03/19 11:17 AM) Body Mass Index [18.5-24.99] 35.65 *>HHI* (06/03/19 11:17 AM) Social History Social History Type Response Smoking Status Never (less than 100 in lifetime) entered on: 11/21/18 Sex
--- OUTSIDE RECORDS SUMMARY | 2022-11-04 01:37 | XMS_ITS | Continuity of Care Document ---
Author Name Unknown Organization [facility] Address [address] [facility], [address] [place] [address]- Care Team Providers Care Vascular Surgeon Name Role Phone Orlando Davis MD Primary Care Physician Encounter 03/30/21 - 04/06/21 [facility] [address], [address] [place] [address]- Attending Physician: Orlando Davis MD Admitting Physician: Orlando Davis MD Referring Physician: Orlando Davis MD Allergies, Adverse [...] 01/16/21 11:47:00 EST, Route to Pharmacy Electronically, [id number]... Start Date: 01/16/21 Status: Ordered azelastine 137 mcg/inh (0.1%) nasal spray 2 sprays, Nares, Both, Daily, PRN Other Allergies, # 30 mL, 6 Refills, Maintenance, 08/18/20 15:01:00 EDT, [place], [facility], 2 sprays [...] day, # 60 capsule, 5 Refills, Maintenance, 12/17/21 14:24:00EST, EC Capsule, [facility] # [facility], Partial fill upon patient request if the prescription is for a schedule II opioid drug., 163.5, cm, 12/12/20 16:0... Start Date: 02/10/21 Status: Ordered Estrace Vaginal Cream 0.1 mg/g See Instructions, 1 gram Vaginally at bedtime 2 times per week, # 42 Gm, 4 Refills, Maintenance, 03/16/21 10:21:00 EST, [facility], Patient sensitive to [...] DAY, # 31.8 Gm, 1 Refills, Maintenance, [facility], 163.5, cm, 09/09/20 12:42:00 EDT, Height, 91, kg, 07/23/19 11:11:00 EDT, Dry Weight Start Date: 10/06/20 Status: Ordered gabapentin 600 mg oral tablet 1 tablet, By Mouth, 3 times a day, # 270 Unknown, 1 Refills, Maintenance, 11/15/20 12:03:00 EDT, [facility] # [facility], 163.5, cm, 09/09/20 12:42:00 EDT, Height, 91, kg, 07/23/19 11:11:00 EDT, Dry Weight Start Date: 11/15/20 Status: Ordered lidocaine-prilocaine 2.5%-2.5% topical cream 1 application, Topically, Once, # 30 Gm, 1 Refills, Soft Stop, 03/08/20 8:14:00 EST, Cream, [facility], Partial fill upon patient [...] [facility] 163.5, cm, 09/09/20 12:42:00 [...] tablet, Refills 5, Route to Pharmacy Electronically, [facility], 163.5, cm, 12/12/20 [...]
--- OUTSIDE RECORDS SUMMARY | 2022-11-04 01:37 | XMS_ITS | Continuity of Care Document ---
Author Name Unknown Organization [facility] Lalo Kayode lt Address [address] [place] [address]- Care Team Providers Care Chemical Cell Changer Name Role Phone Rafiq Arteaga Primary Care Physi [facility] Encounter [facility] Date(s): 01/15/22 - 01/22/22 [facility] [address] [place] [address]- Encounter Diagnosis Depression, major(Discharge Diagnosis) - 01/15/22 Insomnia(Discharge Diagnosis) - 01/15/22 Obese class II(Discharge Diagnosis) - 01/15/22 Attending Physician: Rafiq Arteaga Allergies, Adverse Reactions, [...] 01/16/21 11:47:00 EST, Route to Pharmacy Electronically, [id number]... Start Date: 01/16/21 Status: Ordered Ativan 0.5 [...] mL, 6 Refills, Maintenance, 10/05/21 13:14:00 EDT, [place], [facility], 2 sprays Nares, [...] 60 tablet, 1 Refills, 12/26/21 11:19:00 EDT, [facility], 163.5, cm, 08/21/21 13:35:00 EDT, Height Start Date: 12/26/21 Status: Ordered diclofenac sodium 75 mg oral delayed release tablet See Instructions, TAKE ONE TABLET BY MOUTH TWICE A DAY, # 60 tablet, 1 Refills, Maintenance, 12/27/21 9:34:00 EDT, [facility], 163.5, cm, 12/27/21 9:29:00 EDT, Height Start Date: 12/27/21 Status: Ordered duloxetine 60 mg oral enteric coated capsule 1 capsule, By Mouth, 2 times a day, # 60 capsule, 5 Refills, [facility], 163.5, cm, 08/21/21 13:35:00 EDT, Height Start Date: 09/18/21 Status: Ordered Estrace Vaginal Cream 0.1 mg/g See Instructions, 1 gram Vaginally at bedtime 2 times per week, # 42 Gm, 4 Refills, Maintenance, 03/16/21 10:21:00 EST, [facility], Patient sensitive to [...] 1 each, 6 Refills, 09/21/21 16:29:00 EDT, [facility], 163.5, cm, 08/21/21 13:35:00 EDT, Height Start Date: 09/21/21 Status: Ordered gabapentin 600 mg oral tablet 1 tablet, By Mouth, 3 times a day, office visit needed for further refills, # 270 tablet, 1 Refills, Maintenance, 11/13/21 13:31:00 EDT, [facility] # [facility], 163.5, cm, 08/21/21 13:35:00 EDT, Height Start Date: 11/13/21 Status: Ordered lidocaine-prilocaine 2.5%-2.5% topical cream 1 application, Topically, Once, # 30 Gm, 3 Refills, Soft Stop, 04/21/21 12:20:00 EST, Cream, [facility] # [facility], Partial fill upon patient request, 1 application Topically Once, 163.5, cm, 04/21/21 11:51:00 EST, Height, 91, kg, 07/23/19 11:11:00 EDT,... Start Date: 04/21/21 Status: Ordered lubiprostone 24 mcg oral capsule 1 capsule, By Mouth, 2 times a day, # 60 capsule, 5 Refills, 04/21/21 12:25:00 EST, [facility], 163.5, cm, 04/21/21 [...] 10/25/21 16:41:00 EDT, Route to Pharmacy Electronically, [facility], 163.5, cm, 08/21/21 [...] tablet, 1 Refills, Maintenance, 10/01/21 2:49:00 EDT, [facility], 163.5, cm, 08/21/21 13:35:00 EDT, Height Start Date: 10/01/21 Status: Ordered traZODone 50 mg oral tablet 2, tablet, By Mouth, Daily at bedtime, # 60 tablet, Refills 2, Tot. Refills 2, 10/18/21 19:18:00 EDT, Route to Pharmacy Electronically, [facility], 163.5, cm, 08/21/21 [...] Dates Health Status Cl inical Service Informant Depression, major Discharge Diagnosis 01/15/22 Insomnia Discharge Diagnosis 01/15/22 Obese class II Discharge Diagnosis 01/15/22 Vital Signs Most recent to oldest [Reference Range]: 1 Height 163.5 cm (01/15/22 8:07 AM) Weight 106.4 kg (01/15/22 8:07 AM) Oxygen Saturation [94-100 %] 98 % (01/15/22 8:07 AM) Pulse Rate [55-90 bpm] 95 bpm *H* (01/15/22 8:07 AM) Body Mass Index [18.5-24.99 kg/m2] 39.8 kg/m2 *>HHI* (01/15/22 8:07 AM) Blood Pressure [90-138/55-84 mm Hg] 105/ 72mm Hg (01/15/22 8:07 AM) Blood pressure sites Arm, left (01/15/22 8:07 AM) Weight Obtained Via Standing scale (01/15/22 8:07 AM) Social History Social History Type Response Smoking Status Never (less than 100 in lifetime) entered on: 11/21/18 Sex Patient Care team information Care Team Personnel Name: Eleazar Rendon NP Position: [facility] PCO w/OE and EZ Script Member Role: Primary Care Nurse Address: Address: [address] [place], [place] [id number] [facility] [place] [address]- Name: Rafiq Arteaga Position: [facility] PCO Associate Professional Member Role: PCP Address: Address: [address] [place] [id number] Care Team Related Persons Name: LEWIS BALLESTEROS Address: home [address] [place] [id number] Name: RUSTY HOOVER
--- OUTSIDE RECORDS SUMMARY | 2022-11-04 01:37 | XMS_ITS | Continuity of Care Document ---
Author Name Unknown Organization [facility] Address [address] [facility] [address] [place] [address]- Care Team Providers Care Cheesemaking Laborer Name Role Phone Rafiq Arteaga Primary Care Physi kateryna [facility] Date(s): 03/07/22 - 04/08/22 [facility] [address] [facility] [address] [place] [address]- Attending Physician: Claudine BERNAL, Talya Leyva Admitting Physician: Talya Chow NP Referring Physician: Rafiq Arteaga Allergies, Adverse Reactions, [...] 14:25:00 EST, Powder, Route to Pharmacy Electronically, [id number], [facility] # [facility], 1... Start Date: 03/05/22 Status: Ordered Advair Diskus 250 mcg-50 mcg inhalation powder 1, inhalation, Inhalation, 2 times a day, rinse mouth and throat after use, # 1 each, Refills 0, Tot. Refills 0, Maintenance, 03/09/22 13:31:00 EST, Powder, Route to Pharmacy Electronically, [id number], [facility] # [facility], I... Start Date: 03/09/22 [...] 01/16/21 11:47:00 EST, Route to Pharmacy Electronically, [id number]... Start Date: 01/16/21 Status: Ordered Ativan 0.5 mg oral tablet See Instructions, PRN as needed for anxiety, Take 1 tablet as needed for anxiety, do not take more than 2 tablets/day, # 14 tablet, 0 Refills, Maintenance, 08/03/21 9:13:00 EDT, Tablet, [facility] # [facility], Partial fill upon patient request if the pre... Start Date: 08/03/21 Status: Ordered azelastine 137 mcg/inh (0.1%) nasal spray 2 sprays, Nares, Both, Daily, PRN Other Allergies, # 30 mL, 6 Refills, Maintenance, 10/05/21 13:14:00 EDT, [place], [facility], 2 sprays Nares, Both Daily,PRN:Other Allergies, 163.5, cm, 08/21/21 13:35:00 EDT, Height Start Date: 10/05/21 Status: Ordered buPROPion 300 mg/24 hours (XL) oral tablet, extended release 1 tablet = 300 mg, By Mouth, Daily, # 30 tablet, 5 Refills, Maintenance, 12/26/21 11:19:00 EDT, ER Tablet, [facility], Partial [...] a day, # 60 capsule, 5 Refills, [facility], 163.5, cm, 08/21/21 13:35:00 EDT, Height Start Date: 09/18/21 Status: Ordered Estrace Vaginal Cream 0.1 mg/g See Instructions, 1 gram Vaginally at bedtime 2 times per week, # 42 Gm, 4 Refills, Maintenance, 03/16/21 10:21:00 EST, [facility], Patient sensitive to inactive ingredients ofmanufacturers drugs, [...] tablet, 1 Refills, Maintenance, 03/05/22 13:21:00 EST, [facility], 163.5, [...] 3 Refills, Maintenance, 09/08/21 9:40:00 EDT, [facility] # 50, 163.5, cm, 08/21/21 [...] Team Personnel Name: Eleazar Rendon NP Position: [facility] PCO w/OE and EZ Script Member Role: Primary Care Nurse Address: Address: [address] [place] [address] [place] [address]- Name: Rafiq Atreaga [facility] Associate Professional Member Role: PCP Address: Address: [address] [facility] [place] [address]- Care Team Related Persons Name: LEWIS BALLESTEROS Address: home [address] [place] [id number] Name: RUSTY HOOVER
--- OUTSIDE RECORDS SUMMARY | 2022-11-04 01:37 | XMS_ITS | Continuity of Care Document ---
Author Name Unknown Organization [facility] Oskar May Kayode lt Address [address] [place] [address]- Care Team Providers Care Overlock Collar Setter Name Role Phone Rafiq Arteaga Primary Care Physi [employer] Encounter [facility] Date(s): 06/25/22 - 07/02/22 [facility] Oskar May Adult [address] [place] [address]- Encounter Diagnosis Allergic rhinitis(Discharge Diagnosis) - 06/25/22 Insomnia(Discharge Diagnosis) - 06/25/22 Lumbosacral radiculopathy at L5 epidural Oct 2021(Discharge Diagnosis) - 06/25/22 Attending Physician: Rafiq Arteaga Allergies, Adverse Reactions, [...] 14:38:00 EST, Powder, Route to Pharmacy Electronically, [id number], [facility] # [facility], I... Start [...] 0 Refills, Maintenance, 04/23/22 11:16:00 EST, Tablet, [facility] # [facility], Partial fill upon patient request if the pr... Start Date: 04/23/22 Status: Ordered azelastine 137 mcg/inh (0.1%) nasal spray 2 sprays, Nares, Both, Daily, PRN Other Allergies, # 30 mL, 6 Refills, Maintenance, 10/05/21 13:14:00 EDT, [place], [facility] # 50, 2 sprays Nares, Both Daily,PRN:Other Allergies, 163.5, cm, 08/21/21 13:35:00 EDT, Height Start Date: 10/05/21 Status: Ordered buPROPion 300 mg/24 hours (XL) oral tablet, extended release 1 tablet = 300 mg, By Mouth, Daily, # 90 tablet, 2 Refills, Maintenance, 06/25/22 9:06:00 EDT, ER Tablet, [facility] # [facility], Partial fill upon patient request if the prescription is for a schedule II opioid drug., 162, cm, 06/25/22 8:34:00 EDT, [place]... Start Date: 06/25/22 Status: Ordered duloxetine 60 mg oral enteric coated capsule 1 capsule, By Mouth, 2 times a day, # 60 capsule, 5 Refills, 04/09/22 16:24:00 EST, [facility] # [facility], 163.5, cm, 03/09/22 13:18:00 [...] tablet, 1 Refills, Maintenance, 03/05/22 13:21:00 EST, [facility] # [facility], 163.5, [...] 06/04/22 10:20:00 EDT, Route to Pharmacy Electronically, [facility] # [facility], 162, cm, 05/21/22 10:37:00 EDT, Height, 102, kg, 05/21/22 10:37:00 EDT, Dry W... Start Date: 06/04/22 Status: Ordered Myrbetriq 50 mg oral tablet, extended release 1 tablet = 50 mg, By Mouth, Daily, # 90 tablet, 3 Refills, Maintenance, 09/08/21 9:40:00 EDT, [facility], 163.5, cm, 08/21/21 13:35:00 EDT, Height Start Date: 09/08/21 Status: Ordered ohm Allergy Relief 10 mg oral tablet See Instructions, TAKE 1 TABLET BY MOUTH EVERY DAY, # 90 tablet, 1 Refills, Maintenance, 06/25/22 9:15:00 EDT, [facility] # [facility], 162, cm, 06/25/22 8:34:00 EDT, Height, 102, kg, 05/21/22 10:37:00 EDT, Dry Weight Start Date: 06/25/22 Status: Ordered traZODone 50 mg oral tablet 50 mg, 1, tablet, By Mouth, Daily at bedtime, for 30 days, # 30 tablet, Refills 5, Tot. Refills 5, Physician Stop 12/22/22 9:07:00 EDT, 06/25/22 9:07:00 EDT, Route to Pharmacy Electronically, [facility] # [facility], 162, cm, 06/25/22 8:34:00 [...] 06/25/22 9:11:00 EDT, Route to Pharmacy Electronically, [facility] # [facility], Partial fill upon patient [...] capsule, 3 Refills, Maintenance, 06/25/22 9:06:00 EDT, [facility] # [facility], Partial fill upon patient [...] Effective Dates Health Status Clinical Service Informant Allergic rhinitis Discharge Diagnosis 06/25/22 Insomnia Discharge Diagnosis 06/25/22 Lumbosacral radiculopathy at L5 epidural Oct 2021 Discharge Diagnosis 06/25/22 Vital Signs Most recent to oldest [Reference Range]: 1 Height 162 cm (06/25/22 8:34 AM) Weight 102.05 kg (06/25/22 8:34 AM) Body Mass Index [18.5-24.99 kg/m2] 38.89 kg/m2 *>HHI* (06/25/22 8:34 AM) Weight Obtained Via Patient/family state d (06/25/22 8:34 AM) Social History Social History Type Response Smoking Status Never (less than 100 in lifetime) entered on: 11/21/18 Sex Patient Care team information Care Team Personnel Name: Eleazar Rendon NP Position: [facility] PCO w/OE and EZ Script Member Role: Primary Care Nurse Address: Address: [address] [place] [address] [place] [address]- Name: Rafiq Arteaga Position: [facility] PCO Associate Professional Member Role: PCP Address: Address: [address] [place] [address]- Care Team Related Persons Name: LEWIS BALLESTEROS Address: home [address] [place] [id number] Name: RUSTY HOOVER
--- OUTSIDE RECORDS SUMMARY | 2022-11-04 01:37 | XMS_ITS | Continuity of Care Document ---
Author Name Unknown Organization [facility] Kayode lt Address [address] [place] [address]- Care Team Providers Care Manager Respiratory Care Name Role Phone Susan AVENDANO, Orlando Quintanilla Primary Care Physician [phone] Encounter [facility] Date(s): 06/10/20 - 07/10/20 [facility] Adult [address] [place] [address]- Allergies, Adverse Reactions, Alerts Substance Reaction Severity [...] 02/09/19 13:37:40 EST, Route to Pharmacy Electronically, [id number]... Start Date: 02/09/19 Status: Ordered buPROPion 300 mg/24 hours (XL) oral tablet, extended release 1 tablet = 300 mg, By Mouth, Daily, # 30 tablet, 11 Refills, Maintenance, 05/11/20 13:04:00 EDT, ERTablet, [facility] # [...] Refills, Maintenance, 06/10/20 12:27:00 EDT, EC Capsule, [facility] # [facility], Partial fill upon patient request if the prescription is for a schedule II opioid drug., 163.5, cm, 06/10/20 11:17:0... Start Date: 06/10/20 Status: Ordered Estrace Vaginal Cream 0.1 mg/g See Instructions, 1 gram Vaginally at bedtime 2 times per week, # 42 Gm, 4 Refills, Maintenance, 03/23/20 16:57:00 EST, [facility], Patient sensitive to inactive ingredients ofmanufacturers drugs, [...] 3 Refills, Maintenance, 09/30/19 10:56:00 EDT, Inhaler, [facility] # [facility], 163.5, cm, 09/30/19 9:33:00 EDT, Height, 91, kg, 07/23/19 11:11:00 EDT, Dry Weight Start Date: 09/30/19 Status: Ordered gabapentin 600 mg oral tablet 1 tablet, By Mouth, 3 times a day, # 270 Unknown, 1 Refills, Maintenance, 05/24/20 16:58:00 EDT, [facility] # [facility], 163.5, cm, 05/14/20 23:20:00 EDT, Height, 91, kg, 07/23/19 11:11:00 EDT, Dry Weight Start Date: 05/24/20 Status: Ordered lactulose 10 gm/15 ml oral syrup 15 mL, By Mouth, Daily, # 473 Unknown, 5 Refills, Acute, 07/08/20 7:08:00 EDT, [facility] # [facility],30, TAKE 15ML BY MOUTH DAILY, 163.5, cm, 06/16/20 7:48:00 EDT, Height, 91, kg, 07/23/19 11:11:00 EDT, Dry Weight Start Date: 07/08/20 Status: Ordered lidocaine-prilocaine 2.5%-2.5% topical cream 1 application, Topically, Once, # 30 Gm, 1 Refills, Soft Stop, 03/08/20 8:14:00 EST, Cream, [facility] # 50, Partial fill upon patient request, 1 application Topically Once, 163.5, cm, 01/11/20 14:45:00 EST, Height, 91, kg, 07/23/19 11:11:00 EDT,... Start Date: 03/08/20 Status: Ordered loratadine 10 mg oral tablet 10 mg, 1, tablet, By Mouth, Daily, # 90 tablet, Refills 3, Tot. Refills 3, Maintenance, 10/27/19 18:22:00 EDT, Route to Pharmacy Electronically, [facility] # [facility], Rx resent from 09/30/19., 163.5, cm, 10/08/19 11:19:00 EDT, Height, 91, kg, 07/23/19 11... Start Date: 10/27/19 Status: Ordered lubiprostone 24 mcg oral capsule 1 capsule = 24 mcg, By Mouth, 2 times a day, # 60 capsule, 0 Refills, Maintenance, 06/10/20 12:29:00 EDT, Capsule, [facility] # [...] 01/13/20 12:44:00 EST, Route to Pharmacy Electronically, [facility] # [facility], Refills per [...] 12/04/19 12:51:00 EDT, Route to Pharmacy Electronically, [facility] # [facility], 163.5, cm, 11/03/19 11:52:00 [...]
--- OUTSIDE RECORDS SUMMARY | 2022-11-04 01:37 | XMS_ITS | Continuity of Care Document ---
Author Name Unknown Organization [facility] Address [address] [facility] [place] [address]- Care Team Providers Care Basic Sciences Professor Name Role Phone Susan AVENDANO, Orlando Quintanilla Primary Care Physician [facility] [facility] [place]s): 04/27/21 - 05/27/21 [facility] [address] [facility] [place] [address]- Allergies, Adverse Reactions, Alerts Substance Reaction Severity [...] 01/16/21 11:47:00 EST, Route to Pharmacy Electronically, [id number]... Start Date: 01/16/21 Status: Ordered azelastine 137 mcg/inh (0.1%) nasal spray 2 sprays, Nares, Both, Daily, PRN Other Allergies, # 30 mL, 6 Refills, Maintenance, 08/18/20 15:01:00 EDT, [place], [facility] # [facility], 2 sprays Nares, Both Daily,PRN:Other Allergies, 163.5, cm, 08/18/20 14:46:00 EDT, Height, 91, kg, 07/23/19 11:11... Start Date: 08/18/20 Status: Ordered buPROPion 300 mg/24 hours (XL) oral tablet, extended release 1 tablet = 300 mg, By Mouth, Daily, # 30 tablet, 11 Refills, Maintenance, 05/11/20 13:04:00 EDT, ERTablet, [facility] # [facility], Partial fill [...] Refills, Maintenance, 05/26/21 10:29:00 EDT, EC Tablet, [facility] # [facility], Partial fill upon patient request if the prescription is for a schedule II opioid drug., 163.5, cm, 04/21/21 11:51:0... Start Date: 05/26/21 Status: Ordered duloxetine 60 mg oral enteric coated capsule 1 capsule = 60 mg, By Mouth, 2 times a day, # 60 capsule, 5 Refills, Maintenance, 02/10/21 14:24:00EST, EC Capsule, [facility] # 50, Partial fill upon patient request if the prescription is for a schedule II opioid drug., 163.5, cm, 12/12/20 16:0... Start Date: 02/10/21 Status: Ordered Estrace Vaginal Cream 0.1 mg/g See Instructions, 1 gram Vaginally at bedtime 2 times per week, # 42 Gm, 4 Refills, Maintenance, 03/16/21 10:21:00 EST, [facility], Patient sensitive to [...] 31.8 Gm, 1 Refills, Maintenance, [facility], 163.5, cm, 09/09/20 12:42:00 EDT, Height, 91, kg, 07/23/19 11:11:00 EDT, Dry Weight Start Date: 10/06/20 Status: Ordered gabapentin 600 mg oral tablet 1 tablet, By Mouth, 3 times a day, # 270 tablet, 1 Refills, [facility] # [facility], 163.5, [...] Replace Required Details, Route to Pharmacy Electronically, [facility] # [facility], 163.5, cm, 12/12/20 [...] 03/07/21 14:45:00 EST, Route to Pharmacy Electronically, [facility] # [facility], 163.5, cm, 12/12/20 16:09:00 EDT, Height, 91, kg, 07/23/19 11:11:00 EDT, Dry... Start Date: 03/07/21 Status: Ordered Myrbetriq 50 mg oral tablet, extended release 1 tablet = 50 mg, By Mouth, Daily, # 90 tablet, 3 Refills, Maintenance, 03/16/21 10:21:00 EST, [facility] # [facility], 163.5, cm, 12/12/20 [...] MONICA (obstructive sleep apnea ) AHI 9.2(Confirmed) 6/13/21 Active Osteoarthritis of right hip(Confirmed) Active Osteopenia [...]
--- OUTSIDE RECORDS SUMMARY | 2022-11-04 01:37 | XMS_ITS | Continuity of Care Document ---
Author Name Unknown Organization [facility] Lalo Kayode lt Address [address] [place] [address]- Care Team Providers Care Damage Assessor Name Role Phone Rafiq Arteaga Primary Care Physi kateryna En[place] [facility] Date(s): 03/08/22 - 04/07/22 [facility] Adult [address] [place] [address]- Allergies, Adverse Reactions, Alerts Substance Reaction Severity [...] 14:25:00 EST, Powder, Route to Pharmacy Electronically, [id number], [facility], 1... Start Date: 03/05/22 Status: Ordered Advair Diskus 250 mcg-50 mcg inhalation powder 1, inhalation, Inhalation, 2 times a day, rinse mouth and throat after use, # 1 each, Refills 0, Tot. Refills 0, Maintenance, 03/09/22 13:31:00 EST, Powder, Route to Pharmacy Electronically, [id number], [facility] # [facility], I... Start Date: [...] 01/16/21 11:47:00 EST, Route to Pharmacy Electronically, [id number]... Start Date: 01/16/21 Status: Ordered Ativan 0.5 mg oral tablet See Instructions, PRN as needed for anxiety, Take 1 tablet as needed for anxiety, do not take more than 2 tablets/day, # 14 tablet, 0 Refills, Maintenance, 08/03/21 9:13:00 EDT, Tablet, [facility] # [facility], Partial fill upon patient request if the pre... Start Date: 08/03/21 Status: Ordered azelastine 137 mcg/inh (0.1%) nasal spray 2 sprays, Nares, Both, Daily, PRN Other Allergies, # 30 mL, 6 Refills, Maintenance, 10/05/21 13:14:00 EDT, [place], [facility], 2 sprays Nares, [...] capsule, 5 Refills, [facility], 163.5, cm, 08/21/21 13:35:00 EDT, Height Start Date: 09/18/21 Status: Ordered Estrace Vaginal Cream 0.1 mg/g See Instructions, 1 gram Vaginally at bedtime 2 times per week, # 42 Gm, 4 Refills, Maintenance, 03/16/21 10:21:00 EST, [facility], Patient sensitive to inactive ingredients ofmanufacturers drugs, [...] 3 Refills, Maintenance, 09/08/21 9:40:00 EDT, [facility] # 50, 163.5, cm, 08/21/21 13:35:00 EDT, Height Start Date: 09/08/21 Status: Ordered ohm Allergy Relief 10 mg oral tablet See Instructions, TAKE 1 TABLET BY MOUTH EVERY DAY, # 90 tablet, 1 Refills, Maintenance, 03/05/22 13:16:00 EST, [facility] # [facility], 163.5, cm, 03/05/22 12:50:00 EST, Height Start Date: 03/05/22 Status: Ordered traZODone 50 mg oral tablet 2, tablet, By Mouth, Daily at bedtime, # 60 tablet, Refills 5, Tot. Refills 5, 02/05/22 11:04:00 EST, Route to Pharmacy Electronically, [facility], 163.5, cm, 01/15/22 [...] Team Personnel Name: Eleazar Rendon NP Position: [facility] PCO w/OE and EZ Script Member Role: Primary Care Nurse Address: Address: [address] [place] [address] [place] [address]- Name: Rafiq Arteaga Position: [facility] PCO Associate Professional Member Role: PCP Address: Address: [address] [facility] [place] [address]- Care Team Related Persons Name: MARCELO BALLESTEROSEL Address: home [address] [place] [id number] Name: RUSTY HOOVER
--- OUTSIDE RECORDS SUMMARY | 2022-11-04 01:37 | XMS_ITS | Continuity of Care Document ---
Author Name Unknown Organization [facility] Address [address] [place] [address]- Care Team Providers Care Channel Business Manager Name Role Phone Susan AVENDANO, Orlando Quintanilla Primary Care Physician [phone] [facility] Date(s): 08/09/20 - 09/08/[address] [address]- Attending Physician: AdmtrEne Admitting Physician: Admtr, Ar8 Referring Physician: Admtr, [...] 02/09/19 13:37:40 EST, Route to Pharmacy Electronically, [id number]... Start Date: 02/09/19 Status: Ordered azelastine 137 mcg/inh (0.1%) nasal spray 2 sprays, Nares, Both, Daily, PRN Other Allergies, # 30 mL, 6 Refills, Maintenance, 08/18/20 15:01:00 EDT, [place], [facility], 2 sprays Nares, Both Daily,PRN:Other Allergies, 163.5, cm, 08/18/20 14:46:00 EDT, Height, 91, kg, 07/23/19 11:11... Start Date: 08/18/20 Status: Ordered buPROPion 300 mg/24 hours (XL) oral tablet, extended release 1 tablet = 300 mg, By Mouth, Daily, # 30 tablet, 11 Refills, Maintenance, 05/11/20 13:04:00 EDT, ERTablet, [facility], Partial fill [...] 5 Refills, Maintenance, 08/11/20 11:15:00EDT, EC Capsule, [facility], Partial fill [...] 3 Refills, Maintenance, 08/18/20 15:02:00 EDT, Inhaler, [facility] # [facility], 163.5, cm, 08/18/20 14:46:00 EDT, Height,... Start Date: 08/18/20 Status: Ordered gabapentin 600 mg oral tablet 1 tablet, By Mouth, 3 times a day, # 270 Unknown, 1 Refills, Maintenance, 05/24/20 16:58:00 EDT, [facility] # [facility], 163.5, cm, 05/14/20 23:20:00 EDT, Height, 91, kg, 07/23/19 11:11:00 EDT, Dry Weight Start Date: 05/24/20 Status: Ordered lidocaine-prilocaine 2.5%-2.5% topical cream 1 application, Topically, Once, # 30 Gm, 1 Refills, Soft Stop, 03/08/20 8:14:00 EST, Cream, [facility] # 50, Partial fill upon patient [...] [facility], Rx resent from 09/30/19., 163.5, cm, 10/08/19 11:19:00 EDT, Height, 91, kg, 07/23/19 11... Start Date: 10/27/19 Status: Ordered lubiprostone 24 mcg oral capsule 1 capsule, By Mouth, 2 times a day, # 60 capsule, 0 Refills, Maintenance, 08/22/20 10:44:00 EDT, [facility] # [facility], 163.5, cm, 08/18/20 14:46:00 EDT, Height, 91, kg, 07/23/19 11:11:00 EDT, Dry Weight Start Date: 08/22/20 Status: Ordered lysine 1000 mg oral tablet [...] 07/12/20 11:39:00 EDT, Route to Pharmacy Electronically, [facility] # [facility], Refills per PCP, 163.5, cm, 06/16/20 7:48:00 EDT, Height, 91, kg, 07/23/19 11... Start Date: 07/12/20 Status: Ordered Myrbetriq 50 mg oral tablet, extended release 1 tablet = 50 mg, By Mouth, Daily, # 30 tablet, 11 Refills, Maintenance, 08/11/20 16:47:00 EDT, [facility] # [facility], 163.5, cm, 08/11/20 10:34:00 EDT, Height, 91, kg, 07/23/19 11:11:00 EDT, Dry Weight Start Date: 08/11/20 Status: Ordered traZODone 50 mg oral tablet 2, tablet, By Mouth, Daily at bedtime, # 60 tablet, Refills 5, Tot. Refills 0, Maintenance, 07/28/20 15:52:00 EDT, Route to Pharmacy Electronically, [facility], 163.5, cm, 06/16/20 7:48:00 [...]
--- OUTSIDE RECORDS SUMMARY | 2022-11-04 01:37 | XMS_ITS | Continuity of Care Document ---
Author Name Unknown Organization [facility] Lalo Kayode lt Address [address] [place] [address]- Care Team Providers Care Family Life Educator Name Role Phone Deshawn BERNAL, Laurita Primary Care Physician [place] [facility] [place] 04/19/20 - 05/19/20 [facility] Adult [address] [place] [address]- Allergies, Adverse Reactions, Alerts Substance Reaction Severity [...] 02/09/19 13:37:40 EST, Route to Pharmacy Electronically, [id number]... Start Date: 02/09/19 Status: Ordered buPROPion 300 mg/24 hours (XL) oral tablet, extended release 1 tablet = 300 mg, By Mouth, Daily, # 30 tablet, 11 Refills, Maintenance, 05/11/20 13:04:00 EDT, ERTablet, [facility] # [facility], Partial [...] Unknown, 1 Refills, Maintenance, 12/17/19 15:03:00 EDT, [facility] # [facility], 163.5, cm, 11/03/19 11:52:00 EDT, Height, 91, kg, 07/23/19 11:11:00 EDT, Dry Weight Start Date: 12/17/19 Status: Ordered Estrace Vaginal Cream 0.1 mg/g See Instructions, 1 gram Vaginally at bedtime 2 times per week, # 42 Gm, 4 Refills, Maintenance, 03/23/20 16:57:00 EST, [facility], Patient sensitive to [...] Status: Ordered FLUoxetine 40 mg oral capsule See Instructions, 1 pill kelly and sun, # 16 each, 3 Refills, Maintenance, 04/19/20 8:46:00 EST, Capsule, [facility] # [facility], Partial fill upon patient request if the prescription is for a schedule IIopioid drug., 163.5, cm, 04/08/20 8:37:00 EST, [place]... Start Date: 04/19/20 Status: Ordered gabapentin 600 mg oral tablet 1 tablet, By Mouth, 3 times a day, # 270 tablet, 1 Refills, Maintenance, 05/19/20 9:57:00 EDT, [facility] # [facility], 163.5, cm, 05/14/20 23:20:00 EDT, Height, 91, kg, 07/23/19 11:11:00 EDT, Dry Weight Start Date: 05/19/20 Status: Ordered lactulose 10 gm/15 ml oral syrup 15 mL = 10 Gm, By Mouth, Daily, This is correct dose., # 450 mL, 5 Refills, Maintenance, 06/25/19 9:18:00 EDT, Syrup, [facility] # [facility], 15 mL By Mouth Daily,Instr:This is correct dose., 163.5, cm,06/03/19 11:17:00 EDT, Height Start Date: 06/25/19 Status: Ordered lidocaine-prilocaine 2.5%-2.5% topical cream 1 application, Topically, Once, # 30 Gm, 1 Refills, Soft Stop, 03/08/20 8:14:00 EST, Cream, [facility] # [facility], Partial fill upon patient request, 1 application Topically Once, 163.5, cm, 01/11/20 14:45:00 EST, Height, 91, kg, 07/23/19 11:11:00 EDT,... Start Date: 03/08/20 Status: Ordered loratadine 10 mg oral tablet 10 mg, 1, tablet, By Mouth, Daily, # 90 tablet, Refills 3, Tot. Refills 3, Maintenance, 10/27/19 18:22:00 EDT, Route to Pharmacy Electronically, [facility], Rx resent from [...] tablet, 11 Refills, Maintenance, 07/23/19 11:40:00 EDT, [facility] # [facility], 163.5, [...] 12/04/19 12:51:00 EDT, Route to Pharmacy Electronically, [facility] [...]
--- OUTSIDE RECORDS SUMMARY | 2022-11-04 01:37 | XMS_ITS | Continuity of Care Document ---
Author Name Unknown Organization [facility] Address [address] [place] [address]- Care Team Providers Care Medical Lab Tech Instructor Name Role Phone Rafiq Arteaga Primary Care Physi kateryna [place] [facility] [place] 05/01/22 - 05/31/22 [facility] [address] [place], [place] [address] Allergies, Adverse Reactions, Alerts Substance Reaction [...] 14:38:00 EST, Powder, Route to Pharmacy Electronically, [id number], [facility], I... Start Date: 04/23/22 [...] 11:16:00 EST, Tablet, [facility], Partial fill upon patient request if the pr... Start Date: 04/23/22 Status: Ordered azelastine 137 mcg/inh (0.1%) nasal spray 2 sprays, Nares, Both, Daily, PRN Other Allergies, # 30 mL, 6 Refills, Maintenance, 10/05/21 13:14:00 EDT, [place], [facility] # [facility], 2 sprays Nares, Both Daily,PRN:Other Allergies, 163.5, cm, 08/21/21 13:35:00 EDT, Height Start Date: 10/05/21 Status: Ordered buPROPion 300 mg/24 hours (XL) oral tablet, extended release 1 tablet = 300 mg, By Mouth, Daily, # 30 tablet, 5 Refills, Maintenance, 12/26/21 11:19:00 EDT, ER Tablet, [facility] # [facility], Partial fill upon patient request if the prescription is for a scheduleII opioid drug., 163.5, cm, 08/21/21 13:35:00 EDT,... Start Date: 12/26/21 Status: Ordered diazepam 5 mg oral tablet 5 mg, 1, tablet, By Mouth, Every 8 hours, PRN, # 45 tablet, Refills 0, Tot. Refills 0, Maintenance,Spasm, 05/23/22 16:04:00 EDT, Route to Pharmacy Electronically, [facility], Partial fill upon patient request if the prescription is for a le[place]... Start Date: 05/23/22 Status: Ordered duloxetine 60 mg oral enteric coated capsule 1 capsule, By Mouth, 2 times a day, # 60 capsule, 5 Refills, 04/09/22 16:24:00 EST, [facility] # [facility], 163.5, cm, 03/09/22 [...] Refills, Maintenance, 03/05/22 13:21:00 EST, [facility] # [facility], 163.5, cm, 03/05/22 [...] [facility], 163.5, cm, 08/21/21 13:35:00 EDT, Height Start Date: 10/25/21 Status: Ordered Myrbetriq 50 mg oral tablet, extended release 1 tablet = 50 mg, By Mouth, Daily, # 90 tablet, 3 Refills, Maintenance, 09/08/21 9:40:00 EDT, [facility] # 50, 163.5, cm, 08/21/21 13:35:00 EDT, Height Start Date: 09/08/21 Status: Ordered ohm Allergy Relief 10 mg oral tablet See Instructions, TAKE 1 TABLET BY MOUTH EVERY DAY, # 90 tablet, 1 Refills, Maintenance, 03/05/22 13:16:00 EST, [facility] # [facility], 163.5, cm, 03/05/22 12:50:00 EST, Height Start Date: 03/05/22 Status: Ordered oxyCODONE 5 mg oral tablet 5 mg, 1, tablet, By Mouth, Every 4 hours, PRN, # 42 tablet, Refills 0, Tot. Refills 0, Maintenance,Pain , Moderate, 05/21/22 18:31:00 EDT, Route to Pharmacy Electronically, [facility] 3,Partial fill upon patient request if the prescripti... Start Date: 05/21/22 Status: Ordered tiZANidine 4 mg oral tablet 4 mg, 1, tablet, By Mouth, 3 times a day, PRN, # 90 tablet, Refills 0, Tot. Refills 0, Maintenance,Spasm, 05/21/22 18:31:00 EDT, Route to Pharmacy Electronically, [facility] 3, Partial fill upon patient request if the prescription is for... Start Date: 05/21/22 Status: Ordered traZODone 50 mg oral tablet 2, tablet, By Mouth, Daily at bedtime, # 60 tablet, Refills 5, Tot. Refills 5, 02/05/22 11:04:00 EST, Route to Pharmacy Electronically, [facility] # [facility], 163.5, cm, 01/15/22 [...] Team Personnel Name: Eleazar Rendon NP Position: [facility] PCO w/OE and EZ Script Member Role: Primary Care Nurse Address: Address: [address] [place] [address] [place] [address]- Name: Rafiq Arteaga [facility] Associate Professional Member Role: PCP Address: Address: [address] [place] [address]- Care Team Related Persons Name: LEWIS BALLESTEROS Address: home [address] [place] [id number] Name: RUSTY HOOVER
--- OUTSIDE RECORDS SUMMARY | 2022-11-04 01:37 | XMS_ITS | Continuity of Care Document ---
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 Start Date: 01/16/21 Status: Ordered Ativan 0.5 [...] each, 6 Refills, Maintenance, 10/23/21 14:26:00 EDT, [place], [facility], 2 sprays Nares, Both Daily,PRN:Other Allergies,Instr:j45.40, 163.5, cm, 08/21/21 13:35:00 EDT, Height Start Date: 10/23/21 Status: Ordered azelastine 137 mcg/inh (0.1%) nasal spray 2 sprays, Nares, Both, Daily, PRN Other Allergies, # 30 mL, 6 Refills, Maintenance, 10/05/21 13:14:00 EDT, [place], [facility], 2 sprays [...] A DAY, # 60 tablet, 1 Refills, [facility] # [facility], 163.5, cm, 08/21/21 13:35:00 EDT, Height Start Date: 10/18/21 Status: Ordered duloxetine 60 mg oral enteric coated capsule 1 capsule, By Mouth, 2 times a day, # 60 capsule, 5 Refills, [facility] # [facility], 163.5, cm, 08/21/21 13:35:00 EDT, Height Start Date: 09/18/21 Status: Ordered Estrace Vaginal Cream 0.1 mg/g See Instructions, 1 gram Vaginally at bedtime 2 times per week, # 42 Gm, 4 Refills, Maintenance, 03/16/21 10:21:00 EST, [facility], Patient sensitive to inactive ingredients ofmanufacturers drugs, [...] 6 Refills, 09/21/21 16:29:00 EDT, [facility] # [facility], 163.5, cm, 08/21/21 13:35:00 EDT, Height Start Date: 09/21/21 Status: Ordered gabapentin 600 mg oral tablet 1 tablet, By Mouth, 3 times a day, # 270 tablet, 1 Refills, [facility] # [facility], 163.5, cm, 04/21/21 11:51:00 EST, Height, 91, kg, 07/23/19 11:11:00 EDT, Dry Weight Start Date: 05/11/21 Status: Ordered lidocaine-prilocaine 2.5%-2.5% topical cream 1 application, Topically, Once, # 30 Gm, 3 Refills, Soft Stop, 04/21/21 12:20:00 EST, Cream, [facility] # [facility], Partial fill upon patient request, 1 application Topically Once, 163.5, cm, 04/21/21 11:51:00 EST, Height, 91, kg, 07/23/19 11:11:00 EDT,... Start Date: 04/21/21 Status: Ordered lubiprostone 24 mcg oral capsule 1 capsule, By Mouth, 2 times a day, # 60 capsule, 5 Refills, 04/21/21 12:25:00 EST, [facility] # [facility], 163.5, cm, [...] EDT, Route to Pharmacy Electronically, [facility], 163.5, cm, 08/21/21 13:35:00 EDT, Height Start Date: 10/25/21 Status: Ordered Myrbetriq 50 mg oral tablet, extended release 1 tablet = 50 mg, By Mouth, Daily, # 90 tablet, 3 Refills, Maintenance, 09/08/21 9:40:00 EDT, [facility], 163.5, cm, 08/21/21 13:35:00 EDT, Height Start Date: 09/08/21 Status: Ordered ohm Allergy Relief 10 mg oral tablet See Instructions, TAKE 1 TABLET BY MOUTH EVERY DAY, # 90 tablet, 1 Refills, Maintenance, 10/01/21 2:49:00 EDT, [facility] # [facility], 163.5, cm, 08/21/21 13:35:00 EDT, Height Start Date: 10/01/21 Status: Ordered traZODone 50 mg oral tablet 2, tablet, By Mouth, Daily at bedtime, # 60 tablet, Refills 2, Tot. Refills 2, 10/18/21 19:18:00 EDT, Route to Pharmacy Electronically, [facility] # [facility], 163.5, cm, [...] Personnel Name: Susan AVENDANO, Orlando Quintanilla Address: [address] [place] [address] [place] [address]-
--- OUTSIDE RECORDS SUMMARY | 2022-11-04 01:37 | XMS_ITS | Continuity of Care Document ---
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 Start Date: 01/16/21 Status: Ordered azelastine 137 mcg/inh (0.1%) nasal spray 2 sprays, Nares, Both, Daily, PRN Other Allergies, # 30 mL, 6 Refills, Maintenance, 08/18/20 15:01:00 EDT, [place], [facility] # [facility], 2 sprays Nares, Both Daily,PRN:Other Allergies, 163.5, cm, 08/18/20 14:46:00 EDT, Height, 91, kg, 07/23/19 11:11... Start Date: 08/18/20 Status: Ordered buPROPion 300 mg/24 hours (XL) oral tablet, extended release 1 tablet = 300 mg, By Mouth, Daily, # 30 tablet, 5 Refills, Maintenance, 05/30/21 10:47:00 EDT, ER Tablet, [facility] # [facility], Partial fill [...] Refills, Maintenance, 05/26/21 10:29:00 EDT, EC Tablet, [facility] # 50, Partial fill upon patient request if the prescription is for a schedule II opioid drug., 163.5, cm, 04/21/21 11:51:0... Start Date: 05/26/21 Status: Ordered duloxetine 60 mg oral enteric coated capsule 1 capsule = 60 mg, By Mouth, 2 times a day, # 60 capsule, 5 Refills, Maintenance, 02/10/21 14:24:00EST, EC Capsule, [facility], Partial fill upon [...] DAY, # 31.8 Gm, 1 Refills, Maintenance, [facility], 163.5, cm, 09/09/20 12:42:00 EDT, Height, 91, kg, 07/23/19 11:11:00 EDT, Dry Weight Start Date: 10/06/20 Status: Ordered gabapentin 600 mg oral tablet 1 tablet, By Mouth, 3 times a day, # 270 tablet, 1 Refills, [facility] # [facility], 163.5, cm, 04/21/21 11:51:00 EST, Height, 91, kg, 07/23/19 11:11:00 EDT, Dry Weight Start Date: 05/11/21 Status: Ordered lidocaine-prilocaine 2.5%-2.5% topical cream 1 application, Topically, Once, # 30 Gm, 3 Refills, Soft Stop, 04/21/21 12:20:00 EST, Cream, [facility] # [facility], Partial fill upon patient request, 1 application Topically Once, 163.5, cm, 04/21/21 11:51:00 EST, Height, 91, kg, 07/23/19 11:11:00 EDT,... Start Date: 04/21/21 Status: Ordered loratadine 10 mg oral tablet See Instructions, TAKE ONE TABLET BY MOUTH EVERY DAY, # 90 tablet, Refills 1, Tot. Refills 1, Maintenance, 03/15/21 11:49:00 EST, Instructions Replace Required Details, Route to Pharmacy Electronically, [facility], 163.5, cm, 12/12/20 [...] 03/07/21 14:45:00 EST, Route to Pharmacy Electronically, [facility], 163.5, cm, 12/12/20 16:09:00 EDT, Height, 91, kg, 07/23/19 11:11:00 EDT, Dry... Start Date: 03/07/21 Status: Ordered Myrbetriq 50 mg oral tablet, extended release 1 tablet = 50 mg, By Mouth, Daily, # 90 tablet, 3 Refills, Maintenance, 03/16/21 10:21:00 EST, [facility] # [facility], 163.5, cm, 12/12/20 16:09:00 EDT, Height, 91, kg, 07/23/19 11:11:00 EDT, Dry Weight Start Date: 03/16/21 Status: Ordered traZODone 50 mg oral tablet 2, tablet, By Mouth, Daily at bedtime, # 60 tablet, Refills 5, Route to Pharmacy Electronically, [facility] # [facility], 163.5, cm, 12/12/20 16:09:00 [...]
--- OUTSIDE RECORDS SUMMARY | 2022-11-04 01:37 | XMS_ITS | Continuity of Care Document ---
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 Start Date: 02/09/19 Status: Ordered buPROPion 300 mg/24 hours (XL) oral tablet, extended release 1 tablet = 300 mg, By Mouth, Daily, # 30 tablet, 11 Refills, Maintenance, 05/11/20 13:04:00 EDT, ERTablet, [facility], [...] 6 Refills, Maintenance, 05/25/20 16:53:00EDT, EC Capsule, [facility] # [facility], Partial fill upon patient request if the prescription is for a schedule II opioid drug., 163.5, cm, 05/25/20 15:2... Start Date: 05/25/20 Status: Ordered Estrace Vaginal Cream 0.1 mg/g See Instructions, 1 gram Vaginally at bedtime 2 times per week, # 42 Gm, 4 Refills, Maintenance, 03/23/20 16:57:00 EST, [facility], Patient sensitive to inactive ingredients ofmanufacturers drugs, [...] 3 Refills, Maintenance, 09/30/19 10:56:00 EDT, Inhaler, [facility], 163.5, cm, 09/30/19 9:33:00 EDT, Height, 91, kg, 07/23/19 11:11:00 EDT, Dry Weight Start Date: 09/30/19 Status: Ordered gabapentin 600 mg oral tablet 1 tablet, By Mouth, 3 times a day, # 270 Unknown, 1 Refills, Maintenance, 05/24/20 16:58:00 EDT, [facility] # [facility], 163.5, cm, 05/14/20 23:20:00 EDT, Height, 91, kg, 07/23/19 11:11:00 EDT, Dry Weight Start Date: 05/24/20 Status: Ordered lactulose 10 gm/15 ml oral syrup 15 mL = 10 Gm, By Mouth, Daily, This is correct dose., # 450 mL, 5 Refills, Maintenance, 06/25/19 9:18:00 EDT, Syrup, [facility] # [facility], 15 mL By Mouth Daily,Instr:This is correct dose., 163.5, cm,06/03/19 11:17:00 EDT, Height Start Date: 06/25/19 Status: Ordered lidocaine-prilocaine 2.5%-2.5% topical cream 1 application, Topically, Once, # 30 Gm, 1 Refills, Soft Stop, 03/08/20 8:14:00 EST, Cream, [facility] # [facility], Partial fill upon patient request, 1 application Topically Once, 163.5, cm, 01/11/20 14:45:00 EST, Height, 91, kg, 07/23/19 11:11:00 EDT,... Start Date: 03/08/20 Status: Ordered loratadine 10 mg oral tablet 10 mg, 1, tablet, By Mouth, Daily, # 90 tablet, Refills 3, Tot. Refills 3, Maintenance, 10/27/19 18:22:00 EDT, Route to Pharmacy Electronically, [facility] # [facility], Rx resent from 09/30/19., [...] 01/13/20 12:44:00 EST, Route to Pharmacy Electronically, [facility] tablet, 0 Refills, Maintenance, 11/03/19 16:09:00 EDT, [facility] # [facility], 163.5, cm, 11/03/19 11:52:00 EDT, Height, 91, kg, 07/23/19 11:11:00 EDT, Dry Weight Start Date: 11/03/19 Status: Ordered traZODone 50 mg oral tablet 50 mg, 1, tablet, By Mouth, Daily at bedtime, # 30 tablet, Refills 5, Tot. Refills 5, Maintenance, 12/04/19 12:51:00 EDT, Route to Pharmacy Electronically, [facility] [...]
--- OUTSIDE RECORDS SUMMARY | 2022-11-04 01:37 | XMS_ITS | Continuity of Care Document ---
Author Name Unknown Organization [facility] Address [address] [place] [address]- Care Team Providers Care Therapy Administrative Assistant Name Role Phone Susan AVENDANO, Orlando Quintanilla Primary Care Physician [phone] Encounter [facility] Date(s): 12/11/21 - 01/10/22 [facility] Adult [address] [place] [address]- Allergies, Adverse Reactions, Alerts Substance Reaction Severity [...] 01/16/21 11:47:00 EST, Route to Pharmacy Electronically, [id number]... Start Date: 01/16/21 Status: Ordered Ativan 0.5 mg oral tablet See Instructions, PRN as needed for anxiety, Take 1 tablet as needed for anxiety, do not take more than 2 tablets/day, # 14 tablet, 0 Refills, Maintenance, 08/03/21 9:13:00 EDT, Tablet, [facility], Partial fill upon patient request if the pre... Start Date: 08/03/21 Status: Ordered azelastine 137 mcg/inh (0.1%) nasal spray 2 sprays, Nares, Both, Daily, PRN Other Allergies, j45.40, # 1 each, 6 Refills, Maintenance, 10/23/21 14:26:00 EDT, [place], [facility], 2 sprays Nares, Both Daily,PRN:Other Allergies,Instr:j45.40, 163.5, cm, 08/21/21 13:35:00 EDT, Height Start Date: 10/23/21 Status: Ordered azelastine 137 mcg/inh (0.1%) nasal spray 2 sprays, Nares, Both, Daily, PRN Other Allergies, # 30 mL, 6 Refills, Maintenance, 10/05/21 13:14:00 EDT, [place], [facility], 2 sprays Nares, Both Daily,PRN:Other Allergies, 163.5, cm, 08/21/21 13:35:00 EDT, Height Start Date: 10/05/21 Status: Ordered buPROPion 300 mg/24 hours (XL) oral tablet, extended release 1 tablet = 300 mg, By Mouth, Daily, # 30 tablet, 5 Refills, Maintenance, 12/26/21 11:19:00 EDT, ER Tablet, [facility], Partial fill upon [...] 60 tablet, 1 Refills, 12/26/21 11:19:00 EDT, [facility] # [facility], 163.5, cm, 08/21/21 13:35:00 EDT, Height Start Date: 12/26/21 Status: Ordered diclofenac sodium 75 mg oral delayed release tablet See Instructions, TAKE ONE TABLET BY MOUTH TWICE A DAY, # 60 tablet, 1 Refills, Maintenance, 12/27/21 9:34:00 EDT, [facility] # [facility], 163.5, cm, 12/27/21 9:29:00 EDT, Height Start Date: 12/27/21 Status: Ordered duloxetine 60 mg oral enteric coated capsule 1 capsule, By Mouth, 2 times a day, # 60 capsule, 5 Refills, [facility] # [facility], 163.5, cm, 08/21/21 [...] 1 each, 6 Refills, 09/21/21 16:29:00 EDT, [facility] # [facility], 163.5, cm, 08/21/21 13:35:00 EDT, Height Start Date: 09/21/21 Status: Ordered gabapentin 600 mg oral tablet 1 tablet, By Mouth, 3 times a day, office visit needed for further refills, # 270 tablet, 1 Refills, Maintenance, 11/13/21 13:31:00 EDT, [facility] # [facility], 163.5, cm, 08/21/21 13:35:00 EDT, Height Start Date: 11/13/21 Status: Ordered lidocaine-prilocaine 2.5%-2.5% topical cream 1 application, Topically, Once, # 30 Gm, 3 Refills, Soft Stop, 04/21/21 12:20:00 EST, Cream, [facility] # 50, Partial fill upon patient request, 1 application Topically Once, 163.5, cm, 04/21/21 11:51:00 EST, Height, 91, kg, 07/23/19 11:11:00 EDT,... Start Date: 04/21/21 Status: Ordered lubiprostone 24 mcg oral capsule 1 capsule, By Mouth, 2 times a day, # 60 capsule, 5 Refills, 04/21/21 12:25:00 EST, [facility] # [facility], 163.5, cm, 04/21/21 [...] 10/25/21 16:41:00 EDT, Route to Pharmacy Electronically, [facility] # [facility], 163.5, cm, 08/21/21 13:35:00 EDT, Height Start Date: 10/25/21 Status: Ordered Myrbetriq 50 mg oral tablet, extended release 1 tablet = 50 mg, By Mouth, Daily, # 90 tablet, 3 Refills, Maintenance, 09/08/21 9:40:00 EDT, [facility] # 50, 163.5, cm, 08/21/21 13:35:00 EDT, Height Start Date: 09/08/21 Status: Ordered ohm Allergy Relief 10 mg oral tablet See Instructions, TAKE 1 TABLET BY MOUTH EVERY DAY, # 90 tablet, 1 Refills, Maintenance, 10/01/21 2:49:00 EDT, [facility] # [facility], 163.5, cm, 08/21/21 13:35:00 EDT, Height Start Date: 10/01/21 Status: Ordered traZODone 50 mg oral tablet 2, tablet, By Mouth, Daily at bedtime, # 60 tablet, Refills 2, Tot. Refills 2, 10/18/21 19:18:00 EDT, Route to Pharmacy Electronically, [facility] # [facility], 163.5, cm, 08/21/21 [...] Care team information Care Team Personnel Name: Susan AVENDANO, Orlando Quintanilla Position: [facility] Primary Care Physician Member Role: PCP Address: Address: [address] [place] [id number]- [place] Name: Eleazar Rendon NP Position: [facility] PCO w/OE and EZ Script Member Role: Primary Care Nurse Address: Address: [address] [place] [address] [address] [facility] [place] [place] [address]- Care Team Related Persons Name: FAVIAN LEWIS Address: home [address] [place] [address]
--- OUTSIDE RECORDS SUMMARY | 2022-11-04 01:37 | XMS_ITS | Continuity of Care Document ---
Author Name Unknown Organization [facility] Address [address] [place] [address]- Care Team Providers Care Director Of Sustainability Programs Name Role Phone Deshawn BERNAL, Laurita Primary Care Physician [phone] Encounter [facility] [place] Date(s): 03/21/20 - 04/20/20 [facility] Adult [address] [place] [address]- Allergies, Adverse Reactions, Alerts Substance Reaction Severity [...] 02/09/19 13:37:40 EST, Route to Pharmacy Electronically, [id number]... Start Date: 02/09/19 Status: Ordered buPROPion 150 mg/24 hours (XL) oral tablet, extended release 1 tablet = 150 mg, By Mouth, Every 24 hours, # 30 tablet, 5 Refills, Maintenance, 04/20/20 8:24:00 EST, ER Tablet, [facility] # [facility], Partial fill upon [...] 3 Refills, Maintenance, 09/30/19 10:56:00 EDT, Inhaler, [facility] # [facility], 163.5, cm, 09/30/19 9:33:00 EDT, Height, 91, kg, 07/23/19 11:11:00 EDT, Dry Weight Start Date: 09/30/19 Status: Ordered FLUoxetine 40 mg oral capsule 1 capsule = 40 mg, By Mouth, Every 48 hours, # 30 capsule, 3 Refills, Maintenance, 04/19/20 8:46:00EST, Capsule, [facility] # [facility], Partial fill upon patient request if the prescription is for a schedule II opioid drug., 163.5, cm, 04/08/20 8:37:00... Start Date: 04/19/20 Status: Ordered gabapentin 600 mg oral tablet 1 tablet, By Mouth, 3 times a day, # 270 tablet, 1 Refills, Maintenance, 11/19/19 8:38:00 EDT, [facility], 163.5, cm, 11/03/19 11:52:00 EDT, Height, 91, kg, 07/23/19 11:11:00 EDT, Dry Weight Start Date: 11/19/19 Status: Ordered lactulose 10 gm/15 ml oral syrup 15 mL = 10 Gm, By Mouth, Daily, This is correct dose., # 450 mL, 5 Refills, Maintenance, 06/25/19 9:18:00 EDT, Syrup, [facility] # [facility], 15 mL By Mouth Daily,Instr:This is correct dose., 163.5, cm,06/03/19 11:17:00 EDT, Height Start Date: 06/25/19 Status: Ordered lidocaine-prilocaine 2.5%-2.5% topical cream 1 application, Topically, Once, # 30 Gm, 1 Refills, Soft Stop, 03/08/20 8:14:00 EST, Cream, [facility] # [facility], Partial fill upon patient request, 1 application Topically Once, 163.5, cm, 01/11/20 14:45:00 EST, Height, 91, kg, 07/23/19 11:11:00 EDT,... Start Date: 03/08/20 Status: Ordered loratadine 10 mg oral tablet 10 mg, 1, tablet, By Mouth, Daily, # 90 tablet, Refills 3, Tot. Refills 3, Maintenance, 10/27/19 18:22:00 EDT, Route to Pharmacy Electronically, [facility] # [facility], Rx resent from 09/30/19., [...] 12:44:00 EST, Route to Pharmacy Electronically, [facility], Refills per PCP, [...] tablet, 0 Refills, Maintenance, 11/03/19 16:09:00 EDT, [facility] # [facility], 163.5, cm, 11/03/19 11:52:00 EDT, Height, 91, kg, 07/23/19 11:11:00 EDT, Dry Weight Start Date: 11/03/19 Status: Ordered traZODone 50 mg oral tablet 50 mg, 1, tablet, By Mouth, Daily at bedtime, # 30 tablet, Refills 5, Tot. Refills 5, Maintenance, 12/04/19 12:51:00 EDT, Route to Pharmacy Electronically, [facility], 163.5, cm, 11/03/19 [...]
--- OUTSIDE RECORDS SUMMARY | 2022-11-04 01:38 | XMS_ITS | Continuity of Care Document ---
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 [place] 09[place]/20 [facility] [address] [place] [id number] Allergies, Adverse Reactions, Alerts Substance Reaction Severity [...] 02/09/19 13:37:40 EST, Route to Pharmacy Electronically, [id number]... Start Date: 02/09/19 Status: Ordered azelastine 137 mcg/inh (0.1%) nasal spray 2 sprays, Nares, Both, Daily, PRN Other Allergies, # 30 mL, 6 Refills, Maintenance, 08/18/20 15:01:00 EDT, [place], [facility], 2 sprays Nares, Both Daily,PRN:Other Allergies, 163.5, cm, 08/18/20 14:46:00 EDT, Height, 91, kg, 07/23/19 11:11... Start Date: 08/18/20 Status: Ordered buPROPion 300 mg/24 hours (XL) oral tablet, extended release 1 tablet = 300 mg, By Mouth, Daily, # 30 tablet, 11 Refills, Maintenance, 05/11/20 13:04:00 EDT, ERTablet, [facility], Partial fill [...] 3 Refills, Maintenance, 08/18/20 15:02:00 EDT, Inhaler, [facility] # [facility], 163.5, cm, 08/18/20 14:46:00 EDT, Height,... Start Date: 08/18/20 Status: Ordered gabapentin 600 mg oral tablet 1 tablet, By Mouth, 3 times a day, # 270 Unknown, 1 Refills, Maintenance, 05/24/20 16:58:00 EDT, [facility] # [facility], 163.5, cm, 05/14/20 23:20:00 EDT, Height, 91, kg, 07/23/19 11:11:00 EDT, Dry Weight Start Date: 05/24/20 Status: Ordered lidocaine-prilocaine 2.5%-2.5% topical cream 1 application, Topically, Once, # 30 Gm, 1 Refills, Soft Stop, 03/08/20 8:14:00 EST, Cream, [facility] # [facility], Partial fill upon patient [...] day, # 60 capsule, 0 Refills, Maintenance, 09/23/20 11:53:00 EDT, [facility] # [facility], 163.5, cm, 09/09/20 12:42:00 EDT, Height, 91, kg, 07/23/19 11:11:00 EDT, Dry Weight Start Date: 09/23/20 Status: Ordered lysine 1000 mg oral tablet [...] tablet, 11 Refills, Maintenance, 08/11/20 16:47:00 EDT, [facility] # [facility], 163.5, cm, 08/11/20 10:34:00 EDT, Height, 91, kg, 07/23/19 11:11:00 EDT, Dry Weight Start Date: 08/11/20 Status: Ordered traZODone 50 mg oral tablet 2, tablet, By Mouth, Daily at bedtime, # 60 tablet, Refills 5, Tot. Refills 0, Maintenance, 07/28/20 15:52:00 EDT, Route to Pharmacy Electronically, [facility], 163.5, cm, 06/16/20 [...]
--- OUTSIDE RECORDS SUMMARY | 2022-11-04 01:38 | XMS_ITS | Continuity of Care Document ---
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 Start Date: [...] Maintenance, 04/23/22 11:16:00 EST, Tablet, [facility] # [facility], Partial fill upon patient request if the pr... Start Date: 04/23/22 Status: Ordered azelastine 137 mcg/inh (0.1%) nasal spray 2 sprays, Nares, Both, Daily, PRN Other Allergies, # 30 mL, 6 Refills, Maintenance, 10/05/21 13:14:00 EDT, [place], [facility] # [facility], 2 sprays Nares, Both Daily,PRN:Other Allergies, 163.5, cm, 08/21/21 13:35:00 EDT, Height Start Date: 10/05/21 Status: Ordered buPROPion 300 mg/24 hours (XL) oral tablet, extended release 1 tablet = 300 mg, By Mouth, Daily, # 30 tablet, 5 Refills, Maintenance, 12/26/21 11:19:00 EDT, ER Tablet, [facility] # [facility], Partial fill upon patient request if the prescription is for a scheduleII opioid drug., 163.5, cm, 08/21/21 13:35:00 EDT,... Start Date: 12/26/21 Status: Ordered diazepam 5 mg oral tablet 5 mg, 1, tablet, By Mouth, Every 8 hours, PRN, # 45 tablet, Refills 0, Tot. Refills 0, Maintenance,Spasm, 05/23/22 16:04:00 EDT, Route to Pharmacy Electronically, [facility] # [facility], Partial fill upon patient request if the prescription is for a lebron... Start Date: 05/23/22 Status: Ordered duloxetine 60 mg oral enteric coated capsule 1 capsule, By Mouth, 2 times a day, # 60 capsule, 5 Refills, 04/09/22 16:24:00 EST, [facility] # [facility], 163.5, cm, 03/09/22 [...] 3 Refills, Maintenance, 09/08/21 9:40:00 EDT, [facility] # [facility], 163.5, cm, 08/21/21 [...] 05/21/22 18:31:00 EDT, Route to Pharmacy Electronically, [facility] 3,Partial fill upon patient request if the prescripti... Start Date: 05/21/22 Status: Ordered tiZANidine 4 mg oral tablet 4 mg, 1, tablet, By Mouth, 3 times a day, PRN, # 90 tablet, Refills 0, Tot. Refills 0, Maintenance,Spasm, 05/21/22 18:31:00 EDT, Route to Pharmacy Electronically, [facility], Partial fill upon patient [...] Team Personnel Name: Eleazar Rendon NP Position: [facility] PCO w/OE and EZ Script Member Role: Primary Care Nurse Address: Address: [address] [place] [address] Clinical Group - [address] Name: Rafiq Arteaga Position: [facility] PCO Associate Professional Member Role: PCP Address: Address: [address] [facility] [place] [address]- Care Team Related Persons Name: LEWIS BALLESTEROS Address: [address] [address] Name: RUSTY HOOVER
--- OUTSIDE RECORDS SUMMARY | 2022-11-04 01:38 | XMS_ITS | Continuity of Care Document ---
Author Name Unknown Organization [facility] Address [address] [place] [address]- Care Team Providers Care Internal Medicine Nurse Name Role Phone Susan AVENDANO, Orlando Quintanilla Primary Care Physician [place] [facility] [place]): [place]03/21 - 08/10/21 [facility] Adult [address] [place] [address]- Encounter Diagnosis Anxiety(Discharge Diagnosis) - 08/03/21 Attending Physician: Deshawn BERNAL, Laurita Allergies, Adverse Reactions, Alerts Substance Reaction Severity [...] 01/16/21 11:47:00 EST, Route to Pharmacy Electronically, [id number]... Start Date: 01/16/21 Status: Ordered Ativan 0.5 [...] mL, 6 Refills, Maintenance, 08/18/20 15:01:00 EDT, [place], [facility], 2 sprays [...] EDT, EC Tablet, [facility], Partial fill upon patient request if the prescription is for a schedule II opioid drug., 163.5, cm, 04/21/21 11:51:0... Start Date: 05/26/21 Status: Ordered duloxetine 60 mg oral enteric coated capsule 1 capsule = 60 mg, By Mouth, 2 times a day, # 60 capsule, 5 Refills, Maintenance, 02/10/21 14:24:00EST, EC Capsule, [facility], [...] 1 Refills, Maintenance, [facility], 163.5, cm, 09/09/20 12:42:00 EDT, Height, 91, kg, 07/23/19 11:11:00 EDT, Dry Weight Start Date: 10/06/20 Status: Ordered gabapentin 600 mg oral tablet 1 tablet, By Mouth, 3 times a day, # 270 tablet, 1 Refills, [facility], 163.5, cm, 04/21/21 11:51:00 EST, Height, 91, kg, 07/23/19 11:11:00 EDT, Dry Weight Start Date: 05/11/21 Status: Ordered lidocaine-prilocaine 2.5%-2.5% topical cream 1 application, Topically, Once, # 30 Gm, 3 Refills, Soft Stop, 04/21/21 12:20:00 EST, Cream, [email or web address] # [facility], Partial fill upon patient request, 1 application Topically Once, 163.5, cm, 04/21/21 11:51:00 EST, Height, 91, kg, 07/23/19 11:11:00 EDT,... Start Date: 04/21/21 Status: Ordered loratadine 10 mg oral tablet See Instructions, TAKE ONE TABLET BY MOUTH EVERY DAY, # 90 tablet, Refills 1, Tot. Refills 1, Maintenance, 03/15/21 11:49:00 EST, Instructions Replace Required Details, Route to Pharmacy Electronically, [email or web address] # [facility], 163.5, cm, 12/12/20 16:09:0... Start Date: 03/15/21 Status: Ordered lubiprostone 24 mcg oral capsule 1 capsule, By Mouth, 2 times a day, # 60 capsule, 5 Refills, 04/21/21 12:25:00 EST, [email or web address] # [facility], 163.5, cm, 04/21/21 11:51:00 [...] 03/07/21 14:45:00 EST, Route to Pharmacy Electronically, [email or web address] # [facility], 163.5, cm, 12/12/20 16:09:00 EDT, Height, 91, kg, 07/23/19 11:11:00 EDT, Dry... Start Date: 03/07/21 Status: Ordered Myrbetriq 50 mg oral tablet, extended release 1 tablet = 50 mg, By Mouth, Daily, # 90 tablet, 3 Refills, Maintenance, 03/16/21 10:21:00 EST, [facility] # [facility], 163.5, cm, 12/12/20 16:09:00 EDT, Height, 91, kg, 07/23/19 11:11:00 EDT, Dry Weight Start Date: 03/16/21 Status: Ordered traZODone 50 mg oral tablet 2, tablet, By Mouth, Daily at bedtime, # 60 tablet, Refills 5, Route to Pharmacy Electronically, [facility], 163.5, cm, 12/12/20 [...] Dates Health Status Clini alice Service Informant Anxiety Discharge Diagnosis 08/03/21 Vital Signs Most recent to oldest [Reference Range]: 1 Height 163.5 cm (08/03/21 8:52 AM) Social History Social History Type Response Smoking Status Never (less than 100 in lifetime) entered on: 11/21/18 Sex
--- OUTSIDE RECORDS SUMMARY | 2022-11-04 01:38 | XMS_ITS | Continuity of Care Document ---
Author Name Unknown Organization [facility] Kayode lt Address [address] [place] [address]- Care Team Providers Care Inventory Specialist Name Role Phone Tyler Palacios MD Primary Care Physician En[place] [facility] [place] Date(s): 10/27/19 - 11/26/19 [facility] [address] [place] [id number]- [facility] Allergies, Adverse Reactions, Alerts Substance Reaction Severity [...] 02/09/19 13:37:40 EST, Route to Pharmacy Electronically, [id number]... Start Date: 02/09/19 Status: Ordered Cranberry oral tablet 0 Refills, Maintenance, 10/23/18 9:18:41 EDT Start Date: 10/23/18 Status: Ordered diclofenac sodium 25 mg oral delayed release tablet 1 tablet = 25 mg, By Mouth, 2 times a day, # 60 tablet, 1 Refills, Maintenance, 07/23/19 10:48:00 EDT, EC Tablet, [facility], 163.5, cm, 06/03/19 [...] 09/04/19 15:20:00 EDT, Route to Pharmacy Electronically, [facility], 163.5, cm, 07/23/19 11:11:00 EDT, Height, 91, kg, 07/23/19 11:11:00 EDT, Dry Weight Start Date: 09/04/19 Status: Ordered gabapentin 600 mg oral tablet 1 tablet, By Mouth, 3 times a day, # 270 tablet, 1 Refills, Maintenance, 11/19/19 8:38:00 EDT, [facility], 163.5, cm, 11/03/19 11:52:00 EDT, Height, 91, kg, 07/23/19 11:11:00 EDT, Dry Weight Start Date: 11/19/19 Status: Ordered lactulose 10 gm/15 ml oral syrup 15 mL = 10 Gm, By Mouth, Daily, This is correct dose., # 450 mL, 5 Refills, Maintenance, 06/25/19 9:18:00 EDT, Syrup, [facility], 15 mL By Mouth Daily,Instr:This is correct dose., 163.5, cm,06/03/19 11:17:00 EDT, Height Start Date: 06/25/19 Status: Ordered loratadine 10 mg oral tablet 10 mg, 1, tablet, By Mouth, Daily, # 90 tablet, Refills 3, Tot. Refills 3, Maintenance, 10/27/19 18:22:00 EDT, Route to Pharmacy Electronically, [facility], Rx resent from [...] 06/17/19 13:09:00 EDT, Route to Pharmacy Electronically, [facility], Refills per PCP, 163.5, cm, 06/03/19 11:17:00 EDT, Height Start Date: 06/17/19 Status: Ordered Myrbetriq 50 mg oral tablet, extended release 1 tablet = 50 mg, By Mouth, Daily, # 30 tablet, 11 Refills, Maintenance, 07/23/19 11:40:00 EDT, [facility] # [facility], 163.5, cm, 07/23/19 11:11:00 [...] Maintenance,06/01/19 14:37:00 EDT, Route to Pharmacy Electronically, [facility], 163.5, cm, 03/27/19 [...]
--- OUTSIDE RECORDS SUMMARY | 2022-11-04 01:38 | XMS_ITS | Continuity of Care Document ---
Author Name Unknown Organization [facility] Address [address] [place] [address]- Care Team Providers Care Special Effects Artist Name Role Phone Tyler Palacios MD Primary Care Physician [place] [facility] [place] 10/05/19 - 11/04/[address] [address]- [facility] Attending Physician: Admtr, Ar8 Admitting Physician: Admtr, [...] 02/09/19 13:37:40 EST, Route to Pharmacy Electronically, [id number]... Start Date: 02/09/19 Status: Ordered Cranberry oral tablet 0 Refills, Maintenance, 10/23/18 9:18:41 EDT Start Date: 10/23/18 Status: Ordered diclofenac sodium 25 mg oral delayed release tablet 1 tablet = 25 mg, By Mouth, 2 times a day, # 60 tablet, 1 Refills, Maintenance, 07/23/19 10:48:00 EDT, EC Tablet, [facility], 163.5, cm, 06/03/19 11:17:00 [...] 3 Refills, Maintenance, 09/30/19 10:56:00 EDT, Inhaler, [facility] # [facility], 163.5, cm, 09/30/19 9:33:00 EDT, Height, 91, kg, 07/23/19 11:11:00 EDT, Dry Weight Start Date: 09/30/19 Status: Ordered FLUoxetine 20 mg oral capsule 3, capsule, By Mouth, Daily, # 270 Unknown, Refills 1, Tot. Refills 0, Maintenance, 09/04/19 15:20:00 EDT, Route to Pharmacy Electronically, [facility], 163.5, cm, 07/23/19 11:11:00 EDT, Height, 91, kg, 07/23/19 11:11:00 EDT, Dry Weight Start Date: 09/04/19 Status: Ordered gabapentin 600 mg oral tablet 1 tablet, By Mouth, 3 times a day, # 90 Unknown, 5 Refills, Maintenance, 05/25/19 16:16:00 EDT, [facility] # [facility], 163.5, cm, 03/27/19 10:49:00 EST, Height Start Date: 05/25/19 Status: Ordered lactulose 10 gm/15 ml oral syrup 15 mL = 10 Gm, By Mouth, Daily, This is correct dose., # 450 mL, 5 Refills, Maintenance, 06/25/19 9:18:00 EDT, Syrup, [facility] # [facility], 15 mL By Mouth Daily,Instr:This is correct dose., 163.5, cm,06/03/19 11:17:00 EDT, Height Start Date: 06/25/19 Status: Ordered loratadine 10 mg oral tablet 10 mg, 1, tablet, By Mouth, Daily, # 90 tablet, Refills 3, Tot. Refills 3, Maintenance, 10/27/19 18:22:00 EDT, Route to Pharmacy Electronically, [facility], Rx resent from 09/30/19., [...] 06/17/19 13:09:00 EDT, Route to Pharmacy Electronically, [facility], Refills per PCP, 163.5, cm, 06/03/19 11:17:00 EDT, Height Start Date: 06/17/19 Status: Ordered Myrbetriq 50 mg oral tablet, extended release 1 tablet = 50 mg, By Mouth, Daily, # 30 tablet, 11 Refills, Maintenance, 07/23/19 11:40:00 EDT, [facility] # [facility], 163.5, cm, 07/23/19 11:11:00 EDT, Height, 91, kg, 07/23/19 11:11:00 EDT, Dry Weight Start Date: 07/23/19 Status: Ordered traMADol 50 mg oral tablet 1 tablet = 50 mg, By Mouth, Every 12 hours, # 42 tablet, 0 Refills, Maintenance, 11/03/19 16:09:00 EDT, [facility] # [facility], 163.5, cm, 11/03/19 11:52:00 EDT, Height, 91, kg, 07/23/19 11:11:00 EDT, Dry Weight Start Date: 11/03/19 Status: Ordered traZODone 50 mg oral tablet 100 mg, 2, tablet, By Mouth, Daily at bedtime, # 60 tablet, Refills 5, Tot. Refills 5, Maintenance,06/01/19 14:37:00 EDT, Route to Pharmacy Electronically, [facility], 163.5, cm, 03/27/19 10:49:00 [...]
--- OUTSIDE RECORDS SUMMARY | 2022-11-04 01:38 | XMS_ITS | Continuity of Care Document ---
Author Name Unknown Organization [facility] Kyaode lt Address [address] [place] [address]- Care Team Providers Care Forex Trader Name Role Phone Rafiq Arteaga Primary Care Physi kateryna [place] [facility] [place] 05/[place]/22 [facility] Adult [address] [place] [address]- Allergies, Adverse Reactions, Alerts Substance Reaction Severity Status Cats Active Dust Active Pollen Active Immunizations Given and Recorded Vaccine Date Status Refusal Reason SARS-CoV-2 (COVID-19) mRNA-1273 vaccine 07/27/21 R ecorded SARS-CoV-2 (COVID-19) mRNA BNT-162b2 vac 01/25/21 Recorded influenza virus vaccine, inactivated 01/02/21 Eyda rded influenza virus vaccine, inactivated 11/21/18 Give [...] 14:38:00 EST, [place], Route to Pharmacy Electronically, [id number], [facility], I... Start Date: 04/23/22 [...] 0 Refills, Maintenance, 04/23/22 11:16:00 EST, Tablet, [facility], Partial fill upon patient request if the pr... Start Date: 04/23/22 Status: Ordered azelastine 137 mcg/inh (0.1%) nasal spray 2 sprays, Nares, Both, Daily, PRN Other Allergies, # 30 mL, 6 Refills, Maintenance, 10/05/21 13:14:00 EDT, [place], [facility], 2 sprays Nares, Both Daily,PRN:Other Allergies, 163.5, cm, 08/21/21 13:35:00 EDT, Height Start Date: 10/05/21 Status: Ordered buPROPion 300 mg/24 hours (XL) oral tablet, extended release 1 tablet = 300 mg, By Mouth, Daily, # 30 tablet, 5 Refills, Maintenance, 12/26/21 11:19:00 EDT, ER Tablet, [facility] # [facility], Partial fill upon patient [...] tablet, 1 Refills, Maintenance, 03/05/22 13:21:00 EST, [facility], 163.5, cm, 03/05/22 12:50:00 EST, Height Start Date: 03/05/22 Status: Ordered lidocaine-prilocaine 2.5%-2.5% topical cream 1 application, Topically, Once, # 30 Gm, 0 Refills, Soft Stop, 04/23/22 11:23:00 EST, Cream, [facility], Partial fill upon [...] tablet, 3 Refills, Maintenance, 09/08/21 9:40:00 EDT, [facility] # 50, 163.5, cm, 08/21/21 13:35:00 EDT, Height Start Date: 09/08/21 Status: Ordered ohm Allergy Relief 10 mg oral tablet See Instructions, TAKE 1 TABLET BY MOUTH EVERY DAY, # 90 tablet, 1 Refills, Maintenance, 03/05/22 13:16:00 EST, [facility] [...] Team Personnel Name: Eleazar Rendon NP Position: [facility] PCO w/OE and EZ Script Member Role: Primary Care Nurse Address: Address: [address] [place] [address] [place] [address]- Name: Rafiq Arteaga Position: [facility] PCO Associate Professional Member Role: PCP Address: Address: [address] [place] [address] [place] [address]- Care Team Related Persons Name: LEWIS BALLESTEROS Address: home [address] [place] [id number] Name: RUSTY HOOVER
--- OUTSIDE RECORDS SUMMARY | 2022-11-04 01:38 | XMS_ITS | Continuity of Care Document ---
Author Name Unknown Organization [facility] Address [address] [place] [address]- Care Team Providers Care Plant Operator/Shift Supervisor Name Role Phone Susan AVENDANO, Orlando Quintanilla Primary Care Physician Encounter [facility] Date(s): 11/28/21 - 12/28/[address] [address]- Allergies, Adverse Reactions, Alerts Substance Reaction Severity [...] 01/16/21 11:47:00 EST, Route to Pharmacy Electronically, [id number]... Start Date: 01/16/21 Status: Ordered Ativan 0.5 mg oral tablet See Instructions, PRN as needed for anxiety, Take 1 tablet as needed for anxiety, do not take more than 2 tablets/day, # 14 tablet, 0 Refills, Maintenance, 08/03/21 9:13:00 EDT, Tablet, [facility], Partial fill upon patient request if the pre... Start Date: 08/03/21 Status: Ordered azelastine 137 mcg/inh (0.1%) nasal spray 2 sprays, Nares, Both, Daily, PRN Other Allergies, j45.40, # 1 each, 6 Refills, Maintenance, 10/23/21 14:26:00 EDT, [place], [facility], 2 sprays Nares, Both Daily,PRN:Other Allergies,Instr:j45.40, 163.5, cm, 08/21/21 13:35:00 EDT, Height Start Date: 10/23/21 Status: Ordered azelastine 137 mcg/inh (0.1%) nasal spray 2 sprays, Nares, Both, Daily, PRN Other Allergies, # 30 mL, 6 Refills, Maintenance, 10/05/21 13:14:00 EDT, [place], [facility], 2 sprays Nares, Both Daily,PRN:Other Allergies, 163.5, cm, 08/21/21 13:35:00 EDT, Height Start Date: 10/05/21 Status: Ordered buPROPion 300 mg/24 hours (XL) oral tablet, extended release 1 tablet = 300 mg, By Mouth, Daily, # 30 tablet, 5 Refills, Maintenance, 12/26/21 11:19:00 EDT, ER Tablet, [facility], Partial fill upon [...] 1 Refills, 12/26/21 11:19:00 EDT, [facility] # [facility], 163.5, cm, 08/21/21 13:35:00 EDT, Height Start Date: 12/26/21 Status: Ordered diclofenac sodium 75 mg oral delayed release tablet See Instructions, TAKE ONE TABLET BY MOUTH TWICE A DAY, # 60 tablet, 1 Refills, Maintenance, 12/27/21 9:34:00 EDT, [facility] # [facility], 163.5, cm, 12/27/21 9:29:00 EDT, Height Start Date: 12/27/21 Status: Ordered duloxetine 60 mg oral enteric coated capsule 1 capsule, By Mouth, 2 times a day, # 60 capsule, 5 Refills, [facility] [...] 6 Refills, 09/21/21 16:29:00 EDT, [facility] # [facility], 163.5, cm, 08/21/21 13:35:00 EDT, Height Start Date: 09/21/21 Status: Ordered gabapentin 600 mg oral tablet 1 tablet, By Mouth, 3 times a day, office visit needed for further refills, # 270 tablet, 1 Refills, Maintenance, 11/13/21 13:31:00 EDT, [facility] # [facility], 163.5, cm, 08/21/21 13:35:00 EDT, Height Start Date: 11/13/21 Status: Ordered lidocaine-prilocaine 2.5%-2.5% topical cream 1 application, Topically, Once, # 30 Gm, 3 Refills, Soft Stop, 04/21/21 12:20:00 EST, Cream, [facility] # [facility], Partial fill upon patient request, 1 application Topically Once, 163.5, cm, 04/21/21 11:51:00 EST, Height, 91, kg, 07/23/19 11:11:00 EDT,... Start Date: 04/21/21 Status: Ordered lubiprostone 24 mcg oral capsule 1 capsule, By Mouth, 2 times a day, # 60 capsule, 5 Refills, 04/21/21 12:25:00 EST, [facility] [...] 09/08/21 9:40:00 EDT[facility], 163.5, cm, 08/21/21 13:35:00 EDT, Height Start Date: 09/08/21 Status: Ordered ohm Allergy Relief 10 mg oral tablet See Instructions, TAKE 1 TABLET BY MOUTH EVERY DAY, # 90 tablet, 1 Refills, Maintenance, 10/01/21 2:49:00 EDT, [facility] [...] Name: Susan AVENDANO, Orlando Quintanilla Address: Address: [address] [place] [id number] [place]
--- OUTSIDE RECORDS SUMMARY | 2022-11-04 01:38 | XMS_ITS | Continuity of Care Document ---
Author Name Unknown Organization [facility] Kayode lt Address [address] [place] [address]- Care Team Providers Care Cob Sawyer Name Role Phone Orlando Davis MD Primary Care Physician [place] [facility] [place](s): 08/21/21 - 08/28/21 [facility] Adult [address] [place] [address]- Encounter Diagnosis Asthma(Discharge Diagnosis) - 08/17/21 Constipation, chronic(Discharge Diagnosis) - 08/17/21 Major depression in full remission(Discharge Diagnosis) - 08/17/21 MONICA (obstructive sleep apnea) AHI 9.2(Discharge Diagnosis) - 08/17/21 Osteopenia bmd 2020(Discharge Diagnosis) - 08/17/21 Peripheral neuropathy(Discharge Diagnosis) - 08/21/21 Obese class II(Discharge Diagnosis) - 08/21/21 Lumbosacral radiculopathy at L5(Discharge Diagnosis) - 08/21/21 Attending Physician: Orlando Davis MD Allergies, Adverse [...] 01/16/21 11:47:00 EST, Route to Pharmacy Electronically, [id number]... Start Date: 01/16/21 Status: Ordered Ativan 0.5 mg oral tablet See Instructions, PRN as needed for anxiety, Take 1 tablet as needed for anxiety, do not take more than 2 tablets/day, # 14 tablet, 0 Refills, Maintenance, 08/03/21 9:13:00 EDT, Tablet, [facility], Partial fill upon patient request if the pre... Start Date: 08/03/21 Status: Ordered azelastine 137 mcg/inh (0.1%) nasal spray 2 sprays, Nares, Both, Daily, PRN Other Allergies, # 30 mL, 6 Refills, Maintenance, 08/18/20 15:01:00 EDT, [place], [facility], 2 sprays [...] 5 Refills, Maintenance, 02/10/21 14:24:00EST, EC Capsule, [facility] # [facility], Partial fill upon [...] # 270 tablet, 1 Refills, [facility] [...] Details, Route to Pharmacy Electronically, [facility] 03/07/21 14:45:00 EST, Route to Pharmacy Electronically, [facility] # [facility], 163.5, cm, 12/12/20 16:09:00 EDT, Height, 91, kg, 07/23/19 11:11:00 EDT, Dry... Start Date: 03/07/21 Status: Ordered Myrbetriq 50 mg oral tablet, extended release 1 tablet = 50 mg, By Mouth, Daily, # 90 tablet, 3 Refills, Maintenance, 03/16/21 10:21:00 EST, [facility] # [facility], 163.5, cm, 12/12/20 16:09:00 EDT, Height, 91, kg, 07/23/19 11:11:00 EDT, Dry Weight Start Date: 03/16/21 Status: Ordered traZODone 50 mg oral tablet 2, tablet, By Mouth, Daily at bedtime, # 60 tablet, Refills 5, [facility] to Pharm[facility] Electronically, [facility] Status Clinical Service Informant Asthma Discharge Diagnosis 08/17/21 Constipation, chronic Discharge Diagnosis 08/17/21 Major depression in full remission Discharge Diagnosis 08/17/21 MONICA (obstructive sleep apnea) AHI 9.2 Discharge Diagnosis 08/17/21 Osteopenia bmd 2020 Discharge Diagnosis 08/17/21 Peripheral neuropathy Discharge Diagnosis 08/21/21 Obese class II Discharge Diagnosis 08/21/21 Lumbosacral radiculopathy at L5 Discharge Diagnosis 08/21/21 Vital Signs Most recent to oldest [Reference Range]: 1 Height 163.5 cm (08/21/21 1:35 PM) Weight 103.5 kg (08/21/21 1:35 PM) Oxygen Saturation [94-100 %] 97 % (08/21/21 1:35 PM) Pulse Rate [55-90 bpm] 99 bpm *H* (08/21/21 1:35 PM) Body Mass Index [18.5-24.99] 38.72 *>HHI* (08/21/21 1:35 PM) Blood Pressure [90-138/55-84 mm Hg] 132/ 71mm Hg (08/21/21 1:35 PM) Respiratory Rate [16-30 br/min] 16 br/mi n (08/21/21 1:35 PM) Temperature [96.8-100.4 DegF] 98.3 DegF (08/21/21 1:35 PM) Mode of Delivery (Oxygen) Room air (08/21/21 1:35 PM) Blood pressure sites Arm, left (08/21/21 1:35 PM) Temperature Route Oral (08/21/21 1:35 PM) Weight Obtained Via Standing scale (08/21/21 1:35 PM) Social History Social History Type Response Smoking Status Never (less than 100 in lifetime) entered on: 11/21/18 Sex
--- OUTSIDE RECORDS SUMMARY | 2022-11-04 01:38 | XMS_ITS | Continuity of Care Document ---
Author Name Unknown Organization [facility] Address [address] [place] [address]- Care Team Providers Care Guest Services Name Role Phone Tyler Palacios MD Primary Care Physician Encounter [facility] [place] Date(s): 10/13/19 - 11/12/19 [facility] [address] [place] [address]- [facility] Attending Physician: Ene Ramos Admitting Physician: AdmtrEne Referring Physician: Admtr, ArMavis Allergies, Adverse Reactions, Alerts Substance Reaction Severity [...] 02/09/19 13:37:40 EST, Route to Pharmacy Electronically, [id number]... Start Date: 02/09/19 Status: Ordered Cranberry oral [...] Unknown, 5 Refills, Maintenance, 05/25/19 16:16:00 EDT, [facility] # [facility], 163.5, cm, 03/27/19 10:49:00 EST, Height Start Date: 3/30/20 Status: Ordered lactulose 10 gm/15 ml oral [...] tablet, 0 Refills, Maintenance, 11/03/19 16:09:00 EDT, [facility] # [facility], 163.5, cm, 11/03/19 11:52:00 [...]
--- OUTSIDE RECORDS SUMMARY | 2022-11-04 01:38 | XMS_ITS | Continuity of Care Document ---
Author Name Unknown Organization [facility] Address [address] [place] [address]- Care Team Providers Care Health Facilities Surveyor Name Role Phone Rafiq Arteaga Primary Care Physi kateryna Encounter [facility] [place] Date(s): 03/09/22 - 04/08/22 [facility] [address] [place] [address] Attending Physician: AdmEne boles [...] 14:25:00 EST, Powder, Route to Pharmacy Electronically, [id number], [facility] # [facility], 1... Start Date: 03/05/22 Status: Ordered Advair Diskus 250 mcg-50 mcg inhalation powder 1, inhalation, Inhalation, 2 times a day, rinse mouth and throat after use, # 1 each, Refills 0, Tot. Refills 0, Maintenance, 03/09/22 13:31:00 EST, Powder, Route to Pharmacy Electronically, [id number], [facility] # [facility], I... Start Date: 03/09/22 [...] 01/16/21 11:47:00 EST, Route to Pharmacy Electronically, [id number]... Start Date: 01/16/21 Status: Ordered Ativan 0.5 mg oral tablet See Instructions, PRN as needed for anxiety, Take 1 tablet as needed for anxiety, do not take more than 2 tablets/day, # 14 tablet, 0 Refills, Maintenance, 08/03/21 9:13:00 EDT, Tablet, [facility] # 50, Partial fill upon patient request if the pre... Start Date: 08/03/21 Status: Ordered azelastine 137 mcg/inh (0.1%) nasal spray 2 sprays, Nares, Both, Daily, PRN Other Allergies, # 30 mL, 6 Refills, Maintenance, 10/05/21 13:14:00 EDT, [place], [facility], 2 sprays Nares, Both Daily,PRN:Other Allergies, 163.5, cm, 08/21/21 13:35:00 EDT, Height Start Date: 10/05/21 Status: Ordered buPROPion 300 mg/24 hours (XL) oral tablet, extended release 1 tablet = 300 mg, By Mouth, Daily, # 30 tablet, 5 Refills, Maintenance, 12/26/21 11:19:00 EDT, ER Tablet, [facility] # [facility], Partial fill upon patient request if the prescription is for a scheduleII opioid drug., 163.5, cm, 08/21/21 13:35:00 EDT,... Start Date: 12/26/21 Status: Ordered Cranberry oral tablet 0 Refills, Maintenance, 10/23/18 9:18:41 EDT Start Date: 10/23/18 Status: Ordered duloxetine 60 mg oral enteric coated capsule 1 capsule, By Mouth, 2 times a day, # 60 capsule, 5 Refills, [facility] # [facility], 163.5, cm, 08/21/21 [...] 03/05/22 13:21:00 EST, [facility], 163.5, cm, [...] 10/25/21 16:41:00 EDT, Route to Pharmacy Electronically, [facility] # [facility], 163.5, cm, 08/21/21 13:35:00 EDT, Height Start Date: 10/25/21 Status: Ordered Myrbetriq 50 mg oral tablet, extended release 1 tablet = 50 mg, By Mouth, Daily, # 90 tablet, 3 Refills, Maintenance, 09/08/21 9:40:00 EDT, [facility] # 50, 163.5, cm, 08/21/21 13:35:00 EDT, Height Start Date: 09/08/21 Status: Ordered ohm Allergy Relief 10 mg oral tablet See Instructions, TAKE 1 TABLET BY MOUTH EVERY DAY, # 90 tablet, 1 Refills, Maintenance, 03/05/22 13:16:00 EST, [facility] # [facility], 163.5, cm, 03/05/22 12:50:00 EST, Height Start Date: 03/05/22 Status: Ordered traZODone 50 mg oral tablet 2, tablet, By Mouth, Daily at bedtime, # 60 tablet, Refills 5, Tot. Refills 5, 02/05/22 11:04:00 EST, Route to Pharmacy Electronically, [facility] # [facility], 163.5, cm, 01/15/22 8:07:00 [...] Team Personnel Name: Eleazar Rendon NP Position: [facility] w/OE and EZ Script Member Role: Primary Care Nurse Address: Address: [address] [place] [address] [place] [address]- Name: Rafiq Arteaga Position: [facility] Associate Professional Member Role: PCP Address: Address: [address] [place] [address] [place] [address]- [place] Care Team Related Persons Name: LEWIS BALLESTEROS Address: home [address] [place] [id number] Name: RUSTY HOOEVR
--- OUTSIDE RECORDS SUMMARY | 2022-11-04 01:38 | XMS_ITS | Continuity of Care Document ---
Author Name Unknown Organization [facility] Address [address] [place], [place] [address]florence gore, [address] [place] [address]- Care Team Providers Care Culture Manager Name Role Phone Rafiq Arteaga Primary Care Physi kateryna Encounter [facility] Date(s): 03/27/22 - 04/26/22 [facility] [address] [place] [address] Drive, [address] [place], [place] [address] Allergies, Adverse Reactions, Alerts Substance [...] 14:38:00 EST, Powder, Route to Pharmacy Electronically, [id number], [facility] # [...] 01/16/21 11:47:00 EST, Route to Pharmacy Electronically, [id number]... Start Date: 01/16/21 Status: Ordered Ativan 0.5 mg oral tablet See Instructions, PRN as needed for anxiety, Take 1 tablet as needed for anxiety, do not take more than 2 tablets/day, # 30 tablet, 0 Refills, Maintenance, 04/23/22 11:16:00 EST, Tablet, [facility] # 50, Partial fill upon patient request if the pr... Start Date: 04/23/22 Status: Ordered azelastine 137 mcg/inh (0.1%) nasal spray 2 sprays, Nares, Both, Daily, PRN Other Allergies, # 30 mL, 6 Refills, Maintenance, 10/05/21 13:14:00 EDT, [place], [facility] # [...] 60 capsule, 5 Refills, 04/09/22 16:24:00 EST, [facility], 163.5, cm, 03/09/22 [...] Refills, Soft Stop, 04/23/22 11:23:00 EST, Cream, [facility] # [facility], Partial fill upon patient request if the prescription is for a schedule II opioid drug., 1 application Topically Once, 163.5, cm, 2... Start Date: 04/23/22 Status: Ordered lysine 1000 [...] [facility], 163.5, cm, 08/21/21 13:35:00 EDT, Height Start Date: 10/25/21 Status: Ordered Myrbetriq 50 mg oral tablet, extended release 1 tablet = 50 mg, By Mouth, Daily, # 90 tablet, 3 Refills, Maintenance, 09/08/21 9:40:00 EDT, [facility] # 50, 163.5, cm, 08/21/21 13:35:00 EDT, Height Start Date: 09/08/21 Status: Ordered ohm Allergy Relief 10 mg oral tablet See Instructions, TAKE 1 TABLET BY MOUTH EVERY DAY, # 90 tablet, 1 Refills, Maintenance, 03/05/22 13:16:00 EST, [facility] # [facility], 163.5, cm, 03/05/22 12:50:00 EST, Height Start Date: 03/05/22 Status: Ordered traZODone 50 mg oral tablet 2, tablet, By Mouth, Daily at bedtime, # 60 tablet, Refills 5, Tot. Refills 5, 02/05/22 11:04:00 EST, Route to Pharmacy Electronically, [facility], 163.5, cm, 01/15/22 [...] Team Personnel Name: Eleazar Rendon NP Position: [facility] PC[facility] w/OE and EZ Script Member Role: Primary Care Nurse Address: Address: [address] [place] [address] [place] [address]- Name: Rafiq Arteaga Position: [facility] Associate Professional Member Role: PCP Address: Address: [address] [place] [address]- Care Team Related Persons Name: LEWIS BALLESTEROS Address: [address] [address] Name: RUSTY HOOVER
--- OUTSIDE RECORDS SUMMARY | 2022-11-04 01:38 | XMS_ITS | Continuity of Care Document ---
Author Name Unknown Organization [facility] Ligia stephensons [facility] Address [address] [place] [address]- Care Team Providers Care Coil Placer Name Role Phone Susan AVENDANO, Orlando Quintanilla Primary Care Physician [place] [facility] [place]16[place]21 - 04/15/21 [facility] Ligia Morriss [facility] [address] [place] [address]- Attending Physician: Ene Ramos Admitting Physician: AdmEne [...] 01/16/21 11:47:00 EST, Route to Pharmacy Electronically, [id number]... Start Date: 01/16/21 Status: Ordered azelastine 137 mcg/inh (0.1%) nasal spray 2 sprays, Nares, Both, Daily, PRN Other Allergies, # 30 mL, 6 Refills, Maintenance, 08/18/20 15:01:00 EDT, [place], [facility], 2 sprays [...] 5 Refills, Maintenance, 02/10/21 14:24:00EST, EC Capsule, [facility] # [facility], Partial fill upon patient [...] DAY, # 31.8 Gm, 1 Refills, Maintenance, [facility], 163.5, cm, 09/09/20 12:42:00 EDT, Height, 91, kg, 07/23/19 11:11:00 EDT, Dry Weight Start Date: 10/06/20 Status: Ordered gabapentin 600 mg oral tablet 1 tablet, By Mouth, 3 times a day, # 270 Unknown, 1 Refills, Maintenance, 11/15/20 12:03:00 EDT, [facility] # [facility], 163.5, cm, 09/09/20 12:42:00 EDT, Height, 91, kg, 07/23/19 11:11:00 EDT, Dry Weight Start Date: 11/15/20 Status: Ordered lidocaine-prilocaine 2.5%-2.5% topical cream 1 application, Topically, Once, # 30 Gm, 1 Refills, Soft Stop, 03/08/20 8:14:00 EST, Cream, [facility] # 50, Partial fill upon patient request, 1 application Topically Once, 163.5, cm, 01/11/20 14:45:00 EST, Height, 91, kg, 07/23/19 11:11:00 EDT,... Start Date: 03/08/20 Status: Ordered loratadine 10 mg oral tablet See Instructions, TAKE ONE TABLET BY MOUTH EVERY DAY, # 90 tablet, Refills 1, Tot. Refills 1, Maintenance, 03/15/21 11:49:00 EST, Instructions Replace Required Details, Route to Pharmacy Electronically, [facility] # [facility], 163.5, cm, 12/12/20 16:09:0... Start Date: 03/15/21 Status: Ordered lubiprostone 24 mcg oral capsule 1 capsule, By Mouth, 2 times a day, # 60 capsule, 5 Refills, [facility] # [facility], 163.5, [...] 03/07/21 14:45:00 EST, Route to Pharmacy Electronically, [facility] # [facility], 163.5, cm, 12/12/20 16:09:00 EDT, Height, 91, kg, 07/23/19 11:11:00 EDT, Dry... Start Date: 03/07/21 Status: Ordered Myrbetriq 50 mg oral tablet, extended release 1 tablet = 50 mg, By Mouth, Daily, # 90 tablet, 3 Refills, Maintenance, 03/16/21 10:21:00 EST, [facility] # [facility], [...]
--- OUTSIDE RECORDS SUMMARY | 2022-11-04 01:38 | XMS_ITS | Continuity of Care Document ---
Author Name Unknown Organization [facility] Oskar May Kayode lt Address [address] [place] [address]- Care Team Providers Care Clinical Data Management Director Name Role Phone Rafiq Arteaga Primary Care Physi kateryna Encounter [facility] Date(s): 08/13/22 - 09/12/22 [facility] Adult [address] [place] [address]- Allergies, Adverse Reactions, Alerts Substance Reaction Severity [...] 14:38:00 EST, Powder, Route to Pharmacy Electronically, [id number], [facility] # [facility], I... [...] 0 Refills, Maintenance, 04/23/22 11:16:00 EST, Tablet, [facility] # 50, Partial fill upon patient request if the pr... Start Date: 04/23/22 Status: Ordered azelastine 137 mcg/inh (0.1%) nasal spray 2 sprays, Nares, Both, Daily, PRN Other Allergies, # 30 mL, 6 Refills, Maintenance, 10/05/21 13:14:00 EDT, [place], [facility] # 50, 2 sprays Nares, Both Daily,PRN:Other Allergies, 163.5, cm, 08/21/21 13:35:00 EDT, Height Start Date: 10/05/21 Status: Ordered buPROPion 300 mg/24 hours (XL) oral tablet, extended release 1 tablet = 300 mg, By Mouth, Daily, # 90 tablet, 2 Refills, Maintenance, 06/25/22 9:06:00 EDT, ER Tablet, [facility] # 50, Partial fill upon patient request if the prescription is for a schedule II opioid drug., 162, cm, 06/25/22 8:34:00 EDT, [place]... Start Date: 06/25/22 Status: Ordered duloxetine 60 mg oral enteric coated capsule 1 capsule, By Mouth, 2 times a day, # 60 capsule, 5 Refills, 04/09/22 16:24:00 EST, [facility] # [facility], [...] tablet, 1 Refills, Maintenance, 08/14/22 12:36:00 EDT, [facility] # [facility], 162, cm, 08/08/22 11:26:00 [...] 06/04/22 10:20:00 EDT, Route to Pharmacy Electronically, [facility] # [facility], 162, cm, 05/21/22 10:37:00 EDT, Height, 102, kg, 05/21/22 10:37:00 EDT, Dry W... Start Date: 06/04/22 Status: Ordered Myrbetriq 50 mg oral tablet, extended release 1 tablet = 50 mg, By Mouth, Daily, # 90 tablet, 3 Refills, Maintenance, 09/08/21 9:40:00 EDT, [facility] # 50, 163.5, cm, 08/21/21 13:35:00 EDT, Height Start Date: 09/08/21 Status: Ordered ohm Allergy Relief 10 mg oral tablet See Instructions, TAKE 1 TABLET BY MOUTH EVERY DAY, # 90 tablet, 1 Refills, Maintenance, 06/25/22 9:15:00 EDT, [facility] # [facility], 162, cm, 06/25/22 8:34:00 [...] 06/25/22 9:11:00 EDT, Route to Pharmacy Electronically, [facility] # [facility], Partial fill upon patient [...] capsule, 3 Refills, Maintenance, 06/25/22 9:06:00 EDT, [facility] # [facility], Partial fill upon patient [...] Team Personnel Name: Eleazar Rendon NP Position: [facility] PC[facility] w/OE and EZ Script Member Role: Primary Care Nurse Address: Address: [address] [place] [address] [place] [address]- Name: Rafiq Arteaga Position: [facility] Associate Professional Member Role: PCP Address: Address: [address] [place] [address] [place] [address]- Care Team Related Persons Name: LEWIS BALLESTEROS Address: home [address] [place] [id number] Name: RUSTY HOOVER
--- OUTSIDE RECORDS SUMMARY | 2022-11-04 01:38 | XMS_ITS | Continuity of Care Document ---
Author Name Unknown Organization [facility] Kayode lt Address [address] [place] [address]- Care Team Providers Care Labor Trainer Name Role Phone Orlando Davis MD Primary Care Physician En[facility] [place] Date(s): 05/26/20 - 07/08/20 [facility] Adult [address] [place] [address]- Attending Physician: Orlando Davis MD Referring Physician: Laurita Hess NP Allergies, Adverse [...] 02/09/19 13:37:40 EST, Route to Pharmacy Electronically, [id number]... Start Date: 02/09/19 Status: Ordered buPROPion 300 [...] 3 Refills, Maintenance, 09/30/19 10:56:00 EDT, Inhaler, [facility] # [facility], 163.5, cm, 09/30/19 9:33:00 EDT, Height, 91, kg, 07/23/19 11:11:00 EDT, Dry Weight Start Date: 09/30/19 Status: Ordered gabapentin 600 mg oral tablet 1 tablet, By Mouth, 3 times a day, # 270 Unknown, 1 Refills, Maintenance, 05/24/20 16:58:00 EDT, [facility] # [facility], 163.5, cm, 05/14/20 23:20:00 EDT, Height, 91, kg, 07/23/19 11:11:00 EDT, Dry Weight Start Date: 05/24/20 Status: Ordered lactulose 10 gm/15 ml oral syrup 15 mL, By Mouth, Daily, # 473 Unknown, 5 Refills, Acute, 07/08/20 7:08:00 EDT, [facility] # 50,30, TAKE 15ML BY MOUTH DAILY, 163.5, cm, 06/16/20 7:48:00 EDT, Height, 91, kg, 07/23/19 11:11:00 EDT, Dry Weight Start Date: 07/08/20 Status: Ordered lidocaine-prilocaine 2.5%-2.5% topical cream 1 application, Topically, Once, # 30 Gm, 1 Refills, Soft Stop, 03/08/20 8:14:00 EST, Cream, [facility] # [facility], Partial fill upon patient request, 1 application Topically Once, 163.5, cm, 01/11/20 14:45:00 EST, Height, 91, kg, 07/23/19 11:11:00 EDT,... Start Date: 03/08/20 Status: Ordered loratadine 10 mg oral tablet 10 mg, 1, tablet, By Mouth, Daily, # 90 tablet, Refills 3, Tot. Refills 3, Maintenance, 10/27/19 18:22:00 EDT, Route to Pharmacy Electronically, [facility] # [facility], Rx resent from 09/30/19., 163.5, cm, 10/08/19 11:19:00 EDT, Height, 91, kg, 07/23/19 11... Start Date: 10/27/19 Status: Ordered lubiprostone 24 mcg oral capsule 1 capsule = 24 mcg, By Mouth, 2 times a day, # 60 capsule, 0 Refills, Maintenance, 06/10/20 12:29:00 EDT, Capsule, [facility] # [...] 01/13/20 12:44:00 EST, Route to Pharmacy Electronically, [facility] # 50, Refills per PCP, [...] 12/04/19 12:51:00 EDT, Route to Pharmacy Electronically, [facility], 163.5, cm, 11/03/19 [...]
--- OUTSIDE RECORDS SUMMARY | 2022-11-04 01:38 | XMS_ITS | Continuity of Care Document ---
Author Name Unknown Organization [facility] Address [address] [place] [address]- Care Team Providers Care Senior Executive Assistant Name Role Phone Rafiq Arteaga Primary Care Physi kateryna [place] [facility] [place] 06/01/22 [facility] [address] [place], [place] [address] Allergies, Adverse Reactions, Alerts Substance Reaction [...] 14:38:00 EST, Powder, Route to Pharmacy Electronically, [id number], [facility], I... Start Date: [...] Maintenance, 04/23/22 11:16:00 EST, Tablet, [facility], Partial fill upon patient request if the pr... Start Date: 04/23/22 Status: Ordered azelastine 137 mcg/inh (0.1%) nasal spray 2 sprays, Nares, Both, Daily, PRN Other Allergies, # 30 mL, 6 Refills, Maintenance, 10/05/21 13:14:00 EDT, [place], [facility], 2 sprays [...] Pharmacy Electronically, [facility], Partial fill upon patient request if the prescription is for a lebron... Start Date: 05/23/22 Status: Ordered duloxetine 60 mg oral enteric coated capsule 1 capsule, By Mouth, 2 times a day, # 60 capsule, 5 Refills, 04/09/22 16:24:00 EST, [facility], 163.5, cm, 03/09/22 13:18:00 EST, Height Start Date: 04/09/22 Status: Ordered Estrace Vaginal Cream 0.1 mg/g See Instructions, 1 gram Vaginally at bedtime 2 times per week, # 42 Gm, 4 Refills, Maintenance, 03/16/21 10:21:00 EST, [facility], Patient sensitive to [...] 13:21:00 EST, [facility] [...] tablet, 3 Refills, Maintenance, 09/08/21 9:40:00 EDT, [facility] # 50, 163.5, cm, 08/21/21 13:35:00 [...] 05/21/22 18:31:00 EDT, Route to Pharmacy Electronically, [facility] 3,Partial fill upon patient request if the prescripti... Start Date: 05/21/22 Status: Ordered tiZANidine 4 mg oral tablet 4 mg, 1, tablet, By Mouth, 3 times a day, PRN, # 90 tablet, Refills 0, Tot. Refills 0, Maintenance,Spasm, 05/21/22 18:31:00 EDT, Route to Pharmacy Electronically, [facility] 3, Partial fill upon patient request [...] Role: Primary Care Nurse Address: Address: [address] [place] [address] [place] [address]- Name: Rafiq Arteaga Position: [facility] Associate Professional Member Role: PCP Address: Address: [address] [facility] [place] [address]- Care Team Related Persons Name: LEWIS BALLESTEROS Address: home [address] [place] [address] Name: RUSTY HOOVER
--- OUTSIDE RECORDS SUMMARY | 2022-11-04 01:38 | XMS_ITS | Continuity of Care Document ---
Author Name Unknown Organization [facility] Address [address] [place] [address]- Care Team Providers Care Psych Rn Name Role Phone Susan AVENDANO, Orlando Quintanilla Primary Care Physician [phone] Encounter [facility] Date(s): 08/18/20 - 09/17/20 [facility] [address] [place] [id number] Attending Physician: Admramana, Ene Admitting Physician: Admtr, [id number] Referring Physician: Admtr, [...] 02/09/19 13:37:40 EST, Route to Pharmacy Electronically, [id number]... Start Date: 02/09/19 Status: Ordered azelastine 137 mcg/inh (0.1%) nasal spray 2 sprays, Nares, Both, Daily, PRN Other Allergies, # 30 mL, 6 Refills, Maintenance, 08/18/20 15:01:00 EDT, [place], [facility], 2 sprays Nares, Both Daily,PRN:Other Allergies, 163.5, cm, 08/18/20 14:46:00 EDT, Height, 91, kg, 07/23/19 11:11... Start Date: 08/18/20 Status: Ordered buPROPion 300 mg/24 hours (XL) oral tablet, extended release 1 tablet = 300 mg, By Mouth, Daily, # 30 tablet, 11 Refills, Maintenance, 05/11/20 13:04:00 EDT, ERTablet, [facility], Partial [...] Refills, Maintenance, 03/23/20 16:57:00 EST, [facility], Patient sensitive to inactive ingredients ofmanufacturers drugs, [...] 3 Refills, Maintenance, 08/18/20 15:02:00 EDT, Inhaler, [facility] # [facility], 163.5, cm, 08/18/20 14:46:00 EDT, Height,... Start Date: 08/18/20 Status: Ordered gabapentin 600 mg oral tablet 1 tablet, By Mouth, 3 times a day, # 270 Unknown, 1 Refills, Maintenance, 05/24/20 16:58:00 EDT, [facility] # [facility], 163.5, cm, 05/14/20 23:20:00 EDT, Height, 91, kg, 07/23/19 11:11:00 EDT, Dry Weight Start Date: 05/24/20 Status: Ordered lidocaine-prilocaine 2.5%-2.5% topical cream 1 application, Topically, Once, # 30 Gm, 1 Refills, Soft Stop, 03/08/20 8:14:00 EST, Cream, [facility] # [facility], Partial fill upon patient request, 1 application Topically Once, 163.5, cm, 01/11/20 14:45:00 EST, Height, 91, kg, 07/23/19 11:11:00 EDT,... Start Date: 03/08/20 Status: Ordered loratadine 10 mg oral tablet 10 mg, 1, tablet, By Mouth, Daily, # 90 tablet, Refills 3, Tot. Refills 3, Maintenance, 10/27/19 18:22:00 EDT, Route to Pharmacy Electronically, [facility], Rx resent from 09/30/19., 163.5, cm, 10/08/19 11:19:00 EDT, Height, 91, kg, 07/23/19 11... Start Date: 10/27/19 Status: Ordered lubiprostone 24 mcg oral capsule 1 capsule, By Mouth, 2 times a day, # 60 capsule, 0 Refills, Maintenance, 08/22/20 10:44:00 EDT, [facility] # [facility], 163.5, cm, 08/18/20 14:46:00 [...] 07/12/20 11:39:00 EDT, Route to Pharmacy Electronically, [facility], Refills per PCP, 163.5, cm, 06/16/20 7:48:00 EDT, Height, 91, kg, 07/23/19 11... Start Date: 07/12/20 Status: Ordered Myrbetriq 50 mg oral tablet, extended release 1 tablet = 50 mg, By Mouth, Daily, # 30 tablet, 11 Refills, Maintenance, 08/11/20 16:47:00 EDT, [facility] # [...]
--- OUTSIDE RECORDS SUMMARY | 2022-11-04 01:38 | XMS_ITS | Continuity of Care Document ---
Author Name Unknown Organization [facility] Address [address] [place] [address], [address] [place] [address]- Care Team Providers Care Oracle R12 Developer Name Role Phone Suzanne AVENDANO, Tyler Charles Primary Care Physician [phone] Encounter [facility] Date(s): 05/25/19 - 06/04/19 [facility] [address] [place] [address], [address] [place] [address]- Attending Physician: Admtr, [id number] Admitting Physician: Admtr, [...] 02/09/19 13:37:40 EST, Route to Pharmacy Electronically, [id number]... Start Date: 02/09/19 Status: Ordered Cranberry oral [...] 03/07/19 11:47:00 EST, Route to Pharmacy Electronically, [facility] [...] Refills, Maintenance, 03/27/19 11:11:00 EST, REC Powder, [facility], 163.5, cm, 03/27/19 10:49:00 EST, Height Start Date: 03/27/19 Status: Ordered lactulose 10 gm/15 ml oral syrup 15 mL = 10 Gm, By Mouth, Daily, This is correct dose., # 480 mL, 1 Refills, Maintenance, 03/29/19 20:24:00 EST, Syrup, [facility] # [facility], 15 mL By Mouth Daily,Instr:This is correct dose., 163.5, cm, 03/27/19 10:49:00 EST, Height Start Date: 03/29/19 Status: Ordered loratadine 10 mg oral tablet 10 mg, 1, tablet, By Mouth, Daily, # 90 tablet, Refills 1, Tot. Refills 1, Maintenance, 04/27/19 8:18:00 EST, Route to Pharmacy Electronically, [facility] [...] 02/09/19 13:37:50 EST, Route to Pharmacy Electronically, [facility], Refills per PCP, 163.5, cm, 02/09/19 13:07:26 EST, Height Start Date: 02/09/19 Status: Ordered Myrbetriq 25 mg oral tablet, extended release 1 tablet = 25 mg, By Mouth, Daily, do not crush or chew, # 30 tablet, 1 Refills, Maintenance, 06/01/19 14:37:00 EDT, ER Tablet, [facility] [...]
--- OUTSIDE RECORDS SUMMARY | 2022-11-04 01:38 | XMS_ITS | Continuity of Care Document ---
Author Name Unknown Organization [facility] Address [address] [place] [address]- Care Team Providers Care Rewriter Name Role Phone Susan AVENDANO, Orlando Quintanilla Primary Care Physician Encounter [facility] Date(s): 08/15/21 - 09/14/[address] [address]- Attending Physician: Ene Ramos Admitting Physician: Ene [...] 01/16/21 11:47:00 EST, Route to Pharmacy Electronically, [id number]... Start Date: 01/16/21 Status: Ordered Ativan 0.5 [...] mL, 6 Refills, Maintenance, 08/18/20 15:01:00 EDT, [place], [facility], 2 sprays Nares, Both Daily,PRN:Other Allergies, 163.5, cm, 08/18/20 14:46:00 EDT, Height, 91, kg, 07/23/19 11:11... Start Date: 08/18/20 Status: Ordered buPROPion 300 mg/24 hours (XL) oral tablet, extended release 1 tablet = 300 mg, By Mouth, Daily, # 30 tablet, 5 Refills, Maintenance, 05/30/21 10:47:00 EDT, ER Tablet, [facility], Partial fill upon [...] Refills, Maintenance, 05/26/21 10:29:00 EDT, EC Tablet, [facility], Partial fill upon patient request if the prescription is for a schedule II opioid drug., 163.5, cm, 04/21/21 11:51:0... Start Date: 05/26/21 Status: Ordered duloxetine 60 mg oral enteric coated capsule 1 capsule = 60 mg, By Mouth, 2 times a day, # 60 capsule, 5 Refills, Maintenance, 02/10/21 14:24:00EST, EC Capsule, [facility], Partial fill [...] DAY, # 31.8 Gm, 1 Refills, Maintenance, [facility], 163.5, cm, 09/09/20 12:42:00 EDT, Height, 91, kg, 07/23/19 11:11:00 EDT, Dry Weight Start Date: 10/06/20 Status: Ordered gabapentin 600 mg oral tablet 1 tablet, By Mouth, 3 times a day, # 270 tablet, 1 Refills, [facility], 163.5, cm, 04/21/21 11:51:00 EST, Height, 91, kg, 07/23/19 11:11:00 EDT, Dry Weight Start Date: 05/11/21 Status: Ordered lidocaine-prilocaine 2.5%-2.5% topical cream 1 application, Topically, Once, # 30 Gm, 3 Refills, Soft Stop, 04/21/21 12:20:00 EST, Cream, [facility] # [facility], Partial [...] 60 capsule, 5 Refills, 04/21/21 12:25:00 EST, [facility], [...] 03/07/21 14:45:00 EST, Route to Pharmacy Electronically, [facility], 163.5, cm, 12/12/20 16:09:00 [...]
--- OUTSIDE RECORDS SUMMARY | 2022-11-04 01:38 | XMS_ITS | Continuity of Care Document ---
Author Name Unknown Organization [facility] Address [address] [place] [address]- Care Team Providers Care Wood Caulker Name Role Phone Orlando Davis MD Primary Care Physician [phone] Encounter [facility] Date(s): 12/27/21 - 01/03/22 [facility] Adult [address] [place] [address]- Encounter Diagnosis Major depression in full remission(Discharge Diagnosis) - 12/27/21 Attending Physician: Orlando Davis MD Allergies, Adverse [...] 01/16/21 11:47:00 EST, Route to Pharmacy Electronically, [id number]... Start Date: 01/16/21 Status: Ordered Ativan 0.5 mg oral tablet See Instructions, PRN as needed for anxiety, Take 1 tablet as needed for anxiety, do not take more than 2 tablets/day, # 14 tablet, 0 Refills, Maintenance, 08/03/21 9:13:00 EDT, Tablet, [facility], Partial fill upon patient request if the pre... Start Date: 08/03/21 Status: Ordered azelastine 137 mcg/inh (0.1%) nasal spray 2 sprays, Nares, Both, Daily, PRN Other Allergies, j45.40, # 1 each, 6 Refills, Maintenance, 10/23/21 14:26:00 EDT, [place], [facility], 2 sprays Nares, Both Daily,PRN:Other Allergies,Instr:j45.40, 163.5, cm, 08/21/21 13:35:00 EDT, Height Start Date: 10/23/21 Status: Ordered azelastine 137 mcg/inh (0.1%) nasal spray 2 sprays, Nares, Both, Daily, PRN Other Allergies, # 30 mL, 6 Refills, Maintenance, 10/05/21 13:14:00 EDT, [place], [facility], 2 sprays Nares, Both Daily,PRN:Other Allergies, 163.5, cm, 08/21/21 13:35:00 EDT, Height Start Date: 10/05/21 Status: Ordered buPROPion 300 mg/24 hours (XL) oral tablet, extended release 1 tablet = 300 mg, By Mouth, Daily, # 30 tablet, 5 Refills, Maintenance, 12/26/21 11:19:00 EDT, ER Tablet, [facility] # [facility], Partial fill [...] tablet, 3 Refills, Maintenance, 09/08/21 9:40:00 EDT, [facility], 163.5, cm, 08/21/21 13:35:00 EDT, Height Start Date: 09/08/21 Status: Ordered ohm Allergy Relief 10 mg oral tablet See Instructions, TAKE 1 TABLET BY MOUTH EVERY DAY, # 90 tablet, 1 Refills, Maintenance, 10/01/21 2:49:00 EDT, [facility] # [facility], 163.5, cm, 08/21/21 13:35:00 EDT, Height Start Date: 10/01/21 Status: Ordered traZODone 50 mg oral tablet 2, tablet, By Mouth, Daily at bedtime, # 60 tablet, Refills 2, Tot. Refills 2, 10/18/21 19:18:00 EDT, Route to Pharmacy Electronically, [facility] # [facility], 163.5, cm, 08/21/21 13:35:00 [...] Major depression in full remission Discharge Diagnosis 12/27/21 Vital Signs Most recent to oldest [Reference Range]: 1 Height 163.5 cm (12/27/21 9:29 AM) Social History Social History Type Response Smoking Status Never (less than 100 in lifetime) entered on: 11/21/18 Sex Note * Bianca Weaver: PERFORM, SIGN, VERIFY Event Display: Patient Education/Instruction Authored Date: [id number] [facility] *BMP So [place]t Clinical Summary Name JUAN FRANCISCO BALLESTEROS Age 61 Years 1960 PCP Susan AVENDANO, Orlando Quintanilla PCP Visit Date 12/27/2021 09:10:00 Patient Instructions I will see you oin?? January 05 Additional Instructions: Scheduled Appointments?? Future Appointments ?*[facility]??[facility] ?[address] ?Phone:??--?Fax:??-- ?Appt. Date:??01/05/2022?10:40 AM ?Scheduled Provider:??Shannon CHE, Rafiq ?*[facility] [address] ?[place],??[place],??[address] ?Phone:??--?Fax:??-- ?Appt. Date:??02/20/2022?3:00 PM ?Scheduled Provider:??Esdras Amos MD Follow-Up Instructions ?? Diagnosis Major depressive disorder, single episode, in full remission Medications: Please continue your medications until treatment is completed or stopped by your provider. Discuss any questions related to medications with your provider. Medications to Continue Taking That Have Changed These medications were not printed or sent to your pharmacy - Diclofenac (diclofenac sodium 75 mg oral delayed release tablet) TAKE ONE TABLET BY MOUTH TWICE ADAY. Refills: 1. Next Dose: - Diclofenac (diclofenac sodium 75 mg oral delayed release tablet) TAKE ONE TABLET BY MOUTH TWICE ADAY. Refills: 1. Next Dose: Medications to Continue with No Changes These medications were not printed or sent to your pharmacy Acetaminophen (Tylenol Extra Strength 500 mg oral tablet) 2 tab(s) Oral every 6 hours. Next Dose: Albuterol (albuterol CFC free 90 mcg/inh inhalation aerosol) 2 puff(s) Inhalation 4 times a day as needed Wheezing/Shortness of Breath. use with spacer chamber as directed 15 minutes before exercise. Refills: 3. Next Dose: Ascorbic Acid (Vitamin C 500 mg oral tablet) 1 tab(s) Oral Daily. Next Dose: Azelastine Nasal (azelastine 137 mcg/inh (0.1%) nasal spray) 2 spray(s) Nares, Both Daily as neededOther Allergies. Refills: 6. Next Dose: Azelastine Nasal (azelastine 137 mcg/inh (0.1%) nasal spray) 2 spray(s) Nares, Both Daily as neededOther Allergies. j45.40. Refills: 6. Next Dose: BuPROpion (buPROPion 300 mg/24 hours (XL) oral tablet, extended release) 1 tab(s) Oral Daily. Refills: 5. Next Dose: Cholecalciferol (Vitamin D3 1000 intl units oral capsule) 1 capsule Oral Daily. Refills: 0. Next Dose: Cranberry (Cranberry oral tablet) Next Dose: Duloxetine (duloxetine 60 mg oral enteric coated capsule) 1 capsule Oral twice a day. Refills: 5. Next Dose: Durable Medical Equipment (Aerochamber) for use with Flovent. Refills: 0. Next Dose: Estradiol Topical (Estrace Vaginal Cream 0.1 mg/g) 1 gram Vaginally at bedtime 2 times per week. Refills: 4. Next Dose: Fluticasone (Flovent HFA 44 mcg/inh inhalation aerosol) INHALE 2 PUFFS TWO TIMES A DAY, j44.9. Refills: 6. Next Dose: Gabapentin (gabapentin 600 mg oral tablet) 1 tab(s) Oral 3 times a day. office visit needed for further refills. Refills: 1. Next Dose: Lidocaine/Prilocaine Topical (lidocaine-prilocaine 2.5%-2.5% topical cream) 1 vlad Topically once. Refills: 3. Next Dose: Loratadine (ohm Allergy Relief 10 mg oral tablet) TAKE 1 TABLET BY MOUTH EVERY DAY. Refills: 1. Next Dose: Lorazepam (Ativan 0.5 mg oral tablet) Take 1 tablet as needed for anxiety, do not take more than 2 tablets/day; as needed as needed for anxiety. Refills: 0. Next Dose: lubiprostone (lubiprostone 24 mcg oral capsule) 1 capsule Oral twice a day. Refills: 5. Next Dose: Lysine (lysine 1000 mg oral [...] Dose: Trazodone (traZODone 50 mg oral tablet) 2 tab(s) Oral Daily at Bedtime. Refills: 2. Next Dose: Allergy Info:?? Pollen; Dust; Cats Medications Given This Visit Future Orders ?No future orders Vital Signs Height 163.5 cm Weight BMI Blood Pressure / Temperature Pulse Rate Respiratory Rate 02 Sat Mode of Delivery / You can now view a summary of your hospital visit from the comfort of your home through a free online portal called [employer]. [employer] is a website that allows you to securely view your medical information including discharge summary, medications and follow-up visits. ??You can alsosend a secure electronic message to your doctor???s office to request appointments, renew medications or just ask a question. You can enroll at [email or web address] or register during your next office visit. [...] primary care provider, you may find a [facility] provider by calling [facility] [employer] at [phone]. For information about the plan of care [...] Personnel Name: Susan AVENDANO, Orlando Quintanilla Position: [facility] Primary Care Physician Member Role: PCP Address: Address: [address] [place] [address]- Name: Eleazar Rendon NP Position: [facility] PCO w/OE and EZ Script Member Role: Primary Care Nurse Address: Address: [address] [place], [place] [address] [facility] [address]- Care Team Related Persons Name: LEWIS BALLESTEROS Address: home [address] [place] [id number]
--- OUTSIDE RECORDS SUMMARY | 2022-11-04 01:39 | XMS_ITS | Continuity of Care Document ---
Author Name Unknown Organization [facility] Address [address] [place] [address]- Care Team Providers Care Cloth Measurer Name Role Phone [place] Davis MD Primary Care Physician Encounter [facility] Date(s): 07/13/20 - 09/02/20 [facility] [address] [place] [id number] Attending Physician: Giacomo Noe MD Admitting Physician: Giacomo Noe MD Referring Physician: Orlando Davis MD Allergies, [...] 02/09/19 13:37:40 EST, Route to Pharmacy Electronically, [id number]... Start Date: 02/09/19 Status: Ordered azelastine 137 mcg/inh (0.1%) nasal spray 2 sprays, Nares, Both, Daily, PRN Other Allergies, # 30 mL, 6 Refills, Maintenance, 08/18/20 15:01:00 EDT, [place], [facility], 2 sprays [...] 3 Refills, Maintenance, 08/18/20 15:02:00 EDT, Inhaler, [facility], 163.5, cm, 08/18/20 14:46:00 EDT, Height,... Start Date: 08/18/20 Status: Ordered gabapentin 600 mg oral tablet 1 tablet, By Mouth, 3 times a day, # 270 Unknown, 1 Refills, Maintenance, 05/24/20 16:58:00 EDT, [facility], 163.5, cm, 05/14/20 23:20:00 EDT, Height, 91, kg, 07/23/19 11:11:00 EDT, Dry Weight Start Date: 05/24/20 Status: Ordered lidocaine-prilocaine 2.5%-2.5% topical cream 1 application, Topically, Once, # 30 Gm, 1 Refills, Soft Stop, 03/08/20 8:14:00 EST, Cream, [facility], Partial fill upon patient request, 1 application Topically Once, 163.5, cm, 01/11/20 14:45:00 EST, Height, 91, kg, 07/23/19 11:11:00 EDT,... Start Date: 03/08/20 Status: Ordered loratadine 10 mg oral tablet 10 mg, 1, tablet, By Mouth, Daily, # 90 tablet, Refills 3, Tot. Refills 3, Maintenance, 10/27/19 18:22:00 EDT, Route to Pharmacy Electronically, [facility], Rx resent from 09/30/19., 163.5, cm, 10/08/19 11:19:00 EDT, Height, 91, kg, 07/23/19 11... Start Date: 10/27/19 Status: Ordered lubiprostone 24 mcg oral capsule 1 capsule, By Mouth, 2 times a day, # 60 capsule, 0 Refills, Maintenance, 08/22/20 10:44:00 EDT, [facility], 163.5, cm, 08/18/20 [...] tablet, 11 Refills, Maintenance, 08/11/20 16:47:00 EDT, [facility] # [facility], 163.5, cm, 08/11/20 10:34:00 EDT, Height, 91, kg, 07/23/19 11:11:00 EDT, Dry Weight Start Date: 08/11/20 Status: Ordered traZODone 50 mg oral tablet 2, tablet, By Mouth, Daily at bedtime, # 60 tablet, Refills 5, Tot. Refills 0, Maintenance, 07/28/20 15:52:00 EDT, Route to Pharmacy Electronically, [facility], 163.5, cm, 06/16/20 [...]
--- OUTSIDE RECORDS SUMMARY | 2022-11-04 01:39 | XMS_ITS | Continuity of Care Document ---
Author Name Unknown Organization [facility] [place] [facility] Address [address] [place] [address]- Care Team Providers Care Sort Line Worker Name Role Phone Susan AVENDANO, Orlando Quintanilla Primary Care Physician Encounter [facility] Date(s): 04/14/21 - 05/14/21 [facility] Adult [address] [place] [address]- Allergies, Adverse Reactions, Alerts Substance Reaction Severity [...] 01/16/21 11:47:00 EST, Route to Pharmacy Electronically, [id number]... Start Date: 01/16/21 Status: Ordered azelastine 137 mcg/inh (0.1%) nasal spray 2 sprays, Nares, Both, Daily, PRN Other Allergies, # 30 mL, 6 Refills, Maintenance, 08/18/20 15:01:00 EDT, [place], [facility], 2 sprays Nares, Both Daily,PRN:Other Allergies, 163.5, cm, 08/18/20 14:46:00 EDT, Height, 91, kg, 07/23/19 11:11... Start Date: 08/18/20 Status: Ordered buPROPion 300 mg/24 hours (XL) oral tablet, extended release 1 tablet = 300 mg, By Mouth, Daily, # 30 tablet, 11 Refills, Maintenance, 05/11/20 13:04:00 EDT, ERTablet, [facility], Partial fill upon patient [...] Refills, Maintenance, 04/27/21 15:04:00 EST, EC Tablet, [facility], Partial fill upon patient request if the prescription is for a schedule II opioid drug., 163.5, cm, 04/21/21 11:51:0... Start Date: 04/27/21 Status: Ordered duloxetine 60 mg oral enteric coated capsule 1 capsule = 60 mg, By Mouth, 2 times a day, # 60 capsule, 5 Refills, Maintenance, 02/10/21 14:24:00EST, EC Capsule, [facility], Partial fill upon [...] Gm, 1 Refills, Maintenance, [facility], 163.5, cm, 09/09/20 12:42:00 EDT, Height, 91, kg, 07/23/19 11:11:00 EDT, Dry Weight Start Date: 10/06/20 Status: Ordered gabapentin 600 mg oral tablet 1 tablet, By Mouth, 3 times a day, # 270 tablet, 1 Refills, [facility], 163.5, cm, 04/21/21 11:51:00 EST, Height, 91, kg, 07/23/19 11:11:00 EDT, Dry Weight Start Date: 05/11/21 Status: Ordered lidocaine-prilocaine 2.5%-2.5% topical cream 1 application, Topically, Once, # 30 Gm, 3 Refills, Soft Stop, 04/21/21 12:20:00 EST, Cream, [facility], Partial fill upon patient request, 1 application Topically Once, 163.5, cm, 04/21/21 11:51:00 EST, Height, 91, kg, 07/23/19 11:11:00 EDT,... Start Date: 04/21/21 Status: Ordered loratadine 10 mg oral tablet See Instructions, TAKE ONE TABLET BY MOUTH EVERY DAY, # 90 tablet, Refills 1, Tot. Refills 1, Maintenance, 03/15/21 11:49:00 EST, Instructions Replace Required Details, Route to Pharmacy Electronically, [facility], 163.5, cm, 12/12/20 16:09:0... Start Date: 03/15/21 Status: Ordered lubiprostone 24 mcg oral capsule 1 capsule, By Mouth, 2 times a day, # 60 capsule, 5 Refills, 04/21/21 12:25:00 EST, [facility] # [facility], 163.5, cm, [...] 03/07/21 14:45:00 EST, Route to Pharmacy Electronically, [facility], 163.5, cm, 12/12/20 16:09:00 EDT, Height, 91, kg, 07/23/19 11:11:00 EDT, Dry... Start Date: 03/07/21 Status: Ordered Myrbetriq 50 mg oral tablet, extended release 1 tablet = 50 mg, By Mouth, Daily, # 90 tablet, 3 Refills, Maintenance, 03/16/21 10:21:00 EST, [facility] # [facility], 163.5, cm, [...]
--- OUTSIDE RECORDS SUMMARY | 2022-11-04 01:39 | XMS_ITS | Continuity of Care Document ---
Author Name Unknown Organization [facility] Address [address] [facility], [address] [place] [address]- Care Team Providers Care Forging Die Sinker Name Role Phone Rafiq Arteaga Primary Care Physi kateryna Encounter 07/11/22 - 08/15/22 [facility] [address], [address] [place] [address]- Attending Physician: Rafiq Arteaga Admitting Physician: Rafiq Arteaga Referring Physician: Rafiq Arteaga Allergies, Adverse Reactions, [...] 14:38:00 EST, Powder, Route to Pharmacy Electronically, [id number], [facility] # [facility], I... Start Date: [...] 0 Refills, Maintenance, 04/23/22 11:16:00 EST, Tablet, [facility] # [facility], Partial fill upon patient request if the pr... Start Date: 04/23/22 Status: Ordered azelastine 137 mcg/inh (0.1%) nasal spray 2 sprays, Nares, Both, Daily, PRN Other Allergies, # 30 mL, 6 Refills, Maintenance, 10/05/21 13:14:00 EDT, [place], [facility] # [facility], 2 sprays Nares, Both Daily,PRN:Other Allergies, 163.5, cm, 08/21/21 13:35:00 EDT, Height Start Date: 10/05/21 Status: Ordered buPROPion 300 mg/24 hours (XL) oral tablet, extended release 1 tablet = 300 mg, By Mouth, Daily, # 90 tablet, 2 Refills, Maintenance, 06/25/22 9:06:00 EDT, ER Tablet, [facility] # 50, Partial fill upon patient request if the prescription is for a schedule II opioid drug., 162, cm, 06/25/22 8:34:00 EDT, [place]... Start Date: 06/25/22 Status: Ordered duloxetine 60 mg oral enteric coated capsule 1 capsule, By Mouth, 2 times a day, # 60 capsule, 5 Refills, 04/09/22 16:24:00 EST, [facility] # 50, 163.5, cm, 03/09/22 [...] Refills, Maintenance, 08/14/22 12:36:00 EDT, [facility] # 50, 162, cm, 08/08/22 [...] [facility] # [facility], 162, cm, 05/21/22 10:37:00 EDT, Height, 102, kg, 05/21/22 10:37:00 EDT, Dry W... Start Date: 06/04/22 Status: Ordered Myrbetriq 50 mg oral tablet, extended release 1 tablet = 50 mg, By Mouth, Daily, # 90 tablet, 3 Refills, Maintenance, 09/08/21 9:40:00 EDT, [facility] # 50, 163.5, cm, 08/21/21 13:35:00 EDT, Height Start Date: 09/08/21 Status: Ordered ohm Allergy Relief 10 mg oral tablet See Instructions, TAKE 1 TABLET BY MOUTH EVERY DAY, # 90 tablet, 1 Refills, Maintenance, 06/25/22 9:15:00 EDT, [facility] # [facility], 162, cm, 06/25/22 8:34:00 EDT, Height, 102, kg, 05/21/22 10:37:00 EDT, Dry Weight Start Date: 06/25/22 Status: Ordered traZODone 50 mg oral tablet 50 mg, 1, tablet, By Mouth, Daily at bedtime, for 30 days, # 30 tablet, Refills 5, Tot. Refills 5, Physician Stop 12/22/22 9:07:00 EDT, 06/25/22 9:07:00 EDT, Route to Pharmacy Electronically, [facility] # [facility], 162, cm, 06/25/22 8:34:00 [...] 06/25/22 9:11:00 EDT, Route to Pharmacy Electronically, [facility] # [facility], Partial fill upon patient [...] 3 Refills, Maintenance, 06/25/22 9:06:00 EDT, [facility], Partial fill upon [...] 1vitamin C in pt susceptible to nephrolithiasis Social History Social History Type Response Smoking Status Never (less than 100 in lifetime) entered on: 11/21/18 Sex Patient Care team information Care Team Personnel Name: Eleazar Rendon NP Position: [facility] PCO w/OE and EZ Script Member Role: Primary Care Nurse Address: Address: [address] [place] [address] [place] [address]- Name: Rafiq Arteaga Position: [facility] PCO Associate Professional Member Role: PCP Address: Address: [address] [facility] [place] [address]- Care Team Related Persons Name: LEWIS BALLESTEROS Address: home [address] [place] [address] Name: RUSTY HOOVER
--- OUTSIDE RECORDS SUMMARY | 2022-11-04 01:39 | XMS_ITS | Continuity of Care Document ---
Author Name Unknown Organization [facility] Lalo Kayode lt Address [address] [place] [address]- Care Team Providers Care Refinery Operator Alkylation Name Role Phone Deshawn BERNAL, Laurita Primary Care Physician [phone] Encounter [facility] Date(s): 04/20/20 - 04/27/20 [facility] Adult [address] [place] [address]- Encounter Diagnosis Depression, major(Discharge Diagnosis) - 04/20/20 Chronic pain syndrome back,hips(Discharge Diagnosis) - 04/20/20 MONICA (obstructive sleep apnea)(Discharge Diagnosis) - 04/20/20 Attending Physician: Orlando Davis MD Allergies, Adverse [...] 02/09/19 13:37:40 EST, Route to Pharmacy Electronically, [id number]... Start Date: 02/09/19 Status: Ordered buPROPion 150 mg/24 hours (XL) oral tablet, extended release 1 tablet = 150 mg, By Mouth, Every 24 hours, # 30 tablet, 5 Refills, Maintenance, 04/20/20 8:24:00 EST, ER Tablet, [facility] [...] Unknown, 1 Refills, Maintenance, 12/17/19 15:03:00 EDT, [facility] # [facility], 163.5, cm, 11/03/19 [...] 3 Refills, Maintenance, 09/30/19 10:56:00 EDT, Inhaler, [facility], 163.5, cm, 09/30/19 9:33:00 EDT, Height, 91, kg, 07/23/19 11:11:00 EDT, Dry Weight Start Date: 09/30/19 Status: Ordered FLUoxetine 40 mg oral capsule 1 capsule = 40 mg, By Mouth, Every 48 hours, # 30 capsule, 3 Refills, Maintenance, 04/19/20 8:46:00EST, Capsule, [facility] # [facility], Partial fill upon patient request if the prescription is for a schedule II opioid drug., 163.5, cm, 04/08/20 8:37:00... Start Date: 04/19/20 Status: Ordered gabapentin 600 mg oral tablet 1 tablet, By Mouth, 3 times a day, # 270 tablet, 1 Refills, Maintenance, 11/19/19 8:38:00 EDT, [facility], 163.5, cm, 11/03/19 11:52:00 EDT, Height, 91, kg, 07/23/19 11:11:00 EDT, Dry Weight Start Date: 11/19/19 Status: Ordered lactulose 10 gm/15 ml oral syrup 15 mL = 10 Gm, By Mouth, Daily, This is correct dose., # 450 mL, 5 Refills, Maintenance, 06/25/19 9:18:00 EDT, Syrup, [facility] # [facility], 15 mL By Mouth Daily,Instr:This is correct dose., 163.5, cm,06/03/19 11:17:00 EDT, Height Start Date: 06/25/19 Status: Ordered lidocaine-prilocaine 2.5%-2.5% topical cream 1 application, Topically, Once, # 30 Gm, 1 Refills, Soft Stop, 03/08/20 8:14:00 EST, Cream, [facility] # [facility], Partial fill upon [...] tablet, 11 Refills, Maintenance, 07/23/19 11:40:00 EDT, [facility] # [...] inical Service Informant Depression, major Discharge Diagnosis 04/20/20 Chronic pain syndrome back,hips Discharge Diagnosis 04/20/20 MONICA (obstructive sleep apnea) Discharge Diagnosis 04/20/20 Procedures Procedure Date Related Diagnosis Body Site Status EMG l5-s1 RADICULAOPTHY 10/03/19 C ompleted MRI of lumbar spine 1 06/15/19 Com pleted 1MRI of the lumbar spine dated June 03, 2019 L2-L3 minimal retrolisthesis mild to moderate posteriorleft posterolateral disc protrusion mild central spinal canal stenosis moderate right and mild to moderate left neuroforaminal narrowing. L3-L4 small disc protrusion mild central spinal canal stenosis moderate bilateral neural foraminal narrowing. L4-5 minimal L4 and L5 vertebral body retrolisthesis small posterior disc protrusion mild to moderate central canal stenosis moderately severe bilateral neural foraminal narrowing. L5-S1 minimal L5 and S1 vertebral body retrolisthesis small posterior disc protrusion with mild impression upon the the alice sac severe left and moderate right neural foraminal narrowing Social History Social History Type Response Smoking Status Never (less than 100 in lifetime) entered on: 11/21/18 Sex
--- OUTSIDE RECORDS SUMMARY | 2022-11-04 01:39 | XMS_ITS | Continuity of Care Document ---
Author Name Unknown Organization [facility] Oskar May Kayode lt Address [address] [place] [address]- Care Team Providers Care Label Folder Name Role Phone Rafiq Arteaga Primary Care Physi kateryna Encounter [facility] Date(s): 04/23/22 - 04/30/22 [facility] Adult [address] [place] [address]- Encounter Diagnosis Severe obesity (BMI 35.0-39.9) with comorbidity(Discharge Diagnosis) - 04/23/22 Anxiety(Discharge Diagnosis) - 04/23/22 Peripheral neuropathy(Discharge Diagnosis) - 04/23/22 MONICA (obstructive sleep apnea) AHI 9.2(Discharge Diagnosis) - 04/23/22 Major depression Recurrent(Discharge Diagnosis) - 04/23/22 Cough variant asthma(Discharge Diagnosis) - 04/23/22 Vitamin D deficiency, unspecified(Discharge Diagnosis) - 04/23/22 Attending Physician: Rafiq Arteaga Allergies, Adverse Reactions, [...] 14:38:00 EST, Powder, Route to Pharmacy Electronically, [id number], [facility] # [facility], I... Start Date: 04/23/22 [...] 0 Refills, Maintenance, 04/23/22 11:16:00 EST, Tablet, [facility] # [facility], Partial fill upon patient request if the pr... Start Date: 04/23/22 Status: Ordered azelastine 137 mcg/inh (0.1%) nasal spray 2 sprays, Nares, Both, Daily, PRN Other Allergies, # 30 mL, 6 Refills, Maintenance, 10/05/21 13:14:00 EDT, [place], [facility] # 50, 2 sprays Nares, Both Daily,PRN:Other Allergies, 163.5, cm, 08/21/21 13:35:00 EDT, Height Start Date: 10/05/21 Status: Ordered buPROPion 300 mg/24 hours (XL) oral tablet, extended release 1 tablet = 300 mg, By Mouth, Daily, # 30 tablet, 5 Refills, Maintenance, 12/26/21 11:19:00 EDT, ER Tablet, [facility] # [facility], Partial fill upon [...] 16:41:00 EDT, Route to Pharmacy Electronically, [facility] # [facility], 163.5, cm, 08/21/21 13:35:00 EDT, Height Start Date: 10/25/21 Status: Ordered Myrbetriq 50 mg oral tablet, extended release 1 tablet = 50 mg, By Mouth, Daily, # 90 tablet, 3 Refills, Maintenance, 09/08/21 9:40:00 EDT, [facility] # 50, 163.5, cm, 08/21/21 13:35:00 EDT, [...] 11:04:00 EST, Route to Pharmacy Electronically, [facility] # [facility], 163.5, cm, 01/15/22 [...] Effective Dates Health Status Clinical Service Informant Cough variant asthma Discharge Diagnosis 04/23/22 Severe obesity (BMI 35.0-39.9) with comorbidity Discharge Diagnosis 04/23/22 Anxiety Discharge Diagnosis 04/23/22 Non-Specified Vitamin D deficiency, unspecified Discharge Diagnosis 04/23/22 Peripheral neuropathy Discharge Diagnosis 04/23/22 MONICA (obstructive sleep apnea) AHI 9.2 Discharge Diagnosis 04/23/22 Major depression Recurrent Discharge Diagnosis 04/23/22 Non-Specified Vital Signs Most recent to oldest [Reference Range]: 1 Height 163.5 cm (04/23/22 10:37 AM) Weight 104.6 kg (04/23/22 10:37 AM) Oxygen Saturation [94-100 %] 97 % (04/23/22 10:37 AM) Pulse Rate [55-90 bpm] 90 bpm (04/23/22 10:37 AM) Body Mass Index [18.5-24.99 kg/m2] 39.13 kg/m2 *>HHI* (04/23/22 10:37 AM) Blood Pressure [90-138/55-84 mm Hg] 102/ 66mm Hg (04/23/22 10:37 AM) Temperature [96.8-100.4 DegF] 97.3 DegF (04/23/22 10:37 AM) Mode of Delivery (Oxygen) Room air (04/23/22 10:37 AM) Blood pressure sites Arm, left (04/23/22 10:37 AM) Temperature Route Temporal (04/23/22 10:37 AM) Weight Obtained Via Standing scale (04/23/22 10:37 AM) Social History Social History Type Response Smoking Status Never (less than 100 in lifetime) entered on: 11/21/18 Sex Patient Care team information Care Team Personnel Name: Eleazar Rendon NP Position: [facility] PCO w/OE and EZ Script Member Role: Primary Care Nurse Address: Address: [address] [place] [address] [place] [address]- Name: Rafiq Arteaga Position: [facility] PCO Associate Professional Member Role: PCP Address: Address: [address] [place] [address]- Care Team Related Persons Name: BALLESTEROSLEWIS BOSE Address: [address] [address] Name: RUSTY HOOVER
--- OUTSIDE RECORDS SUMMARY | 2022-11-04 01:39 | XMS_ITS | Continuity of Care Document ---
Author Name Unknown Organization [facility] Address [address] [place], [place] [address]florence [address]ore, [address] [place] [address]- Care Team Providers Care Self Sealing Fuel Tank Builder Name Role Phone Suzanne AVENDANO, Tyler Charles Primary Care Physician [phone] Encounter [facility] Date(s): 06/03/19 - 06/13/19 [facility] [address] [place] [address] Drive, [address] [place] [address]- [facility] Attending Physician: Admramana, Ernst8 Admitting Physician: Admtr, [...] 02/09/19 13:37:40 EST, Route to Pharmacy Electronically, [id number]... Start Date: 02/09/19 Status: Ordered Cranberry oral [...] [facility], 163.5, cm, 02/09/19 13:07:00 EST, Height Start Date: 03/07/19 Status: Ordered gabapentin 600 mg oral tablet 1 tablet, By Mouth, 3 times a day, # 90 Unknown, 5 Refills, Maintenance, 05/25/19 16:16:00 EDT, [facility] # [facility], 163.5, cm, 03/27/19 10:49:00 EST, Height Start Date: 05/25/19 Status: Ordered lactulose 10 gm oral powder for reconstitution 1 pack/packet, By Mouth, 2 times a day, # 30 each, 2 Refills, Maintenance, 03/27/19 11:11:00 EST, REC Powder, [facility], 163.5, cm, 03/27/19 10:49:00 EST, Height Start Date: 03/27/19 Status: Ordered lactulose 10 gm/15 ml oral syrup 15 mL = 10 Gm, By Mouth, Daily, This is correct dose., # 480 mL, 1 Refills, Maintenance, 03/29/19 20:24:00 EST, Syrup, [facility] # [...] 13:37:50 EST, Route to Pharmacy Electronically, [facility] # [facility], Refills per PCP, 163.5, cm, 02/09/19 13:07:26 EST, Height Start Date: 02/09/19 Status: Ordered Myrbetriq 25 mg oral tablet, extended release 1 tablet = 25 mg, By Mouth, Daily, do not crush or chew, # 30 tablet, 1 Refills, Maintenance, 06/01/19 14:37:00 EDT, ER Tablet, [facility] [...]
--- OUTSIDE RECORDS SUMMARY | 2022-11-04 01:39 | XMS_ITS | Continuity of Care Document ---
Author Name Unknown Organization [facility] Lalo Kayode lt Address [address] [place] [address]- Care Team Providers Care Supervisor Denture Department Name Role Phone Rafiq Arteaga Primary Care Physi kateryna Encounter [facility] Date(s): 03/06/22 - 04/05/22 [facility] Adult [address] [place] [address]- Allergies, Adverse Reactions, Alerts Substance Reaction Severity [...] 14:25:00 EST, Powder, Route to Pharmacy Electronically, [id number], [facility], 1... Start Date: 03/05/22 Status: Ordered Advair Diskus 250 mcg-50 mcg inhalation powder 1, inhalation, Inhalation, 2 times a day, rinse mouth and throat after use, # 1 each, Refills 0, Tot. Refills 0, Maintenance, 03/09/22 13:31:00 EST, Powder, Route to Pharmacy Electronically, [id number], [facility] # [facility], I... [...] 01/16/21 11:47:00 EST, Route to Pharmacy Electronically, [id number]... Start Date: 01/16/21 Status: Ordered Ativan 0.5 mg oral tablet See Instructions, PRN as needed for anxiety, Take 1 tablet as needed for anxiety, do not take more than 2 tablets/day, # 14 tablet, 0 Refills, Maintenance, 08/03/21 9:13:00 EDT, Tablet, [facility] # [facility], Partial fill upon patient request if the pre... Start Date: 08/03/21 Status: Ordered azelastine 137 mcg/inh (0.1%) nasal spray 2 sprays, Nares, Both, Daily, PRN Other Allergies, # 30 mL, 6 Refills, Maintenance, 10/05/21 13:14:00 EDT, [place], [facility], 2 sprays Nares, [...] day, # 60 capsule, 5 Refills, [facility], 163.5, cm, 08/21/21 13:35:00 EDT, Height Start Date: 09/18/21 Status: Ordered Estrace Vaginal Cream 0.1 mg/g See Instructions, 1 gram Vaginally at bedtime 2 times per week, # 42 Gm, 4 Refills, Maintenance, 03/16/21 10:21:00 EST, [facility], Patient sensitive to inactive ingredients ofmanufacturers drugs, [...] tablet, 3 Refills, Maintenance, 09/08/21 9:40:00 EDT, [facility] # 50, 163.5, cm, 08/21/21 [...] Team Personnel Name: Eleazar Rendon NP Position: [facility] PCO w/OE and EZ Script Member Role: Primary Care Nurse Address: Address: [address] [place] [address] [place] [address]- Name: Rafiq Arteaga Position: [facility] PCO Associate Professional Member Role: PCP Address: Address: [address] [facility] [place] [address]- Care Team Related Persons Name: MARCELO BALLESTEROSEL Address: home [address] [place] [phone] Name: RUSTY HOOVER
--- OUTSIDE RECORDS SUMMARY | 2022-11-04 01:39 | XMS_ITS | Continuity of Care Document ---
Author Name Unknown Organization [facility] Lalo Kayode lt Address [address] [place] [address]- Care Team Providers Care Helicopter Mechanic Name Role Phone Rafiq Arteaga Primary Care Physi kateryna Encounter [facility] Date(s): 06/25/22 - 07/25/22 [facility] Adult [address] [place] [address]- Attending Physician: Admtr, Ar8 Admitting Physician: Admtr, [...] 14:38:00 EST, Powder, Route to Pharmacy Electronically, [id number], [facility], I... [...] 0 Refills, Maintenance, 04/23/22 11:16:00 EST, Tablet, [facility] # [facility], Partial fill upon patient request if the pr... Start Date: 04/23/22 Status: Ordered azelastine 137 mcg/inh (0.1%) nasal spray 2 sprays, Nares, Both, Daily, PRN Other Allergies, # 30 mL, 6 Refills, Maintenance, 10/05/21 13:14:00 EDT, [place], [facility] # [facility], 2 sprays Nares, Both Daily,PRN:Other Allergies, 163.5, cm, 08/21/21 13:35:00 EDT, Height Start Date: 10/05/21 Status: Ordered buPROPion 300 mg/24 hours (XL) oral tablet, extended release 1 tablet = 300 mg, By Mouth, Daily, # 90 tablet, 2 Refills, Maintenance, 06/25/22 9:06:00 EDT, ER Tablet, [facility], Partial fill upon patient request if the prescription is for a schedule II opioid drug., 162, cm, 06/25/22 8:34:00 EDT, [place]... Start Date: 06/25/22 Status: Ordered duloxetine 60 mg oral enteric coated capsule 1 capsule, By Mouth, 2 times a day, # 60 capsule, 5 Refills, 04/09/22 16:24:00 EST, [facility], 163.5, cm, 03/09/22 13:18:00 EST, Height Start Date: 04/09/22 Status: Ordered Estrace Vaginal Cream 0.1 mg/g See Instructions, 1 gram Vaginally at bedtime 2 times per week, # 42 Gm, 4 Refills, Maintenance, 03/16/21 10:21:00 EST, [facility], Patient sensitive to [...] tablet, 1 Refills, Maintenance, 03/05/22 13:21:00 EST, [facility] # [...] 06/04/22 10:20:00 EDT, Route to Pharmacy Electronically, [facility], 162, cm, 05/21/22 10:37:00 EDT, Height, 102, kg, 05/21/22 10:37:00 EDT, Dry W... Start Date: 06/04/22 Status: Ordered Myrbetriq 50 mg oral tablet, extended release 1 tablet = 50 mg, By Mouth, Daily, # 90 tablet, 3 Refills, Maintenance, 09/08/21 9:40:00 EDT, [facility], 163.5, cm, 08/21/21 13:35:00 EDT, Height Start Date: 09/08/21 Status: Ordered ohm Allergy Relief 10 mg oral tablet See Instructions, TAKE 1 TABLET BY MOUTH EVERY DAY, # 90 tablet, 1 Refills, Maintenance, 06/25/22 9:15:00 EDT, [facility] # [facility], 162, cm, 06/25/22 8:34:00 EDT, Height, 102, kg, 05/21/22 10:37:00 EDT, Dry Weight Start Date: 06/25/22 Status: Ordered traZODone 50 mg oral tablet 50 mg, 1, tablet, By Mouth, Daily at bedtime, for 30 days, # 30 tablet, Refills 5, Tot. Refills 5, Physician Stop 12/22/22 9:07:00 EDT, 06/25/22 9:07:00 EDT, Route to Pharmacy Electronically, [facility], 162, [...] 06/25/22 9:11:00 EDT, Route to Pharmacy Electronically, [facility] capsule, 3 Refills, Maintenance, 06/25/22 9:06:00 EDT, [facility] # [...] Team Personnel Name: Eleazar Rendon NP Position: [facility] PCO w/OE and EZ Script Member Role: Primary Care Nurse Address: Address: [address] [place] [address] [place] [address]- Name: Rafiq Arteaga Position: [facility] PCO Associate Professional Member Role: PCP Address: Address: [address] [facility] [place] [address]- Care Team Related Persons Name: BALLESTEROSLEWIS BOSE Address: home [address] [place] [phone] Name: RUSTY HOOVER
--- OUTSIDE RECORDS SUMMARY | 2022-11-04 01:39 | XMS_ITS | Continuity of Care Document ---
Author Name Unknown Organization [facility] Lalo Kayode lt Address [address] [place] [address]- Care Team Providers Care Maitre D' Name Role Phone Susan AVENDANO, Orlando Quintanilla Primary Care Physician Encounter [facility] Date(s): 11/01/20 - 12/01/20 [facility] Adult [address] [place] [address]- Allergies, Adverse Reactions, Alerts Substance Reaction Severity [...] 02/09/19 13:37:40 EST, Route to Pharmacy Electronically, [id number]... Start Date: 02/09/19 Status: Ordered azelastine 137 mcg/inh (0.1%) nasal spray 2 sprays, Nares, Both, Daily, PRN Other Allergies, # 30 mL, 6 Refills, Maintenance, 08/18/20 15:01:00 EDT, [place], [facility], 2 sprays Nares, Both Daily,PRN:Other Allergies, 163.5, cm, 08/18/20 14:46:00 EDT, Height, 91, kg, 07/23/19 11:11... Start Date: 08/18/20 Status: Ordered buPROPion 300 mg/24 hours (XL) oral tablet, extended release 1 tablet = 300 mg, By Mouth, Daily, # 30 tablet, 11 Refills, Maintenance, 05/11/20 13:04:00 EDT, ERTablet, [facility], [...] Refills, Maintenance, 03/23/20 16:57:00 EST, [facility], Patient sensitive to [...] Unknown, 1 Refills, Maintenance, 11/15/20 12:03:00 EDT, [facility] # [facility], 163.5, cm, 09/09/20 12:42:00 EDT, Height, 91, kg, 07/23/19 11:11:00 EDT, Dry Weight Start Date: 11/15/20 Status: Ordered lidocaine-prilocaine 2.5%-2.5% topical cream 1 application, Topically, Once, # 30 Gm, 1 Refills, Soft Stop, 03/08/20 8:14:00 EST, Cream, [facility] # [facility], Partial [...] [facility], 163.5, cm, 09/09/20 12:42:00... [...] tablet, Refills 5, Tot. Refills 5, Maintenance, 11/18/20 11:15:00 EDT, Route to Pharmacy Electronically, [facility], Refills per PCP, 163.5, cm, 09/09/20 12:42:00 EDT, Height, 91, kg, 07/23/19 1... Start Date: 11/18/20 Status: Ordered Myrbetriq 50 mg oral tablet, extended release 1 tablet = 50 mg, By Mouth, Daily, # 30 tablet, 11 Refills, Maintenance, 08/11/20 16:47:00 EDT, [facility] # [facility], 163.5, cm, [...]
--- OUTSIDE RECORDS SUMMARY | 2022-11-04 01:39 | XMS_ITS | Continuity of Care Document ---
Author Name Unknown Organization [facility] Address [address] [facility] [facility], [address] [place] [address]- Care Team Providers Care Fish Technologist Name Role Phone Susan AVENDANO, Orlando Quintanilla Primary Care Physician Encounter [facility] Date(s): 09/08/21 - 10/08/21 [facility] [address], [address] [place], [place] [address] Allergies, Adverse Reactions, Alerts Substance Reaction [...] 01/16/21 11:47:00 EST, Route to Pharmacy Electronically, [id number]... Start Date: 01/16/21 Status: Ordered Ativan 0.5 [...] mL, 6 Refills, Maintenance, 10/05/21 13:14:00 EDT, [place], [facility], 2 sprays Nares, Both Daily,PRN:Other Allergies, 163.5, cm, 08/21/21 13:35:00 EDT, Height Start Date: 10/05/21 Status: Ordered azelastine 137 mcg/inh (0.1%) nasal spray 2 sprays, Nares, Both, Daily, PRN Other Allergies, # 30 mL, 6 Refills, Maintenance, 08/18/20 15:01:00 EDT, [place], [facility], 2 sprays Nares, [...] Refills, Maintenance, 05/26/21 10:29:00 EDT, EC Tablet, [facility], Partial fill upon patient request if the prescription is for a schedule II opioid drug., 163.5, cm, 04/21/21 11:51:0... Start Date: 05/26/21 Status: Ordered duloxetine 60 mg oral enteric coated capsule 1 capsule, By Mouth, 2 times a day, # 60 capsule, 5 Refills, [facility], 163.5, cm, 08/21/21 13:35:00 EDT, Height Start Date: 09/18/21 Status: Ordered Estrace Vaginal Cream 0.1 mg/g See Instructions, 1 gram Vaginally at bedtime 2 times per week, # 42 Gm, 4 Refills, Maintenance, 03/16/21 10:21:00 EST, [facility], Patient sensitive to inactive ingredients ofmanufacturers drugs, [...] 1 each, 6 Refills, 09/21/21 16:29:00 EDT, [facility], 163.5, cm, 08/21/21 13:35:00 EDT, Height Start Date: 09/21/21 Status: Ordered gabapentin 600 mg oral tablet 1 tablet, By Mouth, 3 times a day, # 270 tablet, 1 Refills, [facility], 163.5, cm, 04/21/21 11:51:00 EST, Height, 91, kg, 07/23/19 11:11:00 EDT, Dry Weight Start Date: 05/11/21 Status: Ordered lidocaine-prilocaine 2.5%-2.5% topical cream 1 application, Topically, Once, # 30 Gm, 3 Refills, Soft Stop, 04/21/21 12:20:00 EST, Cream, [facility] # [facility], Partial fill upon patient request, 1 application Topically Once, 163.5, cm, 04/21/21 11:51:00 EST, Height, 91, kg, 07/23/19 11:11:00 EDT,... Start Date: 04/21/21 Status: Ordered lubiprostone 24 mcg oral capsule 1 capsule, By Mouth, 2 times a day, # 60 capsule, 5 Refills, 04/21/21 12:25:00 EST, [facility] [...] 03/07/21 14:45:00 EST, Route to Pharmacy Electronically, [facility], 163.5, cm, 12/12/20 16:09:00 EDT, Height, 91, kg, 07/23/19 11:11:00 EDT, Dry... Start Date: 03/07/21 Status: Ordered Myrbetriq 50 mg oral tablet, extended release 1 tablet = 50 mg, By Mouth, Daily, # 90 tablet, 3 Refills, Maintenance, 09/08/21 9:40:00 EDT, [facility], 163.5, cm, 08/21/21 13:35:00 EDT, Height Start Date: 09/08/21 Status: Ordered ohm Allergy Relief 10 mg oral tablet See Instructions, TAKE 1 TABLET BY MOUTH EVERY DAY, # 90 tablet, 1 Refills, Maintenance, 10/01/21 2:49:00 EDT, [facility], 163.5, cm, 08/21/21 13:35:00 EDT, Height Start Date: 10/01/21 Status: Ordered traZODone 50 mg oral tablet 2, tablet, By Mouth, Daily at bedtime, # 60 tablet, Refills 5, Route to Pharmacy Electronically, [facility], 163.5, cm, 12/12/20 16:09:00 [...]
--- OUTSIDE RECORDS SUMMARY | 2022-11-04 01:39 | XMS_ITS | Continuity of Care Document ---
Author Name Unknown Organization [facility] Address [address] [place] [address]- Care Team Providers Care Analytical Strategist Name Role Phone Susan AVENDANO, Orlando Quintanilla Primary Care Physician Encounter [facility] Date(s): 04/25/21 - 05/25/21 [facility] [address] [place] [address]- Allergies, Adverse Reactions, Alerts Substance Reaction Severity [...] 01/16/21 11:47:00 EST, Route to Pharmacy Electronically, [id number]... Start Date: 01/16/21 Status: Ordered azelastine 137 mcg/inh (0.1%) nasal spray 2 sprays, Nares, Both, Daily, PRN Other Allergies, # 30 mL, 6 Refills, Maintenance, 08/18/20 15:01:00 EDT, [place], [facility], 2 sprays Nares, Both Daily,PRN:Other Allergies, 163.5, cm, 08/18/20 14:46:00 EDT, Height, 91, kg, 07/23/19 11:11... Start Date: 08/18/20 Status: Ordered buPROPion 300 mg/24 hours (XL) oral tablet, extended release 1 tablet = 300 mg, By Mouth, Daily, # 30 tablet, 11 Refills, Maintenance, 05/11/20 13:04:00 EDT, ERTablet, [facility], Partial fill upon [...] Refills, Maintenance, 04/27/21 15:04:00 EST, EC Tablet, [facility], Partial fill upon [...] Refills, Maintenance, 03/16/21 10:21:00 EST, [facility], Patient sensitive to inactive ingredients ofmanufacturers drugs, [...] # 31.8 Gm, 1 Refills, Maintenance, [facility], 163.5, cm, 09/09/20 12:42:00 EDT, Height, 91, kg, 07/23/19 11:11:00 EDT, Dry Weight Start Date: 10/06/20 Status: Ordered gabapentin 600 mg oral tablet 1 tablet, By Mouth, 3 times a day, # 270 tablet, 1 Refills, [facility] # [facility], 163.5, cm, 04/21/21 11:51:00 EST, Height, 91, kg, 07/23/19 11:11:00 EDT, Dry Weight Start Date: 05/11/21 Status: Ordered lidocaine-prilocaine 2.5%-2.5% topical cream 1 application, Topically, Once, # 30 Gm, 3 Refills, Soft Stop, 04/21/21 12:20:00 EST, Cream, [facility], Partial fill upon [...] 5 Refills, 04/21/21 12:25:00 EST, [facility], 163.5, cm, 04/21/21 [...] EST, Route to Pharmacy Electronically, [facility], 163.5, cm, 12/12/20 16:09:00 EDT, Height, 91, kg, 07/23/19 11:11:00 EDT, Dry... Start Date: 03/07/21 Status: Ordered Myrbetriq 50 mg oral tablet, extended release 1 tablet = 50 mg, By Mouth, Daily, # 90 tablet, 3 Refills, Maintenance, 03/16/21 10:21:00 EST, [facility] # [...]
--- OUTSIDE RECORDS SUMMARY | 2022-11-04 01:39 | XMS_ITS | Continuity of Care Document ---
Author Name Unknown Organization [facility] Address [address] [place] [address]- Care Team Providers Care Health Professional Name Role Phone Rafiq Arteaga Primary Care Physi kateryna Encounter [facility] Date(s): 09/24/22 - 10/24/22 [facility] [place] [address] [place] [address]- Attending Physician: Admtr, [id number] Admitting Physician: Admtr, [...] 14:38:00 EST, [place], Route to Pharmacy Electronically, [id number], [facility], I... Start [...] 0 Refills, Maintenance, 04/23/22 11:16:00 EST, Tablet, [facility] # [facility], Partial fill upon patient request if the pr... Start Date: 04/23/22 Status: Ordered azelastine 137 mcg/inh (0.1%) nasal spray 2 sprays, Nares, Both, Daily, PRN Other Allergies, # 30 mL, 6 Refills, Maintenance, 10/05/21 13:14:00 EDT, [place], [facility] # [facility], 2 sprays Nares, Both Daily,PRN:Other Allergies, 163.5, cm, 08/21/21 13:35:00 EDT, Height Start Date: 10/05/21 Status: Ordered buPROPion 300 mg/24 hours (XL) oral tablet, extended release 1 tablet = 300 mg, By Mouth, Daily, # 90 tablet, 2 Refills, Maintenance, 06/25/22 9:06:00 EDT, ER Tablet, [facility], Partial fill upon patient request if the prescription is for a schedule II opioid drug., 162, cm, 06/25/22 8:34:00 EDT, [place]... Start Date: 06/25/22 Status: Ordered duloxetine 60 mg oral enteric coated capsule 1 capsule, By Mouth, 2 times a day, # 60 capsule, 5 Refills, 04/09/22 16:24:00 EST, [facility], 163.5, cm, [...] Gm, 4 Refills, Maintenance, 10/08/22 11:23:00 EDT, [facility], Partial fill upon [...] tablet, 1 Refills, Maintenance, 08/14/22 12:36:00 EDT, [facility], 162, cm, 08/08/22 11:26:00 EDT, Height, 102, kg, 05/21/22 10:37:00 EDT, Dry Weight Start Date: 08/14/22 Status: Ordered lidocaine-prilocaine 2.5%-2.5% topical cream 1 application, Topically, Once, # 30 Gm, 1 Refills, Soft Stop, 10/04/22 16:32:00 EDT, Cream, [facility], Partial fill upon [...] 06/04/22 10:20:00 EDT, Route to Pharmacy Electronically, [facility], 162, cm, 05/21/22 10:37:00 EDT, Height, 102, kg, 05/21/22 10:37:00 EDT, Dry W... Start Date: 06/04/22 Status: Ordered Myrbetriq 50 mg oral tablet, extended release 1 tablet = 50 mg, By Mouth, Daily, # 90 tablet, 3 Refills, Maintenance, 10/08/22 11:21:00 EDT, [facility] # [facility], 162, cm, 09/24/22 12:53:00 EDT, Height, 102, kg, 05/21/22 10:37:00 EDT, Dry Weight Start Date: 10/08/22 Status: Ordered ohm Allergy Relief 10 mg oral tablet See Instructions, TAKE 1 TABLET BY MOUTH EVERY DAY, # 90 tablet, 1 Refills, Maintenance, 06/25/22 9:15:00 EDT, [facility] # [facility], 162, cm, 06/25/22 8:34:00 EDT, Height, 102, kg, 05/21/22 10:37:00 EDT, Dry Weight Start Date: 06/25/22 Status: Ordered traZODone 50 mg oral tablet 50 mg, 1, tablet, By Mouth, Daily at bedtime, for 30 days, # 30 tablet, Refills 5, Tot. Refills 5, Physician Stop 12/22/22 9:07:00 EDT, 06/25/22 9:07:00 EDT, Route to Pharmacy Electronically, [facility], 162, cm, [...] 06/25/22 9:11:00 EDT, Route to Pharmacy Electronically, [facility], Partial fill [...] capsule, 3 Refills, Maintenance, 06/25/22 9:06:00 EDT, [facility] # [facility], Partial fill [...] Name: Eleazar Rendon NP Position: [facility] w/OE and EZ Script Member Role: Primary Care Nurse Address: Address: [address] [place] [address] [place] [address]- [place] Name: Rafiq Arteaga Position: [facility] Associate Professional Member Role: PCP Address: Address: [address] [place] [address]- Care Team Related Persons Name: LEWIS BALLESTEROS Address: home [address] [place] [id number] Name: RUSTY HOOVER
--- OUTSIDE RECORDS SUMMARY | 2022-11-04 01:39 | XMS_ITS | Continuity of Care Document ---
Author Name Unknown Organization [facility] Address [address] [place] [address]- Care Team Providers Care Consulting Utility Forester Name Role Phone Rafiq Arteaga Primary Care Physi kateryna Encounter [facility] [place] [place] Date(s): 12/26/21 - 01/25/22 [facility] [address] [place] [address]- Allergies, Adverse Reactions, Alerts Substance Reaction Severity [...] 01/16/21 11:47:00 EST, Route to Pharmacy Electronically, [id number]... Start Date: 01/16/21 Status: Ordered Ativan 0.5 mg oral tablet See Instructions, PRN as needed for anxiety, Take 1 tablet as needed for anxiety, do not take more than 2 tablets/day, # 14 tablet, 0 Refills, Maintenance, 08/03/21 9:13:00 EDT, Tablet, [facility], Partial fill upon patient request if the pre... Start Date: 08/03/21 Status: Ordered azelastine 137 mcg/inh (0.1%) nasal spray 2 sprays, Nares, Both, Daily, PRN Other Allergies, # 30 mL, 6 Refills, Maintenance, 10/05/21 13:14:00 EDT, [place], [facility], 2 sprays Nares, Both Daily,PRN:Other Allergies, 163.5, cm, 08/21/21 13:35:00 EDT, Height Start Date: 10/05/21 Status: Ordered buPROPion 300 mg/24 hours (XL) oral tablet, extended release 1 tablet = 300 mg, By Mouth, Daily, # 30 tablet, 5 Refills, Maintenance, 12/26/21 11:19:00 EDT, ER Tablet, [facility], Partial fill upon [...] 60 tablet, 1 Refills, 12/26/21 11:19:00 EDT, [facility], 163.5, cm, 08/21/21 13:35:00 EDT, Height Start Date: 12/26/21 Status: Ordered diclofenac sodium 75 mg oral delayed release tablet See Instructions, TAKE ONE TABLET BY MOUTH TWICE A DAY, # 60 tablet, 1 Refills, Maintenance, 12/27/21 9:34:00 EDT, [facility], 163.5, cm, 12/27/21 9:29:00 EDT, Height Start Date: 12/27/21 Status: Ordered duloxetine 60 mg oral enteric coated capsule 1 capsule, By Mouth, 2 times a day, # 60 capsule, 5 Refills, [facility] [...] 16:29:00 EDT, [facility], 163.5, cm, 08/21/21 13:35:00 EDT, Height Start Date: 09/21/21 Status: Ordered gabapentin 600 mg oral tablet 1 tablet, By Mouth, 3 times a day, office visit needed for further refills, # 270 tablet, 1 Refills, Maintenance, 11/13/21 13:31:00 EDT, [facility] [...] tablet, 3 Refills, Maintenance, 09/08/21 9:40:00 EDT, [facility] # 50, 163.5, cm, 08/21/21 13:35:00 EDT, Height Start Date: 09/08/21 Status: Ordered ohm Allergy Relief 10 mg oral tablet See Instructions, TAKE 1 TABLET BY MOUTH EVERY DAY, # 90 tablet, 1 Refills, Maintenance, 10/01/21 2:49:00 EDT, [facility] # [...] Team Personnel Name: Eleazar Rendon NP Position: [facility] w/OE and EZ Script Member Role: Primary Care Nurse Address: Address: [address] [place], [place] [address] [facility] [place] [place] [address]- Name: Rafiq Arteaga [facility] Associate Professional Member Role: PCP Address: Address: [address] [place] [address] [place] [address]- Care Team Related Persons Name: LEWIS BALLESTEROS Address: home [address] [place] [id number] Name: RUSTY HOOVER
--- OUTSIDE RECORDS SUMMARY | 2022-11-04 01:39 | XMS_ITS | Continuity of Care Document ---
Author Name Unknown Organization [facility] Address [address] [place] [address]- Care Team Providers Care Aws Solution Architect Name Role Phone Orlando Davis MD Primary Care Physician Encounter [facility] Date(s): 03/08/21 - 09/14/[address] [address]- Attending Physician: Charmaine Randall MD Admitting Physician: Charmaine Rnadall MD Referring Physician: Orlando Davis MD Allergies, [...] 1 each, Maintenance, for use with Flovent, 12/16/19 13:37:15 EST, Compound, 163.5, cm, 02/09/19 13:07:26 EST, Height Start Date: 02/09/19 Status: Ordered albuterol CFC free 90 mcg/inh inhalation aerosol 2, puffs, Inhalation, 4 times a day, PRN, use with spacer chamber as directed 15 minutes before exercise, # 1 each, Refills 3, Tot. Refills 3, Maintenance, 01/16/21 11:47:00 EST, Route to Pharmacy Electronically, [id number]... Start Date: 01/16/21 Status: Ordered Ativan 0.5 mg oral tablet See Instructions, PRN as needed for anxiety, Take 1 tablet as needed for anxiety, do not take more than 2 tablets/day, # 14 tablet, 0 Refills, Maintenance, 08/03/21 9:13:00 EDT, Tablet, [facility], Partial fill upon patient request if the pre... Start Date: 08/03/21 Status: Ordered azelastine 137 mcg/inh (0.1%) nasal spray 2 sprays, Nares, Both, Daily, PRN Other Allergies, # 30 mL, 6 Refills, Maintenance, 08/18/20 15:01:00 EDT, [place], [facility], 2 sprays Nares, Both Daily,PRN:Other Allergies, 163.5, cm, 08/18/20 14:46:00 EDT, Height, 91, kg, 07/23/19 11:11... Start Date: 08/18/20 Status: Ordered buPROPion 300 mg/24 hours (XL) oral tablet, extended release 1 tablet = 300 mg, By Mouth, Daily, # 30 tablet, 5 Refills, Maintenance, 05/30/21 10:47:00 EDT, ER Tablet, [facility], Partial fill upon [...] Refills, Maintenance, 05/26/21 10:29:00 EDT, EC Tablet, [facility], Partial fill upon patient request if the prescription is for a schedule II opioid drug., 163.5, cm, 04/21/21 11:51:0... Start Date: 05/26/21 Status: Ordered duloxetine 60 mg oral enteric coated capsule 1 capsule = 60 mg, By Mouth, 2 times a day, # 60 capsule, 5 Refills, Maintenance, 02/10/21 14:24:00EST, EC Capsule, [facility], Partial fill upon patient request if the prescription is for a schedule II opioid drug., 163.5, cm, 12/12/20 16:0... Start Date: 02/10/21 Status: Ordered Estrace Vaginal Cream 0.1 mg/g See Instructions, 1 gram Vaginally at bedtime 2 times per week, # 42 Gm, 4 Refills, Maintenance, 03/16/21 10:21:00 EST, [facility], Patient sensitive to inactive ingredients ofmanufacturers drugs, [...] 1 Refills, Maintenance, [facility], 163.5, cm, 09/09/20 12:42:00 EDT, Height, 91, kg, 07/23/19 11:11:00 EDT, Dry Weight Start Date: 10/06/20 Status: Ordered gabapentin 600 mg oral tablet 1 tablet, By Mouth, 3 times a day, # 270 tablet, 1 Refills, [facility], 163.5, cm, 04/21/21 11:51:00 EST, Height, 91, kg, 07/23/19 11:11:00 EDT, Dry Weight Start Date: 05/11/21 Status: Ordered lidocaine-prilocaine 2.5%-2.5% topical cream 1 application, Topically, Once, # 30 Gm, 3 Refills, Soft Stop, 04/21/21 12:20:00 EST, Cream, [facility], [...] Replace Required Details, Route to Pharmacy Electronically, [facility], 163.5, cm, 12/12/20 16:09:0... Start Date: 03/15/21 Status: Ordered lubiprostone 24 mcg oral capsule 1 capsule, By Mouth, 2 times a day, # 60 capsule, 5 Refills, 04/21/21 12:25:00 EST, [facility], [...] 03/07/21 14:45:00 EST, Route to Pharmacy Electronically, [facility], 163.5, cm, 12/12/20 16:09:00 EDT, Height, 91, kg, 05/28/20 11:11:00 EDT, Dry... Start Date: 03/07/21 Status: [...]
--- OUTSIDE RECORDS SUMMARY | 2022-11-04 01:39 | XMS_ITS | Continuity of Care Document ---
Author Name Unknown Organization [facility] Address [address] [facility] [address] [place] [address]- Care Team Providers Care Lump Room Supervisor Name Role Phone Susan AVENDANO, Orlando Quintanilla Primary Care Physician Encounter [facility] [place] Date(s): 12/16/20 - 01/15/21 [facility] [address] [address] Allergies, Adverse Reactions, Alerts Substance Reaction [...] 02/09/19 13:37:40 EST, Route to Pharmacy Electronically, [id number]... Start Date: 02/09/19 Status: Ordered azelastine 137 mcg/inh (0.1%) nasal spray 2 sprays, Nares, Both, Daily, PRN Other Allergies, # 30 mL, 6 Refills, Maintenance, 08/18/20 15:01:00 EDT, [place], [facility], 2 sprays Nares, Both Daily,PRN:Other Allergies, 163.5, cm, 08/18/20 14:46:00 EDT, Height, 91, kg, 07/23/19 11:11... Start Date: 08/18/20 Status: Ordered buPROPion 300 mg/24 hours (XL) oral tablet, extended release 1 tablet = 300 mg, By Mouth, Daily, # 30 tablet, 11 Refills, Maintenance, 05/11/20 13:04:00 EDT, ERTablet, [facility], Partial fill upon [...] Replace Required Details, Route to Pharmacy Electronically, [facility], 163.5, cm, 09/09/20 12:42:00... Start Date: 11/01/20 Status: Ordered lubiprostone 24 mcg oral capsule 1 capsule, By Mouth, 2 times a day, # 60 capsule, 5 Refills, [facility] # [facility], 163.5, cm, 09/09/20 [...] 12/16/20 15:12:00 EDT, Route to Pharmacy Electronically, [facility], 163.5, cm, 12/12/20 16:09:00 EDT, Height, 91, kg, 07/23/19 11:11:00 EDT, Dry... Start Date: 12/16/20 Status: Ordered Myrbetriq 50 mg oral tablet, extended release 1 tablet = 50 mg, By Mouth, Daily, # 30 tablet, 11 Refills, Maintenance, 08/11/20 16:47:00 EDT, [facility] # [facility], 163.5, cm, 08/11/20 10:34:00 EDT, Height, 91, kg, 07/23/19 11:11:00 EDT, Dry Weight Start Date: 08/11/20 Status: Ordered traZODone 50 mg oral tablet 2, tablet, By Mouth, Daily at bedtime, # 60 tablet, Refills 5, Tot. Refills 0, Maintenance, 07/28/20 15:52:00 EDT, Route to Pharmacy Electronically, [facility] # [facility], 163.5, cm, 06/16/20 7:48:00 [...]
--- OUTSIDE RECORDS SUMMARY | 2022-11-04 01:39 | XMS_ITS | Continuity of Care Document ---
Author Name Unknown Organization [facility] ter Address [address] [place] [address]- Care Team Providers Care Stator Tester Name Role Phone Orlando Davis MD Primary Care Physician Encounter [facility] Date(s): 12/02/20 - 03/25/[address] [address] Attending Physician: Orlando Davis MD Admitting Physician: [...] 01/16/21 11:47:00 EST, Route to Pharmacy Electronically, [id number]... Start Date: 01/16/21 Status: Ordered azelastine 137 mcg/inh (0.1%) nasal spray 2 sprays, Nares, Both, Daily, PRN Other Allergies, # 30 mL, 6 Refills, Maintenance, 08/18/20 15:01:00 EDT, [place], [facility], 2 sprays [...] 5 Refills, Maintenance, 02/10/21 14:24:00EST, EC Capsule, [facility] # [facility], Partial fill upon patient request if the prescription is for a schedule II opioid drug., 163.5, cm, 12/12/20 16:0... Start Date: 02/10/21 Status: Ordered Estrace Vaginal Cream 0.1 mg/g See Instructions, 1 gram Vaginally at bedtime 2 times per week, # 42 Gm, 4 Refills, Maintenance, 03/16/21 10:21:00 EST, [facility], Patient sensitive to [...] DAY, # 31.8 Gm, 1 Refills, Maintenance, [facility], 163.5, cm, 09/09/20 12:42:00 EDT, Height, 91, kg, 07/23/19 11:11:00 EDT, Dry Weight Start Date: 10/06/20 Status: Ordered gabapentin 600 mg oral tablet 1 tablet, By Mouth, 3 times a day, # 270 Unknown, 1 Refills, Maintenance, 11/15/20 12:03:00 EDT, [facility] # [facility], 163.5, cm, 09/09/20 12:42:00 EDT, Height, 91, kg, 07/23/19 11:11:00 EDT, Dry Weight Start Date: 11/15/20 Status: Ordered lidocaine-prilocaine 2.5%-2.5% topical cream 1 application, Topically, Once, # 30 Gm, 1 Refills, Soft Stop, 03/08/20 8:14:00 EST, Cream, [facility] # [facility], Partial fill upon patient request, 1 application Topically Once, 163.5, cm, 01/11/20 14:45:00 EST, Height, 91, kg, 07/23/19 11:11:00 EDT,... Start Date: 03/08/20 Status: Ordered loratadine 10 mg oral tablet See Instructions, TAKE ONE TABLET BY MOUTH EVERY DAY, # 90 tablet, Refills 1, Tot. Refills 1, Maintenance, 03/15/21 11:49:00 EST, Instructions Replace Required Details, Route to Pharmacy Electronically, [facility], 163.5, cm, 12/12/20 16:09:0... Start Date: 03/15/21 Status: Ordered lubiprostone 24 mcg oral capsule 1 capsule, By Mouth, 2 times a day, # 60 capsule, 5 Refills, [facility] # [facility], 163.5, cm, 09/09/20 [...] 03/07/21 14:45:00 EST, Route to Pharmacy Electronically, [facility], 163.5, cm, 12/12/20 16:09:00 EDT, Height, 91, kg, 07/23/19 11:11:00 EDT, Dry... Start Date: 03/07/21 Status: Ordered Myrbetriq 50 mg oral tablet, extended release 1 tablet = 50 mg, By Mouth, Daily, # 90 tablet, 3 Refills, Maintenance, 03/16/21 10:21:00 EST, [facility] # [facility], 163.5, cm, 12/12/20 [...]
--- OUTSIDE RECORDS SUMMARY | 2022-11-04 01:39 | XMS_ITS | Continuity of Care Document ---
Author Name Unknown Organization [facility] Address [address] [facility], [address] [place] [address]- Care Team Providers Care Student Services Counselor Name Role Phone Rafiq Arteaga Primary Care Physi kateryna Encounter 02/27/22 - 05/02/22 [facility] [address], [address] [place] [address]- Attending Physician: Rafiq Arteaga Admitting Physician: Rafiq [...] 14:38:00 EST, Powder, Route to Pharmacy Electronically, [id number], [facility] # [...] 0 Refills, Maintenance, 04/23/22 11:16:00 EST, Tablet, [facility] # [facility], Partial fill upon patient request if the pr... Start Date: 04/23/22 Status: Ordered azelastine 137 mcg/inh (0.1%) nasal spray 2 sprays, Nares, Both, Daily, PRN Other Allergies, # 30 mL, 6 Refills, Maintenance, 10/05/21 13:14:00 EDT, [place], [facility], 2 sprays Nares, Both Daily,PRN:Other Allergies, 163.5, cm, 08/21/21 13:35:00 EDT, Height Start Date: 10/05/21 Status: Ordered buPROPion 300 mg/24 hours (XL) oral tablet, extended release 1 tablet = 300 mg, By Mouth, Daily, # 30 tablet, 5 Refills, Maintenance, 12/26/21 11:19:00 EDT, ER Tablet, [facility] # [facility], Partial fill upon patient [...] Refills, Maintenance, 03/16/21 10:21:00 EST, [facility], Patient sensitive to inactive ingredients ofmanufacturers drugs, [...] Refills, Soft Stop, 04/23/22 11:23:00 EST, Cream, [facility] [...] tablet, 1 Refills, Maintenance, 03/05/22 13:16:00 EST, [facility] # [facility], 163.5, cm, 03/05/22 12:50:00 EST, Height Start Date: 03/05/22 Status: Ordered traZODone 50 mg oral tablet 2, tablet, By Mouth, Daily at bedtime, # 60 tablet, Refills 5, Tot. Refills 5, 02/05/22 11:04:00 EST, Route to Pharmacy Electronically, [facility], 163.5, cm, 01/15/22 8:07:00 [...] Member Role: Primary Care Nurse Address: Address: [address] [place] [address] [place] [address]- Name: Rafiq Arteaga [facility] Associate Professional Member Role: PCP Address: Address: [address] [place] [address] [place] [address]- Care Team Related Persons Name: BALLESTEROSLEWIS BOSE Address: home [address] [place] [id number] Name: RUSTY HOOVER
--- OUTSIDE RECORDS SUMMARY | 2022-11-04 01:39 | XMS_ITS | Continuity of Care Document ---
Author Name Unknown Organization [facility] [place] Kayode lt Address [address] [place] [address]- Care Team Providers Care Instrument Mechanic Name Role Phone Orlando Davis MD Primary Care Physician Encounter [facility] Date(s): 09/09/20 - 09/16/20 [facility] Adult [address] [place] [address]- Encounter Diagnosis Constipation, chronic(Discharge Diagnosis) - 09/05/20 MONICA (obstructive sleep apnea) AHI 9.2(Discharge Diagnosis) - 09/05/20 Peripheral neuropathy(Discharge Diagnosis) - 09/05/20 Major depression in full remission(Discharge Diagnosis) - 09/09/20 Obesity(Discharge Diagnosis) - 09/09/20 Attending Physician: Orlando Davis MD Allergies, Adverse [...] 02/09/19 13:37:40 EST, Route to Pharmacy Electronically, [id number]... Start Date: 02/09/19 Status: Ordered azelastine 137 mcg/inh (0.1%) nasal spray 2 sprays, Nares, Both, Daily, PRN Other Allergies, # 30 mL, 6 Refills, Maintenance, 08/18/20 15:01:00 EDT, [place], [facility], 2 sprays Nares, Both Daily,PRN:Other Allergies, 163.5, cm, 08/18/20 14:46:00 EDT, Height, 91, kg, 07/23/19 11:11... Start Date: 08/18/20 Status: Ordered buPROPion 300 mg/24 hours (XL) oral tablet, extended release 1 tablet = 300 mg, By Mouth, Daily, # 30 tablet, 11 Refills, Maintenance, 05/11/20 13:04:00 EDT, ERTablet, [facility] # [...] 5 Refills, Maintenance, 08/11/20 11:15:00EDT, EC Capsule, [facility] # [facility], Partial fill upon patient request if the prescription is for a schedule II opioid drug., 163.5, cm, 08/11/20 10:3... Start Date: 08/11/20 Status: Ordered Estrace Vaginal Cream 0.1 mg/g See Instructions, 1 gram Vaginally at bedtime 2 times per week, # 42 Gm, 4 Refills, Maintenance, 03/23/20 16:57:00 EST, [facility], Patient sensitive to [...] 3 Refills, Maintenance, 08/18/20 15:02:00 EDT, Inhaler, [facility] # [facility], 163.5, cm, 08/18/20 14:46:00 EDT, Height,... Start Date: 08/18/20 Status: Ordered gabapentin 600 mg oral tablet 1 tablet, By Mouth, 3 times a day, # 270 Unknown, 1 Refills, Maintenance, 05/24/20 16:58:00 EDT, [facility], 163.5, cm, 05/14/20 23:20:00 EDT, Height, 91, kg, 07/23/19 11:11:00 EDT, Dry Weight Start Date: 05/24/20 Status: Ordered lidocaine-prilocaine 2.5%-2.5% topical cream 1 application, Topically, Once, # 30 Gm, 1 Refills, Soft Stop, 03/08/20 8:14:00 EST, Cream, [facility] # [facility], Partial fill upon patient [...] Effective Dates Health Status Clinical Service Informant Constipation, chronic Discharge Diagnosis 09/05/20 MONICA (obstructive sleep apnea) AHI 9.2 Discharge Diagnosis 09/05/20 Peripheral neuropathy Discharge Diagnosis 09/05/20 Major depression in full remission Discharge Diagnosis 09/09/20 Obesity Discharge Diagnosis 09/09/20 Vital Signs Most recent to oldest [Reference Range]: 1 Height 163.5 cm (09/09/20 12:42 PM) Social History Social History Type Response Smoking Status Never (less than 100 in lifetime) entered on: 11/21/18 Sex
--- OUTSIDE RECORDS SUMMARY | 2022-11-04 01:39 | XMS_ITS | Continuity of Care Document ---
Author Name Unknown Organization [facility] Oskar May Kayode lt Address [address] [place] [address]- Care Team Providers Care Asset Protection Representative Name Role Phone Rafiq Arteaga Primary Care Physi [facility] Encounter [facility] Date(s): 03/05/22 - 03/12/22 [facility] Adult [address] [place] [address]- Encounter Diagnosis Asthma(Discharge Diagnosis) - 03/05/22 MONICA (obstructive sleep apnea) AHI 9.2(Discharge Diagnosis) - 03/05/22 Severe obesity(Discharge Diagnosis) - 03/05/22 Attending Physician: Rafiq Arteaga Allergies, Adverse Reactions, [...] 14:25:00 EST, Pow[place], Route to Pharmacy Electronically, [id number], [facility], 1... Start Date: 03/05/22 Status: Ordered Advair Diskus 250 mcg-50 mcg inhalation powder 1, inhalation, Inhalation, 2 times a day, rinse mouth and throat after use, # 1 each, Refills 0, Tot. Refills 0, Maintenance, 03/09/22 13:31:00 EST, [place], Route to Pharmacy Electronically, [id number], [facility] # [facility], I... [...] 01/16/21 11:47:00 EST, Route to Pharmacy Electronically, [id number]... Start Date: 01/16/21 Status: Ordered Ativan 0.5 mg oral tablet See Instructions, PRN as needed for anxiety, Take 1 tablet as needed for anxiety, do not take more than 2 tablets/day, # 14 tablet, 0 Refills, Maintenance, 08/03/21 9:13:00 EDT, Tablet, [email or web address] # [facility], Partial fill upon patient request if the pre... Start Date: 08/03/21 Status: Ordered azelastine 137 mcg/inh (0.1%) nasal spray 2 sprays, Nares, Both, Daily, PRN Other Allergies, # 30 mL, 6 Refills, Maintenance, 10/05/21 13:14:00 EDT, [place], [facility], 2 sprays Nares, Both Daily,PRN:Other Allergies, 163.5, cm, 08/21/21 13:35:00 EDT, Height Start Date: 10/05/21 Status: Ordered buPROPion 300 mg/24 hours (XL) oral tablet, extended release 1 tablet = 300 mg, By Mouth, Daily, # 30 tablet, 5 Refills, Maintenance, 12/26/21 11:19:00 EDT, ER Tablet, [facility] [...] a day, # 60 capsule, 5 Refills, [facility], [...] tablet, 1 Refills, Maintenance, 03/05/22 13:21:00 EST, [facility] # [...] EDT, Height Start Date: 09/08/21 Status: Ordered naproxen 500 mg oral tablet 1 tablet = 500 mg, By Mouth, 2 times a day, PRN for pain, for 10 days, # 20 tablet, 0 Refills, Acute 03/19/22 12:11:00 EST, 03/09/22 12:11:00 EST, Tablet, [facility] # [facility], Partial fill upon patient request if the prescription is for a schedule II... Start Date: 03/09/22 Stop Date: 03/19/22 Status: Ordered ohm Allergy Relief 10 mg oral tablet See Instructions, TAKE 1 TABLET BY MOUTH EVERY DAY, # 90 tablet, 1 Refills, Maintenance, 03/05/22 13:16:00 EST, [email or web address], 163.5, cm, 03/05/22 12:50:00 EST, Height Start Date: 03/05/22 Status: Ordered traZODone 50 mg oral tablet 2, tablet, By Mouth, Daily at bedtime, # 60 tablet, Refills 5, Tot. Refills 5, 02/05/22 11:04:00 EST, Route to Pharmacy Electronically, [facility], 163.5, cm, 01/15/22 8:07:00 [...] Dates Health Status Cl inical Service Informant Asthma Discharge Diagnosis 03/05/22 MONICA (obstructive sleep apnea) AHI 9.2 Discharge Diagnosis 03/05/22 Severe obesity Discharge Diagnosis 03/05/22 Vital Signs Most recent to oldest [Reference Range]: 1 Height 163.5 cm (03/05/22 12:50 PM) Weight 107.4 kg (03/05/22 12:50 PM) Oxygen Saturation [94-100 %] 100 % (03/05/22 12:50 PM) Pulse Rate [55-90 bpm] 89 bpm (03/05/22 12:50 PM) Body Mass Index [18.5-24.99 kg/m2] 40.18 kg/m2 *>HHI* (03/05/22 12:50 PM) Blood Pressure [90-138/55-84 mm Hg] 140/ 75mm Hg *H* (03/05/22 12:50 PM) Mode of Delivery (Oxygen) Room air (03/05/22 12:50 PM) Blood pressure sites Arm, left (03/05/22 12:50 PM) Temperature Route Oral (03/05/22 12:50 PM) Weight Obtained Via Standing scale (03/05/22 12:50 PM) Social History Social History Type Response Smoking Status Never (less than 100 in lifetime) entered on: 11/21/18 Sex Note * Lexi Vasques: PERFORM, SIGN, VERIFY Event Display: Patient Education/Instruction Authored Date: [id number] [facility] *BMP So [place] Clinical Summary Name JUAN FRANCISCO BALLESTEROS Age 61 Years 1960 PCP Rafiq Arteaga [id number] Visit Date 03/05/2022 12:49:00 Additional Instructions: Scheduled Appointments?? Future Appointments ?*[facility]??Neurosrg [address] ?[place],??[place],??[address] ?Phone:??--?Fax:??-- ?Appt. Date:??03/06/2022?11:00 AM ?Scheduled Provider:??Esdras Amos MD ?*[facility] ?Phone:??--?Fax:??-- ?Appt. Date:??03/20/2022?2:00 PM ?Scheduled Provider:??Conor [address] DRIVER, Bren ?[facility] ?[address],??[address]??[place],??[place],??[address] ?Phone:??[phone]?Fax:??-- ?Appt. Date:??04/02/2022?10:00 AM ?Scheduled Provider:??[facility] ?*[facility] ?Phone:??--?Fax:??-- ?Appt. Date:??04/03/2022?2:30 PM ?Scheduled Provider:??Bren Stanley ?*[facility] ?[address] ?Phone:??--?Fax:??-- ?Appt. Date:??04/23/2022?10:40 AM ?Scheduled Provider:??Rafiq Arteaga Follow-Up Instructions ?? Diagnosis Other general symptoms and signs Medications: Please continue your medications until treatment is completed or stopped by your provider. Discuss any questions related to medications with your provider. Medications to Continue with No Changes [facility], [address], [place] [id number], [phone] Gabapentin (gabapentin 600 mg oral tablet) 1 tab(s) Oral 3 times a day. office visit needed for further refills. Refills: 1. Next Dose: Loratadine (ohm Allergy Relief 10 mg oral tablet) TAKE 1 TABLET BY MOUTH EVERY DAY. Refills: 1. Next Dose: These medications were not printed or sent [...] A DAY, j44.9. Refills: 6. Next Dose: Lorazepam (Ativan 0.5 mg oral [...] 2 tab(s) Oral Daily at Bedtime. Refills: 5. Next Dose: No Longer Take the Following Medications Diclofenac (diclofenac sodium 75 mg oral delayed release tablet) TAKE ONE TABLET BY MOUTH TWICE A DAY. Refills: 1. Diclofenac (diclofenac sodium 75 mg oral delayed release tablet) TAKE ONE TABLET BY MOUTH TWICE A DAY. Refills: 1. Lidocaine/Prilocaine Topical (lidocaine-prilocaine 2.5%-2.5% topical cream) 1 vlad Topically once. Refills: 3. lubiprostone (lubiprostone 24 mcg oral capsule) 1 capsule Oral twice a day. Refills: 5. Allergy Info:?? Pollen; Dust; Cats Medications Given This Visit Future Orders ?COVID-19, RSV, and Flu A/B, Rapid PCR? Order Date:03/05/22?- Complete on or after?03/05/22 Vital Signs Height 163.5 cm Weight 107.4 kg BMI 40.18 kg/m2 Blood Pressure 140 mm Hg/75 mm Hg Temperature Pulse Rate 89 bpm Respiratory Rate 02 Sat Mode of Delivery 100 %/Room air You can now view a summary of your hospital visit from the comfort of your home through a free online portal called [employer]. [employer] is a website that allows you to securely view your medical information including discharge summary, medications and follow-up visits. ??You can alsosend a secure electronic message to your doctor???s office to request appointments, renew medications or just ask a question. You can enroll at [email or web address] or register during your next office [...] primary care provider, you may find a [facility] provider by calling [facility] [employer] at [phone]. For information about the plan of care [...] Member Role: Primary Care Nurse Address: Address: [address] [place] [address] [address] Name: Rafiq Arteaga Position: [facility] Associate Professional Member Role: PCP Address: Address: [address] [facility] [place] [address]- Care Team Related Persons Name: LEWIS BALLESTEROS Address: home [address] [place] [id number] Name: RUSTY HOOVER
--- OUTSIDE RECORDS SUMMARY | 2022-11-04 01:39 | XMS_ITS | Continuity of Care Document ---
Author Name Unknown Organization [facility] Address [address] [place] [address]- Care Team Providers Care Wool Classer Name Role Phone [place] Davis MD Primary Care Physician Encounter [facility] Date(s): 08/30/20 - 11/18/20 [facility] [address] [place] [id number] Attending Physician: Jan BERNAL, Chanel Kramer Admitting Physician: Jan BERNAL, Chanel Kramer Referring Physician: Orlando Davis MD Allergies, Adverse [...] 02/09/19 13:37:40 EST, Route to Pharmacy Electronically, [id number]... Start Date: 02/09/19 Status: Ordered azelastine 137 mcg/inh (0.1%) nasal spray 2 sprays, Nares, Both, Daily, PRN Other Allergies, # 30 mL, 6 Refills, Maintenance, 08/18/20 15:01:00 EDT, [place], [facility], 2 sprays [...] Refills, Maintenance, 03/23/20 16:57:00 EST, [facility], Patient sensitive to [...] 31.8 Gm, 1 Refills, Maintenance, [facility], 163.5, cm, 09/09/20 12:42:00 EDT, Height, 91, kg, 07/23/19 11:11:00 EDT, Dry Weight Start Date: 10/06/20 Status: Ordered gabapentin 600 mg oral tablet 1 tablet, By Mouth, 3 times a day, # 270 Unknown, 1 Refills, Maintenance, 11/15/20 12:03:00 EDT, [facility], 163.5, cm, 09/09/20 12:42:00 EDT, Height, 91, kg, 07/23/19 11:11:00 EDT, Dry Weight Start Date: 11/15/20 Status: Ordered lidocaine-prilocaine 2.5%-2.5% topical cream 1 application, Topically, Once, # 30 Gm, 1 Refills, Soft Stop, 03/08/20 8:14:00 EST, Cream, [facility] [...] Details, Route to Pharmacy Electronically, [facility], 163.5, cm, 09/09/20 12:42:00... Start Date: 11/01/20 Status: Ordered lubiprostone 24 mcg oral capsule 1 capsule, By Mouth, 2 times a day, # 60 capsule, 5 Refills, [facility] # [facility], 163.5, cm, 09/09/20 [...] 11/18/20 11:15:00 EDT, Route to Pharmacy Electronically, [facility], Refills per PCP, 163.5, cm, 09/09/20 12:42:00 EDT, Height, 91, kg, 07/23/19 1... Start Date: 11/18/20 Status: Ordered Myrbetriq 50 mg oral tablet, extended release 1 tablet = 50 mg, By Mouth, Daily, # 30 tablet, 11 Refills, Maintenance, 08/11/20 16:47:00 EDT, [facility] # [facility], 163.5, cm, 08/11/20 10:34:00 EDT, Height, 91, kg, 07/23/19 11:11:00 EDT, Dry Weight Start Date: 08/11/20 Status: Ordered traZODone 50 mg oral tablet 2, tablet, By Mouth, Daily at bedtime, # 60 tablet, Refills 5, Tot. Refills 0, Maintenance, 07/28/20 15:52:00 EDT, Route to Pharmacy Electronically, [facility], 163.5, cm, 06/16/20 7:48:00 [...]
--- OUTSIDE RECORDS SUMMARY | 2022-11-04 01:40 | XMS_ITS | Continuity of Care Document ---
Author Name Unknown Organization [facility] [place] Kayode lt Address [address] [place] [address]- Care Team Providers Care Scale Manager Name Role Phone [place] Davis MD Primary Care Physician [place] [facility] Date(s): 12/12/20 - 12/19/20 [facility] Adult [address] [place] [address]- Encounter Diagnosis MONICA (obstructive sleep apnea) AHI 9.2(Discharge Diagnosis) - 12/12/20 Vaccine counseling(Discharge Diagnosis) - 12/12/20 Attending Physician: [place] Davis MD Allergies, Adverse [...] 02/09/19 13:37:40 EST, Route to Pharmacy Electronically, [id number]... Start Date: 02/09/19 Status: Ordered azelastine 137 mcg/inh (0.1%) nasal spray 2 sprays, Nares, Both, Daily, PRN Other Allergies, # 30 mL, 6 Refills, Maintenance, 08/18/20 15:01:00 EDT, [place], [facility], 2 sprays Nares, Both Daily,PRN:Other Allergies, 163.5, cm, 08/18/20 14:46:00 EDT, Height, 91, kg, 07/23/19 11:11... Start Date: 08/18/20 Status: Ordered buPROPion 300 mg/24 hours (XL) oral tablet, extended release 1 tablet = 300 mg, By Mouth, Daily, # 30 tablet, 11 Refills, Maintenance, 05/11/20 13:04:00 EDT, ERTablet, [facility], Partial fill [...] 5 Refills, Maintenance, 08/11/20 11:15:00EDT, EC Capsule, [facility], Partial fill upon patient [...] 31.8 Gm, 1 Refills, Maintenance, [facility], 163.5, cm, 09/09/20 12:42:00 EDT, Height, 91, kg, 07/23/19 11:11:00 EDT, Dry Weight Start Date: 10/06/20 Status: Ordered gabapentin 600 mg oral tablet 1 tablet, By Mouth, 3 times a day, # 270 Unknown, 1 Refills, Maintenance, 11/15/20 12:03:00 EDT, [facility], 163.5, cm, 09/09/20 12:42:00 EDT, Height, 91, kg, 07/23/19 11:11:00 EDT, Dry Weight Start Date: 11/15/20 Status: Ordered lidocaine-prilocaine 2.5%-2.5% topical cream 1 application, Topically, Once, # 30 Gm, 1 Refills, Soft Stop, 03/08/20 8:14:00 EST, Cream, [facility], Partial fill upon patient [...] Details, Route to Pharmacy Electronically, [facility] tablet, 11 Refills, Maintenance, 08/11/20 16:47:00 EDT, [facility], 163.5, cm, 08/11/20 10:34:00 EDT, Height, 91, kg, 07/23/19 11:11:00 EDT, Dry Weight Start Date: 08/11/20 Status: Ordered traZODone 50 mg oral tablet 2, tablet, By Mouth, Daily at bedtime, # 60 tablet, Refills 5, Tot. Refills 0, Maintenance, 07/28/20 15:52:00 EDT, Route to Pharmacy Electronically, [facility], 163.5, cm, 06/16/20 7:48:00 [...] Effective Dates Health Status Clinical Service Informant MONICA (obstructive sleep apnea) AHI 9.2 Discharge Diagnosis 12/12/20 Vaccine counseling Discharge Diagnosis 12/12/20 Vital Signs Most recent to oldest [Reference Range]: 1 Height 163.5 cm (12/12/20 4:09 PM) Social History Social History Type Response Smoking Status Never (less than 100 in lifetime) entered on: 11/21/18 Sex
--- OUTSIDE RECORDS SUMMARY | 2022-11-04 01:40 | XMS_ITS | Continuity of Care Document ---
Author Name Unknown Organization [facility] Lalo Kayode lt Address [address] [place] [address]- Care Team Providers Care Highway Engineer Name Role Phone Deshawn BERNAL, Laurita Primary Care Physician Encounter [facility] [place] Date(s): 05/11/20 - 05/18/20 [facility] Adult [address] [place] [address]- Encounter Diagnosis Depression, major(Discharge Diagnosis) - 05/11/20 Right hip pain(Discharge Diagnosis) - 05/11/20 Peripheral neuropathy(Discharge Diagnosis) - 05/11/20 MONICA (obstructive sleep apnea)(Discharge Diagnosis) - 05/11/20 Attending Physician: Orlando Davis MD Allergies, Adverse [...] 02/09/19 13:37:40 EST, Route to Pharmacy Electronically, [id number]... Start Date: 02/09/19 Status: Ordered buPROPion 300 mg/24 hours (XL) oral tablet, extended release 1 tablet = 300 mg, By Mouth, Daily, # 30 tablet, 11 Refills, Maintenance, 05/11/20 13:04:00 EDT, ERTablet, [facility], Partial fill upon [...] Unknown, 1 Refills, Maintenance, 12/17/19 15:03:00 EDT, [facility], 163.5, cm, 11/03/19 11:52:00 EDT, Height, 91, kg, 07/23/19 11:11:00 EDT, Dry Weight Start Date: 12/17/19 Status: Ordered Estrace Vaginal Cream 0.1 mg/g See Instructions, 1 gram Vaginally at bedtime 2 times per week, # 42 Gm, 4 Refills, Maintenance, 03/23/20 16:57:00 EST, [facility], Patient sensitive to [...] 3 Refills, Maintenance, 09/30/19 10:56:00 EDT, Inhaler, [facility], 163.5, cm, 09/30/19 9:33:00 EDT, Height, 91, kg, 07/23/19 11:11:00 EDT, Dry Weight Start Date: 09/30/19 Status: Ordered FLUoxetine 40 mg oral capsule See Instructions, 1 pill kelly and sun, # 16 each, 3 Refills, Maintenance, 04/19/20 8:46:00 EST, Capsule, [facility], Partial fill upon patient request if the prescription is for a schedule IIopioid drug., 163.5, cm, 04/08/20 8:37:00 EST, [place]... Start Date: 04/19/20 Status: Ordered gabapentin 600 mg oral tablet 1 tablet, By Mouth, 3 times a day, # 270 tablet, 1 Refills, Maintenance, 11/19/19 8:38:00 EDT, [facility], 163.5, cm, 11/03/19 11:52:00 EDT, Height, 91, kg, 07/23/19 11:11:00 EDT, Dry Weight Start Date: 11/19/19 Status: Ordered lactulose 10 gm/15 ml oral syrup 15 mL = 10 Gm, By Mouth, Daily, This is correct dose., # 450 mL, 5 Refills, Maintenance, 06/25/19 9:18:00 EDT, Syrup, [facility], 15 mL By Mouth Daily,Instr:This is correct dose., 163.5, cm,06/03/19 11:17:00 EDT, Height Start Date: 06/25/19 Status: Ordered lidocaine-prilocaine 2.5%-2.5% topical cream 1 application, Topically, Once, # 30 Gm, 1 Refills, Soft Stop, 03/08/20 8:14:00 EST, Cream, [facility], Partial fill upon [...] [facility], Rx resent from [...] tablet, 11 Refills, Maintenance, 07/23/19 11:40:00 EDT, [facility], 163.5, cm, 07/23/19 11:11:00 EDT, Height, 91, kg, 07/23/19 11:11:00 EDT, Dry Weight Start Date: 07/23/19 Status: Ordered traMADol 50 mg oral tablet 1 tablet = 50 mg, By Mouth, Every 12 hours, # 42 tablet, 0 Refills, Maintenance, 11/03/19 16:09:00 EDT, [facility], 163.5, cm, 11/03/19 [...] Clinical Service Informant Depression, major Discharge Diagnosis 05/11/20 Peripheral neuropathy Discharge Diagnosis 05/11/20 Right hip pain Discharge Diagnosis 05/11/20 MONICA (obstructive sleep apnea) Discharge Diagnosis 05/11/20 Vital Signs Most recent to oldest [Reference Range]: 1 Height 163.5 cm (05/11/20 12:40 PM) Social History Social History Type Response Smoking Status Never (less than 100 in lifetime) entered on: 11/21/18 Sex
--- OUTSIDE RECORDS SUMMARY | 2022-11-04 01:40 | XMS_ITS | Continuity of Care Document ---
Author Name [facility] Address [address] [place] [address]- Care Team Providers Care Color Making Supervisor Name Role Phone Rafiq Arteaga Primary Care Physi kateryna Encounter [facility] [place] Date(s): 02/14/22 - 03/16/22 [facility] Adult [address] [place] [address]- Allergies, Adverse Reactions, Alerts Substance Reaction Severity [...] 14:25:00 EST, Powder, Route to Pharmacy Electronically, [id number], [facility] # [facility], 1... Start Date: 03/05/22 Status: Ordered Advair Diskus 250 mcg-50 mcg inhalation powder 1, inhalation, Inhalation, 2 times a day, rinse mouth and throat after use, # 1 each, Refills 0, Tot. Refills 0, Maintenance, 03/09/22 13:31:00 EST, Powder, Route to Pharmacy Electronically, [id number], [facility] # [facility], I... Start Date: 03/09/22 [...] 01/16/21 11:47:00 EST, Route to Pharmacy Electronically, [id number]... Start Date: 01/16/21 Status: Ordered Ativan 0.5 mg oral tablet See Instructions, PRN as needed for anxiety, Take 1 tablet as needed for anxiety, do not take more than 2 tablets/day, # 14 tablet, 0 Refills, Maintenance, 08/03/21 9:13:00 EDT, Tablet, [facility] # [facility], Partial fill upon patient request if the pre... Start Date: 08/03/21 Status: Ordered azelastine 137 mcg/inh (0.1%) nasal spray 2 sprays, Nares, Both, Daily, PRN Other Allergies, # 30 mL, 6 Refills, Maintenance, 10/05/21 13:14:00 EDT, [place], [facility] # 50, 2 sprays Nares, Both Daily,PRN:Other Allergies, 163.5, cm, 08/21/21 13:35:00 EDT, Height Start Date: 10/05/21 Status: Ordered buPROPion 300 mg/24 hours (XL) oral tablet, extended release 1 tablet = 300 mg, By Mouth, Daily, # 30 tablet, 5 Refills, Maintenance, 12/26/21 11:19:00 EDT, ER Tablet, [facility] # [...] [facility], 163.5, cm, 08/21/21 [...] Refills, Maintenance, 03/05/22 13:21:00 EST, [facility], 163.5, cm, [...] [facility], 163.5, cm, 08/21/21 13:35:00 EDT, Height Start Date: 10/25/21 Status: Ordered Myrbetriq 50 mg oral tablet, extended release 1 tablet = 50 mg, By Mouth, Daily, # 90 tablet, 3 Refills, Maintenance, 09/08/21 9:40:00 EDT, [facility] # 50, 163.5, cm, 08/21/21 13:35:00 EDT, Height Start Date: 09/08/21 Status: Ordered naproxen 500 mg oral tablet 1 tablet = 500 mg, By Mouth, 2 times a day, PRN for pain, for 10 days, # 20 tablet, 0 Refills, Acute 03/19/22 12:11:00 EST, 03/09/22 12:11:00 EST, Tablet, [facility] # [facility], Partial fill upon patient request if the prescription is for a schedule II... Start Date: 03/09/22 Stop Date: 03/19/22 Status: Ordered ohm Allergy Relief 10 mg oral tablet See Instructions, TAKE 1 TABLET BY MOUTH EVERY DAY, # 90 tablet, 1 Refills, Maintenance, 03/05/22 13:16:00 EST, [facility] # [facility], 163.5, cm, 03/05/22 12:50:00 EST, Height Start Date: 03/05/22 Status: Ordered traZODone 50 mg oral tablet 2, tablet, By Mouth, Daily at bedtime, # 60 tablet, Refills 5, Tot. Refills 5, 02/05/22 11:04:00 EST, Route to Pharmacy Electronically, [facility], 163.5, cm, 01/15/22 [...] Team Personnel Name: Eleazar Rendon NP Position: [facility] PCO w/OE and EZ Script Member Role: Primary Care Nurse Address: Address: [address] [place] [address] [place] [address]- Name: Rafiq Arteaga Position: [facility] Associate Professional Member Role: PCP Address: Address: [address] [place] [address]- Care Team Related Persons Name: LEWIS BALLESTEROS Address: [address] [address] Name: RUSTY HOOVER
--- OUTSIDE RECORDS SUMMARY | 2022-11-04 01:40 | XMS_ITS | Continuity of Care Document ---
Author Name Unknown Organization [facility] Lalo Kayode lt Address [address] [place] [address]- Care Team Providers Care Hat Block Bench Hand Name Role Phone Rafiq Arteaga Primary Care Physi kaetryna Encounter [facility] [place] Date(s): 02/15/22 - 03/18/22 [facility] Adult [address] [place] [address]- Attending Physician: Laurita Hess NP Allergies, Adverse [...] 14:25:00 EST, Powder, Route to Pharmacy Electronically, [id number], [facility], 1... Start Date: 03/05/22 Status: Ordered Advair Diskus 250 mcg-50 mcg inhalation powder 1, inhalation, Inhalation, 2 times a day, rinse mouth and throat after use, # 1 each, Refills 0, Tot. Refills 0, Maintenance, 03/09/22 13:31:00 EST, Powder, Route to Pharmacy Electronically, [id number], [facility], I... Start Date: 03/09/22 [...] 01/16/21 11:47:00 EST, Route to Pharmacy Electronically, [id number]... Start Date: 01/16/21 Status: Ordered Ativan 0.5 mg oral tablet See Instructions, PRN as needed for anxiety, Take 1 tablet as needed for anxiety, do not take more than 2 tablets/day, # 14 tablet, 0 Refills, Maintenance, 08/03/21 9:13:00 EDT, Tablet, [facility] # [facility], Partial fill upon patient request if the pre... Start Date: 08/03/21 Status: Ordered azelastine 137 mcg/inh (0.1%) nasal spray 2 sprays, Nares, Both, Daily, PRN Other Allergies, # 30 mL, 6 Refills, Maintenance, 10/05/21 13:14:00 EDT, [place], [facility] # [facility], 2 sprays Nares, [...] a day, # 60 capsule, 5 Refills, [facility], 163.5, cm, 08/21/21 13:35:00 EDT, Height Start Date: 09/18/21 Status: Ordered Estrace Vaginal Cream 0.1 mg/g See Instructions, 1 gram Vaginally at bedtime 2 times per week, # 42 Gm, 4 Refills, Maintenance, 03/16/21 10:21:00 EST, [facility], Patient sensitive to inactive ingredients ofmanufacturers drugs, [...] 10/25/21 16:41:00 EDT, Route to Pharmacy Electronically, [facility] # [facility], 163.5, cm, 08/21/21 13:35:00 EDT, Height Start Date: 10/25/21 Status: Ordered Myrbetriq 50 mg oral tablet, extended release 1 tablet = 50 mg, By Mouth, Daily, # 90 tablet, 3 Refills, Maintenance, 09/08/21 9:40:00 EDT, [facility] # 50, 163.5, cm, 08/21/21 13:35:00 EDT, Height Start Date: 09/08/21 Status: Ordered naproxen 500 mg oral tablet 1 tablet = 500 mg, By Mouth, 2 times a day, PRN for pain, for 10 days, # 20 tablet, 0 Refills, Acute 03/19/22 12:11:00 EST, 03/09/22 12:11:00 EST, Tablet, [facility] # 50, Partial fill upon patient request if the prescription is for a schedule II... Start Date: 03/09/22 Stop Date: 03/19/22 Status: Ordered ohm Allergy Relief 10 mg oral tablet See Instructions, TAKE 1 TABLET BY MOUTH EVERY DAY, # 90 tablet, 1 Refills, Maintenance, 03/05/22 13:16:00 EST, [facility] # 50, 163.5, cm, 03/05/22 12:50:00 EST, Height Start Date: 03/05/22 Status: Ordered traZODone 50 mg oral tablet 2, tablet, By Mouth, Daily at bedtime, # 60 tablet, Refills 5, Tot. Refills 5, 02/05/22 11:04:00 EST, Route to Pharmacy Electronically, [facility] # 50, 163.5, cm, 01/15/22 8:07:00 EST, Height Start Date: 12/12/22 Status: Ordered Tylenol Extra Strength 500 mg [...] Personnel Name: Justice BERNAL, Eleazar Garcia Position: [facility] PCO w/OE and EZ Script Member Role: Primary Care Nurse Address: Address: [address] [place] [address] [place] [address]- [place] Name: Rafiq Arteaga Position: [facility] Associate Professional Member Role: PCP Address: Address: [address] [place] [address]- Care Team Related Persons Name: LEWIS BALLESTEROS Address: home [address] [place] [address] Name: RUSTY HOOVER
--- OUTSIDE RECORDS SUMMARY | 2022-11-04 01:40 | XMS_ITS | Continuity of Care Document ---
Author Name Unknown Organization [facility] Lalo Kayode lt Address [address] [place] [address]- Care Team Providers Care Appeals Analyst Name Role Phone Tyler Palacios MD Primary Care Physician [phone] Encounter [facility] [place] Date(s): 10/07/19 - 11/06/19 [facility] Adult [address] [place] [address]- [facility] Allergies, Adverse Reactions, Alerts Substance [...] 02/09/19 13:37:40 EST, Route to Pharmacy Electronically, [id number]... Start Date: 02/09/19 Status: Ordered Cranberry oral tablet 0 Refills, Maintenance, 10/23/18 9:18:41 EDT Start Date: 10/23/18 Status: Ordered diclofenac sodium 25 mg oral delayed release tablet 1 tablet = 25 mg, By Mouth, 2 times a day, # 60 tablet, 1 Refills, Maintenance, 07/23/19 10:48:00 EDT, EC Tablet, [facility] # [facility], 163.5, cm, 06/03/19 [...] 09/04/19 15:20:00 EDT, Route to Pharmacy Electronically, [facility] # [facility], 163.5, cm, 07/23/19 11:11:00 EDT, Height, 91, kg, 07/23/19 11:11:00 EDT, Dry Weight Start Date: 09/04/19 Status: Ordered gabapentin 600 mg oral tablet 1 tablet, By Mouth, 3 times a day, # 90 Unknown, 5 Refills, Maintenance, 05/25/19 16:16:00 EDT, [facility] # [facility], 163.5, cm, 03/27/19 10:49:00 EST, Height Start Date: 05/25/19 Status: Ordered lactulose 10 gm/15 ml oral syrup 15 mL = 10 Gm, By Mouth, Daily, This is correct dose., # 450 mL, 5 Refills, Maintenance, 06/25/19 9:18:00 EDT, Syrup, [facility] # 50, 15 mL By [...] 06/17/19 13:09:00 EDT, Route to Pharmacy Electronically, [facility] # [facility], Refills per PCP, 163.5, cm, 06/03/19 11:17:00 EDT, Height Start Date: 06/17/19 Status: Ordered Myrbetriq 50 mg oral tablet, extended release 1 tablet = 50 mg, By Mouth, Daily, # 30 tablet, 11 Refills, Maintenance, 07/23/19 11:40:00 EDT, [facility] # [...] Maintenance,06/01/19 14:37:00 EDT, Route to Pharmacy Electronically, [facility] # [facility], 163.5, cm, 03/27/19 [...]
--- OUTSIDE RECORDS SUMMARY | 2022-11-04 01:40 | XMS_ITS | Continuity of Care Document ---
Author Name Unknown Organization [facility] Lalo Kayode lt Address [address] [place] [address]- Care Team Providers Care Telecommunications Repairer Name Role Phone Orlando Davis MD Primary Care Physician [phone] Encounter [facility] Date(s): 01/12/21 - 01/19/21 [facility] Adult [address] [place] [address]- Encounter Diagnosis Asthma(Discharge Diagnosis) - 01/12/21 [place] (obstructive sleep apnea) AHI 9.2(Discharge Diagnosis) - 01/12/21 Abnormal liver function test(Discharge Diagnosis) - 01/12/21 Lumbosacral radiculopathy at L5(Discharge Diagnosis) - 01/12/21 Constipation, chronic(Discharge Diagnosis) - 01/12/21 Major depression in full remission(Discharge Diagnosis) - 01/12/21 Peripheral neuropathy(Discharge Diagnosis) - 01/12/21 Excessive vitamin B12 intake(Discharge Diagnosis) - 01/12/21 Osteopenia bmd 2020(Discharge Diagnosis) - 01/12/21 Attending Physician: Orlando Davis MD Allergies, Adverse [...] 01/16/21 11:47:00 EST, Route to Pharmacy Electronically, [id number]... Start Date: 01/16/21 Status: Ordered azelastine 137 mcg/inh (0.1%) nasal spray 2 sprays, Nares, Both, Daily, PRN Other Allergies, # 30 mL, 6 Refills, Maintenance, 08/18/20 15:01:00 EDT, [place], [facility] # [facility], 2 sprays Nares, Both Daily,PRN:Other Allergies, 163.5, cm, 08/18/20 14:46:00 EDT, Height, 91, kg, 07/23/19 11:11... Start Date: 08/18/20 Status: Ordered buPROPion 300 mg/24 hours (XL) oral tablet, extended release 1 tablet = 300 mg, By Mouth, Daily, # 30 tablet, 11 Refills, Maintenance, 05/11/20 13:04:00 EDT, ERTablet, [facility] # [facility], Partial [...] 08/11/20 11:15:00EDT, EC Capsule, [facility] # [facility], Partial [...] Gm, 1 Refills, Maintenance, [facility], 163.5, cm, 09/09/20 12:42:00 EDT, Height, 91, kg, 07/23/19 11:11:00 EDT, Dry Weight Start Date: 10/06/20 Status: Ordered gabapentin 600 mg oral tablet 1 tablet, By Mouth, 3 times a day, # 270 Unknown, 1 Refills, Maintenance, 11/15/20 12:03:00 EDT, [facility], 163.5, cm, 09/09/20 12:42:00 EDT, Height, 91, kg, 07/23/19 11:11:00 EDT, Dry Weight Start Date: 11/15/20 Status: Ordered lidocaine-prilocaine 2.5%-2.5% topical cream 1 application, Topically, Once, # 30 Gm, 1 Refills, Soft Stop, 03/08/20 8:14:00 EST, Cream, [facility] # [facility], Partial [...] Replace Required Details, Route to Pharmacy Electronically, [facility], 163.5, cm, 09/09/20 12:42:00... Start Date: 11/01/20 Status: Ordered lubiprostone 24 mcg oral capsule 1 capsule, By Mouth, 2 times a day, # 60 capsule, 5 Refills, [facility] # [facility], 163.5, cm, 09/09/20 [...] 12/16/20 15:12:00 EDT, Route to Pharmacy Electronically, [facility], 163.5, cm, 12/12/20 16:09:00 EDT, Height, 91, kg, 07/23/19 11:11:00 EDT, Dry... Start Date: 12/16/20 Status: Ordered Myrbetriq 50 mg oral tablet, extended release 1 tablet = 50 mg, By Mouth, Daily, # 30 tablet, 11 Refills, Maintenance, 08/11/20 16:47:00 EDT, [facility] # [facility], 163.5, cm, 08/11/20 10:34:00 EDT, Height, 91, kg, 07/23/19 11:11:00 EDT, Dry Weight Start Date: 08/11/20 Status: Ordered traZODone 50 mg oral tablet 2, tablet, By Mouth, Daily at bedtime, # 60 tablet, Refills 5, Tot. Refills 0, Maintenance, 07/28/20 15:52:00 EDT, Route to Pharmacy Electronically, [facility], 163.5, cm, 06/16/20 [...] Status Clinical Service Informant Asthma Discharge Diagnosis 01/12/21 [place] (obstructive sleep apnea) AHI 9.2 Discharge Diagnosis 01/12/21 Abnormal liver function test Discharge Diagnosis 01/12/21 Lumbosacral radiculopathy at L5 Discharge Diagnosis 01/12/21 Constipation, chronic Discharge Diagnosis 01/12/21 Major depression in full remission Discharge Diagnosis 01/12/21 Peripheral neuropathy Discharge Diagnosis 01/12/21 Excessive vitamin B12 intake Discharge Diagnosis 01/12/21 Osteopenia bmd 2020 Discharge Diagnosis 01/12/21 Social History Social History Type Response Smoking Status Never (less than 100 in lifetime) entered on: 11/21/18 Sex
--- OUTSIDE RECORDS SUMMARY | 2022-11-04 01:40 | XMS_ITS | Continuity of Care Document ---
Author Name Unknown Organization [facility] Kayode lt Address [address] [place] [address]- Care Team Providers Care Prison Officer Name Role Phone Susan AVENDANO, Orlando Quintanilla Primary Care Physician [phone] Encounter [facility] Date(s): 05/29/21 - 06/28/21 [facility] Adult [address] [place] [address]- Allergies, Adverse Reactions, Alerts Substance Reaction Severity [...] 01/16/21 11:47:00 EST, Route to Pharmacy Electronically, [id number]... Start Date: 01/16/21 Status: Ordered azelastine 137 mcg/inh (0.1%) nasal spray 2 sprays, Nares, Both, Daily, PRN Other Allergies, # 30 mL, 6 Refills, Maintenance, 08/18/20 15:01:00 EDT, [place], [facility], [...] 5 Refills, Maintenance, 02/10/21 14:24:00EST, EC Capsule, [facility], Partial fill upon [...] DAY, # 31.8 Gm, 1 Refills, Maintenance, [facility], 163.5, cm, 09/09/20 12:42:00 EDT, Height, 91, kg, 07/23/19 11:11:00 EDT, Dry Weight Start Date: 10/06/20 Status: Ordered gabapentin 600 mg oral tablet 1 tablet, By Mouth, 3 times a day, # 270 tablet, 1 Refills, [facility], 163.5, cm, 04/21/21 11:51:00 EST, Height, 91, kg, 07/23/19 11:11:00 EDT, Dry Weight Start Date: 05/11/21 Status: Ordered lidocaine-prilocaine 2.5%-2.5% topical cream 1 application, Topically, Once, # 30 Gm, 3 Refills, Soft Stop, 04/21/21 12:20:00 EST, Cream, [facility] # [facility], Partial fill upon [...] tablet, Refills 5, Route to Pharmacy Electronically, [facility] # [facility], 163.5, cm, 12/12/20 16:09:00 [...]
--- OUTSIDE RECORDS SUMMARY | 2022-11-04 01:40 | XMS_ITS | Continuity of Care Document ---
Author Name Unknown Organization [facility] Address [address] [place] [address] [address], [address] [place] [address]- Care Team Providers Care Mule Rider Name Role Phone Rafiq Arteaga Primary Care Physi kateryna En[place] [facility] [place] Date(s): 03/06/22 - 03/13/[address], [address] [place] [address]- Attending Physician: Esdras Amos MD Referring Physician: Khalif Flores Allergies, Adverse Reactions, Alerts Substance Reaction Severity [...] 14:25:00 EST, Powder, Route to Pharmacy Electronically, [id number], [facility], 1... Start Date: 03/05/22 Status: Ordered Advair Diskus 250 mcg-50 mcg inhalation powder 1, inhalation, Inhalation, 2 times a day, rinse mouth and throat after use, # 1 each, Refills 0, Tot. Refills 0, Maintenance, 03/09/22 13:31:00 EST, Powder, Route to Pharmacy Electronically, [id number], [facility] [...] 01/16/21 11:47:00 EST, Route to Pharmacy Electronically, [id number]... Start Date: 01/16/21 Status: Ordered Ativan 0.5 mg oral tablet See Instructions, PRN as needed for anxiety, Take 1 tablet as needed for anxiety, do not take more than 2 tablets/day, # 14 tablet, 0 Refills, Maintenance, 08/03/21 9:13:00 EDT, Tablet, [facility], Partial fill upon patient request if the pre... Start Date: 08/03/21 Status: Ordered azelastine 137 mcg/inh (0.1%) nasal spray 2 sprays, Nares, Both, Daily, PRN Other Allergies, # 30 mL, 6 Refills, Maintenance, 10/05/21 13:14:00 EDT, [place], [facility] # [facility], 2 sprays Nares, Both Daily,PRN:Other Allergies, 163.5, cm, 08/21/21 13:35:00 EDT, Height Start Date: 10/05/21 Status: Ordered buPROPion 300 mg/24 hours (XL) oral tablet, extended release 1 tablet = 300 mg, By Mouth, Daily, # 30 tablet, 5 Refills, Maintenance, 12/26/21 11:19:00 EDT, ER Tablet, [facility] Refills, Maintenance, 03/05/22 13:21:00 EST, [facility] [...] tablet, 3 Refills, Maintenance, 09/08/21 9:40:00 EDT, [facility] # 50, 163.5, cm, 08/21/21 13:35:00 EDT, Height Start Date: 09/08/21 Status: Ordered naproxen 500 mg oral tablet 1 tablet = 500 mg, By Mouth, 2 times a day, PRN for pain, for 10 days, # 20 tablet, 0 Refills, Acute 03/19/22 12:11:00 EST, 03/09/22 12:11:00 EST, Tablet, [facility] [...] oldest [Reference Range]: 1 Height 163.5 cm (03/06/22 10:47 AM) Weight 107.4 kg (03/06/22 10:47 AM) Body Mass Index [18.5-24.99 kg/m2] 40.18 kg/m2 *>HHI* (03/06/22 10:47 AM) Social History Social History Type Response Smoking Status Never (less than 100 in lifetime) entered on: 11/21/18 Sex Patient Care team information Care Team Personnel Name: Eleazar Rnedon NP Position: [facility] PCO w/OE and EZ Script Member Role: Primary Care Nurse Address: Address: [address] [place] [address] [place] [address]- Name: Rafiq Arteaga Position: [facility] PCO Associate Professional Member Role: PCP Address: Address: [address] [place] [address]- Care Team Related Persons Name: LEWIS BALLESTEROS Address: [address] [address] Name: RUSTY HOOVER
--- OUTSIDE RECORDS SUMMARY | 2022-11-04 01:40 | XMS_ITS | Continuity of Care Document ---
[facility] Address [address] [place] [address]- Care Team Providers Care Drafter Assistant Name Role Phone Rafiq Arteaga Primary Care Physi kateryna En[place] [facility] [place] Date(s): 12/15/21 - 01/20/22 [facility] Adult [address] [place] [address]- Attending Physician: Susan AVENDANO, Orlando Quintanilla Allergies, Adverse Reactions, Alerts Substance Reaction Severity [...] 01/16/21 11:47:00 EST, Route to Pharmacy Electronically, [id number]... Start Date: 01/16/21 Status: Ordered Ativan 0.5 mg oral tablet See Instructions, PRN as needed for anxiety, Take 1 tablet as needed for anxiety, do not take more than 2 tablets/day, # 14 tablet, 0 Refills, Maintenance, 08/03/21 9:13:00 EDT, Tablet, [facility], Partial fill upon patient request if the pre... Start Date: 08/03/21 Status: Ordered azelastine 137 mcg/inh (0.1%) nasal spray 2 sprays, Nares, Both, Daily, PRN Other Allergies, # 30 mL, 6 Refills, Maintenance, 10/05/21 13:14:00 EDT, [place], [facility], 2 sprays Nares, Both Daily,PRN:Other Allergies, 163.5, cm, 08/21/21 13:35:00 EDT, Height Start Date: 10/05/21 Status: Ordered buPROPion 300 mg/24 hours (XL) oral tablet, extended release 1 tablet = 300 mg, By Mouth, Daily, # 30 tablet, 5 Refills, Maintenance, 12/26/21 11:19:00 EDT, ER Tablet, [facility] # [facility], Partial fill upon [...] 60 tablet, 1 Refills, 12/26/21 11:19:00 EDT, [facility], 163.5, cm, 08/21/21 13:35:00 EDT, Height Start Date: 12/26/21 Status: Ordered diclofenac sodium 75 mg oral delayed release tablet See Instructions, TAKE ONE TABLET BY MOUTH TWICE A DAY, # 60 tablet, 1 Refills, Maintenance, 12/27/21 9:34:00 EDT, [facility], 163.5, cm, 12/27/21 9:29:00 EDT, Height Start Date: 12/27/21 Status: Ordered duloxetine 60 mg oral enteric coated capsule 1 capsule, By Mouth, 2 times a day, # 60 capsule, 5 Refills, [facility] # [facility], 163.5, cm, 08/21/21 [...] 09/21/21 16:29:00 EDT, [facility] # [facility], 163.5, cm, 08/21/21 13:35:00 EDT, Height Start Date: 09/21/21 Status: Ordered gabapentin 600 mg oral tablet 1 tablet, By Mouth, 3 times a day, office visit needed for further refills, # 270 tablet, 1 Refills, Maintenance, 11/13/21 13:31:00 EDT, [facility] # [facility], 163.5, cm, 08/21/21 13:35:00 EDT, Height Start Date: 11/13/21 Status: Ordered lidocaine-prilocaine 2.5%-2.5% topical cream 1 application, Topically, Once, # 30 Gm, 3 Refills, Soft Stop, 04/21/21 12:20:00 EST, Cream, [facility] # 50, Partial fill upon patient request, 1 application Topically Once, 163.5, cm, 04/21/21 11:51:00 EST, Height, 91, kg, 07/23/19 11:11:00 EDT,... Start Date: 04/21/21 Status: Ordered lubiprostone 24 mcg oral capsule 1 capsule, By Mouth, 2 times a day, # 60 capsule, 5 Refills, 04/21/21 12:25:00 EST, [facility] # [facility], 163.5, cm, 04/21/21 [...] 10/25/21 16:41:00 EDT, Route to Pharmacy Electronically, [facility] # [facility], 163.5, cm, 08/21/21 13:35:00 EDT, Height Start Date: 10/25/21 Status: Ordered Myrbetriq 50 mg oral tablet, extended release 1 tablet = 50 mg, By Mouth, Daily, # 90 tablet, 3 Refills, Maintenance, 09/08/21 9:40:00 EDT, [facility] # 50, 163.5, cm, 08/21/21 13:35:00 EDT, [...] Member Role: Primary Care Nurse Address: Address: [address] [place] [address] [address] [facility] [place] [address]- Name: Rafiq Arteaga Position: [facility] PCO Associate Professional Member Role: PCP Address: Address: [address] [place] [address] [place] [address]- Care Team Related Persons Name: LEWIS BALLESTEROS Address: home [address] [place] [address] Name: RUSTY HOOVER
--- OUTSIDE RECORDS SUMMARY | 2022-11-04 01:40 | XMS_ITS | Continuity of Care Document ---
Author Name Unknown Organization [facility] Address [address] [place] [address]- Care Team Providers Care Hoseman Name Role Phone Laurita Hess NP Primary Care Physician [phone] Encounter [facility] AC[facility] R [id number] Date(s): 01/14/20 - 02/13/[address] [address] Attending Physician: Admtr, Ar8 Admitting Physician: Admtr, [...] 02/09/19 13:37:40 EST, Route to Pharmacy Electronically, [id number]... Start Date: 02/09/19 Status: Ordered Cranberry oral tablet 0 Refills, Maintenance, 10/23/18 9:18:41 EDT Start Date: 10/23/18 Status: Ordered diclofenac sodium 25 mg oral delayed release tablet 1 tablet, By Mouth, 2 times a day, # 60 Unknown, 1 Refills, Maintenance, 12/17/19 15:03:00 EDT, [facility] # [facility], 163.5, cm, [...] 3 Refills, Maintenance, 09/30/19 10:56:00 EDT, Inhaler, [facility], 163.5, cm, 09/30/19 9:33:00 EDT, Height, 91, kg, 07/23/19 11:11:00 EDT, Dry Weight Start Date: 09/30/19 Status: Ordered FLUoxetine 20 mg oral capsule 3, capsule, By Mouth, Daily, # 270 Unknown, Refills 1, Tot. Refills 0, Maintenance, 09/04/19 15:20:00 EDT, Route to Pharmacy Electronically, [facility], 163.5, cm, 07/23/19 11:11:00 EDT, Height, 91, kg, 07/23/19 11:11:00 EDT, Dry Weight Start Date: 09/04/19 Status: Ordered FLUoxetine 20 mg oral capsule 20 mg, 1, capsule, By Mouth, Daily, # 30 capsule, Refills 3, Tot. Refills 3, Maintenance, 02/09/20 13:21:00 EST, Route to Pharmacy Electronically, [facility] # [facility], Partial fill upon patient request if the prescription is for a schedule II opioid d... Start Date: 02/09/20 Status: Ordered gabapentin 600 mg oral tablet 1 tablet, By Mouth, 3 times a day, # 270 tablet, 1 Refills, Maintenance, 11/19/19 8:38:00 EDT, [facility] # [facility], 163.5, cm, 11/03/19 11:52:00 EDT, Height, 91, kg, 07/23/19 11:11:00 EDT, Dry Weight Start Date: 11/19/19 Status: Ordered lactulose 10 gm/15 ml oral syrup 15 mL = 10 Gm, By Mouth, Daily, This is correct dose., # 450 mL, 5 Refills, Maintenance, 06/25/19 9:18:00 EDT, Syrup, [facility] # [facility], 15 mL By Mouth Daily,Instr:This is correct dose., 163.5, cm,06/03/19 11:17:00 EDT, Height Start Date: 06/25/19 Status: Ordered lidocaine-prilocaine 2.5%-2.5% topical cream 1 application, Topically, Once, # 30 Gm, 0 Refills, Soft Stop, 01/12/20 10:30:00 EST, Cream, [facility] # 50, Partial fill upon patient request, 1 application Topically Once, 163.5, cm, 01/11/20 14:45:00 EST, Height, 91, kg, 07/23/19 11:11:00 EDT,... Start Date: 01/12/20 Status: Ordered loratadine 10 mg oral tablet 10 mg, 1, tablet, By Mouth, Daily, # 90 tablet, Refills 3, Tot. Refills 3, Maintenance, 10/27/19 18:22:00 EDT, Route to Pharmacy Electronically, [facility] # [facility], Rx resent from [...] 01/13/20 12:44:00 EST, Route to Pharmacy Electronically, [facility] # [facility], Refills per PCP, 163.5, cm, 01/11/20 14:45:00 EST, Height, 91, kg, 07/23/19 1... Start Date: 01/13/20 Status: Ordered Myrbetriq 50 mg oral tablet, extended release 1 tablet = 50 mg, By Mouth, Daily, # 30 tablet, 11 Refills, Maintenance, 07/23/19 11:40:00 EDT, [facility] # [facility], 163.5, cm, 07/23/19 11:11:00 EDT, Height, 91, kg, 07/23/19 11:11:00 EDT, Dry Weight Start Date: 07/23/19 Status: Ordered traMADol 50 mg oral tablet 1 tablet = 50 mg, By Mouth, Every 12 hours, # 42 tablet, 0 Refills, Maintenance, 11/03/19 16:09:00 EDT, [facility] # [facility], 163.5, cm, 11/03/19 11:52:00 EDT, Height, 91, kg, 07/23/19 11:11:00 EDT, Dry Weight Start Date: 11/03/19 Status: Ordered traZODone 50 mg oral tablet 100 mg, 2, tablet, By Mouth, Daily at bedtime, # 60 tablet, Refills 5, Tot. Refills 5, Maintenance,12/04/19 12:51:00 EDT, Route to Pharmacy Electronically, [facility] # [facility], 163.5, cm, 11/03/19 [...]
--- OUTSIDE RECORDS SUMMARY | 2022-11-04 01:40 | XMS_ITS | Continuity of Care Document ---
Author Name Unknown Organization [facility] [place] [facility] [employer] Address [address] [place] [address]- Care Team Providers Care Race Car Mechanic Name Role Phone Suzanne AVENDANO, Tyler Charles Primary Care Physician [phone] Encounter [facility] Date(s): 05/25/19 - 06/01/19 [facility] [employer] [address] [place] [address]- Attending Physician: Sammie Nieto MD Admitting Physician: Sammie Nieto MD Referring Physician: Tyler Palacios MD Allergies, [...] 02/09/19 13:37:40 EST, Route to Pharmacy Electronically, [id number]... Start Date: 02/09/19 Status: Ordered Cranberry oral [...] 03/07/19 11:47:00 EST, Route to Pharmacy Electronically, [facility] # [facility], 163.5, cm, 02/09/19 13:07:00 EST, Height Start Date: 03/07/19 Status: Ordered gabapentin 600 mg oral tablet 1 tablet, By Mouth, 3 times a day, # 90 Unknown, 5 Refills, Maintenance, 05/25/19 16:16:00 EDT, [facility] # [facility], 163.5, cm, 03/27/19 10:49:00 EST, Height Start Date: 05/25/19 Status: Ordered lactulose 10 gm oral powder for reconstitution 1 pack/packet, By Mouth, 2 times a day, # 30 each, 2 Refills, Maintenance, 03/27/19 11:11:00 EST, REC Powder, [facility] # [facility], 163.5, cm, 03/27/19 10:49:00 EST, Height Start Date: 03/27/19 Status: Ordered lactulose 10 gm/15 ml oral syrup 15 mL = 10 Gm, By Mouth, Daily, This is correct dose., # 480 mL, 1 Refills, Maintenance, 03/29/19 20:24:00 EST, Syrup, [facility] # [facility], 15 mL By Mouth Daily,Instr:This is correct dose., 163.5, cm, 03/27/19 10:49:00 EST, Height Start Date: 03/29/19 Status: Ordered loratadine 10 mg oral tablet 10 mg, 1, tablet, By Mouth, Daily, # 90 tablet, Refills 1, Tot. Refills 1, Maintenance, 04/27/19 8:18:00 EST, Route to Pharmacy Electronically, [facility] # [facility], 163.5, cm, 03/27/19 [...] 02/09/19 13:37:50 EST, Route to Pharmacy Electronically, [facility], 163.5, cm, 03/27/19 10:49:00 EST, Height Start Date: 06/01/19 Status: Ordered traZODone 50 mg oral tablet 100 mg, 2, tablet, By Mouth, Daily at bedtime, # 60 tablet, Refills 5, Tot. Refills 5, Maintenance,06/01/19 14:37:00 EDT, Route to Pharmacy Electronically, [facility] # [facility], 163.5, cm, 03/27/19 [...] 3vitamin C in pt susceptible to nephrolithiasis Procedures Procedure Date Related Diagnosis Body Site Status Laparotomy Completed Social History Social History Type Response Smoking Status Never (less than 100 in lifetime) entered on: 11/21/18 Sex
--- OUTSIDE RECORDS SUMMARY | 2022-11-04 01:40 | XMS_ITS | Continuity of Care Document ---
Author Name Unknown Organization 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 [place]res[facility] Adult [address] [place] [address]- Encounter Diagnosis Annual physical exam(Discharge Diagnosis) - 09/11/22 Left arm numbness(Discharge Diagnosis) - 09/11/22 Elevated vitamin B12 level(Discharge Diagnosis) - 09/11/22 Insomnia(Discharge Diagnosis) - 09/11/22 Attending Physician: Rafiq Arteaga Allergies, Adverse Reactions, [...] 14:38:00 EST, Powder, Route to Pharmacy Electronically, [id number], [facility] # [facility], [...] mL, 6 Refills, Maintenance, 10/05/21 13:14:00 EDT, [place], [facility] # [facility], [...] 04/09/22 16:24:00 EST, [facility] # [facility], 163.5, cm, 03/09/22 13:18:00 EST, Height Start Date: 04/09/22 Status: Ordered Estrace Vaginal Cream 0.1 mg/g See Instructions, 1 gram Vaginally at bedtime 2 times per week, # 42 Gm, 4 Refills, Maintenance, 03/16/21 10:21:00 EST, [facility], Patient sensitive to [...] tablet, 1 Refills, Maintenance, 08/14/22 12:36:00 EDT, [facility] # [...] tablet, 3 Refills, Maintenance, 09/08/21 9:40:00 EDT, [facility], 163.5, cm, 08/21/21 13:35:00 EDT, Height Start Date: 09/08/21 Status: Ordered ohm Allergy Relief 10 mg oral tablet See Instructions, TAKE 1 TABLET BY MOUTH EVERY DAY, # 90 tablet, 1 Refills, Maintenance, 06/25/22 9:15:00 EDT, [facility], 162, cm, 06/25/22 8:34:00 EDT, Height, 102, kg, 05/21/22 10:37:00 EDT, Dry Weight Start Date: 06/25/22 Status: Ordered traZODone 50 mg oral tablet 50 mg, 1, tablet, By Mouth, Daily at bedtime, for 30 days, # 30 tablet, Refills 5, Tot. Refills 5, Physician Stop 12/22/22 9:07:00 EDT, 06/25/22 9:07:00 EDT, Route to Pharmacy Electronically, [facility] # [facility], 162, cm, 06/25/22 8:34:00 [...] 06/25/22 9:11:00 EDT, Route to Pharmacy Electronically, [facility] # [facility], Partial fill upon patient [...] Diagnosis Diagnosis Type Effective Dates Health Status inical Service Informant Annual physical exam Discharge Diagnosis 09/11/22 Left arm numbness Discharge Diagnosis 09/11/22 Elevated vitamin B12 level Discharge Diagnosis 09/11/22 Insomnia Discharge Diagnosis 09/11/22 Vital Signs Most recent to oldest [Reference Range]: 1 Height 162 cm (09/11/22 9:27 AM) Weight 103.5 kg (09/11/22 9:27 AM) Oxygen Saturation [94-100 %] 96 % (09/11/22 9:27 AM) Pulse Rate [55-90 bpm] 87 bpm (09/11/22 9:27 AM) Body Mass Index [18.5-24.99 kg/m2] 39.44 kg/m2 *>HHI* (09/11/22 9:27 AM) Blood Pressure [90-138/55-84 mm Hg] 125/ 79mm Hg (09/11/22 9:27 AM) Temperature [96.8-100.4 DegF] 96.5 DegF *L* (09/11/22 9:27 AM) Mode of Delivery (Oxygen) Room air (09/11/22 9:27 AM) Blood pressure sites Arm, right (09/11/22 9:27 AM) Temperature Route Temporal (09/11/22 9:27 AM) Weight Obtained Via Standing scale (09/11/22 9:27 AM) Social History Social History Type Response Smoking Status Never (less than 100 in lifetime) entered on: 11/21/18 Sex Note * Dulce Hael: PERFORM, SIGN, VERIFY Event Display: Patient Education/Instruction Authored Date: [id number] [facility] *BMP So [place] Clinical Summary Name JUAN FRANCISCO BALLESTEROS Age 61 Years 1960 PCP Rafiq Arteaga PCP Visit Date 09/11/2022 09:13:00 Patient Instructions EMG nerve conduction study for left arm symptoms Hematology/oncology for Vit b12 Make appointment with dermatology for full skin exam Additional Instructions: Scheduled Appointments?? Future Appointments ?No Future Appointments Scheduled Follow-Up Instructions ?? With: Address: When: Rafiq Arteaga Within 6 months Comments: 40 min f/u Diagnosis Encounter for general adult medical examination without abnormal findings; Anesthesia of skin; Abnormal levels of other serum enzymes; Insomnia, unspecified Medications: Please continue your medications until [...] orders Vital Signs Height 162 cm Weight 103.5 kg BMI 39.44 kg/m2 Blood Pressure 125 mm Hg/79 mm Hg Temperature 96.5 DegF Pulse Rate 87 bpm Respiratory Rate 02 Sat Mode of Delivery 96 %/Room air You can now view a summary of your hospital visit from the comfort of your home through a free online portal called Palkion. Palkion is a website that allows you to securely view your medical information including discharge summary, medications and follow-up visits. ??You can alsosend a secure electronic message to your doctor???s office to request appointments, renew medications or just ask a question. You can enroll at [email or web address] or register during your next office [...] primary care provider, you may find a [facility] provider by calling [facility] at [phone]. For information about the plan of care [...] Member Role: Primary Care Nurse Address: Address: [address] [place] [address] [place] [address]- Name: Rafiq Arteaga [facility] Professional Member Role: PCP Address: Address: [address] [place] [address]- Care Team Related Persons Name: LEWIS BALLESTEROS Address: [address] [address] Name: RUSTY HOOVER
--- OUTSIDE RECORDS SUMMARY | 2022-11-04 01:40 | XMS_ITS | Continuity of Care Document ---
Author Name Unknown Organization [facility] Kay[facility] Address [address] [place] [address]- Care Team Providers Care Celery Packer Name Role Phone Rafiq Arteaga Primary Care Physi kateryna Encounter [facility] Date(s): 02/09/22 - 03/11/22 [facility] Adult [address] [place] [address]- Allergies, Adverse Reactions, Alerts Substance Reaction Severity [...] 14:25:00 EST, Powder, Route to Pharmacy Electronically, [id number], [facility], 1... Start Date: 03/05/22 Status: Ordered Advair Diskus 250 mcg-50 mcg inhalation powder 1, inhalation, Inhalation, 2 times a day, rinse mouth and throat after use, # 1 each, Refills 0, Tot. Refills 0, Maintenance, 03/09/22 13:31:00 EST, Powder, Route to Pharmacy Electronically, [id number], [facility] # [facility], I... [...] 01/16/21 11:47:00 EST, Route to Pharmacy Electronically, [id number]... Start Date: 01/16/21 Status: Ordered Ativan 0.5 mg oral tablet See Instructions, PRN as needed for anxiety, Take 1 tablet as needed for anxiety, do not take more than 2 tablets/day, # 14 tablet, 0 Refills, Maintenance, 08/03/21 9:13:00 EDT, Tablet, [facility], Partial fill upon patient request if the pre... Start Date: 08/03/21 Status: Ordered azelastine 137 mcg/inh (0.1%) nasal spray 2 sprays, Nares, Both, Daily, PRN Other Allergies, # 30 mL, 6 Refills, Maintenance, 10/05/21 13:14:00 EDT, [place], [facility], 2 sprays Nares, [...] # 60 capsule, 5 Refills, [facility] [...] 03/19/22 12:11:00 EST, 03/09/22 12:11:00 EST, Tablet, [facility] # [facility], Partial [...] Member Role: Primary Care Nurse Address: Address: [address] [place] [address] [place] [address]- Name: Rafiq Arteaga Position: [facility] Associate Professional Member Role: PCP Address: Address: [address] [place] [address]- Care Team Related Persons Name: LEWIS BALLESTEROS Address: home [address] [place] [address] Name: RUSTY HOOVER
--- OUTSIDE RECORDS SUMMARY | 2022-11-04 01:40 | XMS_ITS | Continuity of Care Document ---
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 Start Date: 01/16/21 Status: Ordered Ativan 0.5 [...] mL, 6 Refills, Maintenance, 10/05/21 13:14:00 EDT, [place], [facility], 2 sprays [...] 60 tablet, 1 Refills, 12/26/21 11:19:00 EDT, [facility], 163.5, cm, 08/21/21 13:35:00 EDT, Height Start Date: 12/26/21 Status: Ordered diclofenac sodium 75 mg oral delayed release tablet See Instructions, TAKE ONE TABLET BY MOUTH TWICE A DAY, # 60 tablet, 1 Refills, Maintenance, 12/27/21 9:34:00 EDT, [facility], 163.5, cm, 12/27/21 [...] 1 each, 6 Refills, 09/21/21 16:29:00 EDT, [facility], 163.5, cm, 08/21/21 13:35:00 EDT, Height Start Date: 09/21/21 Status: Ordered gabapentin 600 mg oral tablet 1 tablet, By Mouth, 3 times a day, office visit needed for further refills, # 270 tablet, 1 Refills, Maintenance, 11/13/21 13:31:00 EDT, [facility] [...] tablet, 3 Refills, Maintenance, 09/08/21 9:40:00 EDT, [facility] # 50, 163.5, cm, 08/21/21 [...] 11:04:00 EST, Route to Pharmacy Electronically, [facility], 163.5, cm, 01/15/22 8:07:00 [...] Dates Health Status Cl inical Service Informant Allergic rhinitis Discharge Diagnosis 02/16/22 Vital Signs Most recent to oldest [Reference Range]: 1 Height 163.5 cm (02/16/22 8:02 AM) Social History Social History Type Response Smoking Status Never (less than 100 in lifetime) entered on: 11/21/18 Sex Patient Care team information Care Team Personnel Name: Eleazar Rendon NP Position: [facility] w/OE and EZ Script Member Role: Primary Care Nurse Address: Address: [address] [place] [address] [address] [facility] [place] [address]- Name: Rafiq Arteaga Position: [facility] Associate Professional Member Role: PCP Address: Address: [address] [facility] [place] [address]- Care Team Related Persons Name: LEWIS BALLESTEROS Address: home [address] [place] [address] Name: RUSTY HOOVER
--- OUTSIDE RECORDS SUMMARY | 2022-11-04 01:40 | XMS_ITS | Continuity of Care Document ---
Author Name Unknown Organization [facility] Address [address] [place] [address]- Care Team Providers Care Construction Field Engineer Name Role Phone Orlando Davis MD Primary Care Physician [phone] Encounter [facility] [place] Date(s): 06/10/20 - 06/17/20 [facility] Adult [address] [place] [address]- Encounter Diagnosis Depression, major(Discharge Diagnosis) - 06/10/20 MONICA (obstructive sleep apnea)(Discharge Diagnosis) - 06/10/20 Constipation(Discharge Diagnosis) - 06/10/20 Peripheral neuropathy(Discharge Diagnosis) - 06/10/20 Attending Physician: Orlando Davis MD Allergies, Adverse [...] 02/09/19 13:37:40 EST, Route to Pharmacy Electronically, [id number]... Start Date: 02/09/19 Status: Ordered buPROPion 300 mg/24 hours (XL) oral tablet, extended release 1 tablet = 300 mg, By Mouth, Daily, # 30 tablet, 11 Refills, Maintenance, 05/11/20 13:04:00 EDT, ERTablet, [facility] # [facility], Partial [...] Refills, Maintenance, 06/10/20 12:27:00 EDT, EC Capsule, [facility] # [facility], Partial fill upon patient request if the prescription is for a schedule II opioid drug., 163.5, cm, 06/10/20 11:17:0... Start Date: 06/10/20 Status: Ordered Estrace Vaginal Cream 0.1 mg/g See Instructions, 1 gram Vaginally at bedtime 2 times per week, # 42 Gm, 4 Refills, Maintenance, 03/23/20 16:57:00 EST, [facility], Patient sensitive to inactive ingredients ofmanufacturers drugs, [...] 3 Refills, Maintenance, 09/30/19 10:56:00 EDT, Inhaler, [facility] # [facility], 163.5, cm, 09/30/19 9:33:00 EDT, Height, 91, kg, 07/23/19 11:11:00 EDT, Dry Weight Start Date: 09/30/19 Status: Ordered gabapentin 600 mg oral tablet 1 tablet, By Mouth, 3 times a day, # 270 Unknown, 1 Refills, Maintenance, 05/24/20 16:58:00 EDT, [facility] # [facility], 163.5, cm, 05/14/20 23:20:00 EDT, Height, 91, kg, 07/23/19 11:11:00 EDT, Dry Weight Start Date: 05/24/20 Status: Ordered lactulose 10 gm/15 ml oral syrup 15 mL = 10 Gm, By Mouth, Daily, This is correct dose., # 450 mL, 5 Refills, Maintenance, 06/25/19 9:18:00 EDT, Syrup, [facility], 15 mL By Mouth Daily,Instr:This is correct dose., 163.5, cm,06/03/19 11:17:00 EDT, Height Start Date: 06/25/19 Status: Ordered lidocaine-prilocaine 2.5%-2.5% topical cream 1 application, Topically, Once, # 30 Gm, 1 Refills, Soft Stop, 03/08/20 8:14:00 EST, Cream, [facility] # [facility], Partial fill upon patient [...] 0 Refills, Maintenance, 06/10/20 12:29:00 EDT, Capsule, [facility] # [facility], Partial [...] 01/13/20 12:44:00 EST, Route to Pharmacy Electronically, [facility] [...] 06/21/20 8:12:00 EDT, 06/16/20 8:12:00 EDT, Tablet, [facility] # [facility], 163.5, cm, 06/16/20 7:48:00 EDT, Height, 91, kg, 07/23/19 11:11:00 EDT, Dry Weight Start Date: 06/16/20 Stop Date: 06/21/20 Status: Ordered traZODone 50 mg oral tablet 50 mg, 1, tablet, By Mouth, Daily at bedtime, # 30 tablet, Refills 5, Tot. Refills 5, Maintenance, 12/04/19 12:51:00 EDT, Route to Pharmacy Electronically, [facility] [...] Clinical Service Informant Depression, major Discharge Diagnosis 06/10/20 [place] (obstructive sleep apnea) Discharge Diagnosis 06/10/20 Constipation Discharge Diagnosis 06/10/20 Peripheral neuropathy Discharge Diagnosis 06/10/20 Vital Signs Most recent to oldest [Reference Range]: 1 Height 163.5 cm (06/10/20 11:17 AM) Social History Social History Type Response Smoking Status Never (less than 100 in lifetime) entered on: 11/21/18 Sex
--- OUTSIDE RECORDS SUMMARY | 2022-11-04 01:40 | XMS_ITS | Continuity of Care Document ---
Author Name Unknown Organization [facility] Address [address] [place] [address]- Care Team Providers Care Member Service Specialist Name Role Phone Tyler Palacios MD Primary Care Physician [phone] Encounter [facility] [place] [place] Date(s): 11/27/18 - 02/19/19 [facility] [address] [place] [address]- [facility] Attending Physician: Joni Liz MD Admitting Physician: Joni Liz MD Referring Physician: Tyler Palacios MD Allergies, [...] 02/09/19 13:37:40 EST, Route to Pharmacy Electronically, [id number]... Start Date: 02/09/19 Status: Ordered Cranberry oral [...] 02/09/19 13:37:50 EST, Route to Pharmacy Electronically, [facility] [...] Maintenance,11/21/18 15:06:53 EDT, Route to Pharmacy Electronically, [id number], [facility] Start Date: [...]
--- OUTSIDE RECORDS SUMMARY | 2022-11-04 01:40 | XMS_ITS | Continuity of Care Document ---
Author Name Unknown Organization [facility] Address [address] [place] [address]- Care Team Providers Care Merchandise Manager Name Role Phone Orlando Davis MD Primary Care Physician En[place] [facility] [place](s): 05/04/21 - 09/01/21 [facility] [address] [place] [address]- Attending Physician: Pritesh Johnston MD Admitting Physician: Pritesh Johnston MD Referring Physician: Orlando Davis MD Allergies, [...] 01/16/21 11:47:00 EST, Route to Pharmacy Electronically, [id number]... Start Date: 01/16/21 Status: Ordered Ativan 0.5 [...] mL, 6 Refills, Maintenance, 08/18/20 15:01:00 EDT, [place], [facility], 2 sprays Nares, Both Daily,PRN:Other Allergies, 163.5, cm, 08/18/20 14:46:00 EDT, Height, 91, kg, 07/23/19 11:11... Start Date: 08/18/20 Status: Ordered buPROPion 300 mg/24 hours (XL) oral tablet, extended release 1 tablet = 300 mg, By Mouth, Daily, # 30 tablet, 5 Refills, Maintenance, 05/30/21 10:47:00 EDT, ER Tablet, [facility], Partial fill upon [...] 05/26/21 10:29:00 EDT, EC Tablet, [facility], Partial fill upon patient request if the prescription is for a schedule II opioid drug., 163.5, cm, 04/21/21 11:51:0... Start Date: 05/26/21 Status: Ordered duloxetine 60 mg oral enteric coated capsule 1 capsule = 60 mg, By Mouth, 2 times a day, # 60 capsule, 5 Refills, Maintenance, 02/10/21 14:24:00EST, EC Capsule, [facility], Partial fill [...] # 270 tablet, 1 Refills, [facility], 163.5, cm, [...]
--- OUTSIDE RECORDS SUMMARY | 2022-11-04 01:40 | XMS_ITS | Continuity of Care Document ---
Author Name Unknown Organization [facility] Address [address] [place] [address]- Care Team Providers Care Marketing And Communications Officer Name Role Phone Tyler Palacios MD Primary Care Physician Encounter [facility] [place] Date(s): 08/24/19 - 12/23/[address] [address]- [facility] Discharge Disposition: A-D/C Home Attending Physician: [...] 02/09/19 13:37:40 EST, Route to Pharmacy Electronically, [id number]... Start Date: 02/09/19 Status: Ordered Cranberry oral tablet 0 Refills, Maintenance, 10/23/18 9:18:41 EDT Start Date: 10/23/18 Status: Ordered diclofenac sodium 25 mg oral delayed release tablet 1 tablet, By Mouth, 2 times a day, # 60 Unknown, 1 Refills, Maintenance, 12/17/19 15:03:00 EDT, [facility], 163.5, [...] 09/04/19 15:20:00 EDT, Route to Pharmacy Electronically, [facility], 163.5, cm, 07/23/19 11:11:00 EDT, Height, 91, kg, 07/23/19 11:11:00 EDT, Dry Weight Start Date: 09/04/19 Status: Ordered gabapentin 600 mg oral tablet 1 tablet, By Mouth, 3 times a day, # 270 tablet, 1 Refills, Maintenance, 11/19/19 8:38:00 EDT, [facility] # [...] tablet, 11 Refills, Maintenance, 07/23/19 11:40:00 EDT, [facility] # [facility], 163.5, [...] Maintenance,12/04/19 12:51:00 EDT, Route to Pharmacy Electronically, [facility] [...]
--- OUTSIDE RECORDS SUMMARY | 2022-11-04 01:40 | XMS_ITS | Continuity of Care Document ---
Author Name Unknown Organization [facility] Address [address], [address] [place] [address]- Care Team Providers Care Plug Overwrap Machine Tender Name Role Phone Deshawn BERNAL, Laurita Primary Care Physician Encounter [facility] [place] Date(s): 03/23/20 - 04/22/20 [facility] [address] [place] [address]- Attending Physician: Ene Ramos Admitting Physician: Ene [...] 02/09/19 13:37:40 EST, Route to Pharmacy Electronically, [id number]... Start Date: 02/09/19 Status: Ordered buPROPion 150 mg/24 hours (XL) oral tablet, extended release 1 tablet = 150 mg, By Mouth, Every 24 hours, # 30 tablet, 5 Refills, Maintenance, 04/20/20 8:24:00 EST, ER Tablet, [facility] Refills, Maintenance, 03/23/20 16:57:00 EST, [facility], Patient sensitive to [...] capsule, 3 Refills, Maintenance, 04/19/20 8:46:00EST, Capsule, [facility], Partial fill upon patient request if the prescription is for a schedule II opioid drug., 163.5, cm, 04/08/20 8:37:00... Start Date: 04/19/20 Status: Ordered gabapentin 600 mg oral tablet 1 tablet, By Mouth, 3 times a day, # 270 tablet, 1 Refills, Maintenance, 11/19/19 8:38:00 EDT, [facility] [...]
--- OUTSIDE RECORDS SUMMARY | 2022-11-04 01:41 | XMS_ITS | Continuity of Care Document ---
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 Start [...] Maintenance, 04/23/22 11:16:00 EST, Tablet, [facility], Partial fill upon patient request if the pr... Start Date: 04/23/22 Status: Ordered azelastine 137 mcg/inh (0.1%) nasal spray 2 sprays, Nares, Both, Daily, PRN Other Allergies, # 30 mL, 6 Refills, Maintenance, 10/05/21 13:14:00 EDT, [place], [facility], 2 sprays Nares, Both Daily,PRN:Other Allergies, 163.5, cm, 08/21/21 13:35:00 EDT, Height Start Date: 10/05/21 Status: Ordered buPROPion 300 mg/24 hours (XL) oral tablet, extended release 1 tablet = 300 mg, By Mouth, Daily, # 90 tablet, 2 Refills, Maintenance, 06/25/22 9:06:00 EDT, ER Tablet, [facility] # [facility], Partial fill upon patient request if the prescription is for a schedule II opioid drug., 162, cm, 06/25/22 8:34:00 EDT, [place]... Start Date: 06/25/22 Status: Ordered duloxetine 60 mg oral enteric coated capsule 1 capsule, By Mouth, 2 times a day, # 60 capsule, 5 Refills, 04/09/22 16:24:00 EST, [facility], 163.5, cm, 03/09/22 [...] 13:21:00 EST, [facility] [...] [facility], 162, cm, 05/21/22 10:37:00 EDT, Height, 102, kg, 05/21/22 10:37:00 EDT, Dry W... Start Date: 06/04/22 Status: Ordered Myrbetriq 50 mg oral tablet, extended release 1 tablet = 50 mg, By Mouth, Daily, # 90 tablet, 3 Refills, Maintenance, 09/08/21 9:40:00 EDT, [facility], 163.5, cm, 08/21/21 13:35:00 EDT, Height Start Date: 09/08/21 Status: Ordered ohm Allergy Relief 10 mg oral tablet See Instructions, TAKE 1 TABLET BY MOUTH EVERY DAY, # 90 tablet, 1 Refills, Maintenance, 06/25/22 9:15:00 EDT, [facility], 162, cm, 06/25/22 [...] [facility], 162, cm, 06/25/22 [...] 06/25/22 9:11:00 EDT, Route to Pharmacy Electronically, [facility] # [facility], Partial fill upon patient [...] capsule, 3 Refills, Maintenance, 06/25/22 9:06:00 EDT, [facility] # [facility], Partial fill upon patient [...] Role: Primary Care Nurse Address: Address: [address] [place] [address] [place] [address]- Name: Rafiq Arteaga Position: [facility] Associate Professional Member Role: PCP Address: Address: [address] [place] [address]- Care Team Related Persons Name: LEWIS BALLESTEROS Address: home [address] [place] [id number] Name: RUSTY HOOVER
--- OUTSIDE RECORDS SUMMARY | 2022-11-04 01:41 | XMS_ITS | Continuity of Care Document ---
Author Name Unknown Organization [facility] Address [address] [place] [address]- Care Team Providers Care Safety Deposit Supervisor Name Role Phone Tyler Palacios MD Primary Care Physician Encounter [facility] [place] Date(s): 10/01/19 - 10/31/19 [facility] [address] [place] [address]- [facility] Allergies, Adverse Reactions, Alerts Substance Reaction Severity [...] 02/09/19 13:37:40 EST, Route to Pharmacy Electronically, [id number]... Start Date: 02/09/19 Status: Ordered Cranberry oral tablet 0 Refills, Maintenance, 10/23/18 9:18:41 EDT Start Date: 10/23/18 Status: Ordered diclofenac sodium 25 mg oral delayed release tablet 1 tablet = 25 mg, By Mouth, 2 times a day, # 60 tablet, 1 Refills, Maintenance, 07/23/19 10:48:00 EDT, EC Tablet, [facility], 163.5, cm, 06/03/19 [facility] 163.5, cm, 07/23/19 [...] cm, 07/23/19 11:11:00 EDT, Height, 91, kg, 05/28/20 11:11:00 EDT, Dry Weight Start Date: 07/23/19 [...]
--- OUTSIDE RECORDS SUMMARY | 2022-11-04 01:41 | XMS_ITS | Continuity of Care Document ---
Author Name Unknown Organization [facility] Address [address] [place] [address]- Care Team Providers Care Medical Photographer Name Role Phone Orlando Davis MD Primary Care Physician [phone] Encounter [facility] [place] Date(s): 08/02/20 - 10/15/20 [facility] [address] [place] [id number] Attending Physician: Charmaine Randall MD Admitting Physician: Charmaine Randall MD Referring Physician: Orlando Davis MD Allergies, [...] 02/09/19 13:37:40 EST, Route to Pharmacy Electronically, [id number]... Start Date: 02/09/19 Status: Ordered azelastine 137 mcg/inh (0.1%) nasal spray 2 sprays, Nares, Both, Daily, PRN Other Allergies, # 30 mL, 6 Refills, Maintenance, 08/18/20 15:01:00 EDT, [place], [facility], 2 sprays [...] Refills, Maintenance, [facility], 163.5, cm, 09/09/20 12:42:00 EDT, Height, 91, kg, 07/23/19 11:11:00 EDT, Dry Weight Start Date: 10/06/20 Status: Ordered gabapentin 600 mg oral tablet 1 tablet, By Mouth, 3 times a day, # 270 Unknown, 1 Refills, Maintenance, 05/24/20 16:58:00 EDT, [facility], 163.5, cm, 05/14/20 23:20:00 EDT, Height, 91, kg, 07/23/19 11:11:00 EDT, Dry Weight Start Date: 05/24/20 Status: Ordered lidocaine-prilocaine 2.5%-2.5% topical cream 1 application, Topically, Once, # 30 Gm, 1 Refills, Soft Stop, 03/08/20 8:14:00 EST, Cream, [facility], Partial fill upon [...] capsule, 0 Refills, Maintenance, 09/23/20 11:53:00 EDT, [facility], 163.5, cm, 09/09/20 [...] tablet, 11 Refills, Maintenance, 08/11/20 16:47:00 EDT, [facility] # [facility], 163.5, [...]
--- OUTSIDE RECORDS SUMMARY | 2022-11-04 01:41 | XMS_ITS | Continuity of Care Document ---
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 Start Date: 02/09/19 Status: Ordered Cranberry oral tablet 0 Refills, Maintenance, 10/23/18 9:18:41 EDT Start Date: 10/23/18 Status: Ordered diclofenac sodium 25 mg oral delayed release tablet 1 tablet = 25 mg, By Mouth, 2 times a day, # 60 tablet, 1 Refills, Maintenance, 07/23/19 10:48:00 EDT, EC Tablet, [facility], 163.5, cm, 06/03/19 [...] 3 Refills, Maintenance, 09/30/19 10:56:00 EDT, Inhaler, [facility], 163.5, cm, 09/30/19 9:33:00 EDT, Height, 91, kg, 07/23/19 11:11:00 EDT, Dry Weight Start Date: 09/30/19 Status: Ordered FLUoxetine 20 mg oral capsule 3, capsule, By Mouth, Daily, # 270 Unknown, Refills 1, Tot. Refills 0, Maintenance, 09/04/19 15:20:00 EDT, Route to Pharmacy Electronically, [facility], 163.5, cm, 07/23/19 11:11:00 EDT, Height, 91, kg, 07/23/19 11:11:00 EDT, Dry Weight Start Date: 09/04/19 Status: Ordered gabapentin 600 mg oral tablet 1 tablet, By Mouth, 3 times a day, # 90 Unknown, 5 Refills, Maintenance, 05/25/19 16:16:00 EDT, [facility], 163.5, cm, 03/27/19 10:49:00 EST, Height Start Date: 05/25/19 Status: Ordered lactulose 10 gm/15 ml oral syrup 15 mL = 10 Gm, By Mouth, Daily, This is correct dose., # 450 mL, 5 Refills, Maintenance, 06/25/19 9:18:00 EDT, Syrup, [facility], 15 mL By Mouth Daily,Instr:This is correct dose., 163.5, cm,06/03/19 11:17:00 EDT, Height Start Date: 06/25/19 Status: Ordered loratadine 10 mg oral tablet 10 mg, 1, tablet, By Mouth, Daily, # 90 tablet, Refills 3, Tot. Refills 3, Maintenance, 09/30/19 10:55:00 EDT, Route to Pharmacy Electronically, [facility] [...] 06/17/19 13:09:00 EDT, Route to Pharmacy Electronically, [facility], Refills per PCP, 163.5, cm, 06/03/19 11:17:00 EDT, Height Start Date: 06/17/19 Status: Ordered Myrbetriq 50 mg oral tablet, extended release 1 tablet = 50 mg, By Mouth, Daily, # 30 tablet, 11 Refills, Maintenance, 07/23/19 11:40:00 EDT, [facility], 163.5, [...] oldest [Reference Range]: 1 Height 163.5 cm (09/30/19 9:33 AM) Social History Social History Type Response Smoking Status Never (less than 100 in lifetime) entered on: 11/21/18 Sex
--- OUTSIDE RECORDS SUMMARY | 2022-11-04 01:41 | XMS_ITS | Continuity of Care Document ---
Author Name Unknown Organization [facility] Address [address] [place] [address]- Care Team Providers Care Straddle Bug Operator Name Role Phone Susan AVENDANO, Orlando Quintanilla Primary Care Physician [place] [facility] [place](s): 07/29/20 - 08/28/20 [facility] [address] [place] [address]- Attending Physician: AdmEne boles Admitting Physician: Admtr, Ene Referring Physician: Admtr, [...] 02/09/19 13:37:40 EST, Route to Pharmacy Electronically, [id number]... Start Date: 02/09/19 Status: Ordered azelastine 137 mcg/inh (0.1%) nasal spray 2 sprays, Nares, Both, Daily, PRN Other Allergies, # 30 mL, 6 Refills, Maintenance, 08/18/20 15:01:00 EDT, [place], [facility], 2 sprays Nares, Both Daily,PRN:Other Allergies, 163.5, cm, 08/18/20 14:46:00 EDT, Height, 91, kg, 07/23/19 11:11... Start Date: 08/18/20 Status: Ordered buPROPion 300 mg/24 hours (XL) oral tablet, extended release 1 tablet = 300 mg, By Mouth, Daily, # 30 tablet, 11 Refills, Maintenance, 05/11/20 13:04:00 EDT, ERTablet, [facility] [...] 3 Refills, Maintenance, 08/18/20 15:02:00 EDT, Inhaler, [facility], 163.5, cm, 08/18/20 14:46:00 EDT, Height,... Start Date: 08/18/20 Status: Ordered gabapentin 600 mg oral tablet 1 tablet, By Mouth, 3 times a day, # 270 Unknown, 1 Refills, Maintenance, 05/24/20 16:58:00 EDT, [facility], 163.5, cm, 05/14/20 23:20:00 EDT, Height, 91, kg, 07/23/19 11:11:00 EDT, Dry Weight Start Date: 05/24/20 Status: Ordered lidocaine-prilocaine 2.5%-2.5% topical cream 1 application, Topically, Once, # 30 Gm, 1 Refills, Soft Stop, 03/08/20 8:14:00 EST, Cream, [facility], Partial fill upon patient request, 1 application Topically Once, 163.5, cm, 01/11/20 14:45:00 EST, Height, 91, kg, 07/23/19 11:11:00 EDT,... Start Date: 03/08/20 Status: Ordered loratadine 10 mg oral tablet 10 mg, 1, tablet, By Mouth, Daily, # 90 tablet, Refills 3, Tot. Refills 3, Maintenance, 10/27/19 18:22:00 EDT, Route to Pharmacy Electronically, [facility], Rx resent from 09/30/19., 163.5, cm, 10/08/19 11:19:00 EDT, Height, 91, kg, 07/23/19 11... Start Date: 10/27/19 Status: Ordered lubiprostone 24 mcg oral capsule 1 capsule, By Mouth, 2 times a day, # 60 capsule, 0 Refills, Maintenance, 08/22/20 10:44:00 EDT, [facility], 163.5, cm, 08/18/20 [...] 07/12/20 11:39:00 EDT, Route to Pharmacy Electronically, [facility], Refills per PCP, 163.5, cm, 06/16/20 7:48:00 EDT, Height, 91, kg, 07/23/19 11... Start Date: 07/12/20 Status: Ordered Myrbetriq 50 mg oral tablet, extended release 1 tablet = 50 mg, By Mouth, Daily, # 30 tablet, 11 Refills, Maintenance, 08/11/20 16:47:00 EDT, [facility] # [facility], 163.5, cm, 08/11/20 [...]
[2022-11-04 02:02] LABS: Hematocrit 37.8 % (37.0-47.0); Hemoglobin 12.6 g/dl (12.0-16.0); Mean Corpuscular HGB Conc 33.3 g/dl (31.0-35.0); Mean Corpuscular Hemoglobin 29.6 pg (27.0-33.0); Mean Corpuscular Volume 88.7 fL (80.0-98.0); Mean Platelet Volume 9.3 fL (9.4-12.3); Platelet Count 227 X10*3/uL (160-400); Red Blood Count 4.26 X10*6/uL (4.20-5.50); Red Cell Distribution Width 12.7 % (11.0-16.0); White Blood Count 9.4 X10*3/uL (4.8-10.8)
[2022-11-04 02:25] VITALS: BP 126/82; PULSE 82; RESP 20; O2SAT 97
[2022-11-04 02:26] LABS: Anion Gap 12 (12-20); Blood Urea Nitrogen 25 mg/dL (9-16); Calcium 9.8 mg/dL (8.4-10.2); Carbon Dioxide 27 mmol/L (22-29); Chloride 106 mmol/L (96-108); Creatinine Clr Calc Pharmacy 82.7; Estimated Glomerular Filt Rate > 60; Glucose Random 97 mg/dL (60-115); Potassium 3.6 mmol/L (3.3-5.1); Sodium 141 mmol/L (135-145)
--- NOTE | 2022-11-04 02:49 | ED.WOUNDLAC ---
HPI - Wound/Laceration General Chief Complaint: Wound/Laceration Stated Complaint: foot infection Time Seen by Provider: 11/04/22 02:10 History of Present Illness HPI narrative: Patient is a 62-year-old female presented today with having redness to the area where a wart was removed from the dorsum of her left foot. Patient complaining of increasing redness and warmth to touch. Patient denies any fever chills. No history of diabetes. She is from home. Related Data Home Medications Medication Instructions Recorded Confirmed albuterol sulfate 90 mcg/actuation 2 puff inhalation Q6H PRN 12/11/19 06/01/20 aerosol inhaler (ProAir HFA) cholecalciferol (vitamin D3) 25 25 mcg PO DAILY 12/11/19 06/01/20 mcg (1,000 unit) capsule diclofenac potassium 25 mg capsule 25 mg PO QID 12/11/19 06/01/20 fluoxetine 20 mg capsule 20 mg PO DAILY 12/11/19 06/01/20 gabapentin 600 mg tablet 600 mg PO TID 12/11/19 06/01/20 lactulose 10 gram oral packet 20 g PO BID 12/11/19 06/01/20 lysine 500 mg tablet 500 mg PO DAILY 12/11/19 06/01/20 melatonin 10 mg capsule 10 mg PO BEDTIME PRN 12/11/19 06/01/20 mirabegron 50 mg tablet,extended 50 mg PO DAILY 12/11/19 06/01/20 release 24 hr (Myrbetriq) trazodone 50 mg tablet 50 mg PO BEDTIME PRN 12/11/19 06/01/20 Previous Rx's Medication Instructions Recorded doxycycline hyclate 100 mg capsule 100 mg PO BID cough 7 days #14 caps 11/04/22 Allergies Allergy/AdvReac Type Severity Reaction Status Date / Time No Known Allergies Allergy Unverified 11/12/19 16:44 Review of Systems Review of Systems: Positive redness over the dorsum of left foot Yes all other systems are reviewed and are negative PMFSH Past Medical History Medical History Vaginal prolapse Insomnia Peripheral neuropathy Urinary incontinence Obstructive sleep apnea Carpal tunnel syndrome Depression Anxiety Asthma Surgical History History of total abdominal hysterectomy Hx laparoscopic cholecystectomy Family History Family History (Updated 01/11/20 @ 14:09 by Tisha Cedeño MA) Father Lung cancer Mother Diabetes mellitus Son No problems noted. Daughter No problems noted. Daughter Spinal cerebrospinal fluid leak, spontaneous Brother No problems noted. Sister No problems noted. Sister No problems noted. Sister No problems noted. Sister Heart disease Social History Social History (Updated 01/11/20 @ 14:07 by Tisha Cedeño MA) Alcohol intake: never Advance Directives: No Advance Directives Information Provided: No Physical Exam Vital Signs: Vital Signs: Last Vital Signs Temp 98.1 F 11/04/22 00:14 Pulse 86 11/04/22 00:14 Resp 16 11/04/22 00:14 BP 133/72 11/04/22 00:14 Pulse Ox 95 11/04/22 00:14 O2 Del Method Room Air 11/04/22 00:14 BMI result Body Mass Index 38.6 Appearance: Alert. Oriented X3. No acute distress. Eyes: Pupils equal, round and reactive to light. ENT: Pharynx normal. Neck: Normal inspection. Neck supple. No lymph nodes noted. No crepitus CVS: Normal heart rate and rhythm. Pulses normal. Normal S1 and S2 Respiratory: No respiratory distress. Breath sounds normal. No Wheezing. No rales Abdomen: Soft and nontender. No rigidity. No distention. good BS x4 Skin: Skin warm and dry. There is an area of redness over the dorsum of left foot. Around the distal end of the 2nd metatarsal there is a wound there. There is a question small amount of discharge noted at the base. Positive granulation tissue. Surrounded by redness that spread to 2 adjoining toes. More proximally extend approximately [address] the foot. Extremities: No lower extremity edema. Neurovascular intact to all extremities. No Lacerations. No Rash Neuro: Oriented X 3. No motor deficit. No sensory deficit. Moving all extermities. No slurred speech Medical Decision Making Medical Decision Making MDM Narrative: Positive cellulitis surrounding the wound. Will start patient on doxycycline for empiric treatment. Close follow-up with Dermatology on an outpatient basis. Avoid sunlight. Take medication on a full stomach. In stable condition. No evidence of systemic disease patient is not diabetic Differential Diagnosis Differential Diagnoses: The differential diagnosis associated with the presentation includes Skin infection Lab Data [facility] Lab Attestation statement: I reviewed the patient's lab results. 11/04/22 01:56 11/04/22 01:56 Labs: Lab Results 11/04/22 Range/Units 01:56 WBC 9.4 (4.8-10.8) X10*3/uL RBC 4.26 (4.20-5.50) X10*6/uL Hgb 12.6 (12.0-16.0) g/dl Hct 37.8 (37.0-47.0) % MCV 88.7 (80.0-98.0) fL MCH 29.6 (27.0-33.0) pg MCHC 33.3 (31.0-35.0) g/dl RDW 12.7 (11.0-16.0) % Plt Count 227 (160-400) X10*3/uL MPV 9.3 L (9.4-12.3) fL Absolute Nucleated RBC 0.000 (0.0-0.012) X10*3/uL Nucleated RBC % (auto) 0.0 (0.0-0.2) /100WBC Sodium 141 (135-145) mmol/L Potassium 3.6 (3.3-5.1) mmol/L Chloride 106 (96-108) mmol/L Carbon Dioxide 27 (22-29) mmol/L Anion Gap 12 (12-20) BUN 25 H (9-16) mg/dL Creatinine 0.83 (0.5-1.4) mg/dL Estim Creat Clear Calc 82.7 Estimated GFR > 60 Random Glucose 97 (60-115) mg/dL Calcium 9.8 (8.4-10.2) mg/dL Prescription Management I considered prescription management with: Antibiotic Chronic Conditions History of having a wart removed last week. Discharge Plan Discharge Clinical Impression: Cellulitis Patient Disposition: Home, Self-Care Instructions: Cellulitis (DC) Prescriptions: New doxycycline hyclate 100 mg capsule 100 mg PO BID 7 Days Qty: 14 0RF No Action gabapentin 600 mg tablet 600 mg PO TID fluoxetine 20 mg capsule 20 mg PO DAILY diclofenac potassium 25 mg capsule 25 mg PO QID trazodone 50 mg tablet 50 mg PO BEDTIME PRN Myrbetriq 50 mg tablet extended release 24 hr 50 mg PO DAILY melatonin 10 mg capsule 10 mg PO BEDTIME PRN lactulose 10 gram packet 20 g PO BID albuterol sulfate [ProAir HFA] 90 mcg/actuation HFA aerosol inhaler 2 puff inhalation Q6H PRN lysine 500 mg tablet 500 mg PO DAILY cholecalciferol (vitamin D3) 25 mcg (1,000 unit) capsule 25 mcg PO DAILY Referrals: Rafiq Ortega PA-C [Primary Care Provider] - 11/06/22
[2022-11-04] MEDS: Doxycycline Monohydrate 100 MG CAPSULE PO (03:13)
--- NOTE | 2022-11-04 03:20 | PC.NURSE ---
pt medicated according to mar. skin marker utilized to ellyn cellulitic area. pt ambulatory pt friend at bedside. pt provided with discharge packet. pt verbalized understanding of discharge plan
== END 2022-11-04 03:30 | disposition home or self-care (01) ==
PROVIDERS: Emergency Provider Emergency Medicine Emergency Medical Services; PCP Internal Medicine Cardiovascular Disease
DX: L03.116 Cellulitis of left lower limb (principal); Z79.899 Other long term (current) drug therapy
CPT/HCPCS: 36415; 80048; 85027; 99283

== ENCOUNTER 2023-04-05 12:31 | Emergency (ER) | payer OTHER, SELFPAY ==
--- NOTE | ~2023-04-05 | XR_ITS ---
EXAMINATION: XR CHEST CLINICAL INFORMATION: Shortness of breath. COMPARISON: 10/03/2019 TECHNIQUE: 2 views of the chest were obtained. FINDINGS: The lungs are well expanded. No focal consolidation. No pleural effusion. Cardiac silhouette is unchanged. XR/XR chest 2V IMPRESSION: No acute abnormality.
--- NOTE | ~2023-04-05 | CT_ITS ---
EXAMINATION: CT ABDOMEN AND PELVIS WITH CONTRAST CLINICAL INFORMATION: Left upper quadrant and left lower quadrant abdominal pain, nausea and vomiting. Unintentional weight loss COMPARISON: None available. TECHNIQUE: Multidetector volumetric images were obtained from the superior aspect of the liver through the pubic symphysis following administration 85 mL of Omnipaque 350 intravenous contrast. Sagittal and coronal reformatted images were obtained on the technologist's workstation. Oral contrast: No This CT examination was performed using dose optimization techniques as appropriate, variously including the following: *Automated exposure control *Adjustment of mA and/or kV according to patient size (this includes techniques or standardized protocols for targeted exams where dose is matched to indication/reason for exam; i.e. extremities or head) *Use of iterative reconstruction technique DLP: 758 mGy-cm FINDINGS: LUNG BASES: There is mild scarring or atelectasis right lung base. Minimal atelectasis seen in lingula. Heart size is normal LIVER, GALLBLADDER, AND BILIARY TREE: The liver is normal in size, shape, and attenuation. No focal hepatic lesion or biliary ductal dilatation is present. The gallbladder has been surgically removed. PANCREAS: Unremarkable. SPLEEN: Unremarkable. ADRENAL GLANDS: Unremarkable. KIDNEYS AND URETERS: The kidneys are normal in size, shape, and attenuation. No hydronephrosis, hydroureter, or calculi seen. No perinephric stranding. BLADDER: Unremarkable. GASTROINTESTINAL TRACT: There is moderate stool seen in the colon without distention. The small bowel loops are normal caliber. Appendix is not visualized. There are surgical kelvin in the left pelvis from previous intervention. No free air or free fluid seen ABDOMINAL WALL: There is a scar in the left lower abdominal wall from previous intervention. LYMPH NODES: Normal. VASCULAR: Unremarkable. PELVIC VISCERA: There is diffuse uterus is surgically absent. Numerous surgical kelvin in the left adnexa. OSSEOUS STRUCTURES: There is mild levoscoliosis lumbar spine. CT/CT abdomen pelvis w IV con IMPRESSION: 1. No acute intra-abdominal process seen. 2. Mild constipation. Fleischner guidelines were followed.
[2023-04-05 13:01] VITALS: BP 190/88; PULSE 98; RESP 20; TEMP 36; O2SAT 98; BMI 33.0
--- NOTE | 2023-04-05 13:01 | ED.ABDPAIN ---
HPI - Abdominal Pain General Chief Complaint: Abdominal Pain Stated Complaint: stomach pain Time Seen by Provider: 04/05/23 18:30 Source: patient History of Present Illness HPI narrative: 62-year-old female with a history sleep apnea, anxiety, depression, presents for evaluation of 1 month history of abdominal pain. Patient states she has been having intermittent in episodes of sharp abdominal pain primarily in the left upper and left lower quadrants for approximately 1 month PA patient states it began rather suddenly. During this time she has had decreased p.o. intake, early satiety, nausea, vomiting. she is tried fukx-oih-dposngn medication such as Pepto-Bismol, Tums and warm compresses without any relief. She saw a new PCP for the 1st time 2 days ago and was diagnosed with pneumonia and placed on antibiotics. Patient states she was not able to address the pain that she was having in her abdomen. She denies any fevers or chills. She does report unintended weight loss during this past month. No night sweats. patient reports having a colonoscopy years ago, no recent GI follow-up. Related Data Home Medications Medication Instructions Recorded Confirmed albuterol sulfate 90 mcg/actuation 2 puff inhalation Q6H PRN 12/11/19 06/01/20 aerosol inhaler (ProAir HFA) cholecalciferol (vitamin D3) 25 25 mcg PO DAILY 12/11/19 06/01/20 mcg (1,000 unit) capsule diclofenac potassium 25 mg capsule 25 mg PO QID 12/11/19 06/01/20 fluoxetine 20 mg capsule 20 mg PO DAILY 12/11/19 06/01/20 gabapentin 600 mg tablet 600 mg PO TID 12/11/19 06/01/20 lactulose 10 gram oral packet 20 g PO BID 12/11/19 06/01/20 lysine 500 mg tablet 500 mg PO DAILY 12/11/19 06/01/20 melatonin 10 mg capsule 10 mg PO BEDTIME PRN 12/11/19 06/01/20 mirabegron 50 mg tablet,extended 50 mg PO DAILY 12/11/19 06/01/20 release 24 hr (Myrbetriq) trazodone 50 mg tablet 50 mg PO BEDTIME PRN 12/11/19 06/01/20 Previous Rx's Medication Instructions Recorded doxycycline hyclate 100 mg capsule 100 mg PO BID cough 7 days #14 caps 11/04/22 docusate sodium 100 mg capsule 100 mg PO BID #20 caps 04/05/23 (Colace) polyethylene glycol 3350 17 17 g PO DAILY #510 grams 04/05/23 gram/dose oral powder (Miralax) Allergies Allergy/AdvReac Type Severity Reaction Status Date / Time No Known Allergies Allergy Unverified 11/12/19 16:44 Review of Systems Constitutional: Denies chills, Denies fever(s) and Denies headache(s) Eyes: Denies change in vision and Denies other (No redness.) Denies headache(s), Denies nasal congestion, Denies nasal discharge, Denies neck pain and Denies sore throat Cardiovascular: Denies chest pain, Denies palpitations, Denies dyspnea, Denies dyspnea on exertion and Denies orthopnea Respiratory: Denies cough, Denies dyspnea and Denies dyspnea on exertion Gastrointestinal: Reports abdominal pain, Denies melena, Denies hematochezia, Denies diarrhea, Reports nausea and Reports vomiting Comments: Positive bloating Genitourinary: Denies dysuria and Denies urinary urgency Musculoskeletal: Denies back pain, Denies muscle weakness, Denies neck pain and Denies numbness Skin/Breast: Denies rash Denies headache(s), Denies focal weakness and Denies numbness Psychiatric: Denies depression Endocrine: Denies palpitations PMFSH Past Medical History Attestation statement: The following information was validated with the patient. Medical History Vaginal prolapse Insomnia Peripheral neuropathy Urinary incontinence Obstructive sleep apnea Carpal tunnel syndrome Depression Anxiety Asthma Surgical History History of total abdominal hysterectomy Hx laparoscopic cholecystectomy Family History Family History Father Lung cancer Mother Diabetes mellitus Son No problems noted. Daughter No problems noted. Daughter Spinal cerebrospinal fluid leak, spontaneous Brother No problems noted. Sister No problems noted. Sister No problems noted. Sister No problems noted. Sister Heart disease Social History Social History Alcohol intake: never Advance Directives: No Advance Directives Information Provided: No Physical Exam ED Vital Signs: Vital Signs - 24 hr 04/05/23 13:01 04/05/23 20:12 Temperature 96.8 F 98.1 F Pulse Rate 98 74 Respiratory Rate 20 20 Blood Pressure 190/88 H 137/85 Pulse Oximetry 98 96 Oxygen Delivery Method Room Air Room Air BMI result Body Mass Index 33.0 Const General: alert, awake and Physically active Resp Other: slight rhonchi in the left lung base, no clearing with cough, no wheezing, otherwise clear throughout Cardio Rate: regular rate Rhythm: regular rhythm GI Other: abdomen is not distended. Soft throughout with mild left upper and left lower quadrant tenderness. There is no peritoneal signs. No CVAT. Extrem Other: No calf tenderness or pedal edema Course Course Course Narrative: This is an RME: Additional HPI, ROS, PE not included below will be deferred to primary provider. Patient is a 62-year-old female who presents emergency department for evaluation of ABD pain x 1 month, intermittent LUQ radiates to the umbilicus and down to the left lower quadrant. Associated nausea and vomiting, constipation, unintentional 13 lb weight loss in the past 3 weeks. Reports ?I have always had issues with my stomach my whole life? reporting predominantly distension, but pain is worse and more constant than typical. Currently she is being treated for pneumonia, has been on antibiotics for 3 days, she has skipped a dose and took half of the dosage due to her symptoms, does not feel she can tolerate taking this. Plan: labs, U/A Reevaluation(s) Reevaluation #1: CT results returned, constipation is noted. This was reviewed with the patient. She is agreeable for trial of Colace and MiraLax. She will also follow-up with her PCP and GI. Of note, no pneumonia is noted on chest x-ray or base of the lungs on CT. Patient may discontinue antibiotic therapy at this time. She feels comfortable with discharge plan home and will follow-up PCP. No further questions at this time. Time: 21:33 Medical Decision Making Medical Decision Making MDM Narrative: 62-year-old female with history of sleep apnea, anxiety, depression, presents with a one-month history of abdominal pain, nausea, vomiting, decreased p.o. intake any unintentional 13 lb weight loss. Concern for possible intra-abdominal process, will check CT of the abdomen and pelvis. Patient is status post cholecystectomy. No other intra-abdominal surgery. Differential Diagnosis Differential Diagnoses: The differential diagnosis associated with the presentation includes Malignancy Dyspepsia Gastric ulcer Bowel obstruction Admission/Observation Consideration of admission/observation: Escalation of care including admission/observation considered Lab Data MDM Lab Attestation statement: I reviewed the patient's lab results. 04/05/23 13:47 04/05/23 13:47 Labs: Lab Results 04/05/23 Range/Units 13:47 WBC 10.6 (4.8-10.8) X10*3/uL RBC 4.63 (4.20-5.50) X10*6/uL Hgb 13.8 (12.0-16.0) g/dl Hct 42.1 (37.0-47.0) % MCV 90.9 (80.0-98.0) fL MCH 29.8 (27.0-33.0) pg MCHC 32.8 (31.0-35.0) g/dl RDW 12.7 (11.0-16.0) % Plt Count 362 D (160-400) X10*3/uL MPV 8.9 L (9.4-12.3) fL Immature Gran % (Auto) 0.6 H (0.0-0.4) % Neut % (Auto) 84.9 H (45-73) % Lymph % (Auto) 9.7 L (20-40) % Stevens % (Auto) 4.1 (2-11) % Eos % (Auto) 0.6 (0-4) % Baso % (Auto) 0.1 (0-2) % Lymph # (Auto) 1.0 L (1.2-4.9) X10*3/uL Stevens # (Auto) 0.4 (0.1-1.2) X10*3/uL Eos # (Auto) 0.1 (0.0-0.4) X10*3/uL Baso # (Auto) 0.0 (0.0-0.2) X10*3/uL Abs Immat Gran (auto) 0.06 H (0.00-0.03) X10*3/uL Absolute Neuts (auto) 9.0 H (2.0-8.3) x10*3/uL Absolute Nucleated RBC 0.000 (0.0-0.012) X10*3/uL Nucleated RBC % (auto) 0.0 (0.0-0.2) /100WBC Sodium 140 (135-145) mmol/L Potassium 3.7 (3.3-5.1) mmol/L Chloride 103 (96-108) mmol/L Carbon Dioxide 28 (22-29) mmol/L Anion Gap 13 (12-20) BUN 18 H (9-16) mg/dL Creatinine 1.00 (0.5-1.4) mg/dL Estim Creat Clear Calc 72.4 Estimated GFR 56 Random Glucose 100 (60-115) mg/dL Calcium 10.3 H (8.4-10.2) mg/dL Total Bilirubin 0.6 (0.0-1.0) mg/dL AST 17 (5-31) U/L ALT 30 (0-31) U/L Alkaline Phosphatase 117 (39-117) U/L Total Protein 7.8 (6.5-8.0) g/dL Albumin 4.3 (3.5-5.0) g/dL Lipase 75 (8-78) U/L COVID-19 (ANDI) Negative (Negative) COVID-19 Clin Com See Note Influenza Type A (DIPESH) Negative (Negative) Influenza Type B (DIPESH) Negative (Negative) Influenza A & B Note See Note Radiology Impression Discussion of test interpretation with radiology: I have reviewed the radiologist's reading. Radiologist Impression: [place] [id number] CT Scan Report Signed Patient: Jhoana Aguilar MR#: [id number] : 1960 Acct:[id number] Age/Sex: 62 / F ADM Date: 04/05/23 Loc: .ED Attending Dr: Ordering Physician: Robin Esquivel Date of Service: 04/05/23 Procedure(s): CT abdomen pelvis w IV con Accession Number(s): [id number] cc: Physician,Unknown ; Robin Esquivel~ EXAMINATION: CT ABDOMEN AND PELVIS WITH CONTRAST CLINICAL INFORMATION: Left upper quadrant and left lower quadrant abdominal pain, nausea and vomiting. Unintentional weight loss COMPARISON: None available. TECHNIQUE: Multidetector volumetric images were obtained from the superior aspect of the liver through the pubic symphysis following administration 85 mL of Omnipaque 350 intravenous contrast. Sagittal and coronal reformatted images were obtained on the technologist's workstation. Oral contrast: No This CT examination was performed using dose optimization techniques as appropriate, variously including the following: *Automated exposure control *Adjustment of mA and/or kV according to patient size (this includes techniques or standardized protocols for targeted exams where dose is matched to indication/reason for exam; i.e. extremities or head) *Use of iterative reconstruction technique DLP: 758 mGy-cm FINDINGS: LUNG BASES: There is mild scarring or atelectasis right lung base. Minimal atelectasis seen in lingula. Heart size is normal LIVER, GALLBLADDER, AND BILIARY TREE: The liver is normal in size, shape, and attenuation. No focal hepatic lesion or biliary ductal dilatation is present. The gallbladder has been surgically removed. PANCREAS: Unremarkable. SPLEEN: Unremarkable. ADRENAL GLANDS: Unremarkable. KIDNEYS AND URETERS: The kidneys are normal in size, shape, and attenuation. No hydronephrosis, hydroureter, or calculi seen. No perinephric stranding. BLADDER: Unremarkable. GASTROINTESTINAL TRACT: There is moderate stool seen in the colon without distention. The small bowel loops are normal caliber. Appendix is not visualized. There are surgical kelvin in the left pelvis from previous intervention. No free air or free fluid seen ABDOMINAL WALL: There is a scar in the left lower abdominal wall from previous intervention. LYMPH NODES: Normal. VASCULAR: Unremarkable. PELVIC VISCERA: There is diffuse uterus is surgically absent. Numerous surgical kelvin in the left adnexa. OSSEOUS STRUCTURES: There is mild levoscoliosis lumbar spine. CT/CT abdomen pelvis w IV con IMPRESSION: 1. No acute intra-abdominal process seen. 2. Mild constipation. Fleischner guidelines were followed. Dictated By: David Menendez MD Signed By: <Electronically signed by David Menendez MD in OV> 04/05/232102 DD/ 23 TD/TT: Manufacturing Chief Engineer: [address] [address] XRay Report Signed Patient: Jhoana Aguilar MR#: [id number] : 1960 Acct:[id number] Age/Sex: 62 / F ADM Date: 04/05/23 Loc: HO.ED Attending Dr: Ordering Physician: Lacey Soriano CNP Date of Service: 04/05/23 Procedure(s): XR chest 2V Accession Number(s): [id number] cc: Lacey Soriano CNP; Physician,Unknown ~ EXAMINATION: XR CHEST CLINICAL INFORMATION: Shortness of breath. COMPARISON: 10/03/2019 TECHNIQUE: 2 views of the chest were obtained. FINDINGS: The lungs are well expanded. No focal consolidation. No pleural effusion. Cardiac silhouette is unchanged. XR/XR chest 2V IMPRESSION: No acute abnormality. Dictated By: Beti Leal MD Signed By: <Electronically signed by Beti Leal MD in OV> 04/05/23 1349 DD/ 1340 TD/TT: Manufacturing Chief Engineer: Medications Administered Discontinued Medications Generic Name Dose Route Start Last Admin Trade Name Freq PRN Reason Stop Dose Admin Sodium Chloride 1,000 mls @ 999 mls/hr 04/05/23 18:45 04/05/23 20:26 Ns IV 04/05/23 19:45 Infused .Q1H1M JOHN Infusion Iohexol 100 ml 04/05/23 19:16 04/05/23 19:16 Iohexol 350 Mg/Ml 100 Ml Infus..Btl IV 04/05/23 19:17 85 ml ONCE ONE Administration Discharge Plan Discharge Clinical Impression: Abdominal pain Qualifiers: Abdominal location: generalized Qualified Code(s): R10.84 - Generalized abdominal pain Constipation Qualifiers: Constipation type: unspecified constipation type Qualified Code(s): K59.00 - Constipation, unspecified Patient Disposition: Home, Self-Care Instructions: Constipation (ED), Abdominal Pain (ED) Additional Instructions: Drink plenty of fluids, water. Colace and MiraLax as directed to help with bowel movements. With MiraLax, use 1 tsp in 8 oz of water, daily. Discontinue use with bowel movement or if stools become loose. Follow-up with your GI doctor. Follow-up with your primary care provider. Call this week to schedule a follow-up appointment. Return to the emergency department if you have any worsening of symptoms, or any concerns. Get well soon! Prescriptions: New docusate sodium [Colace] 100 mg capsule 100 mg PO BID Qty: 20 0RF polyethylene glycol 3350 [Miralax] 17 gram/dose powder 17 g PO DAILY Qty: 510 0RF Rx Instructions: One scoop in 8 oz of water. No Action doxycycline hyclate 100 mg capsule 100 mg PO BID 7 Days Qty: 14 0RF gabapentin 600 mg tablet 600 mg PO TID fluoxetine 20 mg capsule 20 mg PO DAILY diclofenac potassium 25 mg capsule 25 mg PO QID trazodone 50 mg tablet 50 mg PO BEDTIME PRN Myrbetriq 50 mg tablet extended release 24 hr 50 mg PO DAILY melatonin 10 mg capsule 10 mg PO BEDTIME PRN lactulose 10 gram packet 20 g PO BID albuterol sulfate [ProAir HFA] 90 mcg/actuation HFA aerosol inhaler 2 puff inhalation Q6H PRN lysine 500 mg tablet 500 mg PO DAILY cholecalciferol (vitamin D3) 25 mcg (1,000 unit) capsule 25 mcg PO DAILY
[2023-04-05 13:52] LABS: MANUAL DIFF FLAG NO
[2023-04-05 13:56] LABS: Basophils Percent Auto 0.1 % (0-2); Eosinophils Absolute Auto 0.1 X10*3/uL (0.0-0.4); Eosinophils Percent Auto 0.6 % (0-4); Hematocrit 42.1 % (37.0-47.0); Hemoglobin 13.8 g/dl (12.0-16.0); Imm Gran Abs Auto 0.06 X10*3/uL (0.00-0.03); Imm Gran Pct Auto 0.6 % (0.0-0.4); Lymphocytes Percent Auto 9.7 % (20-40); Mean Corpuscular HGB Conc 32.8 g/dl (31.0-35.0); Mean Corpuscular Hemoglobin 29.8 pg (27.0-33.0); Mean Corpuscular Volume 90.9 fL (80.0-98.0); Mean Platelet Volume 8.9 fL (9.4-12.3); Monocytes Absolute Auto 0.4 X10*3/uL (0.1-1.2); Monocytes Percent Auto 4.1 % (2-11); Neutrophils Percent Auto 84.9 % (45-73); Platelet Count 362 X10*3/uL (160-400); Red Blood Count 4.63 X10*6/uL (4.20-5.50); Red Cell Distribution Width 12.7 % (11.0-16.0); White Blood Count 10.6 X10*3/uL (4.8-10.8)
[2023-04-05 14:19] LABS: Alanine Aminotransferase 30 U/L (0-31); Albumin Level 4.3 g/dL (3.5-5.0); Alkaline Phosphatase 117 U/L (39-117); Anion Gap 13 (12-20); Aspartate Amino Transferase 17 U/L (5-31); Bilirubin Total 0.6 mg/dL (0.0-1.0); Blood Urea Nitrogen 18 mg/dL (9-16); Calcium 10.3 mg/dL (8.4-10.2); Carbon Dioxide 28 mmol/L (22-29); Chloride 103 mmol/L (96-108); Creatinine Clr Calc Pharmacy 72.4; Estimated Glomerular Filt Rate 56; Glucose Random 100 mg/dL (60-115); Lipase 75 U/L (8-78); Potassium 3.7 mmol/L (3.3-5.1); Sodium 140 mmol/L (135-145); Total Protein 7.8 g/dL (6.5-8.0)
[2023-04-05 14:21] LABS: COVID-19 Test Negative (Negative); IDNOW Serial# 08D9AD1C; IDNOW Serial# 9DB6401D; Influenza A Negative (Negative); Influenza B2 Negative (Negative)
--- OUTSIDE RECORDS SUMMARY | 2023-04-05 18:27 | XMS_ITS | Continuity of Care Document ---
Author Name Unknown Organization [facility] Address [address] [place] [id number]- Care Team Providers Care Bulk Fluids Handler Name Role Phone Jarred Merritt DO Primary Care Physician Encounter [facility] Date(s): 02/14/23 - 03/16/23 [facility] [address] [place] [address]- Allergies, Adverse Reactions, Alerts Substance Reaction Severity [...] 1, inhalation, Inhalation, 2 times a day, J44.9rinse mouth and throat after use, # 1 each, Refills 4, Tot. Refills 4, Maintenance, 02/08/23 17:08:00 EST, Powder, Route to Pharmacy Electronically, [id number], [facility] #... Start Date: 02/08/23 Status: Ordered Aerochamber See Instructions, # 1 [...] 0 Refills, Maintenance, 04/23/22 11:16:00 EST, Tablet, [facility], Partial fill upon patient request if the pr... Start Date: 04/23/22 Status: Ordered azelastine 137 mcg/inh (0.1%) nasal spray 2 sprays, Nares, Both, Daily, PRN Other Allergies, # 30 mL, 6 Refills, Maintenance, 12/13/22 8:21:00 EDT, Means, [facility], 2 sprays Nares, Both Daily,PRN:Other Allergies, 162, cm, 12/03/22 10:51:00 EDT, Height, 102, kg, 05/21/22 10:37:0... Start Date: 12/13/22 Status: Ordered buPROPion 300 mg/24 hours (XL) oral tablet, extended release 1 tablet = 300 mg, By Mouth, Daily, # 90 tablet, 2 Refills, Maintenance, 06/25/22 9:06:00 EDT, ER Tablet, [facility] # [facility], Partial fill upon patient request if the prescription is for a schedule II opioid drug., 162, cm, 06/25/22 8:34:00 EDT, [place]... Start Date: 06/25/22 Status: Ordered duloxetine 60 mg oral enteric coated capsule 1 capsule, By Mouth, 2 times a day, # 60 capsule, 2 Refills, Maintenance, 12/03/22 14:31:00 EDT, [facility] # [facility], 162, cm, 12/03/22 10:51:00 EDT, Height, 102, kg, 05/21/22 10:37:00 EDT, Dry Weight Start Date: 12/03/22 Status: Ordered Estrace Vaginal Cream 0.1 mg/g See Instructions, 1 gram Vaginally at bedtime twice per week, # 42 Gm, 4 Refills, Maintenance, 10/08/22 11:23:00 EDT, [facility] # [facility], Partial fill upon patient request if the prescription is fora schedule II opioid drug., 162, cm, 09/24/22 12:5... Start Date: 10/08/22 Status: Ordered gabapentin 600 mg oral tablet 1 tablet, By Mouth, 3 times a day, # 270 tablet, 1 Refills, Maintenance, 02/15/23 4:49:00 EST, [facility] # [facility], 162, cm, 02/01/23 14:01:00 EST, Height, 102, kg, 05/21/22 10:37:00 EDT, Dry Weight Start Date: 02/15/23 Status: Ordered lidocaine-prilocaine 2.5%-2.5% topical cream 1 application, Topically, Once, # 30 Gm, 1 Refills, Soft Stop, 10/04/22 16:32:00 EDT, Cream, [facility] # [facility], [...] Status: Ordered montelukast 10 mg oral tablet 1, tablet, By Mouth, Daily, # 30 tablet, Refills 6, Maintenance, 12/18/22 16:21:00 EDT, Route to Pharmacy Electronically, [facility] # [facility], 162, cm, 12/03/22 10:51:00 EDT, Height, 102, kg, 05/21/22 10:37:00 EDT, Dry Weight Start Date: 12/18/22 Status: Ordered Myrbetriq 50 mg oral tablet, extended release 1 tablet = 50 mg, By Mouth, Daily, # 90 tablet, 3 Refills, Maintenance, 10/08/22 11:21:00 EDT, [facility] # [facility], 162, cm, 09/24/22 12:53:00 EDT, Height, 102, kg, 05/21/22 10:37:00 EDT, Dry Weight Start Date: 10/08/22 Status: Ordered ohm Allergy Relief 10 mg oral tablet See Instructions, TAKE 1 TABLET BY MOUTH EVERY DAY, # 90 tablet, 1 Refills, Maintenance, 01/24/23 10:25:00 EST, [facility] # [facility], 162, cm, 12/03/22 10:51:00 EDT, Height, 102, kg, 05/21/22 10:37:00EDT, Dry Weight Start Date: 01/24/23 Status: Ordered traZODone 50 mg oral tablet 50 mg, 1, tablet, By Mouth, Daily at bedtime, # 90 tablet, Refills 1, Tot. Refills 1, Maintenance, 01/25/23 0:37:00 EST, Route to Pharmacy Electronically, [facility], Partial fill upon patient request if the prescription is for a schedule II... Start Date: 01/25/23 Status: Ordered Tylenol Extra Strength 500 mg oral tablet 2 tablet = 1,000 mg, By Mouth, Every 6 hours, 0 Refills, Maintenance, 05/22/19 11:12:00 EDT Start Date: 05/22/19 Status: Ordered valACYclovir 500 mg oral tablet 500 mg, 1, tablet, By Mouth, Daily, drink plenty of fluids, # 90 tablet, Refills 0, Tot. Refills 0,Maintenance, 06/25/22 9:11:00 EDT, [facility] to [facility] Electronically, [facility] Member Role: Primary Care Nurse Address: Address: [address] [place] [address] [place] [address]- Name: Jarred Merritt DO Position: [facility] Physician - Primary Care Member Role: PCP Address: Address: [address] [place] [address] [place] [address]- Care Team Related Persons Name: LEWIS BALLESTEROS Address: home [address] [place] [address] Name: RUSTY HOOVER Address: [place] [address]
--- OUTSIDE RECORDS SUMMARY | 2023-04-05 18:27 | XMS_ITS | Continuity of Care Document ---
Author Name Unknown Organization [facility] Address [address] [facility] [address] [place] [address]- Care Team Providers Care Dowel Setting Machine Operator Name Role Phone Jarred Merritt DO Primary Care Physician [phone] [place] [facility] [place]08[place]23 - 03/10/23 [facility] [address] [facility] [address] [place], [place] [address] Allergies, Adverse Reactions, Alerts Substance Reaction Severity [...] 17:08:00 EST, Powder, Route to Pharmacy Electronically, [id number], [facility] #... Start Date: 02/08/23 Status: Ordered [...] 0 Refills, Maintenance, 04/23/22 11:16:00 EST, Tablet, [facility] # [facility], Partial fill upon patient request if the pr... Start Date: 04/23/22 Status: Ordered azelastine 137 mcg/inh (0.1%) nasal spray 2 sprays, Nares, Both, Daily, PRN Other Allergies, # 30 mL, 6 Refills, Maintenance, 12/13/22 8:21:00 EDT, [place], [facility] # [facility], 2 sprays Nares, Both Daily,PRN:Other Allergies, 162, cm, 12/03/22 10:51:00 EDT, Height, 102, kg, 05/21/22 10:37:0... Start Date: 12/13/22 Status: Ordered buPROPion 300 mg/24 hours (XL) oral tablet, extended release 1 tablet = 300 mg, By Mouth, Daily, # 90 tablet, 2 Refills, Maintenance, 06/25/22 9:06:00 EDT, ER Tablet, [facility] # [facility], Partial fill upon patient request if the prescription is for a schedule II opioid drug., 162, cm, 06/25/22 8:34:00 EDT, [place]... Start Date: 06/25/22 Status: Ordered duloxetine 60 mg oral enteric coated capsule 1 capsule, By Mouth, 2 times a day, # 60 capsule, 2 Refills, Maintenance, 12/03/22 14:31:00 EDT, [facility] # [facility], 162, cm, 12/03/22 10:51:00 EDT, Height, 102, kg, 05/21/22 10:37:00 EDT, Dry Weight Start Date: 12/03/22 Status: Ordered Estrace Vaginal Cream 0.1 mg/g See Instructions, 1 gram Vaginally at bedtime twice per week, # 42 Gm, 4 Refills, Maintenance, 10/08/22 11:23:00 EDT, [facility] # [facility], Partial fill upon patient request if the prescription is fora schedule II opioid drug., 162, cm, 09/24/22 12:5... Start Date: 10/08/22 Status: Ordered gabapentin 600 mg oral tablet 1 tablet, By Mouth, 3 times a day, # 270 tablet, 1 Refills, Maintenance, 02/15/23 4:49:00 EST, [facility] # [facility], 162, cm, 02/01/23 14:01:00 EST, Height, 102, kg, 05/21/22 10:37:00 EDT, Dry Weight Start Date: 02/15/23 Status: Ordered lidocaine-prilocaine 2.5%-2.5% topical cream 1 application, Topically, Once, # 30 Gm, 1 Refills, Soft Stop, 10/04/22 16:32:00 EDT, Cream, [facility] # [...] 16:21:00 EDT, Route to Pharmacy Electronically, [facility], 162, cm, 12/03/22 10:51:00 EDT, Height, 102, kg, 05/21/22 10:37:00 EDT, Dry Weight Start Date: 12/18/22 Status: Ordered Myrbetriq 50 mg oral tablet, extended release 1 tablet = 50 mg, By Mouth, Daily, # 90 tablet, 3 Refills, Maintenance, 10/08/22 11:21:00 EDT, [facility] # [facility], 162, cm, 09/24/22 12:53:00 EDT, Height, 102, kg, 05/21/22 10:37:00 EDT, Dry Weight Start Date: 10/08/22 Status: Ordered ohm Allergy Relief 10 mg oral tablet See Instructions, TAKE 1 TABLET BY MOUTH EVERY DAY, # 90 tablet, 1 Refills, Maintenance, 01/24/23 10:25:00 EST, [facility] # [facility], 162, cm, 12/03/22 10:51:00 EDT, Height, 102, kg, 05/21/22 10:37:00EDT, Dry Weight Start Date: 01/24/23 Status: Ordered traZODone 50 mg oral tablet 50 mg, 1, tablet, By Mouth, Daily at bedtime, # 90 tablet, Refills 1, Tot. Refills 1, Maintenance, 01/25/23 0:37:00 EST, Route to Pharm[facility] Electronically, [facility] [...] Team Personnel Name: Eleazar Rendon NP Position: [facility] PCO w/OE and EZ Script Member Role: Primary Care Nurse Address: Address: [address] [place] [address] [place] [address]- Name: Jarred Merritt DO Position: [facility] Physician - Primary Care Member Role: PCP Address: Address: [address] [place] [address] [place] [address]- Care Team Related Persons Name: LEWIS BALLESTEROS Address: home [address] [place] [id number] Name: RUSTY HOOVER Address: [place] [address]
--- OUTSIDE RECORDS SUMMARY | 2023-04-05 18:28 | XMS_ITS | Continuity of Care Document ---
Author Name Unknown Organization [facility] Lalo Kayode lt Address [address] [place] [address]- Care Team Providers Care Regulator Assembler Name Role Phone Rafiq Arteaga Primary Care Physi kateryna Encounter [facility] Date(s): 01/15/23 - 02/14/23 [facility] Adult [address] [place] [address]- Allergies, Adverse Reactions, Alerts Substance Reaction Severity [...] 17:08:00 EST, [place], Route to Pharmacy Electronically, [id number], [facility] #... Start Date: 02/08/23 Status: [...] 0 Refills, Maintenance, 04/23/22 11:16:00 EST, Tablet, [facility] # [facility], Partial fill upon patient request if the pr... Start Date: 04/23/22 Status: Ordered azelastine 137 mcg/inh (0.1%) nasal spray 2 sprays, Nares, Both, Daily, PRN Other Allergies, # 30 mL, 6 Refills, Maintenance, 12/13/22 8:21:00 EDT, [place], [facility] # [facility], 2 sprays Nares, Both Daily,PRN:Other Allergies, 162, cm, 12/03/22 10:51:00 EDT, Height, 102, kg, 05/21/22 10:37:0... Start Date: 12/13/22 Status: Ordered buPROPion 300 mg/24 hours (XL) oral tablet, extended release 1 tablet = 300 mg, By Mouth, Daily, # 90 tablet, 2 Refills, Maintenance, 06/25/22 9:06:00 EDT, ER Tablet, [facility] # 50, Partial fill upon patient request if the prescription is for a schedule II opioid drug., 162, cm, 06/25/22 8:34:00 EDT, [place]... Start Date: 06/25/22 Status: Ordered duloxetine 60 mg oral enteric coated capsule 1 capsule, By Mouth, 2 times a day, # 60 capsule, 2 Refills, Maintenance, 12/03/22 14:31:00 EDT, [facility] # 50, 162, cm, 12/03/22 10:51:00 EDT, Height, 102, kg, 05/21/22 10:37:00 EDT, Dry Weight Start Date: 12/03/22 Status: Ordered Estrace Vaginal Cream 0.1 mg/g See Instructions, 1 gram Vaginally at bedtime twice per week, # 42 Gm, 4 Refills, Maintenance, 10/08/22 11:23:00 EDT, [facility] # [facility], Partial fill upon patient request if the prescription is fora schedule II opioid drug., 162, cm, 09/24/22 12:5... Start Date: 10/08/22 Status: Ordered gabapentin 600 mg oral tablet 1 tablet, By Mouth, 3 times a day, office visit needed for further refills, # 270 tablet, 1 Refills, Maintenance, 08/14/22 12:36:00 EDT, [facility] # [facility], 162, cm, 08/08/22 11:26:00 EDT, Height, 102, kg, 05/21/22 10:37:00 EDT, Dry Weight Start Date: 08/14/22 Status: Ordered lidocaine-prilocaine 2.5%-2.5% topical cream 1 application, Topically, Once, # 30 Gm, 1 Refills, Soft Stop, 10/04/22 16:32:00 EDT, Cream, [facility] # [facility], Partial [...] 12/18/22 16:21:00 EDT, Route to Pharmacy Electronically, [facility], 162, cm, 12/03/22 10:51:00 EDT, Height, 102, kg, 05/21/22 10:37:00 EDT, Dry Weight Start Date: 12/18/22 Status: Ordered Myrbetriq 50 mg oral tablet, extended release 1 tablet = 50 mg, By Mouth, Daily, # 90 tablet, 3 Refills, Maintenance, 10/08/22 11:21:00 EDT, [facility] # 50, 162, cm, 09/24/22 12:53:00 EDT, Height, 102, kg, 05/21/22 10:37:00 EDT, Dry Weight Start Date: 10/08/22 Status: Ordered ohm Allergy Relief 10 mg oral tablet See Instructions, TAKE 1 TABLET BY MOUTH EVERY DAY, # 90 tablet, 1 Refills, Maintenance, 01/24/23 10:25:00 EST, [facility] # 50, 162, cm, 12/03/22 10:51:00 EDT, Height, 102, kg, 05/21/22 10:37:00EDT, Dry Weight Start Date: 01/24/23 Status: Ordered traZODone 50 mg oral tablet 50 mg, 1, tablet, By Mouth, Daily at bedtime, # 90 tablet, Refills 1, Tot. Refills 1, Maintenance, 01/25/23 0:37:00 EST, Route to Pharmacy Electronically, [facility] # [facility], Partial fill upon patient [...] 06/25/22 9:11:00 EDT, Route to Pharmacy Electronically, [facility] # 50, Partial fill upon patient [...] Team Personnel Name: Eleazar Rendon NP Position: [facility] PCO w/OE and EZ Script Member Role: Primary Care Nurse Address: Address: [address] [place] [address] [place] [address]- Name: Rafiq Arteaga Position: [facility] PCO Associate Professional Member Role: PCP Address: Address: [address] [place] [address] [place] [address]- Care Team Related Persons Name: LEWIS BALLESTEROS Address: home [address] [place] [id number] Name: RUSTY HOOVER Address: [place] [address]
--- OUTSIDE RECORDS SUMMARY | 2023-04-05 18:28 | XMS_ITS | Continuity of Care Document ---
Author Name Unknown Organization [facility] Address [address], [address] [place] [address]- Care Team Providers Care Digital Account Coordinator Name Role Phone Rafiq Arteaga Primary Care Physi kateryna Encounter [facility] Date(s): 10/08/22 - 11/07/22 [facility] [employer] [facility] [address], [address] [place], [place] [address] Attending Physician: Ene Ramos Admitting Physician: AdmEne [...] 14:38:00 EST, [place], Route to Pharmacy Electronically, [id number], [facility] # [facility], I... Start Date: [...] Maintenance, 04/23/22 11:16:00 EST, Tablet, [facility] # 50, Partial fill upon patient request if the pr... Start Date: 04/23/22 Status: Ordered azelastine 137 mcg/inh (0.1%) nasal spray 2 sprays, Nares, Both, Daily, PRN Other Allergies, # 30 mL, 6 Refills, Maintenance, 10/05/21 13:14:00 EDT, [place], [facility] # 50, 2 sprays Nares, Both Daily,PRN:Other Allergies, 163.5, cm, 08/21/21 13:35:00 EDT, Height Start Date: 10/05/21 Status: Ordered buPROPion 300 mg/24 hours (XL) oral tablet, extended release 1 tablet = 300 mg, By Mouth, Daily, # 90 tablet, 2 Refills, Maintenance, 06/25/22 9:06:00 EDT, ER Tablet, [facility] # 50, Partial fill upon [...] Gm, 4 Refills, Maintenance, 10/08/22 11:23:00 EDT, [facility] # [facility], Partial fill upon [...] tablet, 1 Refills, Maintenance, 08/14/22 12:36:00 EDT, [facility] # [facility], 162, cm, 08/08/22 11:26:00 EDT, Height, 102, kg, 05/21/22 10:37:00 EDT, Dry Weight Start Date: 08/14/22 Status: Ordered lidocaine-prilocaine 2.5%-2.5% topical cream 1 application, Topically, Once, # 30 Gm, 1 Refills, Soft Stop, 10/04/22 16:32:00 EDT, Cream, [facility] # [facility], Partial [...] [facility] # [facility], 162, cm, 05/21/22 10:37:00 EDT, Height, 102, kg, 05/21/22 10:37:00 EDT, Dry W... Start Date: 06/04/22 Status: Ordered Myrbetriq 50 mg oral tablet, extended release 1 tablet = 50 mg, By Mouth, Daily, # 90 tablet, 3 Refills, Maintenance, 10/08/22 11:21:00 EDT, [facility] # 50, 162, cm, 09/24/22 12:53:00 EDT, Height, 102, kg, 05/21/22 10:37:00 EDT, Dry Weight Start Date: 10/08/22 Status: Ordered ohm Allergy Relief 10 mg oral tablet See Instructions, TAKE 1 TABLET BY MOUTH EVERY DAY, # 90 tablet, 1 Refills, Maintenance, 06/25/22 9:15:00 EDT, [facility] # [facility], 162, cm, 06/25/22 [...] [facility] # [facility], 162, cm, 06/25/22 [...] 06/25/22 9:11:00 EDT, Route to Pharmacy Electronically, [facility] # [facility], Partial fill upon patient [...] capsule, 3 Refills, Maintenance, 06/25/22 9:06:00 EDT, [facility] # 50, Partial fill upon patient [...] Name: Eleazar Rendon NP Position: [facility] PCO w/OE and EZ Script Member Role: Primary Care Nurse Address: Address: [address] [place] [address] [place] [address]- Name: Rafiq Arteaga Position: [facility] PCO Associate Professional Member Role: PCP Address: Address: [address] [place] [address]- Care Team Related Persons Name: LEWIS BALLESTEROS Address: home [address] [place] [phone] Name: RUSTY HOOVER
--- OUTSIDE RECORDS SUMMARY | 2023-04-05 18:28 | XMS_ITS | Continuity of Care Document ---
Author Name Unknown Organization [facility] Address [address] [place] [address]- Care Team Providers Care Manager Collection Name Role Phone Rafiq Arteaga Primary Care Physi kateryna Encounter 11/30/22 - 01/02/23 [facility] [address], [address] [place] [address]- Attending Physician: Rafiq Arteaga Admitting Physician: Rafiq [...] 14:38:00 EST, [place], Route to Pharmacy Electronically, [id number], [facility] # [facility], I... [...] mL, 6 Refills, Maintenance, 12/13/22 8:21:00 EDT, [place], [facility] # [facility], 2 [...] capsule, 2 Refills, Maintenance, 12/03/22 14:31:00 EDT, [facility] # 50, 162, cm, 12/03/22 10:51:00 EDT, Height, 102, kg, 05/21/22 10:37:00 EDT, Dry Weight Start Date: 12/03/22 Status: Ordered Estrace Vaginal Cream 0.1 mg/g See Instructions, 1 gram Vaginally at bedtime twice per week, # 42 Gm, 4 Refills, Maintenance, 10/08/22 11:23:00 EDT, [facility] # 50, Partial fill upon patient request if the prescription is fora schedule II opioid drug., 162, cm, 09/24/22 12:5... Start Date: 10/08/22 Status: Ordered gabapentin 600 mg oral tablet 1 tablet, By Mouth, 3 times a day, office visit needed for further refills, # 270 tablet, 1 Refills, Maintenance, 08/14/22 12:36:00 EDT, [facility] # 50, 162, cm, 08/08/22 11:26:00 EDT, Height, 102, kg, 05/21/22 10:37:00 EDT, Dry Weight Start Date: 08/14/22 Status: Ordered lidocaine-prilocaine 2.5%-2.5% topical cream 1 application, Topically, Once, # 30 Gm, 1 Refills, Soft Stop, 10/04/22 16:32:00 EDT, Cream, [facility] # 50, [...] 12/18/22 16:21:00 EDT, Route to Pharmacy Electronically, [facility] # [facility], 162, cm, 12/03/22 [...] Dry Weight Start Date: 06/25/22 Status: Ordered Tylenol Extra Strength 500 mg oral tablet 2 tablet = 1,000 mg, By Mouth, Every 6 hours, 0 Refills, Maintenance, 05/22/19 11:12:00 EDT Start Date: 05/22/19 Status: Ordered valACYclovir 500 mg oral tablet 500 mg, 1, tablet, By Mouth, Daily, drink plenty of fluids, # 90 tablet, Refills 0, Tot. Refills 0,Maintenance, 06/25/22 9:11:00 EDT, Route to Pharmacy Electronically, [facility] # [facility], Partial [...] capsule, 3 Refills, Maintenance, 06/25/22 9:06:00 EDT, [facility] # [facility], Partial [...] Personnel Name: Eleazar Rendon NP Position: [facility] PCO w/OE and EZ Script Member Role: Primary Care Nurse Address: Address: [address] [place] [address] [place] [address]- Name: Rafiq Arteaga Position: [facility] PCO Associate Professional Member Role: PCP Address: Address: [address] [place] [address] [place] [address]- Care Team Related Persons Name: LEWIS BALLESTEROS Address: home [address] [place] [phone] Name: RUSTY HOOVER
--- OUTSIDE RECORDS SUMMARY | 2023-04-05 18:29 | XMS_ITS | Continuity of Care Document ---
Author Name Unknown Organization [facility] Address [address] [place] [address]- Care Team Providers Care Beam Dyer Recessed Vat Name Role Phone Rafiq Arteaga Primary Care Physi kateryna Encounter [facility] Date(s): 01/24/23 - 02/23/23 [facility] [place] Adult [address] [place] [address]- Allergies, Adverse Reactions, Alerts Substance Reaction Severity [...] 17:08:00 EST, [place], Route to Pharmacy Electronically, [id number], [facility] #... Start Date: 02/08/23 Status: Ordered [...] mL, 6 Refills, Maintenance, 12/13/22 8:21:00 EDT, [place], [facility] # [facility], [...] capsule, 2 Refills, Maintenance, 12/03/22 14:31:00 EDT, [facility] # [facility], 162, cm, 12/03/22 10:51:00 EDT, Height, 102, kg, 05/21/22 10:37:00 EDT, Dry Weight Start Date: 12/03/22 Status: Ordered Estrace Vaginal Cream 0.1 mg/g See Instructions, 1 gram Vaginally at bedtime twice per week, # 42 Gm, 4 Refills, Maintenance, 10/08/22 11:23:00 EDT, [facility] # 50, Partial fill upon patient request if the prescription is fora schedule II opioid drug., 162, cm, 09/24/22 12:5... Start Date: 10/08/22 Status: Ordered gabapentin 600 mg oral tablet 1 tablet, By Mouth, 3 times a day, # 270 tablet, 1 Refills, Maintenance, 02/15/23 4:49:00 EST, [facility] # [facility], 162, cm, 02/01/23 14:01:00 EST, Height, 102, kg, 05/21/22 10:37:00 EDT, Dry Weight Start Date: 02/15/23 Status: Ordered lidocaine-prilocaine 2.5%-2.5% topical cream 1 application, Topically, Once, # 30 Gm, 1 Refills, Soft Stop, 10/04/22 16:32:00 EDT, Cream, [facility] # [facility], [...] 12/18/22 16:21:00 EDT, Route to Pharmacy Electronically, [facility] # [facility], 162, cm, 12/03/22 10:51:00 EDT, Height, 102, kg, 05/21/22 10:37:00 EDT, Dry Weight Start Date: 12/18/22 Status: Ordered Myrbetriq 50 mg oral tablet, extended release 1 tablet = 50 mg, By Mouth, Daily, # 90 tablet, 3 Refills, Maintenance, 10/08/22 11:21:00 EDT, [facility] # [facility], 162, cm, 09/24/22 12:53:00 EDT, Height, 102, kg, 05/21/22 10:37:00 EDT, Dry Weight Start Date: 10/08/22 Status: Ordered ohm Allergy Relief 10 mg oral tablet See Instructions, TAKE 1 TABLET BY MOUTH EVERY DAY, # 90 tablet, 1 Refills, Maintenance, 01/24/23 10:25:00 EST, [facility] # [facility], 162, cm, 12/03/22 10:51:00 EDT, Height, 102, kg, 05/21/22 10:37:00EDT, Dry Weight Start Date: 01/24/23 Status: Ordered traZODone 50 mg oral tablet 50 mg, 1, tablet, By Mouth, Daily at bedtime, # 90 tablet, Refills 1, Tot. Refills 1, Maintenance, 01/25/23 0:37:00 EST, Route to Pharmacy Electronically, [facility] [...] 06/25/22 9:11:00 EDT, Route to Pharmacy Electronically, [facility] [...] Member Role: Primary Care Nurse Address: Address: [address] [place] [address] [place] [address]- Name: Rafiq Arteaga Position: [facility] PCO Associate Professional Member Role: PCP Address: Address: [address] [place] [address] [place] [address]- Care Team Related Persons Name: LEWIS BALLESTEROS Address: home [address] [place] [phone] Name: RUSTY HOOVER Address: [place] [address]
--- OUTSIDE RECORDS SUMMARY | 2023-04-05 18:31 | XMS_ITS | Continuity of Care Document ---
Author Name Unknown Organization [facility] Lalo Kayode lt Address [address] [place] [address]- Care Team Providers Care Philosophy Lecturer Name Role Phone Rafiq Arteaga Primary Care Physi kateryna Encounter [facility] Date(s): 12/11/22 - 01/10/23 [facility] Adult [address] [place] [address]- Allergies, Adverse Reactions, Alerts Substance Reaction Severity [...] 14:38:00 EST, [place], Route to Pharmacy Electronically, [id number], [facility] # [facility], I... Start Date: [...] 0 Refills, Maintenance, 04/23/22 11:16:00 EST, Tablet, [facility] # [facility], Partial fill upon patient request if the pr... Start Date: 04/23/22 Status: Ordered azelastine 137 mcg/inh (0.1%) nasal spray 2 sprays, Nares, Both, Daily, PRN Other Allergies, # 30 mL, 6 Refills, Maintenance, 12/13/22 8:21:00 EDT, [place], [facility] # [facility], 2 sprays Nares, Both Daily,PRN:Other Allergies, 162, cm, 12/03/22 10:51:00 EDT, Height, 102, kg, 05/21/22 10:37:0... Start Date: 12/13/22 Status: Ordered buPROPion 300 mg/24 hours (XL) oral tablet, extended release 1 tablet = 300 mg, By Mouth, Daily, # 90 tablet, 2 Refills, Maintenance, 06/25/22 9:06:00 EDT, ER Tablet, [facility] # [facility], Partial fill upon patient request if the prescription is for a schedule II opioid drug., 162, cm, 06/25/22 8:34:00 EDT, [place]... Start Date: 06/25/22 Status: Ordered duloxetine 60 mg oral enteric coated capsule 1 capsule, By Mouth, 2 times a day, # 60 capsule, 2 Refills, Maintenance, 12/03/22 14:31:00 EDT, [facility] # [facility], 162, cm, 12/03/22 10:51:00 EDT, Height, 102, kg, 05/21/22 10:37:00 EDT, Dry Weight Start Date: 12/03/22 Status: Ordered Estrace Vaginal Cream 0.1 mg/g See Instructions, 1 gram Vaginally at bedtime twice per week, # 42 Gm, 4 Refills, Maintenance, 10/08/22 11:23:00 EDT, [facility], Partial fill upon patient request if the prescription is fora schedule II opioid drug., 162, cm, 09/24/22 12:5... Start Date: 10/08/22 Status: Ordered gabapentin 600 mg oral tablet 1 tablet, By Mouth, 3 times a day, office visit needed for further refills, # 270 tablet, 1 Refills, Maintenance, 08/14/22 12:36:00 EDT, [facility] # [facility], 162, cm, 08/08/22 11:26:00 EDT, Height, 102, kg, 05/21/22 10:37:00 EDT, Dry Weight Start Date: 08/14/22 Status: Ordered lidocaine-prilocaine 2.5%-2.5% topical cream 1 application, Topically, Once, # 30 Gm, 1 Refills, Soft Stop, 10/04/22 16:32:00 EDT, Cream, [facility] # [facility], Partial [...] 12/18/22 16:21:00 EDT, Route to Pharmacy Electronically, [facility], 162, cm, 12/03/22 10:51:00 EDT, Height, 102, kg, 05/21/22 10:37:00 EDT, Dry Weight Start Date: 12/18/22 Status: Ordered Myrbetriq 50 mg oral tablet, extended release 1 tablet = 50 mg, By Mouth, Daily, # 90 tablet, 3 Refills, Maintenance, 10/08/22 11:21:00 EDT, [facility] # [facility], 162, cm, 09/24/22 12:53:00 EDT, Height, 102, kg, 05/21/22 10:37:00 EDT, Dry Weight Start Date: 10/08/22 Status: Ordered ohm Allergy Relief 10 mg oral tablet See Instructions, TAKE 1 TABLET BY MOUTH EVERY DAY, # 90 tablet, 1 Refills, Maintenance, 06/25/22 9:15:00 EDT, [facility] # [facility], 162, cm, 06/25/22 [...] 06/25/22 9:11:00 EDT, Route to Pharmacy Electronically, [facility] # [facility], Partial [...] capsule, 3 Refills, Maintenance, 06/25/22 9:06:00 EDT, [facility] # [facility], Partial [...] Team Personnel Name: Eleazar Rendon NP Position: [facility] PCO w/OE and EZ Script Member Role: Primary Care Nurse Address: Address: [address] [place] [address] [place] [address]- Name: Rafiq Arteaga Position: [facility] PCO Associate Professional Member Role: PCP Address: Address: [address] [facility] [place] [address]- Care Team Related Persons Name: LEWIS BALLESTEROS Address: home [address] [place] [phone] Name: RUSYT HOOVER
--- OUTSIDE RECORDS SUMMARY | 2023-04-05 18:31 | XMS_ITS | Continuity of Care Document ---
Author Name Unknown Organization [facility] Address [address] [facility] [address] [place] [address]- Care Team Providers Care Teletype Mechanic Name Role Phone Rafiq Arteaga Primary Care Physi kateryna Encounter 12/21/22 - 12/28/22 [facility] [address] [facility] [address] [facility], [address] [place] [address]- Attending Physician: Rafiq Arteaga Admitting Physician: Rafiq [...] 14:38:00 EST, [place], Route to Pharmacy Electronically, [id number], [facility] # [facility], I... [...] mL, 6 Refills, Maintenance, 12/13/22 8:21:00 EDT, [place], [facility] # [facility], 2 [...] with comorbidity Confirmed Active Vertigo Confirmed Active Results Radiology Reports * Exam Date Time Procedure Performing Provider Status 12/21/22 11:13 AM MM Digital Mammo Screening Dulce Ramirez; Auth (Verified) Notes: (MM Digital Mammo Screening) Reason For Exam: routine RESULT: MM Digital Mammo Screening PROCEDURE: MM Digital Mammo Screening INDICATION: Screening for breast cancer. No known palpable abnormalities. COMPARISON: Prior mammograms dating back to 06/17/2017. TECHNIQUE: Full-field digital CC and MLO 3-D tomosynthesis images of both breasts were acquired. Computer-aided detection (CAD) was utilized in the interpretation of this study. DENSITY: The breast tissue is almost entirely fatty. FINDINGS: No suspicious masses, suspicious microcalcifications, or areas of architectural distortion are seen in either breast to suggest malignancy. IMPRESSION: No mammographic evidence of malignancy. RECOMMENDATION: Annual mammographic screening BI-RADS: 1 (Negative) Lay letter mailed to patient WSN: [id number] Ordering Physician: Rafiq Ortega Dictated By: Veronica Glynn MD Dictated Date/Time: 12/21/22 2:39 pm Reviewed By: Veronica Glynn MD Signed By: Veronica Glynn MD Signed Date/Time: 12/21/22 2:39 pm Transcribed By: D[employer] Reviewer Date/Time: 12/21/22 2:38 pm Birads: Social History Social History Type Response Smoking Status Never (less than 100 in lifetime) entered on: 11/21/18 Sex Patient Care team information Care Team Personnel Name: Eleazar Rendon NP Position: [facility] PCO w/OE and EZ Script Member Role: Primary Care Nurse Address: Address: [address] [place] [address] [place] [address]- Name: Rafiq Arteaga Position: [facility] PCO Associate Professional Member Role: PCP Address: Address: [address] [place] [address] [place] [address]- Care Team Related Persons Name: LEWIS BALLESTEROS Address: home [address] [place] [phone] Name: RUSTY HOOVER
--- OUTSIDE RECORDS SUMMARY | 2023-04-05 18:31 | XMS_ITS | Continuity of Care Document ---
Author Name Unknown Organization [facility] Lalo Kayode lt Address [address] [place] [address]- Care Team Providers Care Skilled Nursing Case Manager Name Role Phone Rafiq Arteaga Primary Care Physi kateryna Encounter [facility] Date(s): 12/03/22 - 01/02/23 [facility] Adult [address] [place] [address]- Allergies, Adverse Reactions, Alerts Substance Reaction Severity [...] 14:38:00 EST, [place], Route to Pharmacy Electronically, [id number], [facility] # [facility], [...] mL, 6 Refills, Maintenance, 12/13/22 8:21:00 EDT, [place], [facility] # [facility], [...] tablet, 1 Refills, Maintenance, 08/14/22 12:36:00 EDT, [facility], 162, cm, 08/08/22 11:26:00 EDT, Height, 102, kg, 05/21/22 10:37:00 EDT, Dry Weight Start Date: 08/14/22 Status: Ordered lidocaine-prilocaine 2.5%-2.5% topical cream 1 application, Topically, Once, # 30 Gm, 1 Refills, Soft Stop, 10/04/22 16:32:00 EDT, Cream, [facility] # [facility], Partial fill [...] 12/18/22 16:21:00 EDT, Route to Pharmacy Electronically, [facility], 162, cm, [...] tablet, 1 Refills, Maintenance, 06/25/22 9:15:00 EDT, [facility] # [...] capsule, 3 Refills, Maintenance, 06/25/22 9:06:00 EDT, [facility] # [...] team information Care Team Personnel Name: Eleazar Rednon NP Position: [facility] PCO w/OE and EZ Script Member Role: Primary Care Nurse Address: Address: [address] [place] [address] [place] [address]- Name: Rafiq Arteaga Position: [facility] PCO Associate Professional Member Role: PCP Address: Address: [address] [facility] [place] [address]- Care Team Related Persons Name: LEWIS BALLESTEROS Address: home [address] [place] [phone] Name: RUSTY HOOVER
--- OUTSIDE RECORDS SUMMARY | 2023-04-05 18:32 | XMS_ITS | Continuity of Care Document ---
Author Name Unknown Organization [facility] Address [address] [place] [address]- Care Team Providers Care Coremaker Experimental Name Role Phone Rafiq Arteaga Primary Care Physi kateryna Encounter [facility] Date(s): 12/11/22 - 01/10/23 [facility] [address] [address] Attending Physician: Ene Ramos Admitting Physician: AdmtrEne Referring Physician: Admtr, Ar8 [...] 14:38:00 EST, [place], Route to Pharmacy Electronically, [id number], [facility], I... Start Date: [...] mL, 6 Refills, Maintenance, 12/13/22 8:21:00 EDT, [place], [facility], 2 sprays Nares, Both Daily,PRN:Other Allergies, 162, cm, 12/03/22 10:51:00 EDT, Height, 102, kg, 05/21/22 10:37:0... Start Date: 12/13/22 Status: Ordered buPROPion 300 mg/24 hours (XL) oral tablet, extended release 1 tablet = 300 mg, By Mouth, Daily, # 90 tablet, 2 Refills, Maintenance, 06/25/22 9:06:00 EDT, ER Tablet, [facility] [...] Refills, Maintenance, 08/14/22 12:36:00 EDT, [facility], 162, cm, 08/08/22 [...] Refills, Maintenance, 06/25/22 9:15:00 EDT, [facility] # [facility], 162, cm, 06/25/22 [...] capsule, 3 Refills, Maintenance, 06/25/22 9:06:00 EDT, [facility] [...] Team Personnel Name: Eleazar Rendon NP Position: [facility] PCO w/OE and EZ Script Member Role: Primary Care Nurse Address: Address: [address] [place] [address] [place] [address]- Name: Rafiq Arteaga Position: [facility] PCO Associate Professional Member Role: PCP Address: Address: [address] [place] [address] [place] [address]- Care Team Related Persons Name: LEWIS BALLESTEROS Address: home [address] [place] [address] Name: RUSTY HOOVER
--- OUTSIDE RECORDS SUMMARY | 2023-04-05 18:33 | XMS_ITS | Continuity of Care Document ---
Author Name Unknown Organization [facility] Oskar May Kayode lt Address [address] [place] [address]- Care Team Providers Care Medical Underwriter Name Role Phone Jarred Merritt DO Primary Care Physician [phone] [place] [facility] [place] 02/26/23 - 03/28/23 [facility] Adult [address] [place] [address]- Allergies, Adverse Reactions, Alerts Substance Reaction Severity [...] 17:08:00 EST, [place], Route to Pharmacy Electronically, [id number], [facility] #... Start Date: 02/08/23 [...] mL, 6 Refills, Maintenance, 12/13/22 8:21:00 EDT, [place], [facility] # [facility], 2 sprays Nares, Both Daily,PRN:Other Allergies, 162, cm, 12/03/22 10:51:00 EDT, Height, 102, kg, 05/21/22 10:37:0... Start Date: 12/13/22 Status: Ordered buPROPion 300 mg/24 hours (XL) oral tablet, extended release 1 tablet = 300 mg, By Mouth, Daily, # 90 tablet, 2 Refills, Maintenance, 06/25/22 9:06:00 EDT, ER Tablet, [facility] # [facility], Partial fill upon patient request if the prescription is for a schedule II opioid drug., 162, cm, 06/25/22 8:34:00 EDT, [place]... Start Date: 06/25/22 Status: Ordered duloxetine 60 mg oral enteric coated capsule 1 capsule, By Mouth, 2 times a day, # 60 capsule, 2 Refills, Maintenance, 12/03/22 14:31:00 EDT, [facility] # [facility], 162, cm, 12/03/22 10:51:00 EDT, Height, 102, kg, 05/21/22 10:37:00 EDT, Dry Weight Start Date: 12/03/22 Status: Ordered Estrace Vaginal Cream 0.1 mg/g See Instructions, 1 gram Vaginally at bedtime twice per week, # 42 Gm, 4 Refills, Maintenance, 10/08/22 11:23:00 EDT, [facility] # [facility], Partial fill upon patient request if the prescription is fora schedule II opioid drug., 162, cm, 09/24/22 12:5... Start Date: 10/08/22 Status: Ordered gabapentin 600 mg oral tablet 1 tablet, By Mouth, 3 times a day, # 270 tablet, 1 Refills, Maintenance, 02/15/23 4:49:00 EST, [facility] # [facility], 162, cm, 02/01/23 14:01:00 EST, Height, 102, kg, 05/21/22 10:37:00 EDT, Dry Weight Start Date: 02/15/23 Status: Ordered lidocaine-prilocaine 2.5%-2.5% topical cream 1 application, Topically, Once, # 30 Gm, 1 Refills, Soft Stop, 10/04/22 16:32:00 EDT, Cream, [facility] # [facility], [...] 12/18/22 16:21:00 EDT, Route to Pharmacy Electronically, [facility], 162, cm, 12/03/22 10:51:00 EDT, Height, 102, kg, 05/21/22 10:37:00 EDT, Dry Weight Start Date: 12/18/22 Status: Ordered Myrbetriq 50 mg oral tablet, extended release 1 tablet = 50 mg, By Mouth, Daily, # 90 tablet, 3 Refills, Maintenance, 10/08/22 11:21:00 EDT, [facility] # [facility], 162, cm, 09/24/22 12:53:00 EDT, Height, 102, kg, 05/21/22 10:37:00 EDT, Dry Weight Start Date: 10/08/22 Status: Ordered ohm Allergy Relief 10 mg oral tablet See Instructions, TAKE 1 TABLET BY MOUTH EVERY DAY, # 90 tablet, 1 Refills, Maintenance, 01/24/23 10:25:00 EST, [facility] # [facility], 162, cm, 12/03/22 10:51:00 EDT, Height, 102, kg, 05/21/22 10:37:00EDT, Dry Weight Start Date: 01/24/23 Status: Ordered traZODone 50 mg oral tablet 50 mg, 1, tablet, By Mouth, Daily at bedtime, # 90 tablet, Refills 1, Tot. Refills 1, Maintenance, 01/25/23 0:37:00 EST, Route to Pharmacy Electronically, [facility] [...] 06/25/22 9:11:00 EDT, Route to Pharmacy Electronically, [facility] [...] Member Role: Primary Care Nurse Address: Address: [address] [place] [address] [place] [address]- Name: Jarred Merritt DO Position: [facility] Physician - Primary Care Member Role: PCP Address: Address: [address] [place] [address] [place] [address]- Care Team Related Persons Name: LEWIS BALLESTEROS Address: home [address] [place] [address] Name: RUSTY HOOVER Address: [place] [address]
--- OUTSIDE RECORDS SUMMARY | 2023-04-05 18:33 | XMS_ITS | Continuity of Care Document ---
Author Name Unknown Organization [facility] Address [address], [address] [place] [address]- Care Team Providers Care Police Clerk Name Role Phone Rafiq Arteaga Primary Care Physi kateryna [facility]counter [facility] Date(s): 10/02/22 - 11/07/22 [facility] [address], [address] [place] [address]- Attending Physician: Not on Staff, Attending MD Referring Physician: Vinny BERNAL, Zonia Unger Allergies, Adverse Reactions, Alerts Substance Reaction Severity [...] 14:38:00 EST, [place], Route to Pharmacy Electronically, [id number], [facility], I... Start [...] 0 Refills, Maintenance, 04/23/22 11:16:00 EST, Tablet, [facility], Partial fill upon patient request if the pr... Start Date: 04/23/22 Status: Ordered azelastine 137 mcg/inh (0.1%) nasal spray 2 sprays, Nares, Both, Daily, PRN Other Allergies, # 30 mL, 6 Refills, Maintenance, 10/05/21 13:14:00 EDT, [place], [facility], 2 sprays Nares, Both Daily,PRN:Other Allergies, 163.5, cm, 08/21/21 13:35:00 EDT, Height Start Date: 10/05/21 Status: Ordered buPROPion 300 mg/24 hours (XL) oral tablet, extended release 1 tablet = 300 mg, By Mouth, Daily, # 90 tablet, 2 Refills, Maintenance, 06/25/22 9:06:00 EDT, ER Tablet, [facility], Partial fill upon patient request if the prescription is for a schedule II opioid drug., 162, cm, 06/25/22 8:34:00 EDT, [place]... Start Date: 06/25/22 Status: Ordered duloxetine 60 mg oral enteric coated capsule 1 capsule, By Mouth, 2 times a day, # 60 capsule, 5 Refills, 04/09/22 16:24:00 EST, [facility], 163.5, [...] Gm, 4 Refills, Maintenance, 10/08/22 11:23:00 EDT, [email or web address], Partial fill upon [...] tablet, 1 Refills, Maintenance, 08/14/22 12:36:00 EDT, [facility], 162, cm, 08/08/22 [...] [facility], 162, cm, 05/21/22 10:37:00 EDT, Height, 102, kg, 05/21/22 10:37:00 EDT, Dry W... Start Date: 06/04/22 Status: Ordered Myrbetriq 50 mg oral tablet, extended release 1 tablet = 50 mg, By Mouth, Daily, # 90 tablet, 3 Refills, Maintenance, 10/08/22 11:21:00 EDT, [facility] # [facility], 162, cm, 09/24/22 12:53:00 EDT, Height, 102, kg, 05/21/22 10:37:00 EDT, Dry Weight Start Date: 10/08/22 Status: Ordered ohm Allergy Relief 10 mg oral tablet See Instructions, TAKE 1 TABLET BY MOUTH EVERY DAY, # 90 tablet, 1 Refills, Maintenance, 06/25/22 9:15:00 EDT, [facility] # [facility], 162, cm, [...] [facility], 162, cm, [...] 06/25/22 9:11:00 EDT, Route to Pharmacy Electronically, [facility], Partial fill upon patient [...] capsule, 3 Refills, Maintenance, 06/25/22 9:06:00 EDT, [facility] # [facility], Partial fill upon patient [...] Team Personnel Name: Eleazar Rendon NP Position: [facility] PCO w/OE and EZ Script Member Role: Primary Care Nurse Address: Address: [address] [place] [address] [place] [address]- [place] Name: Rafiq Arteaga Position: [facility] PCO Associate Professional Member Role: PCP Address: Address: [address] [place] [address]- Care Team Related Persons Name: LEWIS BALLESTEROS Address: home [address] [place] [id number] Name: RUSTY HOOVER
--- OUTSIDE RECORDS SUMMARY | 2023-04-05 18:33 | XMS_ITS | Continuity of Care Document ---
Author Name Unknown Organization [facility] Oskar May Kayode lt Address [address] [place] [address]- Care Team Providers Care Senior Enlisted Advisor Name Role Phone Rafiq Arteaga Primary Care Physi kateryna [facility]counter [facility] Date(s): 10/04/22 - 11/03/22 [facility] Adult [address] [place] [address]- Allergies, Adverse Reactions, Alerts Substance Reaction Severity [...] 14:38:00 EST, [place], Route to Pharmacy Electronically, [id number], [facility] # [facility], I... Start Date: [...] Maintenance, 04/23/22 11:16:00 EST, Tablet, [facility] # [facility], Partial fill upon patient request if the pr... Start Date: 04/23/22 Status: Ordered azelastine 137 mcg/inh (0.1%) nasal spray 2 sprays, Nares, Both, Daily, PRN Other Allergies, # 30 mL, 6 Refills, Maintenance, 10/05/21 13:14:00 EDT, [place], [facility] # [facility], 2 sprays Nares, Both Daily,PRN:Other Allergies, 163.5, cm, 08/21/21 13:35:00 EDT, Height Start Date: 10/05/21 Status: Ordered buPROPion 300 mg/24 hours (XL) oral tablet, extended release 1 tablet = 300 mg, By Mouth, Daily, # 90 tablet, 2 Refills, Maintenance, 06/25/22 9:06:00 EDT, ER Tablet, [facility] # [...] Gm, 4 Refills, Maintenance, 10/08/22 11:23:00 EDT, [facility] # [facility], Partial fill upon patient [...] tablet, 1 Refills, Maintenance, 08/14/22 12:36:00 EDT, [facility] # [facility], 162, cm, 08/08/22 11:26:00 EDT, Height, 102, kg, 05/21/22 10:37:00 EDT, Dry Weight Start Date: 08/14/22 Status: Ordered lidocaine-prilocaine 2.5%-2.5% topical cream 1 application, Topically, Once, # 30 Gm, 1 Refills, Soft Stop, 10/04/22 16:32:00 EDT, Cream, [facility] # [facility], Partial fill upon patient [...] [facility], 162, cm, 05/21/22 10:37:00 EDT, Height, 102, kg, 05/21/22 10:37:00 EDT, Dry W... Start Date: 06/04/22 Status: Ordered Myrbetriq 50 mg oral tablet, extended release 1 tablet = 50 mg, By Mouth, Daily, # 90 tablet, 3 Refills, Maintenance, 10/08/22 11:21:00 EDT, [facility] # [facility], 162, cm, 09/24/22 12:53:00 EDT, Height, 102, kg, 05/21/22 10:37:00 EDT, Dry Weight Start Date: 10/08/22 Status: Ordered ohm Allergy Relief 10 mg oral tablet See Instructions, TAKE 1 TABLET BY MOUTH EVERY DAY, # 90 tablet, 1 Refills, Maintenance, 06/25/22 9:15:00 EDT, [facility], 162, cm, 06/25/22 [...] [facility], 162, cm, 06/25/22 [...] 06/25/22 9:11:00 EDT, Route to Pharmacy Electronically, [email or web address], Partial fill upon [...] Refills, Maintenance, 06/25/22 9:06:00 EDT, [facility] [...] Member Role: Primary Care Nurse Address: Address: [address] [place] [address] [place] [address]- Name: Rafiq Arteaga Position: [facility] PCO Associate Professional Member Role: PCP Address: Address: [address] [facility] [place] [address]- Care Team Related Persons Name: LEWIS BALLESTEROS Address: home [address] [place] [id number] Name: RUSTY HOOVER
--- OUTSIDE RECORDS SUMMARY | 2023-04-05 18:33 | XMS_ITS | Continuity of Care Document ---
Author Name Unknown Organization [facility] Address [address] [place] [address]- Care Team Providers Care Executive Assistant Name Role Phone Jarred Merritt DO Primary Care Physician [place] [facility] [place] [id number] Date(s): 11/29/22 - 03/29/23 [facility] [address] [place] [id number] Attending Physician: Giacomo Noe MD Admitting Physician: [...] 17:08:00 EST, [place], Route to Pharmacy Electronically, [id number], [facility] #... Start Date: 02/08/23 Status: Ordered [...] 0 Refills, Maintenance, 04/23/22 11:16:00 EST, Tablet, [facility], Partial fill upon patient request if the pr... Start Date: 04/23/22 Status: Ordered azelastine 137 mcg/inh (0.1%) nasal spray 2 sprays, Nares, Both, Daily, PRN Other Allergies, # 30 mL, 6 Refills, Maintenance, 12/13/22 8:21:00 EDT, [place], [facility], 2 sprays Nares, Both Daily,PRN:Other Allergies, 162, cm, 12/03/22 10:51:00 EDT, Height, 102, kg, 05/21/22 10:37:0... Start Date: 12/13/22 Status: Ordered buPROPion 300 mg/24 hours (XL) oral tablet, extended release 1 tablet = 300 mg, By Mouth, Daily, # 90 tablet, 2 Refills, Maintenance, 06/25/22 9:06:00 EDT, ER Tablet, [facility], Partial fill upon patient request if the prescription is for a schedule II opioid drug., 162, cm, 06/25/22 8:34:00 EDT, [place]... Start Date: 06/25/22 Status: Ordered duloxetine 60 mg oral enteric coated capsule 1 capsule, By Mouth, 2 times a day, # 60 capsule, 2 Refills, Maintenance, 12/03/22 14:31:00 EDT, [facility] # [facility], 162, cm, 12/03/22 10:51:00 EDT, Height, 102, kg, 05/21/22 10:37:00 EDT, Dry Weight Start Date: 12/03/22 Status: Ordered Estrace Vaginal Cream 0.1 mg/g See Instructions, 1 gram Vaginally at bedtime twice per week, # 42 Gm, 4 Refills, Maintenance, 10/08/22 11:23:00 EDT, [facility] # [facility], Partial fill upon patient request if the prescription is fora schedule II opioid drug., 162, cm, 09/24/22 12:5... Start Date: 10/08/22 Status: Ordered gabapentin 600 mg oral tablet 1 tablet, By Mouth, 3 times a day, # 270 tablet, 1 Refills, Maintenance, 02/15/23 4:49:00 EST, [facility], 162, cm, 02/01/23 14:01:00 EST, Height, 102, kg, 05/21/22 10:37:00 EDT, Dry Weight Start Date: 02/15/23 Status: Ordered lidocaine-prilocaine 2.5%-2.5% topical cream 1 application, Topically, Once, # 30 Gm, 1 Refills, Soft Stop, 10/04/22 16:32:00 EDT, Cream, [facility] # [...] [facility], 162, cm, 12/03/22 10:51:00 EDT, Height, 102, kg, 05/21/22 10:37:00 EDT, Dry Weight Start Date: 12/18/22 Status: Ordered Myrbetriq 50 mg oral tablet, extended release 1 tablet = 50 mg, By Mouth, Daily, # 90 tablet, 3 Refills, Maintenance, 10/08/22 11:21:00 EDT, [facility], 162, cm, 09/24/22 12:53:00 EDT, Height, 102, kg, 05/21/22 10:37:00 EDT, Dry Weight Start Date: 10/08/22 Status: Ordered ohm Allergy Relief 10 mg oral tablet See Instructions, TAKE 1 TABLET BY MOUTH EVERY DAY, # 90 tablet, 1 Refills, Maintenance, 01/24/23 10:25:00 EST, [facility], 162, cm, 12/03/22 [...] Member Role: Primary Care Nurse Address: Address: [address] [place] [address] [place] [address]- Name: Jarred Merritt DO Position: [facility] Physician - Primary Care Member Role: PCP Address: Address: [address] [facility] [place] [address]- Care Team Related Persons Name: LEWIS BALLESTEROS Address: home [address] [place] [id number] Name: RUSTY HOOVER Address: [place] [address]
[2023-04-05] MEDS: iohexoL 350 MG/ML 100 ML INFUS..BTL IV (19:16)
[2023-04-05] MEDS: 0.9 % Sodium Chloride 1,000 ML 999 ML IV (19:25)
[2023-04-05 20:12] VITALS: BP 137/85; PULSE 74; RESP 20; TEMP 36.7; O2SAT 96
== END 2023-04-05 22:22 | disposition home or self-care (01) ==
PROVIDERS: Nurse Practitioner Family; Emergency Provider Student in an Organized Health Care Education/Training Program
DX: R10.84 Generalized abdominal pain (principal); K59.00 Constipation, unspecified; Z11.52 Encounter for screening for COVID-19
CPT/HCPCS: 36415; 71046; 74177; 80053; 83690; 85025; 87502; 87635; 96360; 99284; 99285; Q9967

== ENCOUNTER 2024-02-09 08:18 | Emergency (ER) | payer OTHER, SELFPAY ==
--- NOTE | ~2024-02-09 | CT_ITS ---
EXAMINATION: CT HEAD WITHOUT CONTRAST CT SOFT TISSUE NECK WITH CONTRAST CLINICAL INFORMATION: Headache for 7 weeks. Right neck swelling. COMPARISON: None available. TECHNIQUE: Contiguous axial imaging was performed from the skull base to vertex without intravenous administration of contrast. Multidetector helical imaging was performed in the axial plane following the administration of 60 mL of Omnipaque 350 intravenous contrast. Multiple axial reformats and coronal/sagittal reconstructions were created the technologist workstation for review. This CT examination was performed using dose optimization techniques as appropriate, variously including the following: *Automated exposure control. *Adjustment of mA and/or kV according to patient size (this includes techniques or standardized protocols for targeted exams where dose is matched to indication/reason for exam; i.e. extremities or head). *Use of iterative reconstruction technique. DLP: 1424 mGy-cm FINDINGS: Head: There is no evidence of acute intracranial hemorrhage or edematous territorial infarction. [place]-white matter differentiation is preserved. There is no abnormal attenuation within the brain parenchyma. The ventricles are normal in morphology and size. No evidence for obstructive hydrocephalus. The suprasellar cistern remains widely patent. Normal positioning of the cerebellar tonsils. No abnormal mass effect or midline shift. No extra-axial fluid collections. No acute soft tissue or osseous abnormalities. Mild mucosal thickening of the paranasal sinuses. Left-sided nee bullosa. Mild rightward nasal septal deviation. The mastoid air cells and middle ear cavities are clear. Neck: No significant cutaneous thickening or subcutaneous inflammation. No discrete fluid collection within the deep tissues of the neck. The premaxillary, retromaxillary, pterygopalatine fossa, orbital apical, parapharyngeal, and prelaryngeal adipose tissue is maintained. There is a heterogeneous lesion within the left thyroid lobe measuring up to 3.4 cm. Normal appearance of the parotid and the mandibular glands. There is a 1.4 cm right level IIa lymph node (within normal limits). Otherwise, scattered subcentimeter lymph nodes bilaterally, none of which are pathologically enlarged or abnormally enhancing. No demonstrated focal lesion or abnormal enhancement within the intrinsic tissues of the tongue or floor of mouth. Normal mucosal contours of the pharynx and larynx without abnormal enhancement. Normal appearance of the hyoid bone, thyroid cartilage, or cartilaginous trachea. The airways remains widely patent. No radiopaque foreign bodies. The atlantooccipital and atlantoaxial articulations remain well aligned. Straightening of the normal cervical lordosis. Minimal degenerative anterolisthesis of C2 on C3. No evidence of acute fracture or subluxation of the cervical spine. The vertebral body heights are maintained. Advanced degenerative disc disease at C4-C5. Moderate degenerative disc disease from C5-C7. Facet and uncovertebral joint arthropathy leads to osseous encroachment on the neural foramina from C2-C7. No evidence of epidural collection. There is no prevertebral soft tissue swelling. Normal opacification of the cervical arterial and venous structures. The visualized portion of the skull base is without significant abnormalities. The visualized paranasal sinuses are clear. The mastoid air cells and middle ear cavities are clear. No demonstrated significant periapical odontogenic disease. Upper Chest: The visualized lung apices and upper mediastinum are within normal limits. CT/CT soft tissue neck w IV con IMPRESSION: 1. No evidence of acute intracranial hemorrhage or edematous territorial infarction. 2. There is a 3.4 cm heterogeneous lesion within the left thyroid lobe. Recommend further characterization with thyroid ultrasound. 3. No demonstrated additional focal lesion, collection, pathologically enlarged lymphadenopathy, or abnormal enhancement within the soft tissues of the neck. 4. Moderate multilevel degenerative spondyloarthropathy of the cervical spine. Electronically signed by: Andrew Barber DO 02/09/2024 02:01 PM [facility]
--- OUTSIDE RECORDS SUMMARY | 2024-02-09 08:20 | XMS_ITS | Continuity of Care Document ---
Author Organization [facility] Kayode lt Address [address] [place] [address]- Care Team Providers Care Pharmacy Technician Inpatient Name Role Phone Jarred Merritt DO Primary Care Physician [phone] [facility]counter [facility] Date[facility]s): 12/13/23 - 01/12/24 [facility] Adult [address] [place] [address]- Encounter Type: Triage Allergies, Adverse Reactions, Alerts Substance Criticality Severity Reaction Reaction Severity Status Cats Active Dust Active Pollen Active Immunizations Given and Recorded Vaccine Date Status Refusal Reason pneumococcal 20-valent conjugate vaccine 1 09/23/23 Given tetanus/diphtheria/pertussis, acel(Tdap) 2 09/23/23 Given tetanus/diphtheria/pertussis, acel(Tdap) 11/01/10 Recorded SARS-CoV-2 (COVID-19) mRNA-1273 vaccine 07/27/21 R ecorded [...] 03/13/19 Recorded zoster vaccine, inactivated 12/19/18 Recorded pneumococcal 23-valent vaccine 11/01/10 Recorded 1Result Comment: PCV [address] [facility]#[id number] 2Result Comment: Tdap 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 Confirmed Active Excessive vitamin B12 intake Confirmed Active Excessive vitamin B6 intake Confirmed Active Rectocele, female Confirmed Active Right hip pain Confirmed Active Chronic hip pain Confirmed Active Mixded urinary Incontinence Confirmed Active Insomnia Confirmed Active Lumbosacral radiculopathy at L5 epidural Oct 2021 Confirmed Active Major depression in partial remission Confirmed Active Mixed hyperlipidemia Confirmed Active Moderate persistent asthma Confirmed Active MONICA (obstructive sleep apnea) AHI 9.2 Confirmed 08/07/20 Active Osteoarthritis of right hip Confirmed Active Osteopenia bmd 2020 Confirmed Active Physical exam Confirmed Active Peripheral neuropathy Confirmed Active Recurrent UTI Confirmed Active Sacroiliac dysfunction Confirmed Active Seasonal allergies Confirmed Active Severe obesity (BMI 35.0-39.9) with comorbidity Confirmed Active Vertigo Confirmed Active Social History Social History Type Response Smoking Status Never (less than 100 in lifetime) entered on: 11/21/18 Sex Sex Representation Female (finding) Patient Care team information Care Team Personnel Name: Jarred Merritt DO Position: [facility] Physician - Primary Care Member Role: PCP Address: [address] [place] [address] [place] [address]- Telecom: Care Team Related Persons Name: LEWIS BALLESTEROS Name: RICARDO BALLESTEROS Insurance Providers Guarantor name: JUAN FRANCISCOMi BALLESTEROS Health Plan Information #: 1 Payer: [employer] [place] Member Number: NA Policy Number: NA Group Number: NA
--- OUTSIDE RECORDS SUMMARY | 2024-02-09 08:20 | XMS_ITS | Data Portability ---
Author Organization [place] [facility] [address] Address [address] [place] [address] Assessment No assessment recorded. Plan of Treatment Reminders Order Date Submit Date Provider Last Modified By Organization Details Last Modified Time Details Appointments None recorded. Lab None recorded. Referral None recorded. Procedures None recorded. Surgeries None recorded. Imaging None recorded. Medication Orders prednisone 20 mg tablet 2023 024 [id number], [address] [place], [address], 19:42:58 Patient TargetsNo targets recorded. Patient Instructions Encounter Date Encounter Id Patient Instructions Last Modified By Organization Details Last Modified Time 03/26/2023 [id number] wheezing or bronchoconstricti on: care instructions Not available 03/26/2023 19:42:57 upper respirator y infection (cold): care instructions Not available 03/26/2023 19:43:27 Reason for Referral None Reported. Problems Name Problem SNOMED Code Status Onset Date Resolution Date Notes Provider Name and Address Organization Details Recorded Time Asthma 189399042 Active 024 MANUELITO MOSQUERA null, [place] - [facility] 4 19:25:22 Neuropathy 426812933 Active 024 MANUELITO MOSQUERA null, [place] - [facility] 4 19:25:31 Depressive disorder 39240892 Active 024 MANUELITO MOSQUERA null, [place] - [facility] 19:27:33 Problem Notes None recorded. Procedures Surgical History Date Name Laterality Status Provider Name and Address Organization Details Recorded Time cholecystectomy completed MANUELITO MOSQUERA [place] - [facility] 03/26/2023 19:30:27 partial hysterectomy completed MANUELITO MOSQUERA [place] - [facility] 03/26/2023 19:30:37 hysterectomy completed MANUELITO MOSQUERA [place] - [facility] 03/26/2023 19:30:58 procedure on back completed MANUELITO MOSQUERA [place] - [facility] 03/26/2023 19:31:11 Imaging Results None recorded. Procedure Notes None recorded. Medical Equipment None Reported. Allergies No known drug allergies Medications Name Sig Start Date Stop Date Status Note LastModified by Organization Details LastModified Time prednisone 20 mg tablet Take 2 tablets every day by oral route for 5 days. 2023 active Not Available Not Available Not Avai lable Advair Diskus 100 mcg-50 mcg/dose powder for inhalation Inhale 2 puffs twice a day by inhalation route. active Not Available Not Available No t Available trazodone 100 mg tablet Take 1 tablet every day by oral route at bedtime. active Not Available Not Available No t Available Flovent 110 mcg/actuatio n aerosol inhaler Inhale 1 puff twice a day by inhalation route. active Not Available Not Available No t Available duloxetine 60 mg capsule,kandis yed release Take 1 capsule twice a day by oral route. active Not Available Not Available No t Available montelukast daily active Not Available Not A vailable Not Available gabapentin 600 mg tid active Not Available No t Available Not Available bupropion HBr 60 mg bid active Not Available Not Available No t Available loratadine 10 mg capsule Take every day by oral route. active Not Available Not Available No t Available albuterol 90 mcg-budesoni de 80 mcg/actuatio n HFA aerosol inhaler Inhale by inhalation route. active Not Available Not Available No t Available Vitals Date Recorded Body height Body mass index (BMI) Body weight Respiratory rate Body temperature Oxygen saturation Oxygen saturation in Arterial blood by Pulse oximetry Heart rate Systolic blood pressure Diastolic blood pressure Provider Name and Address Organization Details Last Updated DateTime 4 162.56 cm 38.3 kg/m2 385118. 1 g 18 /min 97.3 [degF] 97 % 97 % 91 /min 100 mm[Hg] 69 mm[Hg] MANUELITO MOSQUERA [place] - [facility] 4 19:32:47 Social History Question Answer Notes LastModified by Organizat ion Details LastModified Time Tobacco Smoking Status Never Smoker YANE Cary - [facility] 03/26/2023 19:30:06 What Is Your Level Of Alcohol Consumption? None Information not available 03/26/2023 Do You Use Any Illicit Or Recreational Drugs? No [email or web address] Information not available 03/26/2023 Have You Recently Traveled Abroad? No [email or web address] Information not available 03/26/2023 Do You Or Have You Ever Used Any Other Forms Of Tobacco Or Nicotine? No [email or web address] Information not available 03/26/2023 Sex: Unknown Functional Status None recorded. Mental Status None recorded. Family History Relationship Description Onset Age of this Age Resolved Age Notes LastModified by Organization Details LastModified Time Father Malignant tumor of lung [email or web address] Not available 2023 19:28:27 Mother Dementia [email or web address] Not availabl e 03/26/2023 19:28:41 Mother Atrial fibrillation [email or web address] Not available 19:29:05 Sister Depressive disorder [email or web address] Not available 2023 19:28:50 Sister Atrial fibrillation Not available 19:29:05 Sister Dementia [email or web address] Not availabl e 03/26/2023 19:29:11 Sister Schizophreni a [email or web address] Not available 2023 19:29:42 Medical History No medical history recorded. Gynecological History Statement/Question Response Date of LMP Obstetrics History GPAL:G 0 P 0 0 0 0 Past Encounters Encounter ID Performer Location Encounter Start Date Encounter Closed Date Diagnosis/Indication Diagnosis SNOMED-CT Code Diagnosis ICD10 Code [id number] [address] [place] [address] 12/14/2021 08:38:54 12/14/2021 10:00:18 [id number] [address] [place] [address] 08/19/2021 09:31:14 08/19/2021 12:01:08 [id number] [address] [address] [place] [address] 05/25/2021 17:42:13 05/25/2021 19:38:29 [id number] [address] [facility] [place] [address] 02/10/2020 10:23:41 02/10/2020 13:27:45 [id number] YANE Beckman [address] [place] [address] 03/26/2023 18:34:00 03/26/2023 19:47:59 Exacerbation of moderate persistent asthma 694652497 J45.41 Upper resp iratory infection 03480983 J06.9 Health Concerns Section Related Observation LastModified by Organization Detai ls LastModified Time None Recorded Concern Status LastModified by Organization Details LastModified Time None Recorded Advance Directives Directive None Recorded Payers Encounter Date Sequence Insurance Name Policy Number Policy Mcclellan Covered Member ID Mcclellan Member ID Guarantor Name 02/10/2020 1 [facility] NET PLAN (MEDICAID HMO) [id number] Jhoana Rosalesnes [id number] Jhoana Aguilar 05/25/2021 1 [facility] PLAN (MEDICAID HMO) [id number] Jhoana Rosalesnes [id number] Jhoana Rosalesnes 08/19/2021 1 [facility] NET PLAN (MEDICAID HMO) [id number] Jhoana Nielsen Aguilar [id number] Jhoana Rosalesnes 12/14/2021 1 [facility] (MEDICAID HMO) [id number] Jhoana Rosalesnes [id number] Jhoana Aguilar 03/26/2023 1 [facility] (MEDICAID REPLACEMENT - HMO) [id number] Jhoana Aguilar [id number] Jhoana Aguilar Notes Date Note Type Note Provider Name and Address Organization Details Recorded Time 4 text/html CoughReported bypatient.source of patient informationInformation obtained from patient; Patient arrived at Urgent Care ambulatory Quality:intermittent; symptoms worse with lying down Severity:moderate Duration:intermittent Timing:improving Context:Patient denies vaping; non-smoker;history of asthma Associated Symptoms:no fever; no chills; no chest pain; no heartburn; no nausea; no vomiting; no edema; no agitation;wheezing;post nasal drip;can't get a deep breath YANE Beckman [address] [place], [address], [place] - [facility] 03/26/2023 19:45:58 OBGyn Episode No OBEpisode recorded.
--- OUTSIDE RECORDS SUMMARY | 2024-02-09 08:20 | XMS_ITS | Continuity of Care Document ---
Author Organization [facility] [address] Address [address] [place] [address]- Care Team Providers Care Pedorthist Name Role Phone Jarred Merritt DO Primary Care Physician Encounter [facility] Date(s): 12/19/23 - 01/18/24 [facility] Adult [address] [place] [address]- Encounter Type: Triage Allergies, Adverse Reactions, Alerts [...] vaccine 11/01/10 Recorded 1Result Comment: PCV 20 [facility]#[id number] 2Result Comment: Tdap [facility]#[id number] Problem List Condition Confirmation Course Effective Dates [...] Team Personnel Name: Jarred Merritt DO Position: [facility] Physician - Primary Care Member Role: PCP Address: [address] [place] [address] [place] [address]- Telecom: Care Team Related Persons Name: LEWIS BALLESTEROS Name: RICARDO BALLESTEROS Insurance Providers Guarantor name: JUAN FRANCISCOMi BALLESTEROS Health Plan Information #: 1 Payer: [employer] Member Number: NA Policy Number: NA Group Number: NA
--- OUTSIDE RECORDS SUMMARY | 2024-02-09 08:20 | XMS_ITS | Continuity of Care Document ---
Author Organization [facility] Ligia Villegas n's [facility] Address [address] [facility], [address] [place] [address]- Care Team Providers Care Quality Control Assessor Name Role Phone Jarred Merritt DO Primary Care Physician Encounter [facility] [place] [place] Date(s): 12/19/23 [facility] [address] [place] [address], [address] [place], [place] [address] Encounter Type: Triage Allergies, Adverse Reactions, Alerts [...] vaccine 11/01/10 Recorded 1Result Comment: PCV [address] [facility]#[id number] 2Result Comment: Tdap [facility]#[id number] Problem List Condition Confirmation Course Effective Dates [...] Team Personnel Name: Jarred Merritt DO Position: [facility] Physician - Primary Care Member Role: PCP Address: [address] [place] [address] [place] [address]- Telecom: Care Team Related Persons Name: LEWIS BALLESTEROS Name: RICARDO BALLESTEROS Insurance Providers Guarantor name: JUAN FRANCISCO BALLESTEROS Health Plan Information #: 1 Payer: [facility] Member Number: NA Policy Number: NA Group Number: NA
[2024-02-09 08:21] VITALS: BP 120/63; PULSE 94; RESP 18; TEMP 36.4; O2SAT 97; BMI 36.7
--- NOTE | 2024-02-09 09:29 | ED_ITS ---
HPI - General Adult General Chief complaint: General Medical Stated complaint: R side neck/head pain Time Seen by Provider: 02/09/24 09:07 Source: patient Mode of arrival: ambulatory Limitations: no limitations History of Present Illness ED Provider: Gabbi Lopez APRN HPI narrative: 63 year old female with a history of peripheral neuropathy, urinary incontinence, sleep apnea, depression, anxiety, asthma who presents the ER with 7 weeks of right-sided neck pain which radiates to the right side of her head with associated swelling. Patient has been taking Tylenol and Motrin with continued pain. Patient reports associated stiffness and weakness of her neck at times. She denies any radiation of pain in her arms. No associated numbness/tingling/weakness of her upper or lower extremities. No fevers or chills. She does have some urinary urge incontinence which is not new for her. No reports of bowel incontinence. No reports of urinary retention. Patient is ambulatory. She denies any known injury or trauma. Related Data Home Medications ?Medication ?Instructions ?Recorded ?Confirmed albuterol sulfate 90 mcg/actuation 2 puff inhalation Q6H PRN 12/11/19 06/01/20 aerosol inhaler (ProAir HFA) cholecalciferol (vitamin D3) 25 25 mcg PO DAILY 12/11/19 06/01/20 mcg (1,000 unit) capsule diclofenac potassium 25 mg capsule 25 mg PO QID 12/11/19 06/01/20 fluoxetine 20 mg capsule 20 mg PO DAILY 12/11/19 06/01/20 gabapentin 600 mg tablet 600 mg PO TID 12/11/19 06/01/20 lactulose 10 gram oral packet 20 g PO BID 12/11/19 06/01/20 lysine 500 mg tablet 500 mg PO DAILY 12/11/19 06/01/20 melatonin 10 mg capsule 10 mg PO BEDTIME PRN 12/11/19 06/01/20 mirabegron 50 mg tablet,extended 50 mg PO DAILY 12/11/19 06/01/20 release 24 hr (Myrbetriq) trazodone 50 mg tablet 50 mg PO BEDTIME PRN 12/11/19 06/01/20 Previous Rx's ?Medication ?Instructions ?Recorded doxycycline hyclate 100 mg capsule 100 mg PO BID cough 7 days #14 caps 11/04/22 docusate sodium 100 mg capsule 100 mg PO BID #20 caps 04/05/23 (Colace) polyethylene glycol 3350 17 17 g PO DAILY #510 grams 04/05/23 gram/dose oral powder (Miralax) cyclobenzaprine 10 mg tablet 10 mg PO TID PRN muscle spasm #15 02/09/24 tabs prednisone 20 mg tablet 40 mg (2 x 20 mg) PO DAILY #10 tabs 02/09/24 Allergies Allergy/AdvReac Type Severity Reaction Status Date / Time No Known Allergies Allergy Verified 02/09/24 08:22 Review of Systems 2 Review of Systems: Yes all other systems are reviewed and are negative Constitutional: Constitutional: Reports no additional constitutional complaints, Denies body ache(s), Denies chills, Denies fever(s), Denies headache(s) and Denies weakness Eyes: Eyes: Reports no additional eye complaints and Denies change in vision ENT: Reports system reviewed and no additional complaints, except as documented, Denies dizziness, Denies headache(s), Denies nasal congestion, Denies nasal discharge and Reports neck pain Cardiovascular: Cardiovascular: Reports no additional cardiovascular complaints, Denies chest pain, Denies leg edema and Denies dyspnea Respiratory: Respiratory: Reports no additional respiratory complaints, Denies cough and Denies dyspnea Gastrointestinal: Gastrointestinal: Reports no additional gastrointestinal complaints, Denies abdominal pain, Denies diarrhea, Denies nausea and Denies vomiting Genitourinary: Genitourinary: Reports no additional female genitourinary complaints and Denies urinary incontinence Musculoskeletal: Musculoskeletal: Reports no additional musculoskeletal complaints, Denies back pain, Denies arthralgias, Denies joint swelling, Reports neck pain, Denies numbness and Denies tingling Integumentary/Breasts: Skin/Breast: Reports system reviewed and no additional complaints, except as docu and Denies rash Neurologic: Reports system reviewed and no additional complaints, except as documented, Denies Abnormal speech present, Denies dizziness, Denies headache(s), Denies numbness, Denies tingling and Denies weakness PMFSH Past Medical History Attestation statement: The following information was validated with the patient. Source: old records reviewed and nursing notes reviewed Medical History Vaginal prolapse Insomnia Peripheral neuropathy Urinary incontinence Obstructive sleep apnea Carpal tunnel syndrome Depression Anxiety Asthma Surgical History History of total abdominal hysterectomy Hx laparoscopic cholecystectomy Family History Family History Father Lung cancer Mother Diabetes mellitus Son No problems noted. Daughter No problems noted. Daughter Spinal cerebrospinal fluid leak, spontaneous Brother No problems noted. Sister No problems noted. Sister No problems noted. Sister No problems noted. Sister Heart disease Social History Social History Alcohol intake: never Advance Directives: No Advance Directives Information Provided: Yes Do you have a plan to hurt others: No Plan Physical Exam ED Vital Signs: Vital Signs - 24 hr 02/09/24 08:21 Temperature 97.5 F Pulse Rate 94 Respiratory Rate 18 Blood Pressure 120/63 Pulse Oximetry 97 Oxygen Delivery Method Room Air BMI result Body Mass Index 36.7 Const General: cooperative, healthy appearing, comfortable and no acute distress Orientation/consciousness: patient oriented x3 Limitations: no limitations HENMT Head: Yes normal to inspection Ears: hearing grossly normal bilaterally and TM's normal bilaterally General nose exam: Normal external nose present Face and sinus: Yes normal facial exam Mouth: Normal oral and palatal mucosa present Throat: Yes posterior oropharynx normal, Yes tonsils normal and Yes uvula midline Eyes General: appearance normal, both eyes and all related structures Pupils: Equal, round and reactive pupils present Neck Other: Pain is worsened with lateral rotation, flexion/hyperextension of the cervical spine No cervical midline tenderness/step offs or deformities +spurling +swelling in the right paraspinal/soft tissue. No thrill or bruit. Pain with compression Neck: Yes normal visual inspection, Yes no lymphadenopathy and Yes no meningeal signs Chest Chest palpation & inspection: normal inspection of the chest Resp Effort & Inspection: normal respiratory effort Auscultation: clear to auscultation bilaterally Cardio Rate: regular rate Rhythm: regular rhythm Peripheral pulses: Peripheral pulses 2+ throughout GI Inspection: Yes normal to inspection Palpation (GI): Soft to palpation and nontender Auscultation: normal bowel sounds Back/Spine/Pelvis Thoracic/Lumbar Spine: thoracic and lumbar spine normal to inspection Skin General skin exam: no rashes or lesions noted Neuro General: patient oriented x3, moves all extremities, no meningeal signs, no focal motor deficits and normal sensation to monofilament Cranial nerves: Yes CN's II-XII intact bilaterally, Yes Equal, round and reactive pupils present, Yes Bilaterally intact EOM present, Yes Nystagmus not present, Yes Normal facial strength present and Yes Midline tongue present Cognition (Neuro): normal cognition Speech: No Abnormal speech present Gait exam (Neuro): Normal gait present Motor exam (neuro): 5/5 motor strength present throughout Sensory Exam: Normal double simultaneous stimulation for sensation Extrem General: Yes normal to inspection Course Course Course Narrative: CT scan shows degenerative changes in the cervical spine. CT head is negative. Incidental finding of a left thyroid lesion with recommendations for outpatient thyroid ultrasound. Reviewed findings with patient. Patient likely has muscle spasm. Will discharge her home with recommendations to continue [id number] medications and will add prednisone and muscle relaxant. Reviewed worrisome signs and symptoms of when to return to the emergency room. Comfortable plan for discharge home Medications Administered Discontinued Medications Generic Name Dose Route Start Last Admin Trade Name Yumiko PRN Reason Stop Dose Admin Iohexol 100 ml 02/09/24 11:19 02/09/24 11:20 Iohexol 350 Mg/Ml 100 Ml Infus..Btl IV 02/09/24 11:20 60 ml ONCE ONE Administration Ketorolac Tromethamine 15 mg 02/09/24 09:30 02/09/24 09:41 Ketorolac Tromethamine 15 Mg/Ml Vial IVPUSH 02/09/24 09:31 15 mg ONCE ONE Administration Medical Decision Making Medical Decision Making [facility] Narrative: 63-year-old female here with atraumatic right-sided neck pain/swelling with radiation to the head per 7 weeks. Normal neuro with no focal deficits No lymphadenopathy or meningeal signs. No cervical step-offs or deformities. There is a palpable area of swelling which elicits pain on compression. This is noted to the right paraspinal and soft tissue of the cervical spine. Limited range of motion of cervical spine due to pain Will obtain CT head, CT soft tissue which will include C2 cervical spine. Will obtain labs, provide analgesia Differential Diagnosis Differential Diagnoses: The differential diagnosis associated with the presentation includes Low suspicion for cord compression, cauda equina, epidural abscess-with no red flag symptoms or neurological deficits or risk factors suggestive for same Consider arthritis, DJD, herniated disc, cervical radiculopathy, muscle spasm Low suspicion for temporal arteritis, pseudotumor cerebri, ICH, meningitis, encephalitis, space-occupying lesion, malignancy Admission/Observation Consideration of admission/observation: Escalation of care including admission/observation considered No neurological findings or deficits to suggest need for emergent MRI, neurosurgery consultation and or transfer or admission Lab Data MDM Lab Attestation statement: I reviewed the patient's lab results. 02/09/24 09:38 02/09/24 09:38 Labs: Lab Results 02/09/24 Range/Units 09:38 WBC 6.6 (4.8-10.8) X10*3/uL RBC 4.47 (4.20-5.50) X10*6/uL Hgb 13.6 (12.0-16.0) g/dl Hct 40.8 (37.0-47.0) % MCV 91.3 (80.0-98.0) fL MCH 30.4 (27.0-33.0) pg MCHC 33.3 (31.0-35.0) g/dl RDW 13.0 (11.0-16.0) % Plt Count 291 (160-400) X10*3/uL MPV 9.1 L (9.4-12.3) fL Immature Gran % (Auto) 0.3 (0.0-0.4) % Neut % (Auto) 69.1 (45-73) % Lymph % (Auto) 20.2 (20-40) % Ada % (Auto) 6.5 (2-11) % Eos % (Auto) 3.3 (0-4) % Baso % (Auto) 0.6 (0-2) % Lymph # (Auto) 1.3 (1.2-4.9) X10*3/uL Ada # (Auto) 0.4 (0.1-1.2) X10*3/uL Eos # (Auto) 0.2 (0.0-0.4) X10*3/uL Baso # (Auto) 0.0 (0.0-0.2) X10*3/uL Abs Immat Gran (auto) 0.02 (0.00-0.03) X10*3/uL Absolute Neuts (auto) 4.5 (2.0-8.3) x10*3/uL Absolute Nucleated RBC 0.000 (0.0-0.012) X10*3/uL Nucleated RBC % (auto) 0.0 (0.0-0.2) /100WBC ESR 17 (0-20) MM/HR Sodium 141 (135-145) mmol/L Potassium 4.2 (3.3-5.1) mmol/L Chloride 106 (96-108) mmol/L Carbon Dioxide 28 (22-29) mmol/L Anion Gap 11 L (12-20) BUN 18 H (9-16) mg/dL Creatinine 0.87 (0.5-1.4) mg/dL Estim Creat Clear Calc 75.7 Estimated GFR > 60 Random Glucose 88 (60-115) mg/dL Calcium 9.6 D (8.4-10.2) mg/dL Total Bilirubin 0.4 (0.0-1.0) mg/dL Direct Bilirubin 0.1 (0.0-0.5) mg/dL AST 26 (5-31) U/L ALT 26 (0-31) U/L Alkaline Phosphatase 65 (39-117) U/L C-Reactive Protein 0.86 H (< or = 0.50) mg/dL Total Protein 7.1 (6.5-8.0) g/dL Albumin 4.2 (3.5-5.0) g/dL Independent Interpretation I performed an independent interpretation of an: CT Scan Interpretation: I independently viewed the CT scan agree with the radiology report Radiology Impression Discussion of test interpretation with radiology: I have reviewed the radiologist's reading. Radiologist Impression: [place] [id number] CT Scan Report Signed Patient: Jhoana Aguilar MR#: [id number] : 1960 Acct:[id number] Age/Sex: 63 / F ADM Date: 02/09/24 Loc: .ED Attending Dr: Ordering Physician: Gabbi Lopez NP Date of Service: 02/09/24 Procedure(s): CT soft tissue neck w IV con Accession Number(s): [id number] cc: Gabbi Lopez NP; Jarred Merritt DO~ EXAMINATION: CT HEAD WITHOUT CONTRAST CT SOFT TISSUE NECK WITH CONTRAST CLINICAL INFORMATION: Headache for 7 weeks. Right neck swelling. COMPARISON: None available. TECHNIQUE: Contiguous axial imaging was performed from the skull base to vertex without intravenous administration of contrast. Multidetector helical imaging was performed in the axial plane following the administration of 60 mL of Omnipaque 350 intravenous contrast. Multiple axial reformats and coronal/sagittal reconstructions were created the technologist workstation for review. This CT examination was performed using dose optimization techniques as appropriate, variously including the following: *Automated exposure control. *Adjustment of mA and/or kV according to patient size (this includes techniques or standardized protocols for targeted exams where dose is matched to indication/reason for exam; i.e. extremities or head). *Use of iterative reconstruction technique. DLP: 1424 mGy-cm FINDINGS: Head: There is no evidence of acute intracranial hemorrhage or edematous territorial infarction. [place]-white matter differentiation is preserved. There is no abnormal attenuation within the brain parenchyma. The ventricles are normal in morphology and size. No evidence for obstructive hydrocephalus. The suprasellar cistern remains widely patent. Normal positioning of the cerebellar tonsils. No abnormal mass effect or midline shift. No extra-axial fluid collections. No acute soft tissue or osseous abnormalities. Mild mucosal thickening of the paranasal sinuses. Left-sided ene bullosa. Mild rightward nasal septal deviation. The mastoid air cells and middle ear cavities are clear. Neck: No significant cutaneous thickening or subcutaneous inflammation. No discrete fluid collection within the deep tissues of the neck. The premaxillary, retromaxillary, pterygopalatine fossa, orbital apical, parapharyngeal, and prelaryngeal adipose tissue is maintained. There is a heterogeneous lesion within the left thyroid lobe measuring up to 3.4 cm. Normal appearance of the parotid and the mandibular glands. There is a 1.4 cm right level IIa lymph node (within normal limits). Otherwise, scattered subcentimeter lymph nodes bilaterally, none of which are pathologically enlarged or abnormally enhancing. No demonstrated focal lesion or abnormal enhancement within the intrinsic tissues of the tongue or floor of mouth. Normal mucosal contours of the pharynx and larynx without abnormal enhancement. Normal appearance of the hyoid bone, thyroid cartilage, or cartilaginous trachea. The airways remains widely patent. No radiopaque foreign bodies. The atlantooccipital and atlantoaxial articulations remain well aligned. Straightening of the normal cervical lordosis. Minimal degenerative anterolisthesis of C2 on C3. No evidence of acute fracture or subluxation of the cervical spine. The vertebral body heights are maintained. Advanced degenerative disc disease at C4-C5. Moderate degenerative disc disease from C5-C7. Facet and uncovertebral joint arthropathy leads to osseous encroachment on the neural foramina from C2-C7. No evidence of epidural collection. There is no prevertebral soft tissue swelling. Normal opacification of the cervical arterial and venous structures. The visualized portion of the skull base is without significant abnormalities. The visualized paranasal sinuses are clear. The mastoid air cells and middle ear cavities are clear. No demonstrated significant periapical odontogenic disease. Upper Chest: The visualized lung apices and upper mediastinum are within normal limits. CT/CT soft tissue neck w IV con IMPRESSION: 1. No evidence of acute intracranial hemorrhage or edematous territorial infarction. 2. There is a 3.4 cm heterogeneous lesion within the left thyroid lobe. Recommend further characterization with thyroid ultrasound. 3. No demonstrated additional focal lesion, collection, pathologically enlarged lymphadenopathy, or abnormal enhancement within the soft tissues of the neck. 4. Moderate multilevel degenerative spondyloarthropathy of the cervical spine. Electronically signed by: Andrew Barber DO 02/09/2024 02:01 PM [facility] [place] [place] Tests considered The following testing was considered but not selected: No neurological deficits or red flag symptoms to suggest need for emergent MRI Prescription Management I considered prescription management with: Pain Medication Discharge Plan Discharge Clinical Impression: Acute torticollis Patient Disposition: Home, Self-Care Instructions: Neck Pain (ED) Additional Instructions: Your CT scan shows degenerative changes that are consistent with arthritis that are seen in age You do have an incidental finding of a thyroid nodule. The radiologist recommends that you follow-up with an outpatient thyroid ultrasound. This will be ordered by your primary care doctor. Apply heat to the area. Gentle stretching. You may continue Motrin/Tylenol as needed For continued symptoms we do recommend following up with your primary care doctor as you may need to have additional imaging such as an MRI Return to the emergency room for weakness, fever >100.4 or progressive/worsening symptoms Prescriptions: New prednisone 20 mg tablet 40 mg PO DAILY Qty: 10 0RF cyclobenzaprine 10 mg tablet 10 mg PO TID PRN (Reason: muscle spasm) Qty: 15 0RF No Action doxycycline hyclate 100 mg capsule 100 mg PO BID 7 Days Qty: 14 0RF docusate sodium [Colace] 100 mg capsule 100 mg PO BID Qty: 20 0RF polyethylene glycol 3350 [Miralax] 17 gram/dose powder 17 g PO DAILY Qty: 510 0RF Rx Instructions: One scoop in 8 oz of water. gabapentin 600 mg tablet 600 mg PO TID fluoxetine 20 mg capsule 20 mg PO DAILY diclofenac potassium 25 mg capsule 25 mg PO QID trazodone 50 mg tablet 50 mg PO BEDTIME PRN Myrbetriq 50 mg tablet extended release 24 hr 50 mg PO DAILY melatonin 10 mg capsule 10 mg PO BEDTIME PRN lactulose 10 gram packet 20 g PO BID albuterol sulfate [ProAir HFA] 90 mcg/actuation HFA aerosol inhaler 2 puff inhalation Q6H PRN lysine 500 mg tablet 500 mg PO DAILY cholecalciferol (vitamin D3) 25 mcg (1,000 unit) capsule 25 mcg PO DAILY Referrals: Jarred Merritt DO [Primary Care Provider] - 1 week (for continued symptoms ) Print Language: Malawian
[2024-02-09] MEDS: Ketorolac Tromethamine 15 MG/ML VIAL IVPUSH (09:41)
[2024-02-09 09:42] LABS: MANUAL DIFF FLAG NO
[2024-02-09 09:44] LABS: Basophils Percent Auto 0.6 % (0-2); Eosinophils Absolute Auto 0.2 X10*3/uL (0.0-0.4); Eosinophils Percent Auto 3.3 % (0-4); Hematocrit 40.8 % (37.0-47.0); Hemoglobin 13.6 g/dl (12.0-16.0); Imm Gran Abs Auto 0.02 X10*3/uL (0.00-0.03); Imm Gran Pct Auto 0.3 % (0.0-0.4); Lymphocytes Absolute Auto 1.3 X10*3/uL (1.2-4.9); Lymphocytes Percent Auto 20.2 % (20-40); Mean Corpuscular HGB Conc 33.3 g/dl (31.0-35.0); Mean Corpuscular Hemoglobin 30.4 pg (27.0-33.0); Mean Corpuscular Volume 91.3 fL (80.0-98.0); Mean Platelet Volume 9.1 fL (9.4-12.3); Monocytes Absolute Auto 0.4 X10*3/uL (0.1-1.2); Monocytes Percent Auto 6.5 % (2-11); Neutrophils Absolute Auto 4.5 x10*3/uL (2.0-8.3); Neutrophils Percent Auto 69.1 % (45-73); Platelet Count 291 X10*3/uL (160-400); Red Blood Count 4.47 X10*6/uL (4.20-5.50); White Blood Count 6.6 X10*3/uL (4.8-10.8)
[2024-02-09 09:57] LABS: Alanine Aminotransferase 26 U/L (0-31); Albumin Level 4.2 g/dL (3.5-5.0); Alkaline Phosphatase 65 U/L (39-117); Anion Gap 11 (12-20); Aspartate Amino Transferase 26 U/L (5-31); Bilirubin Direct 0.1 mg/dL (0.0-0.5); Bilirubin Total 0.4 mg/dL (0.0-1.0); Blood Urea Nitrogen 18 mg/dL (9-16); C Reactive Protein 0.86 mg/dL (< or = 0.50); Calcium 9.6 mg/dL (8.4-10.2); Carbon Dioxide 28 mmol/L (22-29); Chloride 106 mmol/L (96-108); Creatinine Clr Calc Pharmacy 75.7; Estimated Glomerular Filt Rate > 60; Glucose Random 88 mg/dL (60-115); Potassium 4.2 mmol/L (3.3-5.1); Sodium 141 mmol/L (135-145); Total Protein 7.1 g/dL (6.5-8.0)
[2024-02-09 10:23] LABS: Erythrocyte Sedimentation Rate 17 MM/HR (0-20)
[2024-02-09] MEDS: iohexoL 350 MG/ML 100 ML INFUS..BTL IV (11:20)
[2024-02-09 14:20] VITALS: BP 111/93; PULSE 81; RESP 18; TEMP 36.4; O2SAT 98
== END 2024-02-09 14:21 | disposition home or self-care (01) ==
PROVIDERS: Nurse Practitioner Family; Emergency Provider Emergency Medicine; PCP Family Medicine
DX: M43.6 Torticollis (principal); M54.2 Cervicalgia; R51.9 Headache, unspecified; Z79.899 Other long term (current) drug therapy
CPT/HCPCS: 36415; 70450; 70491; 80048; 80076; 85025; 85652; 86140; 96374; 99283; 99284; J1885; Q9967